=== PATIENT | male | born 1945 | race Caucasian/White ===

== ENCOUNTER 2017-10-13 13:39 | Inpatient (IN) ==
[~2017-10-13 13:39] MED LIST: Glycopyrrolate Inj 1 MG/5 ML Syringe IV.PUSH ONE; Lidocaine PF 1% Inj 5 ML Syringe INFILTRATN ONE; Neostigmine Inj 5 MG/5 ML Syringe IV.PUSH ONE
[2017-10-13] MEDS ORDERED: Chlorhexidine Gluconate 2% 1 Pack (2 Cloths) TOPICAL SCH (14:30)
[2017-10-13] MEDS ORDERED: Metoprolol Tartrate 25 MG Tablet PO SCH (14:30)
[2017-10-13] MEDS ORDERED: Sodium Chlor 0.9% Inj 500 ML IV.SIG SCH (15:00)
[2017-10-13] MEDS ORDERED: Ampicillin/Sulbactam Inj 3 GM in Sodium Chloride 0.9% Inj 100 ML IV.SIG ONE (17:00)
[2017-10-13] MEDS ORDERED: fentaNYL Citrate Inj 100 MCG/2 ML Ampul ONE (17:09)
--- NOTE | 2017-10-13 18:25 | FL ---
EXAM DATE: 10/13/2017 6:13 PM EDT AGE/SEX: 71 years / Male INDICATIONS: Pancreatic mass. CLINICAL DATA: This is the patient's initial encounter. Patient reports that signs and symptoms have been present for 1 day and indicates a pain score of Nonresponsive. MEDICAL/SURGICAL HISTORY: Carcinoma, pancreas. Tonsillectomy. COMPARISON: No prior exams available for comparison. FINDINGS: An ERCP was performed by the ordering physician. Solitary digital image obtained demonstrates a wire in the common bile duct. CONCLUSION: ERCP images. Electronically signed by: Glenn Baltazar MD 10/13/2017 6:24 PM EDT
[2017-10-13] MEDS: Dextrose 5%/NaCl 0.45% Inj 1,000 ML IV.SIG SCH (18:40)
--- NOTE | 2017-10-13 20:22 | CT ---
EXAM DATE: 10/13/2017 7:25 PM EDT AGE/SEX: 71 years / Male INDICATIONS: Post ERCP. CLINICAL DATA: This is the patient's initial encounter. Patient reports that signs and symptoms have been present for 1 day and indicates a pain score of 5/10. MEDICAL/SURGICAL HISTORY: Carcinoma, pancreas. Tonsillectomy. ORAL CONTRAST: No oral contrast ingested. RADIATION DOSE: 7.84 CTDI (mGy) COMPARISON: [place]LI, MR [place]CP W AND W/O CONTRAST, [place] [facility] [place]. . TECHNIQUE: Multiple contiguous axial images were obtained through the abdomen. Images were obtained using multiple row detector helical technique. No oral contrast ingested. Using automated exposure co ntrol and adjustment of the mA and/or kV according to patient size, radiation dose was kept as low as reasonably achievable to obtain optimal diagnostic quality images. DICOM format image data is avail able electronically for review and comparison. FINDINGS: Lower Lungs: The visualized lower lungs are clear. Liver: The liver has a homogeneous density without space-occupying lesion for noncontrast technique. There is no dilation of the biliary tree. Marked distention of the gallbladder without gallstones. Spleen: Homogeneous density without enlargement. Pancreas: Abnormal appearance to the head of the pancreas with enlargement and indistinctness correl ating to abnormality seen on prior MRCP. No calcifications and no collections of gas within the pancr eatic head mass. There is a small amount of gas in the distal common bile duct. Kidneys: Normal in size and shape. No evidence of mass or hydronephrosis. Several cysts, the largest medial in the left upper pole measuring 5.3 cm. Adrenal Glands: Unremarkable. Aorta/Retroperitoneum: The aorta is grossly unremarkable without aneurysmal dilation. No paraaortic or retrocrural adenopathy. Bowel/Mesentery: The bowel loops are grossly unremarkable. Abdominal Wall: There is a rounded low density lesion in the subcutaneous tissues of the anterolater al right upper quadrant measuring 5.0 cm, mean CT density of 11 Hounsfield units. Bony Structures: Unremarkable. CONCLUSION: 1. No evidence of free fluid or free intraperitoneal gas status post ERCP. 2. Pancreatic head abnormality/mass similar to prior MRCP. 3. Distended gallbladder without calcified stones. 4. Right upper quadrant subcutaneous low density smooth margin lesion. Electronically signed by: Glenn Baltazar MD 10/13/2017 8:21 PM EDT
[2017-10-14] MEDS: Dextrose 5%/NaCl 0.45% Inj 1,000 ML IV.SIG SCH ×5 (02:40→21:50)
[2017-10-14 07:41] LABS: Baso % (Auto) 0.3 % (0.0-2.0); Eos % (Auto) 0.2 % (0.0-4.0); Hematocrit 35.8 % (39.0-51.0); Hemoglobin 12.2 gm/dL (13.0-17.0); Lymph # (Auto) 0.8 th/mm3 (1.0-4.8); Lymph % (Auto) 10.7 % (9.0-44.0); Mean Corpuscular HGB Conc 34.2 % (32.0-36.0); Mean Corpuscular Hemoglobin 28.6 pg (27.0-34.0); Mean Corpuscular Volume 83.8 fL (80.0-100.0); Mean Platelet Volume 9.4 fL (7.0-11.0); Mono # (Auto) 0.5 th/mm3 (0.0-0.9); Mono % (Auto) 6.8 % (0.0-8.0); Neut # (Auto) 6.1 th/mm3 (1.8-7.7); Platelet Count 199 th/mm3 (150-450); Red Blood Count 4.27 mil/mm3 (4.50-5.90); White Blood Count 7.4 th/mm3 (4.0-11.0)
[2017-10-14 07:49] LABS: INR 1.1 Ratio; Prothrombin Time 11.1 sec (9.8-11.6)
[2017-10-14 08:02] LABS: Alanine Aminotransferase 298 U/L (12-78); Albumin 2.9 g/dL (3.4-5.0); Anion Gap 9 meq/L (5-15); Aspartate Aminotransferase 120 U/L (15-37); Blood Urea Nitrogen 12 mg/dL (7-18); Calcium 8.8 mg/dL (8.5-10.1); Carbon Dioxide 26.7 meq/L (21.0-32.0); Chloride 103 meq/L (98-107); Glomerular Filtration Rate 76 mL/min (>89); Glucose,Random 135 mg/dL (74-106); Potassium 3.4 meq/L (3.5-5.1); Sodium 139 meq/L (136-145)
[2017-10-14 08:05] LABS: Alkaline Phosphatase 264 U/L (45-117); Total Protein 5.9 g/dL (6.4-8.2)
--- NOTE | 2017-10-14 14:26 | ECG ---
Date Performed: 10/13/2017 Time Performed: 14:34:39 PTAGE: 71 years EKG: SINUS BRADYCARDIA BORDERLINE ECG NO PREVIOUS TRACING DOCTOR: Chase Durán Interpretating Date/Time 10/14/2017 14:26:32
--- NOTE | 2017-10-14 16:55 | P.HP ---
<Chuck Lua - Last Filed: 10/22/17 08:38> History of Present Illness Primary Care Physician: Robert Chung MD Chief Complaint: obstructive jaundice History of Present Illness: This is 71 year old male who was [place] by Dr. Capone [place] [facility] [place] due to obstructive Jaundice. Ct on 10/13/17 showed pancreatic head abnormality/mass similar to prior MrCP. Distended gallbladder without calcified stones, RUQ subcutaneous low density smooth margin lesion. Bili 14.6, AST 120, PCB647, ALP 264, WBC wnl. Pt with complaints of itching and jaundice for sometimes. Denies alcohol intake. Denies nausea, vomiting, melena or hematochezia. Endorses abd pain, and dark urine. This was incidental findings during imaging for prostate. Inpatient Certification: I certify that the inpatient services were ordered in accordance with Medicare regulations governing the order. This includes certification that hospital inpatient services are reasonable and necessary and in the case of services not specified as inpatient-only under 42 CFR 419.22(n), that they are appropriately provided as inpatient services in accordance to with the 2-midnight benchmark under 43 CFR 412.3(e) Estimated Total Length of Stay (Days): 3 Plans for Post Hospital Care: Home (home) Review of Systems All other systems reviewed negative except as stated in HPI PMFSH - History History Provided By: Patient - Medical History Medical History: Medical History (Last Updated 10/14/17 @ 16:49 by KIEL Tariq) Brain tumor History of broken collarbone Skin cancer - Surgical History Surgical History: Surgical History (Last Reviewed 10/15/17 @ 12:59 by Alejo Diaz MD) History of tonsillectomy - Tobacco History Second Hand Smoke Exposure: No Smoking Status: Former smoker - Alcohol History How Often Do You Have a Drink Containing Alcohol: Never - Substance Use History Substance History: No History of Abuse - Travel History Recent Travel in the [place] Within the Last 8 Weeks: No Medications and Allergies Allergies Allergy/AdvReac Type Severity Reaction Status Date / Time No Known Allergies Allergy Unverified 10/13/17 14:43 Active Medications: Active Medications Chlorhexidine Gluconate (Chlorhexidine 2% Cloth) 3 pack TOPICAL OPERATOR AUTOMATED PROCESS CAM Stop: 10/16/17 14:30 Cholestyramine Resin (Questran 4 Gm Pkt) 4 gm PO Q6H [facility] Last Admin: 10/14/17 14:16 Dose: Not Given Hydroxyzine HCl (Atarax) 25 mg PO QID PRN PRN Reason: ITCHING Last Admin: 10/14/17 10:00 Dose: 25 mg Sodium Chloride (Ns Inj) 500 mls @ 30 mls/hr IV.SIG .Q10H [facility] Stop: 10/16/17 14:30 Lactated Ringer's (Lr 1000 Ml Inj) 1,000 mls @ 30 mls/hr IV.SIG .Q24H [facility] Stop: 10/16/17 14:30 Last Infusion: 10/14/17 00:00 Dose: Infused Dextrose/Sodium Chloride (D5w/1/2 Ns Inj) 1,000 mls @ 150 mls/hr IV.SIG .Q6H40M [facility] Last Admin: 10/14/17 10:01 Dose: 150 mls/hr Metoprolol Tartrate (Lopressor) 25 mg PO OPERATOR AUTOMATED PROCESS [facility] Stop: 10/16/17 14:30 Miscellaneous Information ([facility] [place] 1 each OTHER UNSCH PRN PRN Reason: SEE LABEL COMMENTS Stop: 10/14/17 18:03 Povidone Iodine (Betadine 5% Antisepsis Kit) 1 applicatio EACH NARE OPERATOR AUTOMATED PROCESS [facility] Stop: 10/16/17 14:30 Exam Vital signs: Vital Signs 10/13/17 18:00 10/13/17 18:15 10/13/17 18:30 Temperature 97.7 F Pulse Rate 68 56 L 54 L Respiratory Rate 14 14 14 Blood Pressure 158/78 H 144/77 H 148/76 H Pulse Oximetry 100 99 96 10/13/17 20:00 10/14/17 00:00 10/14/17 02:02 Temperature 98.1 F 98.1 F Pulse Rate 55 L 55 L 45 L Respiratory Rate 18 18 16 Blood Pressure 168/76 H 95/50 L 136/67 Pulse Oximetry 96 93 L 10/14/17 04:00 10/14/17 08:00 10/14/17 12:00 Temperature 97.8 F 97.8 F 97.6 F Pulse Rate 54 L 43 L 42 L Respiratory Rate 18 14 12 Blood Pressure 111/65 125/60 133/67 Pulse Oximetry 95 99 98 Intake & Output 10/13/17 10/14/17 10/14/17 18:59 06:59 18:59 Intake Total 800 / 800 2300 / 2300 1000 / 1000 Output Total 275 / 275 600 / 600 Balance 525 / 525 2300 / 2300 400 / 400 Weight 72.6 kg 72.5 kg Intake: IV 800 / 800 2300 / 2300 1000 / 1000 D5W/1/2 NS Inj 1,000 ML @ 150 2000 / 2000 1000 / 1000 mls/hr IV.SIG .Q6H40M [facility] Rx#: [id number] LR 1000 mL Inj 1,000 ML @ 30 800 / 800 200 / 200 mls/hr IV.SIG .Q24H [facility] Rx#: [id number] Output: Urine 275 / 275 600 / 600 Other: # Voids 1 Weight On Admission 72.6 kg - Constitutional no acute distress - Routine HEENT Exam Head: Present: normocephalic, atraumatic Eye: Present: conjunctival icterus - Routine Neck Exam Present: supple - Routine Respiratory Exam Present: CTA bilaterally - Routine Cardiovascular Exam Present: RRR - Routine Abdominal Exam Present: soft, normoactive bowel sounds, tenderness - Routine Extremities Exam Absent: edema - Routine Skin Exam Present: intact, jaundice - Routine Neurological Exam Present: alert, oriented X3 Results - Labs CBC & Chem 7: 10/17/17 06:38 10/18/17 07:17 Labs: Laboratory Results - last 24 hr 10/14/17 10/14/17 10/14/17 07:14 07:14 07:14 WBC 7.4 RBC 4.27 L Hgb 12.2 L Hct 35.8 L MCV 83.8 MCH 28.6 MCHC 34.2 RDW 16.0 Plt Count 199 MPV 9.4 Neut % (Auto) 82.0 H Lymph % (Auto) 10.7 Hettinger % (Auto) 6.8 Eos % (Auto) 0.2 Baso % (Auto) 0.3 Neut # (Auto) 6.1 Lymph # (Auto) 0.8 L Hettinger # (Auto) 0.5 Eos # (Auto) 0.0 Baso # (Auto) 0.0 WBC Differential . Differential Comment Auto diff final PT 11.1 INR 1.1 Sodium 139 Potassium 3.4 L Chloride 103 Carbon Dioxide 26.7 Anion Gap 9 BUN 12 Creatinine 0.98 Estimated GFR 76 L Random Glucose 135 H Calcium 8.8 Total Bilirubin 14.6 H AST 120 H ALT 298 H Alkaline Phosphatase 264 H Total Protein 5.9 L Albumin 2.9 L - Imaging Impressions Abdomen CT 10/13/17 00:00 CONCLUSION: 1. No evidence of free fluid or free intraperitoneal gas status post ERCP. 2. Pancreatic head abnormality/mass similar to prior MRCP. 3. Distended gallbladder without calcified stones. 4. Right upper quadrant subcutaneous low density smooth margin lesion. GI Procedure 10/13/17 00:00 CONCLUSION: ERCP images. Caprini VTE Risk Assessment Caprini Risk Assessment Model: Point Value = 1 Point Value = 2 Point Value = 3 Point Value = 5 Age 41-60 Minor surgery BMI > 25 kg/m2 Swollen legs Varicose veins or History of unexplained or recurrent spontaneous Oral contraceptives or hormone replacement Sepsis (< 1 month) Serious lung disease, including pneumonia (< 1 month) Abnormal pulmonary function Acute myocardial infarction Congestive heart failure (< 1 month) History of inflammatory bowel disease Medical patient at bed rest Age 61-74 Arthroscopic surgery Major open surgery (> 45 min) Laparoscopic surgery (> 45 min) Malignancy Confined to bed (> 72 hours) Immobilizing plaster cast Central venous access Age >= 75 History of VTE Family history of VTE Factor V Leiden Prothrombin [id number] Lupus anticoagulant Anticardiolipin antibodies Elevated serum homocysteine Heparin-induced thrombocytopenia Other congenital or acquired thrombophilia Stroke (< 1 month) Elective arthroplasty Hip, pelvis, or leg fracture Acute spinal cord injury (< 1 month) Prophylaxis Regimen: Total Risk Factor Score Risk Level Prophylaxis Regimen 0-1 Low Early ambulation 2 Moderate Order ONE of the following: *Sequential Compression Device (SCD) *Heparin 5000 units SQ BID 3-4 Higher Order ONE of the following medications: *Heparin 5000 units SQ TID *Enoxaparin/Lovenox 40 mg SQ daily (WT < 150 kg, CrCl > 30 mL/min) *Enoxaparin/Lovenox 30 mg SQ daily (WT < 150 kg, CrCl > 10-29 mL/min) *Enoxaparin/Lovenox 30 mg SQ BID (WT < 150 kg, CrCl > 30 mL/min) AND/OR *Sequential Compression Device (SCD) 5 or more Highest Order ONE of the following medications: *Heparin 5000 units SQ TID (Preferred with Epidurals) *Enoxaparin/Lovenox 40 mg SQ daily (WT < 150 kg, CrCl > 30 mL/min) *Enoxaparin/Lovenox 30 mg SQ daily (WT < 150 kg, CrCl > 10-29 mL/min) *Enoxaparin/Lovenox 30 mg SQ BID (WT < 150 kg, CrCl > 30 mL/min) AND *Sequential Compression Device (SCD) Assessment and Plan - Plan - Pancreatic mass/obstructive jaundice- S/P incomplete ERCP on 10/13/17, IR consulted for PTC This is 71 year old male who was [place] by Dr. Capone [place] [facility] [place] due to obstructive Jaundice. Ct on 10/13/17 showed pancreatic head abnormality/mass similar to prior MrCP. Distended gallbladder without calcified stones, RUQ subcutaneous low density smooth margin lesion. Bili 14.6, AST 120, UPB290, ALP 264, WBC wnl. Pt with complaints of itching and jaundice for sometimes. Denies alcohol intake. Denies nausea, vomiting, melena or hematochezia. Endorses abd pain, and dark urine. This was incidental findings during imaging for prostate. Plan: - Clears - IR for PTC - CA 19-9, CEA, AFP - Consider EUS as an OP - Monitor labs - Atarax - Cholestyramine - Supportive care - Pt seen and examined by DR. Wadsworth and myself and this note is written on his behalf. <Baljeet Wadsworth E - Last Filed: 10/25/17 12:12> History of Present Illness Service: GI service Primary Care Physician: Robert Chung MD - Diagnosis (1) Obstructive jaundice (2) Pancreatic mass Inpatient Certification: I certify that the inpatient services were ordered in accordance with Medicare regulations governing the order. This includes certification that hospital inpatient services are reasonable and necessary and in the case of services not specified as inpatient-only under 42 CFR 419.22(n), that they are appropriately provided as inpatient services in accordance to with the 2-midnight benchmark under 43 CFR 412.3(e) Estimated Total Length of Stay (Days): 3 Plans for Post Hospital Care: Home [facility] - Medical History Medical History: Medical History (Last Updated 10/14/17 @ 16:49 by KIEL Tariq) Brain tumor History of broken collarbone Skin cancer - Surgical History Surgical History: Surgical History (Last Reviewed 10/15/17 @ 12:59 by Alejo Diaz MD) History of tonsillectomy Medications and Allergies Active Medications: Active Medications Chlorhexidine Gluconate (Chlorhexidine 2% Cloth) 3 pack TOPICAL OPERATOR AUTOMATED PROCESS [facility] Stop: 10/16/17 14:30 Cholestyramine Resin (Questran 4 Gm Pkt) 4 gm PO Q6H [facility] Last Admin: 10/14/17 14:16 Dose: Not Given Hydroxyzine HCl (Atarax) 25 mg PO QID PRN PRN Reason: ITCHING Last Admin: 10/14/17 10:00 Dose: 25 mg Sodium Chloride (Ns Inj) 500 mls @ 30 mls/hr IV.SIG .Q10H [facility] Stop: 10/16/17 14:30 Lactated Ringer's (Lr 1000 Ml Inj) 1,000 mls @ 30 mls/hr IV.SIG .Q24H [facility] Stop: 10/16/17 14:30 Last Admin: 10/14/17 16:48 Dose: Not Given Dextrose/Sodium Chloride (D5w/1/2 Ns Inj) 1,000 mls @ 150 mls/hr IV.SIG .Q6H40M [facility] Last Admin: 10/14/17 17:58 Dose: 150 mls/hr Lorazepam (Ativan Inj) 2 mg IV.PUSH ONCE ONE Stop: 10/14/17 20:01 Metoprolol Tartrate (Lopressor) 25 mg PO OPERATOR AUTOMATED PROCESS [facility] Stop: 10/16/17 14:30 Povidone Iodine (Betadine 5% Antisepsis Kit) 1 applicatio EACH NARE OPERATOR AUTOMATED PROCESS [facility] Stop: 10/16/17 14:30 Exam Vital signs: Vital Signs 10/13/17 20:00 10/14/17 00:00 10/14/17 02:02 Temperature 98.1 F 98.1 F Pulse Rate 55 L 55 L 45 L Respiratory Rate 18 18 16 Blood Pressure 168/76 H 95/50 L 136/67 Pulse Oximetry 96 93 L 10/14/17 04:00 10/14/17 08:00 10/14/17 12:00 Temperature 97.8 F 97.8 F 97.6 F Pulse Rate 54 L 43 L 42 L Respiratory Rate 18 14 12 Blood Pressure 111/65 125/60 133/67 Pulse Oximetry 95 99 98 10/14/17 16:00 Temperature 97.5 F L Pulse Rate 44 L Respiratory Rate 12 Blood Pressure 158/68 H Pulse Oximetry 98 Intake & Output 10/14/17 10/14/17 10/15/17 06:59 18:59 06:59 Intake Total 2300 / 2300 2000 / 2000 Output Total 900 / 900 Balance 2300 / 2300 1100 / 1100 Weight 72.5 kg Intake: IV 2300 / 2300 2000 / 2000 D5W/1/2 NS Inj 1,000 ML @ 150 2000 / 2000 2000 / 2000 mls/hr IV.SIG .Q6H40M [facility] Rx#: [id number] LR 1000 mL Inj 1,000 ML @ 30 200 / 200 mls/hr IV.SIG .Q24H [facility] Rx#: [id number] Output: Urine 900 / 900 Other: # Voids 2 # Bowel Movements 1 Results - Labs CBC & Chem 7: 10/17/17 06:38 10/18/17 07:17 Labs: Laboratory Results - last 24 hr 10/14/17 10/14/17 10/14/17 07:14 07:14 07:14 WBC 7.4 RBC 4.27 L Hgb 12.2 L Hct 35.8 L MCV 83.8 MCH 28.6 MCHC 34.2 RDW 16.0 Plt Count 199 MPV 9.4 Neut % (Auto) 82.0 H Lymph % (Auto) 10.7 Hettinger % (Auto) 6.8 Eos % (Auto) 0.2 Baso % (Auto) 0.3 Neut # (Auto) 6.1 Lymph # (Auto) 0.8 L Hettinger # (Auto) 0.5 Eos # (Auto) 0.0 Baso # (Auto) 0.0 WBC Differential . Differential Comment Auto diff final PT 11.1 INR 1.1 Sodium 139 Potassium 3.4 L Chloride 103 Carbon Dioxide 26.7 Anion Gap 9 BUN 12 Creatinine 0.98 Estimated GFR 76 L Random Glucose 135 H Calcium 8.8 Total Bilirubin 14.6 H AST 120 H ALT 298 H Alkaline Phosphatase 264 H Total Protein 5.9 L Albumin 2.9 L - Imaging Impressions Abdomen CT 10/13/17 00:00 CONCLUSION: 1. No evidence of free fluid or free intraperitoneal gas status post ERCP. 2. Pancreatic head abnormality/mass similar to prior MRCP. 3. Distended gallbladder without calcified stones. 4. Right upper quadrant subcutaneous low density smooth margin lesion. Caprini VTE Risk Assessment Caprini VTE Risk Assessment: No/Low Risk (score <= 1) Caprini Risk Assessment Model: Point Value = 1 Point Value = 2 Point Value = 3 Point Value = 5 Age 41-60 Minor surgery BMI > 25 kg/m2 Swollen legs Varicose veins or History of unexplained or recurrent spontaneous Oral contraceptives or hormone replacement Sepsis (< 1 month) Serious lung disease, including pneumonia (< 1 month) Abnormal pulmonary function Acute myocardial infarction Congestive heart failure (< 1 month) History of inflammatory bowel disease Medical patient at bed rest Age 61-74 Arthroscopic surgery Major open surgery (> 45 min) Laparoscopic surgery (> 45 min) Malignancy Confined to bed (> 72 hours) Immobilizing plaster cast Central venous access Age >= 75 History of VTE Family history of VTE Factor V Leiden Prothrombin [id number] Lupus anticoagulant Anticardiolipin antibodies Elevated serum homocysteine Heparin-induced thrombocytopenia Other congenital or acquired thrombophilia Stroke (< 1 month) Elective arthroplasty Hip, pelvis, or leg fracture Acute spinal cord injury (< 1 month) Prophylaxis Regimen: Total Risk Factor Score Risk Level Prophylaxis Regimen 0-1 Low Early ambulation 2 Moderate Order ONE of the following: *Sequential Compression Device (SCD) *Heparin 5000 units SQ BID 3-4 Higher Order ONE of the following medications: *Heparin 5000 units SQ TID *Enoxaparin/Lovenox 40 mg SQ daily (WT < 150 kg, CrCl > 30 mL/min) *Enoxaparin/Lovenox 30 mg SQ daily (WT < 150 kg, CrCl > 10-29 mL/min) *Enoxaparin/Lovenox 30 mg SQ BID (WT < 150 kg, CrCl > 30 mL/min) AND/OR *Sequential Compression Device (SCD) 5 or more Highest Order ONE of the following medications: *Heparin 5000 units SQ TID (Preferred with Epidurals) *Enoxaparin/Lovenox 40 mg SQ daily (WT < 150 kg, CrCl > 30 mL/min) *Enoxaparin/Lovenox 30 mg SQ daily (WT < 150 kg, CrCl > 10-29 mL/min) *Enoxaparin/Lovenox 30 mg SQ BID (WT < 150 kg, CrCl > 30 mL/min) AND *Sequential Compression Device (SCD) Assessment and Plan - Assessment (1) Obstructive jaundice Code(s): K83.8 - Other specified diseases of biliary tract Status: Acute Plan: PTHD (2) Pancreatic mass Code(s): K86.9 - Disease of pancreas, unspecified Status: Acute Plan: Tumor markers were ordered consideration for endoscopic ultrasound - Plan Patient seen and examined Agree with above Continue with current supportive care Monitor labs Discussed Condition With: Patient and family members in the room - Attending Attestation The exam, history, and the medical decision-making described in the above note were completed with the assistance of the mid-level provider. I reviewed and agree with the findings presented. I attest that I had a [id number] encounter with the patient on the same day, and personally performed and documented my assessment and findings in the medical record.
[2017-10-15] MEDS: Dextrose 5%/NaCl 0.45% Inj 1,000 ML IV.SIG SCH ×4 (07:07→20:06)
[2017-10-15 09:37] LABS: Baso # (Auto) 0.1 th/mm3 (0.0-0.2); Baso % (Auto) 0.8 % (0.0-2.0); Eos # (Auto) 0.4 th/mm3 (0.0-0.4); Eos % (Auto) 5.6 % (0.0-4.0); Hematocrit 37.6 % (39.0-51.0); Hemoglobin 12.8 gm/dL (13.0-17.0); Lymph # (Auto) 0.9 th/mm3 (1.0-4.8); Lymph % (Auto) 13.5 % (9.0-44.0); Mean Corpuscular Volume 85.3 fL (80.0-100.0); Mean Platelet Volume 9.8 fL (7.0-11.0); Mono # (Auto) 0.5 th/mm3 (0.0-0.9); Neut % (Auto) 72.1 % (16.0-70.0); Platelet Count 210 th/mm3 (150-450); White Blood Count 6.9 th/mm3 (4.0-11.0)
[2017-10-15 09:59] LABS: Anion Gap 7 meq/L (5-15); Aspartate Aminotransferase 117 U/L (15-37); Blood Urea Nitrogen 12 mg/dL (7-18); Calcium 8.7 mg/dL (8.5-10.1); Carbon Dioxide 27.8 meq/L (21.0-32.0); Chloride 106 meq/L (98-107); Glomerular Filtration Rate 74 mL/min (>89); Glucose,Random 104 mg/dL (74-106); Lipase 573 U/L (73-393); Potassium 3.6 meq/L (3.5-5.1); Sodium 141 meq/L (136-145)
[2017-10-15 10:01] LABS: Alanine Aminotransferase 282 U/L (12-78)
[2017-10-15 10:05] LABS: Alkaline Phosphatase 256 U/L (45-117); Alpha Fetoprotein Tumor Marker 1.4 ng/mL (0.5-8.0); Carcinoembryonic Antigen 1.7 ng/mL (0.2-5.0); Total Protein 6.1 g/dL (6.4-8.2)
[2017-10-15] MEDS ORDERED: Propofol Inj 500 MG/50 ML Vial ONE (10:15)
[2017-10-15] MEDS ORDERED: Ketamine Inj 500 MG/10 ML Vial ONE (10:15)
[2017-10-15] MEDS ORDERED: fentaNYL Citrate Inj 100 MCG/2 ML Ampul ONE (11:11)
--- NOTE | 2017-10-15 11:39 | P.RAD ---
Post Procedure Progress Note - Pre Procedure Diagnosis (1) Obstructive jaundice (2) Pancreatic mass - Post Procedure Diagnosis (1) Obstructive jaundice (2) Pancreatic mass - Procedure Information Procedure Date: 10/15/17 Supervising Radiologist: Evans Jara MD Estimated blood loss (mL): 2 Anesthesia: MAC - Plan of Activity Patient to Unit: PACU Patient Condition: Good See PACS Report for procedural detail/treatment. Drainage Procedure Fluoroscopy right Biliary Drainage Placement Turkish Tube Size: 8 Drainage: Tilden drainage Fluid Description: Bilious (dark) Findings: Biliary obstruction at level of pancreatic head. I/E drain placed. Leave to gravity drainage for next 48 hours then tube can be capped.
[2017-10-15] MEDS: *morphine SULFATE 4 MG/ML PERIprocedure ONLY ONE ×2 (11:59→13:54)
--- NOTE | 2017-10-15 12:55 | IR ---
EXAM DATE: 10/15/2017 11:54 AM EDT AGE/SEX: 71 years / Male INDICATIONS: Patient had failed ERCP done 10-13-17. Patient has biliary obstruction and requires a b iliary drain placed. CLINICAL DATA: This is the patient's initial encounter. Patient reports that signs and symptoms have been present for 3 days and indicates a pain score of 0/10. MEDICAL/SURGICAL HISTORY: . Brain tumor, skin cancer. Tonsillectomy. COMPARISON: No prior exams available for comparison. FLUORO TIME (min): 7.55 IMAGE SERIES: CONTRAST (cc): 20 Omnipaque (iohexol) 350 Intra-procedural antibiotics were given as prescribed above. Anesthesia and pain control was provided by the Anesthesia department. DEVICE(S): 8 [place] internal/external biliary drain Flexima . . PROCEDURE: 1. Ultrasound guided puncture of the biliary tree. 2. Percutaneous antegrade cholangiogram. 3. Biliary stent placement. 4. Conscious sedation with continuous EKG and oximetry monitoring. The risks, benefits and alternatives to the procedure were explained and verbal and written consent w as obtained. The site was prepped in sterile fashion. Full sterile technique was used, including ca p, mask, sterile gloves and gown and a large sterile sheet. Hand hygiene and 2% chlorhexidine and/or betadine/alcohol prep was utilized per protocol for cutaneous antisepsis. Sterile gel and sterile p robe cover were utilized for ultrasound guidance. The skin and subcutaneous tissues were infiltrated with local anesthetic solution. With ultrasound and fluoroscopic guidance the biliary tree was punctured with a 22 gauge Chiba needle and the biliary tree was opacified. A 22-gauge Chiba needle was used to gain access to the biliary t ree and a guidewire was passed into the duodenum. Serial dilatation was performed to accept the pres cribed catheter. Injection of positive contrast demonstrates appropriate position. Conscious sedation was performed with the prescribed dosages and duration as above in the presence of an independent trained radiology nurse to assist in the monitoring of the patient. EKG and oximetry remained stable throughout the procedure. The patient tolerated the procedure well and there were n o complications. The patient was sent to post anesthesia recovery in stable condition. CONCLUSION: 1. Uncomplicated biliary stent placement as above. High-grade obstruction in the expected location o f the pancreatic head. Electronically signed by: Evans Jara MD 10/15/2017 12:54 PM EDT
--- NOTE | 2017-10-15 13:01 | P.CON ---
History of Present Illness Service: Oncology Consult date: 10/14/17 Reason for Consult: Pancreatic Mass Primary Care Provider: Robert Chung MD Chief Complaint: obstructive jaundice, Itching History of Present Illness: This is a 71-year-old male who was admitted to the hospital for a planned ERCP due to obstructive jaundice. The patient had developed progressive yellowing of his skin and pruritus. He underwent MRCP in the outpatient setting. He was found to have a pancreatic mass. On this admission he has undergone CT of the abdomen. This has revealed a pancreatic head mass. There is an abnormal appearance to the head of the pancreas with enlargement correlating to the abnormality seen on prior MRCP. There is distended gallbladder without calcified stones. Patient underwent an unsuccessful attempt for ERCP and stent placement. IR has been consulted for a biliary drain and stent placement now. The patient states that overall he was in good health. He has been quite active. He developed pruritus and yellowing of his skin. He does not have any smoking history. He does not drink alcohol. No illicit drug use. The patient is retired. He is to work as a jeweler. His family history is significant for uterine cancer in her mother. He denies any headaches, no dysphagia, no shortness of breath, no chest pain, no abdominal pain, no diarrhea, no constipation, no lower extremity edema or pain. He has clinically no stools. He denies having any bright red blood per rectum or melena. Review of Systems All other systems reviewed negative except as stated in HPI PMFSH - History History Provided By: Patient - Medical History Medical History: Medical History (Last Reviewed 10/15/17 @ 12:59 by Alejo Diaz MD) Brain tumor History of broken collarbone Skin cancer - Surgical History Surgical History: Surgical History (Last Reviewed 10/15/17 @ 12:59 by Alejo Diaz MD) History of tonsillectomy - Tobacco History Second Hand Smoke Exposure: No Smoking Status: Former smoker - Alcohol History How Often Do You Have a Drink Containing Alcohol: Never - Substance Use History Substance History: No History of Abuse - Travel History Recent Travel in the [facility] Within the Last 8 Weeks: No Medications and Allergies Active Medications: Active Medications Chlorhexidine Gluconate (Chlorhexidine 2% Cloth) 3 pack [facility] Stop: 10/16/17 14:30 Cholestyramine Resin (Questran 4 Gm Pkt) 4 gm PO Q6H [facility] Last Admin: 10/15/17 06:52 Dose: Not Given Hydroxyzine HCl (Atarax) 25 mg PO QID PRN PRN Reason: ITCHING Last Admin: 10/14/17 21:48 Dose: 25 mg Sodium Chloride (Ns Inj) 500 mls @ 30 mls/hr IV.SIG .Q10H [facility] Stop: 10/16/17 14:30 Lactated Ringer's (Lr 1000 Ml Inj) 1,000 mls @ 30 mls/hr IV.SIG .Q24H [facility] Stop: 10/16/17 14:30 Last Admin: 10/14/17 16:48 Dose: Not Given Dextrose/Sodium Chloride (D5w/1/2 Ns Inj) 1,000 mls @ 150 mls/hr IV.SIG .Q6H40M [facility] Last Admin: 10/15/17 07:07 Dose: Not Given Metoprolol Tartrate (Lopressor) 25 mg PO [facility] Stop: 10/16/17 14:30 Miscellaneous Information ([facility] Nursing Information) 1 each OTHER UNSCH PRN PRN Reason: SEE LABEL COMMENTS Stop: 10/16/17 11:02 Povidone Iodine (Betadine 5% Antisepsis Kit) 1 applicatio EACH NARE [facility] Stop: 10/16/17 14:30 Allergies Allergy/AdvReac Type Severity Reaction Status Date / Time No Known Allergies Allergy Unverified 10/13/17 14:43 Home Medications Medication Instructions Recorded Confirmed Type hydroxyzine HCl 25 mg PO QID PRN 10/13/17 10/13/17 History Physical Exam Vital signs: Vital Signs 10/14/17 16:00 10/14/17 20:00 10/15/17 00:00 Temperature 97.5 F L 97.8 F 97.5 F L Pulse Rate 44 L 46 L 45 L Respiratory Rate 12 16 16 Blood Pressure 158/68 H 167/76 H 131/63 Pulse Oximetry 98 98 98 10/15/17 04:00 10/15/17 08:00 Temperature 98 F 98 F Pulse Rate 65 44 L Respiratory Rate 18 17 Blood Pressure 158/74 H 125/65 Pulse Oximetry 98 99 Intake & Output 10/14/17 10/15/17 10/15/17 18:59 06:59 18:59 Intake Total 1999 Output Total 900 / 900 1400 / 1400 Balance 1100 / 1100 600 / 600 Weight 75.3 kg Intake: IV 1999 D5W/1/2 NS Inj 1,000 ML @ 150 1999 mls/hr IV.SIG .Q6H40M [facility] Rx#: [id number] Output: Urine 900 / 900 1400 / 1400 Other: # Voids 2 Date of Last Bowel Movement 10/15/17 # Bowel Movements 1 - Constitutional no acute distress - Routine HEENT Exam Head: Present: normocephalic, atraumatic Eye: Present: conjunctival icterus - Routine Respiratory Exam Present: CTA bilaterally - Routine Cardiovascular Exam Present: RRR, S1, S2 - Routine Abdominal Exam Present: soft, normoactive bowel sounds - Routine Extremities Exam Present: full ROM, pulses intact, normal capillary refill - Routine Skin Exam Present: intact, dry, warm - Routine Neurological Exam Present: alert, oriented X3, CN II-XII intact - Routine Psychiatric Exam Present: normal affect, normal thought process Assessment and Plan - Assessment (1) Obstructive jaundice Code(s): K83.8 - Other specified diseases of biliary tract Status: Acute (2) Pancreatic mass Code(s): K86.9 - Disease of pancreas, unspecified Status: Acute - Plan This is a 71-year-old male who developed jaundice and pruritus and was found to have a pancreatic head mass via MRCP. He was scheduled to undergo ERCP: 1 pancreatic head mass with biliary obstruction this is quite concerning for underlying malignancy such as pancreatic adenocarcinoma. The patient has biliary obstruction with jaundice and pruritus. IR has been consulted to place a biliary drain and a stent. This patient will require an endoscopic ultrasound with another biopsy attempt. I explained to the patient that we need to obtain a biopsy to make a diagnosis. A CT scan with pancreatic protocol would also be helpful. I agree with checking tumor markers including CA 199. Also check CEA levels. Check LDH. I explained to the patient that if this is pancreatic adenocarcinoma, we will need to determine its resectability. If the malignancy is found to be resectable then he will need a Whipple procedure. However I did explain to him that in many cases pancreatic adenocarcinoma is locally advanced and unresectable upfront. In this situation neoadjuvant chemotherapy is recommended. I did emphasize that we do not have a diagnosis yet and that we need to obtain a biopsy before making any recommendations. #2 obstructive jaundice--plan for IR to place a biliary drain and a stent Thank you for allowing me to participate in the care of this patient on continue to follow this patient along.
[2017-10-15] MEDS: Levofloxacin 500 mg Premix Inj 500 MG/100 ML PIGGYBACK IV.SIG ONE ×2 (13:54→19:58)
--- NOTE | 2017-10-15 14:27 | P.PNGI ---
Subjective Interval history: Pt just returned from IR for internal/external biliary drain. Pt complaining of some pain around biliary drain site. Currently with 200 mL of dark bile colored fluid in drain. Denies nausea and vomiting. Complaining of pruritus, discussed with RN, pt is due for Atarax. <Stephania Hood - Last Filed: 10/15/17 14:52> Physical Exam Vital signs: Vital Signs 10/14/17 16:00 10/14/17 20:00 10/15/17 00:00 Temperature 97.5 F L 97.8 F 97.5 F L Pulse Rate 44 L 46 L 45 L Respiratory Rate 12 16 16 Blood Pressure 158/68 H 167/76 H 131/63 Pulse Oximetry 98 98 98 10/15/17 04:00 10/15/17 08:00 10/15/17 11:02 Temperature 98 F 98 F 98.4 F Pulse Rate 65 44 L 66 Respiratory Rate 18 17 18 Blood Pressure 158/74 H 125/65 147/85 H Pulse Oximetry 98 99 100 10/15/17 11:15 10/15/17 11:30 10/15/17 11:45 Temperature Pulse Rate 61 56 L 52 L Respiratory Rate 18 18 18 Blood Pressure 148/80 H 145/69 H 133/67 Pulse Oximetry 98 96 97 10/15/17 12:20 10/15/17 12:42 Temperature 98.4 F 97.8 F Pulse Rate 50 L 49 L Respiratory Rate 18 16 Blood Pressure 140/64 143/65 H Pulse Oximetry 97 97 Intake & Output 10/14/17 10/15/17 10/15/17 18:59 06:59 18:59 Intake Total 1999 Output Total 900 / 900 1400 / 1400 Balance 1100 / 1100 600 / 600 Weight 75.3 kg Intake: IV 1999 D5W/1/2 NS Inj 1,000 ML @ 150 1999 mls/hr IV.SIG .Q6H40M [facility] Rx#: [id number] Output: Urine 900 / 900 1400 / 1400 Other: # Voids 2 Date of Last Bowel Movement 10/15/17 # Bowel Movements 1 - Constitutional no acute distress - Routine HEENT Exam Head: Present: normocephalic, atraumatic Eye: Present: conjunctival icterus - Routine Respiratory Exam Absent: accessory muscle use - Routine Abdominal Exam Present: soft, normoactive bowel sounds, tenderness (tenderness around biliary drain site ) Comments: External biliary drain with 200 mL of dark bile colored drainage - Routine Skin Exam Present: jaundice - Routine Neurological Exam Present: alert, oriented X3 <Stephania Hood - Last Filed: 10/15/17 14:52> Vital signs: Vital Signs 10/14/17 16:00 10/14/17 20:00 10/15/17 00:00 Temperature 97.5 F L 97.8 F 97.5 F L Pulse Rate 44 L 46 L 45 L Respiratory Rate 12 16 16 Blood Pressure 158/68 H 167/76 H 131/63 Pulse Oximetry 98 98 98 10/15/17 04:00 10/15/17 08:00 10/15/17 11:02 Temperature 98 F 98 F 98.4 F Pulse Rate 65 44 L 66 Respiratory Rate 18 17 18 Blood Pressure 158/74 H 125/65 147/85 H Pulse Oximetry 98 99 100 10/15/17 11:15 10/15/17 11:30 10/15/17 11:45 Temperature Pulse Rate 61 56 L 52 L Respiratory Rate 18 18 18 Blood Pressure 148/80 H 145/69 H 133/67 Pulse Oximetry 98 96 97 10/15/17 12:20 10/15/17 12:42 Temperature 98.4 F 97.8 F Pulse Rate 50 L 49 L Respiratory Rate 18 16 Blood Pressure 140/64 143/65 H Pulse Oximetry 97 97 Intake & Output 10/14/17 10/15/17 10/15/17 18:59 06:59 18:59 Intake Total 1999 Output Total 900 / 900 1400 / 1400 Balance 1100 / 1100 600 / 600 Weight 75.3 kg Intake: IV 1999 D5W/1/2 NS Inj 1,000 ML @ 150 1999 mls/hr IV.SIG .Q6H40M [facility] Rx#: [id number] Output: Urine 900 / 900 1400 / 1400 Other: # Voids 2 Date of Last Bowel Movement 10/15/17 # Bowel Movements 1 <Baljeet Wadsworth - Last Filed: 10/15/17 15:50> Results - Labs CBC & Chem 7: 10/15/17 07:55 10/15/17 07:55 Laboratory Results - last 24 hr 10/15/17 10/15/17 10/15/17 07:55 07:55 07:55 WBC 6.9 RBC 4.40 L Hgb 12.8 L Hct 37.6 L MCV 85.3 MCH 29.0 MCHC 34.0 RDW 17.0 Plt Count 210 MPV 9.8 Neut % (Auto) 72.1 H Lymph % (Auto) 13.5 [place] % (Auto) 8.0 Eos % (Auto) 5.6 H Baso % (Auto) 0.8 Neut # (Auto) 5.0 Lymph # (Auto) 0.9 L [place] # (Auto) 0.5 Eos # (Auto) 0.4 Baso # (Auto) 0.1 WBC Differential . Differential Comment Auto diff final Sodium 141 Potassium 3.6 Chloride 106 Carbon Dioxide 27.8 Anion Gap 7 BUN 12 Creatinine 1.00 Estimated GFR 74 L Random Glucose 104 Calcium 8.7 Total Bilirubin 14.3 H AST 117 H ALT 282 H Alkaline Phosphatase 256 H Total Protein 6.1 L Albumin 3.0 L Lipase 573 H Tumor Marker AFP 1.4 Carcinoembryonic Ag 1.7 CA 19-9 Antigen 233.3 H - Imaging Impressions Biliary Stent Insertion 10/15/17 00:00 CONCLUSION: 1. Uncomplicated biliary stent placement as above. High-grade obstruction in the expected location of the pancreatic head. <Stephania Hood - Last Filed: 10/15/17 14:52> - Labs CBC & Chem 7: 10/15/17 07:55 10/15/17 07:55 Laboratory Results - last 24 hr 10/15/17 10/15/17 10/15/17 07:55 07:55 07:55 WBC 6.9 RBC 4.40 L Hgb 12.8 L Hct 37.6 L MCV 85.3 MCH 29.0 MCHC 34.0 RDW 17.0 Plt Count 210 MPV 9.8 Neut % (Auto) 72.1 H Lymph % (Auto) 13.5 [place] % (Auto) 8.0 Eos % (Auto) 5.6 H Baso % (Auto) 0.8 Neut # (Auto) 5.0 Lymph # (Auto) 0.9 L [place] # (Auto) 0.5 Eos # (Auto) 0.4 Baso # (Auto) 0.1 WBC Differential . Differential Comment Auto diff final Sodium 141 Potassium 3.6 Chloride 106 Carbon Dioxide 27.8 Anion Gap 7 BUN 12 Creatinine 1.00 Estimated GFR 74 L Random Glucose 104 Calcium 8.7 Total Bilirubin 14.3 H AST 117 H ALT 282 H Alkaline Phosphatase 256 H Total Protein 6.1 L Albumin 3.0 L Lipase 573 H Tumor Marker AFP 1.4 Carcinoembryonic Ag 1.7 CA 19-9 Antigen 233.3 H - Imaging Impressions Biliary Stent Insertion 10/15/17 00:00 CONCLUSION: 1. Uncomplicated biliary stent placement as above. High-grade obstruction in the expected location of the pancreatic head. <Baljeet Wadsworth - Last Filed: 10/15/17 15:50> Assessment and Plan (1) Obstructive jaundice Status: Acute Code(s): K83.8 - Other specified diseases of biliary tract (2) Pancreatic mass Status: Acute Code(s): K86.9 - Disease of pancreas, unspecified - Plan Assessment: - Pancreatic mass- Pt went to [place] for urology follow up regarding his prostate , imaging with incidental findings of pancreatic mass, underwent MRCP and was scheduled for outpatient ERCP, unsuccessful placement of stent via ERCP and pt admitted for IR consult. IR placed internal/external biliary stent placed today with drain, currently with 200 mL of dark bile colored drainage. CA 19-9 233.3 (10/15) AST-117 ALT-282 Alk phos-256 T bili-14.3 Lipase-573 Pt seen by oncology, Dr. Omalley, if resectable planning for whipple, if not resectable than neoadjuvant chemotherapy - History of brain tumors, being managed by [facility] in [place] Pts daughter Mima can be reached during the day at work [phone] or [employer] [phone] Plan: Monitor output from biliary drain Monitor LFTs OK to advance diet Atarax for pruritus Appreciate oncology recommendations Further recommendations to follow Pt has been seen and examined by myself and Dr. Wadsworth and this note is written on his behalf <Stephania Hood - Last Filed: 10/15/17 14:52> (1) Obstructive jaundice Status: Acute Code(s): K83.8 - Other specified diseases of biliary tract (2) Pancreatic mass Status: Acute Code(s): K86.9 - Disease of pancreas, unspecified - Attending Attestation Patient seen and examined Agree with above Continue with current supportive care Monitor labs We will proceed with endoscopic ultrasound with FNA tomorrow <Baljeet Wadsworth - Last Filed: 10/15/17 15:50>
[2017-10-16] MEDS: Dextrose 5%/NaCl 0.45% Inj 1,000 ML IV.SIG SCH ×2 (03:42→10:49)
--- NOTE | 2017-10-16 10:36 | P.PNONC ---
Subjective Interval history: Afebrile Asking questions about procedure today Denies abdominal pain Reports itching is overall improved Wants Atarax available more than once per day Objective Vital Signs/Intake & Output: Vital Signs 10/15/17 11:02 10/15/17 11:15 10/15/17 11:30 Temperature 98.4 F Pulse Rate 66 61 56 L Respiratory Rate 18 18 18 Blood Pressure 147/85 H 148/80 H 145/69 H Pulse Oximetry 100 98 96 10/15/17 11:45 10/15/17 12:20 10/15/17 12:42 Temperature 98.4 F 97.8 F Pulse Rate 52 L 50 L 49 L Respiratory Rate 18 18 16 Blood Pressure 133/67 140/64 143/65 H Pulse Oximetry 97 97 97 10/15/17 20:00 10/15/17 23:30 10/16/17 00:30 Temperature 97.7 F 97.9 F 97.9 F Pulse Rate 56 L 51 L 49 L Respiratory Rate 18 18 18 Blood Pressure 153/71 H 129/61 127/58 L Pulse Oximetry 99 97 95 10/16/17 01:30 10/16/17 02:30 10/16/17 04:00 Temperature 97.9 F 97.8 F 98.3 F Pulse Rate 48 L 50 L 49 L Respiratory Rate 18 18 18 Blood Pressure 122/62 116/64 112/56 L Pulse Oximetry 97 95 97 10/16/17 06:34 10/16/17 09:15 10/16/17 10:20 Temperature 98.5 F 98 F Pulse Rate 51 L 50 L 54 L Respiratory Rate 18 16 Blood Pressure 132/68 155/75 H Pulse Oximetry 97 95 Intake & Output 10/15/17 10/16/17 10/16/17 18:59 06:59 18:59 Intake Total 600 / 600 1600 / 1600 Output Total 425 / 425 1175 / 1175 325 / 325 Balance 175 / 175 425 / 425 -325 / -325 Weight 168 lb 6.931 oz Intake: IV 1000 / 1000 D5W/1/2 NS Inj 1,000 ML @ 150 1000 / 1000 mls/hr IV.SIG .Q6H40M [facility] Rx#: [id number] Oral 600 / 600 600 / 600 Output: Urine 200 / 200 500 / 500 200 / 200 Wound Drainage 225 / 225 675 / 675 125 / 125 # 1 Right Lateral Abdomen 225 / 225 675 / 675 125 / 125 Other: # Voids 1 Date of Last Bowel Movement 10/15/17 10/15/17 # Bowel Movements 0 0 Result Diagrams: 10/15/17 07:55 10/15/17 07:55 Imaging Studies: Impressions Biliary Stent Insertion 10/15/17 00:00 CONCLUSION: 1. Uncomplicated biliary stent placement as above. High-grade obstruction in the expected location of the pancreatic head. Medications: Active Medications Generic Name Dose Route Start Last Admin Trade Name Freq PRN Reason Stop Dose Admin Cholestyramine Resin 4 gm 10/14/17 13:00 10/15/17 20:43 Questran 4 Gm Pkt PO 4 gm Q6H [facility] Administration Hydroxyzine HCl 25 mg 10/13/17 19:52 10/15/17 14:19 Atarax PO 25 mg QID PRN Administration ITCHING Lactated Ringer's 1,000 mls @ 30 mls/hr 10/13/17 14:30 10/15/17 15:04 Lr 1000 Ml Inj IV.SIG 10/16/17 14:30 Not Given .Q24H [facility] Dextrose/Sodium Chloride 1,000 mls @ 150 mls/hr 10/13/17 19:00 10/16/17 03:42 D5w/1/2 Ns Inj IV.SIG 150 mls/hr .Q6H40M [facility] Administration Objective Remarks: GENERAL: Older male resting in bed in no obvious distress SKIN: Warm and dry. HEAD: Normocephalic. EYES: Mildly icteric. No injection or drainage. NECK: Supple, trachea midline. No JVD or lymphadenopathy. CARDIOVASCULAR: Regular rate and rhythm without murmurs. RESPIRATORY: Clear anteriorly. Breathing unlabored at rest. GASTROINTESTINAL: Abdomen soft, non-tender. Drain to right abdomen with dark contents noted in bag. EXTREMITIES: No cyanosis, or edema. MUSCULOSKELETAL: Adequate muscle tone. NEUROLOGICAL: No obvious focal deficit. Awake, alert, and oriented x3. Assessment/Plan (1) Obstructive jaundice Code(s): K83.8 - Other specified diseases of biliary tract Status: Acute (2) Pancreatic mass Code(s): K86.9 - Disease of pancreas, unspecified Status: Acute - Plan 71-year-old male with incidental finding of pancreatic head mass. He was admitted for ERCP with stent placement. 1. Patient to have endoscopic ultrasound with biopsy today. Discussed with patient that biopsy results take several days to result. We reviewed that his CA 199 level is elevated at 233 which points to the likelihood of pancreatic cancer but it is not diagnostic. 2. Further recommendations once biopsy results are back. - Attending Statement he exam, history, and the medical decision-making described in the above note were completed with the assistance of the mid-level provider. I reviewed and agree with the findings presented. I attest that I had a [id number] encounter with the patient on the same day, and personally performed and documented my assessment and findings in the medical record.
[2017-10-16] MEDS ORDERED: Glycopyrrolate Inj 1 MG/5 ML Syringe IV.PUSH ONE (12:00)
[2017-10-16] MEDS ORDERED: Lidocaine PF 1% Inj 5 ML Syringe INFILTRATN ONE (12:00)
[2017-10-16] MEDS ORDERED: Propofol Inj 500 MG/50 ML Vial ONE (17:14)
--- NOTE | 2017-10-16 17:39 | P.PCN ---
Date of procedure: 10/16/17 Pre-op diagnosis: Pancreatic head mass Post-op diagnosis: same Procedure: PROCEDURE PERFORMED EGD with biopsy followed by endoscopic ultrasound with FNA INDICATION FOR PROCEDURE Pancreatic head mass PROCEDURE: The procedure, risks and benefits were discussed with Patient/POA and informed consent was obtained. Anesthesia sedated Patient with Diprivan. Patient was placed in the left lateral decubitus position. EGD: The Pentax videoscope was introduced through the oropharynx and advanced to the second portion of the duodenum under direct visualization. Retroflexion was performed in the stomach. FINDINGS: The esophagus there were patches of white in the distal esophagus of unclear significance possible leukoplakia this was biopsied Stomach there was a small hiatal hernia gastric mucosa was otherwise unremarkable The duodenum and the duodenal sweep was an area of congestion edema erythema friability ulceration possibly representing the malignancy that has invaded through the duodenum this was biopsied the rest of the duodenum was unremarkable EUS: The Pentax videoscope was introduced through the oropharynx and advanced to the second portion of the duodenum . FINDINGS: Pancreatic body and tail were unremarkable as far as the parenchyma but the pancreatic duct was dilated There was a ill-defined hypoechoic mass in the pancreatic head which appears to be invading the portal vein this was biopsied good samples were obtained Regional lymph nodes were noted in addition to celiac lymph nodes the largest measuring about 1.5 cm x 0.5 cm the others much smaller hypoechoic and round suggesting malignancy and metastases ESTIMATED BLOOD LOSS: Minimal SPECIMENS REMOVED: Pancreatic head mass biopsies and duodenal biopsies and esophageal biopsies COMPLICATIONS: None IMPRESSION: Abnormal mucosa distal esophagus of unclear significance Hiatal hernia Duodenal irregularity with ulceration Pancreatic head mass Lymphadenopathy PLAN: Await biopsies Advance diet as tolerated All is stable tomorrow patient may be discharged from a GI standpoint follow-up as an outpatient Anesthesia: MAC Surgeon: Baljeet Wadsworth Condition: stable Disposition: floor
[2017-10-17] MEDS: Dextrose 5%/NaCl 0.45% Inj 1,000 ML IV.SIG SCH ×4 (00:12→12:55)
[2017-10-17 07:58] LABS: Mean Corpuscular HGB Conc 34.4 % (32.0-36.0); Mean Corpuscular Hemoglobin 28.7 pg (27.0-34.0); Mean Corpuscular Volume 83.4 fL (80.0-100.0); Mean Platelet Volume 9.8 fL (7.0-11.0); Platelet Count 210 th/mm3 (150-450); White Blood Count 8.5 th/mm3 (4.0-11.0)
[2017-10-17 08:20] LABS: Albumin 2.8 g/dL (3.4-5.0); Anion Gap 10 meq/L (5-15); Aspartate Aminotransferase 66 U/L (15-37); Blood Urea Nitrogen 8 mg/dL (7-18); Calcium 8.7 mg/dL (8.5-10.1); Carbon Dioxide 26.4 meq/L (21.0-32.0); Chloride 105 meq/L (98-107); Glomerular Filtration Rate 89 mL/min (>89); Glucose,Random 111 mg/dL (74-106); Sodium 141 meq/L (136-145)
[2017-10-17 08:21] LABS: Alanine Aminotransferase 197 U/L (12-78)
[2017-10-17 08:26] LABS: Alkaline Phosphatase 228 U/L (45-117); Total Protein 5.9 g/dL (6.4-8.2)
--- NOTE | 2017-10-17 12:11 | P.PNGI ---
Subjective Interval history: Patient was seen and examined, doing well postprocedure, less abdominal discomfort, can be discharged home and follow-up with Dr. Wadsworth in the office in 1 week <Jesi Rodriguez - Last Filed: 10/17/17 14:50> Interval history: Pt resting in bed. Denies nausea, vomiting. Some pain around biliary drain site , drain with dark bile colored fluid. Pt states itching well controlled with Atarax. <Stephania Hood - Last Filed: 10/17/17 16:22> Physical Exam Vital signs: Vital Signs 10/16/17 15:06 10/16/17 16:02 10/16/17 17:55 Temperature 98 F 98 F Pulse Rate 50 L 50 L 49 L Respiratory Rate 16 16 20 Blood Pressure 155/73 H 163/72 H 158/89 H Pulse Oximetry 95 95 10/16/17 18:15 10/16/17 18:30 10/16/17 18:36 Temperature 98 F Pulse Rate 48 L 48 L 49 L Respiratory Rate 20 20 Blood Pressure 166/74 H 151/79 H Pulse Oximetry 10/16/17 20:00 10/16/17 20:40 10/17/17 00:40 Temperature 100 F H Pulse Rate 52 L 56 L 51 L Respiratory Rate 18 Blood Pressure 165/79 H Pulse Oximetry 98 10/17/17 00:45 10/17/17 03:45 10/17/17 03:53 Temperature 99 F 98.6 F Pulse Rate 50 L 60 47 L Respiratory Rate 17 18 Blood Pressure 140/67 130/69 Pulse Oximetry 99 98 10/17/17 08:00 10/17/17 11:43 10/17/17 12:00 Temperature 98.8 F 98.2 F Pulse Rate 54 L 55 L 52 L Respiratory Rate 20 19 Blood Pressure 133/63 153/71 H Pulse Oximetry 97 98 10/17/17 13:06 Temperature Pulse Rate 49 L Respiratory Rate Blood Pressure Pulse Oximetry Intake & Output 10/16/17 10/17/17 10/17/17 18:59 06:59 18:59 Intake Total 2700 / 2700 1500 / 1500 360 / 360 Output Total 725 / 725 725 / 725 305 / 305 Balance 1974 / 1974 775 / 775 55 / 55 Weight 76.4 kg Intake: IV 1999 1000 / 1000 D5W/1/2 NS Inj 1,000 ML @ 150 1999 1000 / 1000 mls/hr IV.SIG .Q6H40M [facility] Rx#: [id number] Oral 500 / 500 360 / 360 Anesthesia Amount 700 / 700 Output: Urine 300 / 300 725 / 725 Estimated Blood Loss 0 / 0 Wound Drainage 425 / 425 305 / 305 # 1 Right Lateral Abdomen 425 / 425 305 / 305 Other: # Voids 1 8 1 # Bowel Movements 0 <Jesi Rodriguez - Last Filed: 10/17/17 14:50> Vital signs: Vital Signs 10/16/17 14:28 10/16/17 15:06 10/16/17 16:02 Temperature 98 F Pulse Rate 53 L 50 L 50 L Respiratory Rate 16 16 Blood Pressure 155/73 H 163/72 H Pulse Oximetry 95 95 10/16/17 17:55 10/16/17 18:15 10/16/17 18:30 Temperature 98 F 98 F Pulse Rate 49 L 48 L 48 L Respiratory Rate 20 20 20 Blood Pressure 158/89 H 166/74 H 151/79 H Pulse Oximetry 10/16/17 18:36 10/16/17 20:00 10/16/17 20:40 Temperature 100 F H Pulse Rate 49 L 52 L 56 L Respiratory Rate 18 Blood Pressure 165/79 H Pulse Oximetry 98 10/17/17 00:40 10/17/17 00:45 10/17/17 03:45 Temperature 99 F 98.6 F Pulse Rate 51 L 50 L 60 Respiratory Rate 17 18 Blood Pressure 140/67 130/69 Pulse Oximetry 99 98 10/17/17 03:53 10/17/17 08:00 10/17/17 11:43 Temperature 98.8 F Pulse Rate 47 L 54 L 55 L Respiratory Rate 20 Blood Pressure 133/63 Pulse Oximetry 97 10/17/17 12:00 Temperature 98.2 F Pulse Rate 52 L Respiratory Rate 19 Blood Pressure 153/71 H Pulse Oximetry 98 Intake & Output 10/16/17 10/17/17 10/17/17 18:59 06:59 18:59 Intake Total 2700 / 2700 500 / 500 360 / 360 Output Total 725 / 725 725 / 725 305 / 305 Balance 1974 / 1974 -225 / -225 55 / 55 Weight 76.4 kg Intake: IV 1999 D5W/1/2 NS Inj 1,000 ML @ 150 1999 / 1999 mls/hr IV.SIG .Q6H40M [facility] Rx#: [id number] Oral 500 / 500 360 / 360 Anesthesia Amount 700 / 700 Output: Urine 300 / 300 725 / 725 Estimated Blood Loss 0 / 0 Wound Drainage 425 / 425 305 / 305 # 1 Right Lateral Abdomen 425 / 425 305 / 305 Other: # Voids 1 8 1 # Bowel Movements 0 - Constitutional no acute distress - Routine HEENT Exam Head: Present: normocephalic, atraumatic - Routine Respiratory Exam Absent: accessory muscle use - Routine Abdominal Exam Present: soft, normoactive bowel sounds. Absent: tenderness - Routine Skin Exam Present: dry, warm, jaundice - Routine Neurological Exam Present: alert, oriented X3 <Stephania Hood - Last Filed: 10/17/17 16:22> Results - Labs CBC & Chem 7: 10/17/17 06:38 10/17/17 06:38 Laboratory Results - last 24 hr 10/17/17 10/17/17 06:38 06:38 WBC 8.5 RBC 4.20 L Hgb 12.0 L Hct 35.0 L MCV 83.4 MCH 28.7 MCHC 34.4 RDW 17.0 Plt Count 210 MPV 9.8 Sodium 141 Potassium 3.0 L Chloride 105 Carbon Dioxide 26.4 Anion Gap 10 BUN 8 Creatinine 0.85 Estimated GFR 89 Random Glucose 111 H Calcium 8.7 Total Bilirubin 9.6 H AST 66 H ALT 197 H Alkaline Phosphatase 228 H Total Protein 5.9 L Albumin 2.8 L <Jesi Rodriguez - Last Filed: 10/17/17 14:50> - Labs CBC & Chem 7: 10/17/17 06:38 10/17/17 06:38 Laboratory Results - last 24 hr 10/17/17 10/17/17 06:38 06:38 WBC 8.5 RBC 4.20 L Hgb 12.0 L Hct 35.0 L MCV 83.4 MCH 28.7 MCHC 34.4 RDW 17.0 Plt Count 210 MPV 9.8 Sodium 141 Potassium 3.0 L Chloride 105 Carbon Dioxide 26.4 Anion Gap 10 BUN 8 Creatinine 0.85 Estimated GFR 89 Random Glucose 111 H Calcium 8.7 Total Bilirubin 9.6 H AST 66 H ALT 197 H Alkaline Phosphatase 228 H Total Protein 5.9 L Albumin 2.8 L <RaphaelrubénStephania - Last Filed: 10/17/17 16:22> Assessment and Plan (1) Obstructive jaundice Status: Acute Code(s): K83.8 - Other specified diseases of biliary tract (2) Pancreatic mass Status: Acute Code(s): K86.9 - Disease of pancreas, unspecified <Jesi Rodriguez - Last Filed: 10/17/17 14:50> (1) Obstructive jaundice Status: Acute Code(s): K83.8 - Other specified diseases of biliary tract (2) Pancreatic mass Status: Acute Code(s): K86.9 - Disease of pancreas, unspecified - Plan Assessment: - Pancreatic mass- Pt went to [place] for urology follow up regarding his prostate , imaging with incidental findings of pancreatic mass, underwent MRCP and was scheduled for outpatient ERCP, unsuccessful placement of stent via ERCP and pt admitted for IR consult. IR placed internal/external biliary stent placed today with drain, currently with 200 mL of dark bile colored drainage. CA 19-9 233.3 (10/15) AST-117 ALT-282 Alk phos-256 T bili-14.3 Lipase-573 Pt seen by oncology, Dr. Omalley, if resectable planning for whipple, if not resectable than neoadjuvant chemotherapy - History of brain tumors, [facility] [place] Pts daughter Mima can be reached during the day at work [phone] or cell [phone] (10/17) Pt denies nausea and vomiting. Some mild pain around biliary drain site. S/P EUS with FNA yesterday --> Abnormal mucosa distal esophagus of unclear significance, hiatal hernia, duodenal irregularity with ulceration, pancreatic head mass, lymphadenopathy. Addendum: Pt initially set for discharge today, however per RN pts blood pressure has been going up, pt not on hypertensive medication at home. Consult placed for medical management. Also nurse states pt now having drainage around biliary drain site that is saturating his gown and the dressing. Consult placed to IR to evaluate. Our service will sign off, pt cleared for DC from a GI standpoint and will need to follow up with Dr. Wadsworth in the office. Plan: EUS biopsy pending Monitor output from biliary drain Monitor LFTs Atarax for pruritus Oncology following OK to DC from a GI standpoint with GI follow up in the office Pt has been seen and examined by myself and Dr. Rodriguez and this note is written on his behalf <Stephania Hood - Last Filed: 10/17/17 16:22>
--- NOTE | 2017-10-17 16:11 | P.DS ---
Date of admission: 10/13/17 19:42 Primary care physician: Robert Chung MD Brief History from admission: This is 71 year old male who was instructed by Dr. Capone to come to [facility] yesterday for ERCP due to obstructive Jaundice. Ct on 10/13/17 showed pancreatic head abnormality/mass similar to prior MrCP. Distended gallbladder without calcified stones, RUQ subcutaneous low density smooth margin lesion. Bili 14.6, AST 120, PDX943, ALP 264, WBC wnl. Pt with complaints of itching and jaundice for sometimes. Denies alcohol intake. Denies nausea, vomiting, melena or hematochezia. Endorses abd pain, and dark urine. This was incidental findings during imaging for prostate. DS: Diagnosis - Discharge Diagnosis (1) Obstructive jaundice Status: Acute (2) Pancreatic mass Status: Acute DS: Medications - Discharge Medications Prescriptions: hydroxyzine HCl 25 mg PO QID PRN #14 tab PRN Reason: Itching DS: Summary - Time Spent with Patient Total time spent providing and/or coordinating discharge services: - Quality: VTE Deep Vein Thrombosis/Pulmonary Embolism Present on Admission: No Exam Vital signs: Vital Signs 10/16/17 17:55 10/16/17 18:15 10/16/17 18:30 Temperature 98 F 98 F Pulse Rate 49 L 48 L 48 L Respiratory Rate 20 20 20 Blood Pressure 158/89 H 166/74 H 151/79 H Pulse Oximetry 10/16/17 18:36 10/16/17 20:00 10/16/17 20:40 Temperature 100 F H Pulse Rate 49 L 52 L 56 L Respiratory Rate 18 Blood Pressure 165/79 H Pulse Oximetry 98 10/17/17 00:40 10/17/17 00:45 10/17/17 03:45 Temperature 99 F 98.6 F Pulse Rate 51 L 50 L 60 Respiratory Rate 17 18 Blood Pressure 140/67 130/69 Pulse Oximetry 99 98 10/17/17 03:53 10/17/17 08:00 10/17/17 11:43 Temperature 98.8 F Pulse Rate 47 L 54 L 55 L Respiratory Rate 20 Blood Pressure 133/63 Pulse Oximetry 97 10/17/17 12:00 10/17/17 13:06 Temperature 98.2 F Pulse Rate 52 L 49 L Respiratory Rate 19 Blood Pressure 153/71 H Pulse Oximetry 98 Intake & Output 10/16/17 10/17/17 10/17/17 18:59 06:59 18:59 Intake Total 2700 / 2700 1500 / 1500 360 / 360 Output Total 725 / 725 725 / 725 305 / 305 Balance 1974 775 / 775 55 / 55 Weight 76.4 kg Intake: IV 1999 / 1999 1000 / 1000 D5W/1/2 NS Inj 1,000 ML @ 150 1999 / 1999 1000 / 1000 mls/hr IV.SIG .Q6H40M [facility] Rx#: [id number] Oral 500 / 500 360 / 360 Anesthesia Amount 700 / 700 Output: Urine 300 / 300 725 / 725 Estimated Blood Loss 0 / 0 Wound Drainage 425 / 425 305 / 305 # 1 Right Lateral Abdomen 425 / 425 305 / 305 Other: # Voids 1 8 1 # Bowel Movements 0 Results Labs on day of discharge: Labs from last 24 hours 10/17/17 10/17/17 06:38 06:38 WBC 8.5 RBC 4.20 L Hgb 12.0 L Hct 35.0 L MCV 83.4 MCH 28.7 MCHC 34.4 RDW 17.0 Plt Count 210 MPV 9.8 Sodium 141 Potassium 3.0 L Chloride 105 Carbon Dioxide 26.4 Anion Gap 10 BUN 8 Creatinine 0.85 Estimated GFR 89 Random Glucose 111 H Calcium 8.7 Total Bilirubin 9.6 H AST 66 H ALT 197 H Alkaline Phosphatase 228 H Total Protein 5.9 L Albumin 2.8 L - Impressions ITS Impressions Abdomen CT 10/13/17 00:00 CONCLUSION: 1. No evidence of free fluid or free intraperitoneal gas status post ERCP. 2. Pancreatic head abnormality/mass similar to prior MRCP. 3. Distended gallbladder without calcified stones. 4. Right upper quadrant subcutaneous low density smooth margin lesion. GI Procedure 10/13/17 00:00 CONCLUSION: ERCP images. Biliary Stent Insertion 10/15/17 00:00 CONCLUSION: 1. Uncomplicated biliary stent placement as above. High-grade obstruction in the expected location of the pancreatic head. Discharge Plan - Discharge Disposition Patient Disposition: Discharge Home - Discharge Condition Condition: Good - Discharge Order Discharge Orders: Discharge Order (Routine); Ordered 10/17/17 Ordered By: Stephania Hood - Physicians Team Primary Care Provider: Robert Chung Attending Provider: Livan Lynn V Other Providers: Alejo Diaz MD - Rxs /Orders / Referrals /Forms Prescriptions: New hydroxyzine HCl 25 mg Tablet 25 mg PO QID PRN (Reason: Itching) Qty: 14 RF: 0 Continue hydroxyzine HCl 25 mg Tablet 25 mg PO QID PRN (Reason: Itching) Qty: 14 Referrals: Robert Chung MD [Primary Care Provider] - See Instructions - Discharge Instructions Additional Instructions: Pt to follow up with oncology in 1 week and follow up with GI in 1 week
[2017-10-17] MEDS ORDERED: Naproxen 500 MG Tablet PO ONE (17:03)
[2017-10-17] MEDS ORDERED: LORazepam 0.5 MG Tablet PO PRN (17:07)
--- NOTE | 2017-10-17 17:13 | P.PNIM ---
Subjective Interval history: pt c/o drainage around his biliary drain contipation. Physical Exam Vital signs: Vital Signs 10/16/17 17:55 10/16/17 18:15 10/16/17 18:30 Temperature 98 F 98 F Pulse Rate 49 L 48 L 48 L Respiratory Rate 20 20 20 Blood Pressure 158/89 H 166/74 H 151/79 H Pulse Oximetry 10/16/17 18:36 10/16/17 20:00 10/16/17 20:40 Temperature 100 F H Pulse Rate 49 L 52 L 56 L Respiratory Rate 18 Blood Pressure 165/79 H Pulse Oximetry 98 10/17/17 00:40 10/17/17 00:45 10/17/17 03:45 Temperature 99 F 98.6 F Pulse Rate 51 L 50 L 60 Respiratory Rate 17 18 Blood Pressure 140/67 130/69 Pulse Oximetry 99 98 10/17/17 03:53 10/17/17 08:00 10/17/17 11:43 Temperature 98.8 F Pulse Rate 47 L 54 L 55 L Respiratory Rate 20 Blood Pressure 133/63 Pulse Oximetry 97 10/17/17 12:00 10/17/17 13:06 10/17/17 16:00 Temperature 98.2 F 98.3 F Pulse Rate 52 L 49 L 52 L Respiratory Rate 19 19 Blood Pressure 153/71 H 174/79 H Pulse Oximetry 98 98 10/17/17 16:09 Temperature Pulse Rate 53 L Respiratory Rate Blood Pressure Pulse Oximetry Intake & Output 10/16/17 10/17/17 10/17/17 18:59 06:59 18:59 Intake Total 2700 / 2700 1500 / 1500 360 / 360 Output Total 725 / 725 725 / 725 305 / 305 Balance 1974 / 1974 775 / 775 55 / 55 Weight 76.4 kg Intake: IV 1999 1000 / 1000 D5W/1/2 NS Inj 1,000 ML @ 150 1999 / 1999 1000 / 1000 mls/hr IV.SIG .Q6H40M [facility] Rx#: [id number] Oral 500 / 500 360 / 360 Anesthesia Amount 700 / 700 Output: Urine 300 / 300 725 / 725 Estimated Blood Loss 0 / 0 Wound Drainage 425 / 425 305 / 305 # 1 Right Lateral Abdomen 425 / 425 305 / 305 Other: # Voids 1 8 1 # Bowel Movements 0 biliary drain noted. heart reg lung cta abd /snt ext no edema Results - Labs CBC & Chem 7: 10/17/17 06:38 10/18/17 07:17 Laboratory Results - last 24 hr 10/17/17 10/17/17 06:38 06:38 WBC 8.5 RBC 4.20 L Hgb 12.0 L Hct 35.0 L MCV 83.4 MCH 28.7 MCHC 34.4 RDW 17.0 Plt Count 210 MPV 9.8 Sodium 141 Potassium 3.0 L Chloride 105 Carbon Dioxide 26.4 Anion Gap 10 BUN 8 Creatinine 0.85 Estimated GFR 89 Random Glucose 111 H Calcium 8.7 Total Bilirubin 9.6 H AST 66 H ALT 197 H Alkaline Phosphatase 228 H Total Protein 5.9 L Albumin 2.8 L Assessment and Plan - Assessment (1) Pancreatic mass Code(s): K86.9 - Disease of pancreas, unspecified Status: Acute Plan: - Pancreatic mass - Pt went to [place] for urology follow up regarding his prostate, imaging with incidental findings of pancreatic mass, underwent MRCP and was scheduled for outpatient ERCP, unsuccessful placement of stent via ERCP and pt admitted for IR consult. IR placed internal/external biliary stent placed today with drain, currently with 200 mL of dark bile colored drainage. CA 19-9 233.3 (10/15) AST-117 ALT-282 Alk phos-256 T bili-14.3 Lipase-573 Pt seen by oncology, Dr. Omalley, if resectable planning for whipple, if not resectable than neoadjuvant chemotherapy (10/17) S/P EUS with FNA yesterday --> Abnormal mucosa distal esophagus of unclear significance, hiatal hernia, duodenal irregularity with ulceration, pancreatic head mass, lymphadenopathy. Pt was admitted under the GI svc. they were about to dc the pt home but asked us to take over care as his bp was elevated and he had peristent drainage around his int/ext biliary drain. IR consulted to reeval I/E biliary drain. anxiolytic ordered as bp driven by anxiety laxatives. dc tomorrow. f/u path with GI and oncology outpt.
[2017-10-17] MEDS: Naproxen 500 MG Tablet PO PRN ×2 (19:14→20:50)
[2017-10-17] MEDS: Senna/Docusate Sodium 8.6/50 MG Tablet PO SCH (21:01)
[2017-10-18 08:34] LABS: Albumin 2.7 g/dL (3.4-5.0); Anion Gap 9 meq/L (5-15); Aspartate Aminotransferase 66 U/L (15-37); Blood Urea Nitrogen 10 mg/dL (7-18); Calcium 8.8 mg/dL (8.5-10.1); Chloride 105 meq/L (98-107); Glomerular Filtration Rate Greater Than 89 mL/min (>89); Glucose,Random 89 mg/dL (74-106); Magnesium 1.9 mg/dL (1.5-2.5); Potassium 3.1 meq/L (3.5-5.1); Sodium 140 meq/L (136-145)
[2017-10-18 08:36] LABS: Alanine Aminotransferase 160 U/L (12-78)
[2017-10-18 08:37] LABS: Alkaline Phosphatase 193 U/L (45-117); Total Protein 5.5 g/dL (6.4-8.2)
[2017-10-18] MEDS: Senna/Docusate Sodium 8.6/50 MG Tablet PO SCH (09:35)
--- NOTE | 2017-10-18 10:40 | P.DCO ---
- Physical Therapy Order: Evaluate and treat - Home Health Nursing Order: Medical education, Nursing assessment with vital signs Instructions: Pt has biliary drain in place which needs to be monitored and pt to be educated on continued care of the insertion site and drainage. Please draw CBC and CMP on Monday10/23/[address] Rodriguez - Certification I have seen patient Jose Guadalupe Cruz on 10/18/17. My clinical findings support the need for the requested home health care services because: Deconditioned with increased weakness I certify that my clinical findings support that this patient is homebound because: Post-op weakness
[2017-10-18] MEDS ORDERED: fentaNYL Citrate Inj 250 MCG/5 ML Ampul ONE (12:03)
[2017-10-18] MEDS ORDERED: fentaNYL Citrate Inj 100 MCG/2 ML Ampul ONE (13:35)
[2017-10-18 15:13] VITALS: TEMP 97.6
[2017-10-18 15:30] VITALS: O2SAT 99
[2017-10-18 15:33] VITALS: BP 118/65; PULSE 99; RESP 16
--- NOTE | 2017-10-18 16:09 | IR ---
EXAM DATE: 10/18/2017 2:04 PM EDT AGE/SEX: 71 years / Male INDICATIONS: Pancreatic cancer with distal common bile duct obstruction. Internalize biliary stent wi th metallic stent placement. CLINICAL DATA: This is the patient's sequela encounter. Patient reports that signs and symptoms have been present for 3 days and indicates a pain score of 0/10. MEDICAL/SURGICAL HISTORY: . Skin Cancer Brain Tumor Tonsillectomy. COMPARISON: [facility] [place] [place], GI LAB ERCP, 10/13/2017. . FLUORO TIME (min): 8.2 IMAGE SERIES: 1 SEDATION TIME (min): 40 CONTRAST (cc): 15cc Omnipaque (iohexol) 350 MEDICATION(S): 5mg midazolam (Versed) IV 250mcg fentanyl (Sublimaze) IV DEVICE(S): 10x80 [employer] GPS . . PROCEDURE: 1. Tube cholangiography. 2. Fluoroscopic guided biliary stent placement. 3. Continuous pulse oximetry, hemodynamic and EKG monitoring.. 4. Intravenous Conscious sedation The risks, benefits and alternatives to the procedure were explained and verbal and written consent w as obtained. The site was prepped in sterile fashion. Full sterile technique was used, including ca p, mask, sterile gloves and gown and a large sterile sheet. Hand hygiene and 2% chlorhexidine and/or betadine/alcohol prep was utilized per protocol for cutaneous antisepsis. Under direct fluoroscopic guidance an angled Glidewire was manipulated through the existing internal/ external biliary drainage catheter and into the duodenum. The tube was removed intact. A 7 Stateless vas cular sheath was then introduced and taken into the duodenum. Tube cholangiography was performed pull ing back through the region of a distal CBD obstruction. A 10 mm x 8 cm Protege stent was then deploy ed across the distal obstruction. Digital imaging was accomplished to document good positioning of th e stent and patency into the small bowel. The sheath was removed. The right upper quadrant was dresse d with gauze bandages. The patient tolerated the procedure well. Conscious sedation was performed with the prescribed dosages and duration as above in the presence of an independent trained radiology nurse to assist in the monitoring of the patient. EKG and oximetry remained stable throughout the procedure. The patient tolerated the procedure well and there were n o complications. The patient was sent to post anesthesia recovery in stable condition. Uncomplicated biliary stent placement as above. Electronically signed by: Boaz Manjarrez MD 10/18/2017 4:08 PM EDT
--- NOTE | 2017-10-18 16:53 | P.DS ---
Date of admission: 10/13/17 19:42 Primary care physician: Robert Chung MD Anticipated date of discharge: 10/18/17 Brief History from admission: - Pancreatic mass - Pt went to [place] for urology follow up regarding his prostate, imaging with incidental findings of pancreatic mass, underwent MRCP and was scheduled for outpatient ERCP, unsuccessful placement of stent via ERCP and pt admitted for IR consult. DS: Medications - Discharge Medications Prescriptions: hydroxyzine HCl 25 mg PO QID PRN #14 tab PRN Reason: Itching hydroxyzine HCl 25 mg PO QID PRN #14 tab PRN Reason: Itching lorazepam [Ativan] 0.5 mg PO TID PRN #9 tab PRN Reason: Anxiety DS: Summary Hospital Course: Assessment and Plan - Assessment (1) Pancreatic mass Code(s): K86.9 - Disease of pancreas, unspecified Status: Acute Plan: - Pancreatic mass - Pt went to [place] for urology follow up regarding his prostate, imaging with incidental findings of pancreatic mass, underwent MRCP and was scheduled for outpatient ERCP, unsuccessful placement of stent via ERCP and pt admitted for IR consult. IR placed internal/external biliary stent placed today with drain, currently with 200 mL of dark bile colored drainage. CA 19-9 233.3 (10/15) AST-117 ALT-282 Alk phos-256 T bili-14.3 Lipase-573 Pt seen by oncology, Dr. Omalley, if resectable planning for whipple, if not resectable than neoadjuvant chemotherapy (10/17) S/P EUS with FNA yesterday --> Abnormal mucosa distal esophagus of unclear significance, hiatal hernia, duodenal irregularity with ulceration, pancreatic head mass, lymphadenopathy. Pt was admitted under the GI svc. they were about to dc the pt home but asked us to take over care as his bp was elevated and he had peristent drainage around his int/ext biliary drain. IR consulted to reeval I/E biliary drain. Drain removed and internal metal stent placed due to suspicion of pancreas ca. anxiolytic ordered as bp driven by anxiety. will give script on dc laxatives. dc today with GI and Onc f/u for pending pathology and treatment plan. - Time Spent with Patient Total time spent providing and/or coordinating discharge services: - Quality: VTE Deep Vein Thrombosis/Pulmonary Embolism Present on Admission: No Exam Vital signs: Vital Signs 10/17/17 20:00 07/24/18 20:15 10/18/17 00:00 Temperature 98 F Pulse Rate 51 L 66 47 L Respiratory Rate 17 Blood Pressure 145/85 H Pulse Oximetry 96 10/18/17 00:45 10/18/17 05:45 10/18/17 08:00 Temperature 97.9 F 98.6 F 97.3 F L Pulse Rate 69 70 51 L Respiratory Rate 18 19 19 Blood Pressure 130/80 129/89 147/80 H Pulse Oximetry 97 96 98 10/18/17 12:00 10/18/17 13:55 10/18/17 14:10 Temperature 97.9 F 97.6 F Pulse Rate 60 49 L 48 L Respiratory Rate 20 16 18 Blood Pressure 135/79 110/65 115/65 Pulse Oximetry 97 97 97 10/18/17 14:40 10/18/17 15:10 Temperature Pulse Rate 46 L 99 H Respiratory Rate 18 16 Blood Pressure 113/62 118/65 Pulse Oximetry 99 99 Intake & Output 10/17/17 10/18/17 10/18/17 18:59 06:59 18:59 Intake Total 1240 / 1240 1100 / 1100 Output Total 305 / 305 225 / 225 300 / 300 Balance 935 / 935 875 / 875 -300 / -300 Weight 76.5 kg Intake: Oral 1240 / 1240 1100 / 1100 Output: Wound Drainage 305 / 305 225 / 225 300 / 300 # 1 Right Lateral Abdomen 305 / 305 225 / 225 300 / 300 Other: # Voids 9 8 Date of Last Bowel Movement 10/13/17 # Bowel Movements 0 0 heart reg lung cta abd biliary drain ext no edema Results Procedures completed during hospitalization: see above Labs on day of discharge: Labs from last 24 hours 10/18/17 07:17 Sodium 140 Potassium 3.1 L Chloride 105 Carbon Dioxide 26.0 Anion Gap 9 BUN 10 Creatinine 0.77 Estimated GFR Greater than 89 Random Glucose 89 Calcium 8.8 Magnesium 1.9 Total Bilirubin 9.0 H AST 66 H ALT 160 H Alkaline Phosphatase 193 H Total Protein 5.5 L Albumin 2.7 L - Impressions ITS Impressions Abdomen CT 10/13/17 00:00 CONCLUSION: 1. No evidence of free fluid or free intraperitoneal gas status post ERCP. 2. Pancreatic head abnormality/mass similar to prior MRCP. 3. Distended gallbladder without calcified stones. 4. Right upper quadrant subcutaneous low density smooth margin lesion. GI Procedure 10/13/17 00:00 CONCLUSION: ERCP images. Biliary Stent Insertion 10/18/17 00:00 CONCLUSION: Discharge Plan - Discharge Disposition Patient Disposition: /Home Health Service - Discharge Condition Condition: Good - Discharge Order Discharge Orders: Discharge Order (Routine); Ordered 10/18/17 Ordered By: Mima Lowe - Discharge Details Anticipated Discharge Date: 10/18/17 Discharge Comment: Pt needs to schedule followup appts with Dr. Alejo Diaz in 1 week, Dr. Francisco Rodriguez ([facility]) in 1 week to review over pathology results. - Physicians Team Primary Care Provider: Robert Chung Attending Provider: Livan Lynn V Other Providers: Alejo Diaz MD ; Chase Nieto MD ; [facility] - Rxs /Orders / Referrals /Forms Prescriptions: New hydroxyzine HCl 25 mg Tablet 25 mg PO QID PRN (Reason: Itching) Qty: 14 RF: 0 lorazepam [Ativan] 0.5 mg Tablet 0.5 mg PO TID PRN (Reason: Anxiety) Qty: 9 RF: 0 Continue hydroxyzine HCl 25 mg Tablet 25 mg PO QID PRN (Reason: Itching) Qty: 14 Referrals: Jesi Rodriguez MD [Physician] - See Instructions (Followup with Dr. Rodriguez in 1 week, call for an appt) Alejo Diaz MD [Physician] - See Instructions (Followup with Dr. Diaz in 1 week , call for an appt) Robert Chung MD [Primary Care Provider] - See Instructions (Followup with Dr. Chung in 1-2 weeks, call for an appt) - Discharge Instructions Patient Printed Instructions: Lorazepam (By mouth), Hydroxyzine (By mouth), ERCP (Endoscopic Retrograde Cholangiopancreatography) (DC), Percutaneous Transhepatic Biliary Drainage (DC) Additional Instructions: Pt to follow up with oncology in 1 week and follow up with GI in 1 week
== END 2017-10-18 18:07 | disposition home health service (06) ==
LOC: HEND 13:39 → N05 19:36
PROVIDERS: ADMIT Internal Medicine Gastroenterology; ATTEND Internal Medicine Gastroenterology

== ENCOUNTER 2017-11-09 16:08 | Inpatient (IN) ==
[2017-11-09] MEDS ORDERED: Famotidine PF Inj 20 MG/2 ML Vial IV.PUSH ONE (16:49)
[2017-11-09] MEDS ORDERED: Sod Chloride 0.9% Inj 1,000 ML IV.SIG ONE (16:49)
--- NOTE | 2017-11-09 17:19 | ED ---
HPI General Chief Complaint: Abdominal Pain Stated Complaint: Vomiting Time Seen by Provider: 11/09/17 16:35 Source: patient Mode of arrival: ambulatory Limitations: no limitations History of Present Illness HPI narrative: 71-year-old male with PMH recently diagnosed locally advanced pancreatic adenocarcinoma presents to the ED for evaluation of "weeks" history of dysphagia, abdominal bloating, nonbloody, nonbilious "projectile" vomiting, early satiety, belching. He endorses multiple episodes of "watery yellow" diarrhea daily. He states that he ate honey slaw a few days ago and saw it in his emesis today. He endorses weight loss of ~15 lbs in the last few weeks. He denies any abdominal pain. He denies fever, chills, dysuria. He states that he had outpatient imaging of the abdomen that showed "slow bowels" and was prescribed multiple medications to treat his condition. He endorses compliance with the medications without improvement of symptoms. He is followed by Dr. Diaz. He saw Dr. Diaz today and was sent to the ED for further evaluation. Related Data Home Medications Medication Instructions Recorded Confirmed tamsulosin [Flomax] 0.4 mg PO DAILY 10/30/17 11/09/17 metoclopramide HCl [Reglan] 5 mg PO TID 11/09/17 11/09/17 Previous Rx's Medication Instructions Recorded lorazepam [Ativan] 0.5 mg PO TID PRN #9 tab 10/18/17 Allergies Allergy/AdvReac Type Severity Reaction Status Date / Time No Known Allergies Allergy Verified 11/09/17 16:28 Review of Systems ROS: all other systems reviewed are negative [facility] Social History Social History Substance History: No History of Abuse Second Hand Smoke Exposure: No Smoking Status: Never smoker How Often Do You Have a Drink Containing Alcohol: Never Recent Travel in [facility] within the Last 8 Weeks: No Recent Out of Country Travel within the Last 8 Weeks: No Immunization History Tetanus Immunization: >5 Years Hx Influenza Vaccine This Season: No Exam Narrative Exam Narrative: GENERAL: Well-developed, pale, chronically ill-appearing, slightly jaundiced white male in no acute distress. SKIN: Focused skin assessment warm/dry. HEAD: Atraumatic. Normocephalic. EYES: Pupils equal and round. No scleral icterus. No injection or drainage. ENT: No nasal bleeding or discharge. Mucous membranes pink and moist. NECK: Trachea midline. No JVD. CARDIOVASCULAR: Regular rate and rhythm. No murmur appreciated. RESPIRATORY: No accessory muscle use. Clear to auscultation. Breath sounds equal bilaterally. GASTROINTESTINAL: Abdomen soft, nondistended, diffusely tender to palpation. No fluid wave. Hypoactive bowel sounds. MUSCULOSKELETAL: No obvious deformities. No clubbing. No cyanosis. No edema. NEUROLOGICAL: Awake and alert. No obvious cranial nerve deficits. Motor grossly within normal limits. Normal speech. PSYCHIATRIC: Appropriate mood and affect; insight and judgment normal. Course Initial Documented Vital Signs Temperature 98.4 F 11/09/17 16:16 Pulse Rate 79 11/09/17 16:16 Respiratory Rate 24 11/09/17 16:16 Blood Pressure 124/70 11/09/17 16:16 Pulse Oximetry 98 11/09/17 16:16 Last Documented Vital Signs Temperature 98.2 F 11/10/17 08:51 Pulse Rate 65 11/10/17 08:51 Respiratory Rate 20 11/10/17 08:51 Blood Pressure 140/74 11/10/17 08:51 Pulse Oximetry 98 11/10/17 08:51 Medical Decision Making SACHIN Attestation SACHIN supervised visit: Yes Attestation: I, Dr. Florian, have reviewed the advance practice practitioner's documentation and am in agreement, met with the patient face to face, made the diagnosis, and the medical decision making was done by me. *My assessment and Findings: Patient is a 71-year-old male with recent diagnosis of pancreatic cancer presents with abdominal pain. Workup reveals gastric outlet obstruction from the mass. An NG tube was placed to help relieve the obstruction after which the patient felt better. The SACHIN spoke with the patient's oncologist and the hospitalist for further recommendations and admission. MDM Narrative Medical decision making narrative: 71-year-old male with PMH recently diagnosed locally advanced pancreatic adenocarcinoma presents to the ED for evaluation of "weeks" history of dysphagia, abdominal bloating, nonbloody, nonbilious "projectile" vomiting, early satiety, belching. He endorses multiple episodes of "watery yellow" diarrhea daily. He endorses weight loss of ~15 lbs in the last few weeks. He denies any abdominal pain. Patient is followed by Dr. Wang. Was reviewed. On physical exam this is a thin, ill-appearing white male in no acute distress. Abdomen is distended and diffusely tender. No fluid wave noted. Upper GI series reveals gastric obstruction with severely distended stomach. NG tube was inserted and 2 L was evacuated. Patient reported improvement of his symptoms. I spoke with Dr. Diaz who is in agreement with admission. He plans palliative care only. I spoke with Dr. Ann who agrees to accept the patient to the medicine service under Dr. Baum. Please see oncology and medicine notes for disposition. Medical Screen Exam Complete: Yes Emergency Medical Condition: Yes Differential Diagnosis Differential Diagnosis: dysphagia versus pancreatic mass versus obstruction versus ileus versus other Lab Data Result diagrams: 11/10/17 06:03 11/10/17 06:03 Lab Results 11/09/17 11/09/17 11/09/17 Range/Units 17:00 17:00 18:00 WBC 12.8 H (4.0-11.0) th/mm3 RBC 4.68 (4.50-5.90) mil/mm3 Hgb 13.3 (13.0-17.0) gm/dL Hct 38.7 L (39.0-51.0) % MCV 82.7 (80.0-100.0) fL MCH 28.3 (27.0-34.0) pg MCHC 34.2 (32.0-36.0) % RDW 16.4 (11.6-17.2) % Plt Count 282 (150-450) th/mm3 MPV 8.8 (7.0-11.0) fL Neut % (Auto) 86.7 H (16.0-70.0) % Lymph % (Auto) 5.6 L (9.0-44.0) % Harmon % (Auto) 7.2 (0.0-8.0) % Eos % (Auto) 0.3 (0.0-4.0) % Baso % (Auto) 0.2 (0.0-2.0) % Neut # (Auto) 11.1 H (1.8-7.7) th/mm3 Lymph # (Auto) 0.7 L (1.0-4.8) th/mm3 Harmon # (Auto) 0.9 (0.0-0.9) th/mm3 Eos # (Auto) 0.0 (0.0-0.4) th/mm3 Baso # (Auto) 0.0 (0.0-0.2) th/mm3 WBC Differential . Differential Comment Auto diff final Sodium 138 (136-145) meq/L Potassium 3.4 L (3.5-5.1) meq/L Chloride 97 L (98-107) meq/L Carbon Dioxide 31.9 (21.0-32.0) meq/L Anion Gap 9 (5-15) meq/L BUN 22 H (7-18) mg/dL Creatinine 1.11 (0.60-1.30) mg/dL Estimated GFR 66 L (>89) mL/min Random Glucose 103 (74-106) mg/dL Calcium 9.3 (8.5-10.1) mg/dL Total Bilirubin 2.7 H (0.2-1.0) mg/dL AST 31 (15-37) U/L ALT 48 (12-78) U/L Alkaline Phosphatase 95 (45-117) U/L Total Protein 7.6 (6.4-8.2) g/dL Albumin 3.6 (3.4-5.0) g/dL Lipase 799 H (73-393) U/L Urine Color Viktoria (Yellw/Straw) Urine Clarity Turbid H (Clear) Urine pH 6.0 (5.0-8.5) Ur Specific [place] 1.019 (1.002-1.035) Urine Protein 30 H (Neg-Trace) mg/dL Urine Glucose (UA) Negative (Negative) mg/dL Urine Ketones 20 (Negative) mg/dL Urine Occult Blood Small H (Negative) Urine Nitrate Negative (Negative) Urine Bilirubin Negative (Negative) Urine Urobilinogen Less than 2 (Less than 2) mg/dL Ur Leukocyte Esterase Negative (Negative) Urine RBC 15 H (0-3) /hpf Amorphous Sediment Moderate H (None) /hpf Urine Bacteria Occasional H (None) /hpf Urine Mucus Many H (Occasional) /lpf Micro UA Comment Culture not ind Urine Culture Comments Culture not ind 11/10/17 11/10/17 Range/Units 06:03 06:03 WBC 8.8 (4.0-11.0) th/mm3 RBC 4.17 L (4.50-5.90) mil/mm3 Hgb 11.9 L (13.0-17.0) gm/dL Hct 34.5 L (39.0-51.0) % MCV 82.6 (80.0-100.0) fL MCH 28.6 (27.0-34.0) pg MCHC 34.6 (32.0-36.0) % RDW 16.1 (11.6-17.2) % Plt Count 193 D (150-450) th/mm3 MPV 9.2 (7.0-11.0) fL Neut % (Auto) 78.2 H (16.0-70.0) % Lymph % (Auto) 8.3 L (9.0-44.0) % Harmon % (Auto) 10.3 H (0.0-8.0) % Eos % (Auto) 3.0 (0.0-4.0) % Baso % (Auto) 0.2 (0.0-2.0) % Neut # (Auto) 6.9 (1.8-7.7) th/mm3 Lymph # (Auto) 0.7 L (1.0-4.8) th/mm3 Harmon # (Auto) 0.9 (0.0-0.9) th/mm3 Eos # (Auto) 0.3 (0.0-0.4) th/mm3 Baso # (Auto) 0.0 (0.0-0.2) th/mm3 WBC Differential . Differential Comment Auto diff final Sodium 139 (136-145) meq/L Potassium 3.4 L (3.5-5.1) meq/L Chloride 102 (98-107) meq/L Carbon Dioxide 29.1 (21.0-32.0) meq/L Anion Gap 8 (5-15) meq/L BUN 21 H (7-18) mg/dL Creatinine 0.84 (0.60-1.30) mg/dL Estimated GFR Greater than 89 (>89) mL/min Random Glucose 89 (74-106) mg/dL Calcium 8.5 D (8.5-10.1) mg/dL Total Bilirubin (0.2-1.0) mg/dL AST (15-37) U/L ALT (12-78) U/L Alkaline Phosphatase (45-117) U/L Total Protein (6.4-8.2) g/dL Albumin (3.4-5.0) g/dL Lipase (73-393) U/L Urine Color (Yellw/Straw) Urine Clarity (Clear) Urine pH (5.0-8.5) Ur Specific [place] (1.002-1.035) Urine Protein (Neg-Trace) mg/dL Urine Glucose (UA) (Negative) mg/dL Urine Ketones (Negative) mg/dL Urine Occult Blood (Negative) Urine Nitrate (Negative) Urine Bilirubin (Negative) Urine Urobilinogen (Less than 2) mg/dL Ur Leukocyte Esterase (Negative) Urine RBC (0-3) /hpf Amorphous Sediment (None) /hpf Urine Bacteria (None) /hpf Urine Mucus (Occasional) /lpf Micro UA Comment Urine Culture Comments Discharge Plan Discharge Disposition Patient Disposition: 30 Still Patient Discharge Details Diagnosis: Pancreatic mass, Gastric outlet obstruction Physicians Team ED Provider: Palmira Florian ED Midlevel Provider: Rosie Zepeda Primary Care Provider: Primary Care Valencia Camara Attending Provider: Fabian Baum Other Providers: Alejo Diaz Status ED Status: Left Department Discharge Information Discharge Date/Time: 11/09/17 20:18
[2017-11-09 17:56] LABS: Baso % (Auto) 0.2 % (0.0-2.0); Eos % (Auto) 0.3 % (0.0-4.0); Hematocrit 38.7 % (39.0-51.0); Hemoglobin 13.3 gm/dL (13.0-17.0); Lymph # (Auto) 0.7 th/mm3 (1.0-4.8); Lymph % (Auto) 5.6 % (9.0-44.0); Mean Corpuscular HGB Conc 34.2 % (32.0-36.0); Mean Corpuscular Hemoglobin 28.3 pg (27.0-34.0); Mean Corpuscular Volume 82.7 fL (80.0-100.0); Mean Platelet Volume 8.8 fL (7.0-11.0); Mono # (Auto) 0.9 th/mm3 (0.0-0.9); Mono % (Auto) 7.2 % (0.0-8.0); Neut # (Auto) 11.1 th/mm3 (1.8-7.7); Neut % (Auto) 86.7 % (16.0-70.0); Platelet Count 282 th/mm3 (150-450); Red Blood Count 4.68 mil/mm3 (4.50-5.90); Red Cell Distribution Width 16.4 % (11.6-17.2); White Blood Count 12.8 th/mm3 (4.0-11.0)
--- NOTE | 2017-11-09 18:04 | FL ---
EXAM DATE: 11/09/2017 5:47 PM EDT AGE/SEX: 71 years / Male INDICATIONS: Reflux, abdominal pain and distention. CLINICAL DATA: This is the patient's initial encounter. Patient reports that signs and symptoms have been present for 1 week and indicates a pain score of 8/10. MEDICAL/SURGICAL HISTORY: Carcinoma, pancreas. Carcinoma, liver. None. COMPARISON: [facility], PET/CT TUMOR, 11/07/2017. [facility], CT ABDOMEN W/O CONTRAST, 10/13/2017. . FLUORO TIME: 2.1 minutes. IMAGE COUNT: 8 FINDINGS: Limited single contrast upper GI examination was performed. Thin liquid barium was administered in an upright LPO position. No esophageal abnormality is identified. The stomach is severely distended and filled with fluid. The contrast which ends in the stomach and descends into the inferior aspect of t he stomach which is in the pelvis. Spiral the patient in a right lateral decubitus position which all ow the contrast to extend into the antral region but no emptying into the duodenum occurred. Since no additional useful imaging was felt to be able to be obtained, the procedure was ended. CONCLUSION; 1. No esophagitis abnormality is identified. During my examination the patient reports that he has n o difficulty swallowing or dysphagia. 2. Very distended stomach filled with fluid and food material. Correlating the imaging findings of t his examination with the prior studies suggests that there is some degree of gastric outlet obstructi on related to duodenal compression from the pancreatic abnormality. This is resulting in severely dis tended stomach and is almost certainly resulting in the patient's reported symptoms of satiety, anore mario alberto, abdominal distention, reflux, and vomiting. Electronically signed by: Boaz Arias MD 11/09/2017 6:03 PM EDT
[2017-11-09 18:22] LABS: Alanine Aminotransferase 48 U/L (12-78); Albumin 3.6 g/dL (3.4-5.0); Anion Gap 9 meq/L (5-15); Aspartate Aminotransferase 31 U/L (15-37); Blood Urea Nitrogen 22 mg/dL (7-18); Calcium 9.3 mg/dL (8.5-10.1); Carbon Dioxide 31.9 meq/L (21.0-32.0); Chloride 97 meq/L (98-107); Glomerular Filtration Rate 66 mL/min (>89); Glucose,Random 103 mg/dL (74-106); Lipase 799 U/L (73-393); Potassium 3.4 meq/L (3.5-5.1); Sodium 138 meq/L (136-145)
[2017-11-09 18:24] LABS: Alkaline Phosphatase 95 U/L (45-117); Total Protein 7.6 g/dL (6.4-8.2)
[2017-11-09 18:47] LABS: Amorphous Sediment,Urine Moderate /hpf; Bacteria,Urine Occasional /hpf; Bilirubin,Urine Negative (Negative); Clarity,Urine Turbid (Clear); Color,Urine Amber (Yellw/Straw); Glucose,Urine (UA) Negative (Negative); Leukocyte Esterase,Urine Negative (Negative); Mucus,Urine Many /lpf (Occasional); Nitrite,Urine Negative (Negative); Specific Gravity,Urine 1.019 (1.002-1.035)
[2017-11-09] MEDS ORDERED: Bisacodyl 10 MG Supp RECTAL PRN (22:05)
--- NOTE | 2017-11-09 22:17 | P.HP ---
History of Present Illness Service: [facility] hospitalist Primary Care Physician: No Primary Care Physician Chief Complaint: sent by oncology nausea and vomit History of Present Illness: 71-year-old male with PMH recently diagnosed locally advanced pancreatic adenocarcinoma presents to the ED for evaluation of "weeks" history of dysphagia , abdominal bloating, nonbloody, nonbilious "projectile" vomiting, early satiety , belching. He endorses multiple episodes of "watery yellow" diarrhea daily. He endorses weight loss of ~15 lbs in the last few weeks. He denies any abdominal pain. Patient is followed by Dr. Wang. On physical exam this is a thin, ill-appearing white male in no acute distress. Abdomen is distended and diffusely tender. No fluid wave noted. Upper GI series reveals gastric obstruction with severely distended stomach. NG tube was inserted and 2 L was evacuated. Patient reported improvement of his symptoms. ER spoke with Dr. Diaz who is in agreement with admission. He plans palliative care only. He had an unsuccessful attempt at the [facility] interventional radiology was consulted for biliary drain and stent placement. Biopsies showed moderately to poorly differentiated adenocarcinoma with a pancreatic primary. Of note patient did have a recent biopsy of the prostate done at the [facility] which did not reveal any adenocarcinoma. As per oncology will be admitted now we will keep n.p.o. IV fluid Zofran and Reglan for nausea. Further plan as per oncology. - Diagnosis (1) Gastric outlet obstruction (2) Pancreatic mass (3) Obstructive jaundice Review of Systems Constitutional: Reports fatigue, Reports weakness, Reports weight loss Gastrointestinal: Reports abdominal pain, Reports nausea, Reports vomiting PMFSH - History History Provided By: Patient - Medical History Medical History: Medical History (Last Reviewed 11/09/17 @ 22:14 by Behzad Oconnell MD) Brain tumor History of biliary stent insertion History of broken collarbone Pancreas cancer Skin cancer - Surgical History Surgical History: Surgical History (Last Reviewed 11/09/17 @ 22:14 by Behzad Oconnell MD) History of tonsillectomy - Tobacco History Second Hand Smoke Exposure: No Smoking Status: Never smoker - Alcohol History How Often Do You Have a Drink Containing Alcohol: Never - Substance Use History Substance History: No History of Abuse - Travel History Recent Travel in the [place] Within the Last 8 Weeks: No Recent Travel Out of the Country Within the Last 8 Weeks: No - Immunization History Tetanus Immunization: >5 Years Hx Influenza Vaccine This Season: No Medications and Allergies Active Medications: Active Medications Sodium Chloride (Ns Flush) 2 ml IV.FLUSH PRN PRN PRN Reason: FLUSH AFTER USING IV ACCESS Last Admin: 11/09/17 17:02 Dose: 2 ml Allergies Allergy/AdvReac Type Severity Reaction Status Date / Time No Known Allergies Allergy Verified 11/09/17 16:28 Home Medications Medication Instructions Recorded Confirmed Type tamsulosin [Flomax] 0.4 mg PO DAILY 10/30/17 11/09/17 History metoclopramide HCl [Reglan] 5 mg PO TID 11/09/17 11/09/17 History Exam Vital signs: Vital Signs 11/09/17 16:16 11/09/17 16:20 11/09/17 16:50 Temperature 98.4 F 98.1 F Pulse Rate 79 77 68 Respiratory Rate 24 16 Blood Pressure 124/70 152/79 H Pulse Oximetry 98 100 98 11/09/17 17:59 11/09/17 18:35 11/09/17 19:16 Temperature 98.0 F 98.8 F Pulse Rate 68 69 72 Respiratory Rate 16 18 18 Blood Pressure 152/79 H 158/80 H 154/81 H Pulse Oximetry 99 99 97 Intake & Output 11/09/17 11/09/17 11/10/17 06:59 18:59 06:59 Intake Total 1000 / 1000 Output Total 700 / 700 1200 / 1200 Balance 300 / 300 -1200 / -1200 Weight 67.585 kg Intake: IV 1000 / 1000 NS Inj 1,000 ML @ Wide Open IV. 1000 / 1000 SIG BOLUS ONE Rx#:[id number] Output: Gastric Drainage 700 / 700 1200 / 1200 Left Nare Nasogastric Tube 700 / 700 1200 / 1200 Narrative: GENERAL: SKIN: Warm and dry. HEAD: Atraumatic. Normocephalic. EYES: Pupils equal and round. No scleral icterus. No injection or drainage. ENT: No nasal bleeding or discharge. Mucous membranes pink and moist. NECK: Trachea midline. No JVD. CARDIOVASCULAR: Regular rate and rhythm. RESPIRATORY: No accessory muscle use. Clear to auscultation. Breath sounds equal bilaterally. GASTROINTESTINAL: Abdomen -tender to palpation no rebound, mild distended. Hepatic and splenic margins not palpable. MUSCULOSKELETAL: Extremities without clubbing, cyanosis, or edema. No obvious deformities. NEUROLOGICAL: Awake and alert. No obvious cranial nerve deficits. Motor grossly within normal limits. Five out of 5 muscle strength in the arms and legs. Normal speech. PSYCHIATRIC: Appropriate mood and affect; insight and judgment normal. Results - Labs CBC & Chem 7: 11/09/17 17:00 11/09/17 17:00 Labs: Laboratory Results - last 24 hr 11/09/17 11/09/17 11/09/17 17:00 17:00 18:00 WBC 12.8 H RBC 4.68 Hgb 13.3 Hct 38.7 L MCV 82.7 MCH 28.3 MCHC 34.2 RDW 16.4 Plt Count 282 MPV 8.8 Neut % (Auto) 86.7 H Lymph % (Auto) 5.6 L Frio % (Auto) 7.2 Eos % (Auto) 0.3 Baso % (Auto) 0.2 Neut # (Auto) 11.1 H Lymph # (Auto) 0.7 L Frio # (Auto) 0.9 Eos # (Auto) 0.0 Baso # (Auto) 0.0 WBC Differential . Differential Comment Auto diff final Sodium 138 Potassium 3.4 L Chloride 97 L Carbon Dioxide 31.9 Anion Gap 9 BUN 22 H Creatinine 1.11 Estimated GFR 66 L Random Glucose 103 Calcium 9.3 Total Bilirubin 2.7 H AST 31 ALT 48 Alkaline Phosphatase 95 Total Protein 7.6 Albumin 3.6 Lipase 799 H Urine Color Viktoria Urine Clarity Turbid H Urine pH 6.0 Ur Specific [place] 1.019 Urine Protein 30 H Urine Glucose (UA) Negative Urine Ketones 20 Urine Occult Blood Small H Urine Nitrate Negative Urine Bilirubin Negative Urine Urobilinogen Less than 2 Ur Leukocyte Esterase Negative Urine RBC 15 H Amorphous Sediment Moderate H Urine Bacteria Occasional H Urine Mucus Many H Micro UA Comment Culture not ind Urine Culture Comments Culture not ind Caprini VTE Risk Assessment Caprini VTE Risk Assessment: No/Low Risk (score <= 1) Caprini Risk Assessment Model: Point Value = 1 Point Value = 2 Point Value = 3 Point Value = 5 Age 41-60 Minor surgery BMI > 25 kg/m2 Swollen legs Varicose veins or History of unexplained or recurrent spontaneous Oral contraceptives or hormone replacement Sepsis (< 1 month) Serious lung disease, including pneumonia (< 1 month) Abnormal pulmonary function Acute myocardial infarction Congestive heart failure (< 1 month) History of inflammatory bowel disease Medical patient at bed rest Age 61-74 Arthroscopic surgery Major open surgery (> 45 min) Laparoscopic surgery (> 45 min) Malignancy Confined to bed (> 72 hours) Immobilizing plaster cast Central venous access Age >= 75 History of VTE Family history of VTE Factor V Leiden Prothrombin [id number] Lupus anticoagulant Anticardiolipin antibodies Elevated serum homocysteine Heparin-induced thrombocytopenia Other congenital or acquired thrombophilia Stroke (< 1 month) Elective arthroplasty Hip, pelvis, or leg fracture Acute spinal cord injury (< 1 month) Prophylaxis Regimen: Total Risk Factor Score Risk Level Prophylaxis Regimen 0-1 Low Early ambulation 2 Moderate Order ONE of the following: *Sequential Compression Device (SCD) *Heparin 5000 units SQ BID 3-4 Higher Order ONE of the following medications: *Heparin 5000 units SQ TID *Enoxaparin/Lovenox 40 mg SQ daily (WT < 150 kg, CrCl > 30 mL/min) *Enoxaparin/Lovenox 30 mg SQ daily (WT < 150 kg, CrCl > 10-29 mL/min) *Enoxaparin/Lovenox 30 mg SQ BID (WT < 150 kg, CrCl > 30 mL/min) AND/OR *Sequential Compression Device (SCD) 5 or more Highest Order ONE of the following medications: *Heparin 5000 units SQ TID (Preferred with Epidurals) *Enoxaparin/Lovenox 40 mg SQ daily (WT < 150 kg, CrCl > 30 mL/min) *Enoxaparin/Lovenox 30 mg SQ daily (WT < 150 kg, CrCl > 10-29 mL/min) *Enoxaparin/Lovenox 30 mg SQ BID (WT < 150 kg, CrCl > 30 mL/min) AND *Sequential Compression Device (SCD) Assessment and Plan - Assessment (1) Gastric outlet obstruction Code(s): K31.1 - Adult hypertrophic pyloric stenosis Status: Acute Plan: Gastric outlet obstruction secondary to his pancreatic cancer will await oncology evaluation there is duration of palliative care for now we will keep the patient n.p.o. IV fluids (2) Pancreatic mass Code(s): K86.9 - Disease of pancreas, unspecified Status: Acute Plan: Pancreatic mass consistent with cancer plan as per oncology (3) Obstructive jaundice Code(s): K83.8 - Other specified diseases of biliary tract Status: Acute Plan: Obstructive jaundice due to pancreatic cancer further plan as per oncology - Plan as above Code Status: full Discussed Condition With: patient
--- NOTE | 2017-11-09 22:37 | P.PNADD ---
Addendum to Inpatient Note Reason for Addendum: Additional Documentation (Patient stated he had psoitive PET scan with possible met to liver,NG tube did give patient some relief of nausea)
[2017-11-10] MEDS: Potassium Chloride Inj 10 MEQ in Sodium Chloride 0.45 % Inj 1,000 ML IV.CONT SCH ×2 (00:11→17:04)
[2017-11-10 06:45] LABS: Baso % (Auto) 0.2 % (0.0-2.0); Eos # (Auto) 0.3 th/mm3 (0.0-0.4); Hematocrit 34.5 % (39.0-51.0); Hemoglobin 11.9 gm/dL (13.0-17.0); Lymph # (Auto) 0.7 th/mm3 (1.0-4.8); Lymph % (Auto) 8.3 % (9.0-44.0); Mean Corpuscular HGB Conc 34.6 % (32.0-36.0); Mean Corpuscular Hemoglobin 28.6 pg (27.0-34.0); Mean Corpuscular Volume 82.6 fL (80.0-100.0); Mean Platelet Volume 9.2 fL (7.0-11.0); Mono # (Auto) 0.9 th/mm3 (0.0-0.9); Mono % (Auto) 10.3 % (0.0-8.0); Neut # (Auto) 6.9 th/mm3 (1.8-7.7); Neut % (Auto) 78.2 % (16.0-70.0); Platelet Count 193 th/mm3 (150-450); Red Blood Count 4.17 mil/mm3 (4.50-5.90); Red Cell Distribution Width 16.1 % (11.6-17.2); White Blood Count 8.8 th/mm3 (4.0-11.0)
[2017-11-10 07:25] LABS: Anion Gap 8 meq/L (5-15); Blood Urea Nitrogen 21 mg/dL (7-18); Calcium 8.5 mg/dL (8.5-10.1); Carbon Dioxide 29.1 meq/L (21.0-32.0); Chloride 102 meq/L (98-107); Glomerular Filtration Rate Greater Than 89 mL/min (>89); Glucose,Random 89 mg/dL (74-106); Potassium 3.4 meq/L (3.5-5.1); Sodium 139 meq/L (136-145)
[2017-11-10] MEDS: Senna/Docusate Sodium 8.6/50 MG Tablet PO SCH ×2 (11:35→23:22)
--- NOTE | 2017-11-10 12:46 | P.PNIM ---
Subjective Interval history: Pt is a pleasant 71 y/o M with pancreatic ca, stage 4. Pt has metastasis to the liver. Case was d/w pt's Oncologist, Dr. Omalley. Pt's performance status has been in decline. Pt hopes that NGT can be removed as soon as possible. Physical Exam Vital signs: 11/10/17 11:52 Temperature 98.2 F Pulse Rate 70 Respiratory Rate 20 Blood Pressure 140/62 Pulse Oximetry 96 Narrative: GENERAL: This is a well-nourished, well-developed patient, in no apparent distress. NGT in nares CARDIOVASCULAR: Regular rate and rhythm without murmurs, gallops, or rubs. RESPIRATORY: Clear to auscultation. Breath sounds equal bilaterally. No wheezes , rales, or rhonchi. GASTROINTESTINAL: Abdomen soft, non-tender, nondistended. Normal active bowel sounds MUSCULOSKELETAL: Extremities without clubbing, cyanosis, or edema. NEURO: Alert & Oriented x4 to person, place, time, situation. Moves all ext x4 Results - Labs CBC & Chem 7: 11/10/17 06:03 11/11/17 07:50 Assessment and Plan - Assessment (1) Pancreatic cancer metastasized to liver Code(s): C25.9 - Malignant neoplasm of pancreas, unspecified; C78.7 - Secondary malignant neoplasm of liver and intrahepatic bile duct Status: Acute Plan: - Pt diagnosed with Pancreatic Cancer September 2017 - Pt follows with Oncology, Dr. Alejo Omalley. - Case d/w Dr. Omalley (11/10). - Pt's performance status has been declining. - Per Dr. Omalley, pt is NOT a candidate for further palliative chemotherapy at this time. - Recent PET scan showed metastasis to the liver. - Pt now with Gastric Outlet Obstruction. pt admitted with c/o n/v - Will request IR consult for placement of G/J tube to assist with n/v & give nutrition/hydration - Request Palliative Consult - Case Mgmt Referral for SNF - I did d/w Mr. Cruz his poor prognosis - I discussed Code Status as well. Pt wishes to remain full code at this time. - SCDs for DVT prophylaxis - supportive care. (2) Gastric outlet obstruction Code(s): K31.1 - Adult hypertrophic pyloric stenosis Status: Acute Plan: - see above
--- NOTE | 2017-11-10 14:28 | P.CONPAL ---
Consult Service: Palliative Care Requesting Physician: Fabian Baum Reason for Consult: a. To assist with evaluation and management of symptoms including: Nausea, pain , anxiety b. To assist medical decision maker(s) with: better understanding of current medical conditions; weighing benefits/burdens of medical treatment options; making medical treatment decisions. Primary Care Provider: No Primary Care Physician History of Present Illness History of Present Illness: This is a 71 yo male with pancreatic cancer who presented to the ER yesterday for evaluation of abd bloating, vomiting, early satiety, belching, diarrhea. Onset 1 week ago. He lost 15 lbs in the last months. On presentation labs notable for WBC mildly elevated 12.8, elevated bilirubin 2.7, elevated lipase 799, CA 19-9 elevated 170.7. UGI series showed distended stomach filled with fluid and material, a degree of gastric outlet obstruction r/t duodenal compression from pancreatic abnormality. Prior to 1 month ago pt was feeling fine and then 1 month ago he became jaundiced. Pt was admitted for planned ERCP 10/13 for obstructive jaundice and finding was ampulla distorted by tumor invasion, failed sphincterotomy. Multiple imaging modalities showed pancreatic mass. Pt then had biliary drain and stent placed by IR. 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 Pt has been seeing Dr Diaz. The mass is not resectable and pt had a recent PET scan showing possible metastasis to liver. Had port placed 05/03. per oncology pt is too weak for palliative chemotherapy. His bilirubin has trended down since the biliary drain and stent was placed. ON my evaluation pt is just back from GJ tube placement. He says he is "out of it." He is complaining of pain around the tube site that is a 4 out of 10. Abd tender diffusely on exam. He says prior to 1 month ago he was just fine and then he woke up one day and was very itchy and noticed he looked jaundiced. "I kept having procedures and thinking that would fix it." Most of hx obtained from family at bedside as patient was absent and upon return is due to sedation, not alert enough to provide much history or have abstract discussions. He does deny nausea. Function/Cognitive Trajectory: Prior to 1 month ago pt was completely independent, living alone, and living and active and healthy lifestyle. He swam, walked, ran. In the last month he has lost 15 lbs and had multiple hospitalizations and procedures and has declined. Review of Systems unobtainable due to mental condition (recovering from proc sedation; ltd ROS obtained from pt, chart review) Constitutional: Reports lack of energy, Reports weight loss Eyes: Denies blind spots Ears, Nose, Mouth, and Throat: Denies abnormal hearing Cardiovascular: Denies chest pain Respiratory: Denies excessive phlegm production Gastrointestinal: Reports belching, Reports bloating, Reports change in bowel habits, Reports loose stools, Reports nausea, Reports vomiting, Denies difficulty swallowing Musculoskeletal: Reports muscle weakness Skin/Breast: Reports yellowing of the skin Neurologic: Reports unsteadiness Psychiatric: Reports anxiety Hematologic/Lymphatic: Denies easy bleeding PMFSH - History History Provided By: Patient - Medical History Medical History: Medical History (Last Updated 11/11/17 @ 18:48 by Rossy Ingram RN) Port-A-Cath in place Brain tumor History of biliary stent insertion History of broken collarbone Pancreas cancer Skin cancer - Surgical History Surgical History: Surgical History (Last Reviewed 11/11/17 @ 18:20 by Rossy Ingram RN) History of tonsillectomy - Tobacco History Second Hand Smoke Exposure: No Smoking Status: Never smoker - Alcohol History How Often Do You Have a Drink Containing Alcohol: Never - Substance Use History Substance History: No History of Abuse - Travel History Recent Travel in the [facility] Within the Last 8 Weeks: No Recent Travel Out of the Country Within the Last 8 Weeks: No - Immunization History Tetanus Immunization: >5 Years Hx Influenza Vaccine This Season: No Medications and Allergies Active Medications: Active Medications Al Hydroxide/Mg Hydroxide (Milk Of Magnesia Liq) 30 ml PO Q12H PRN PRN Reason: Mild Constipation Bisacodyl (Dulcolax Supp) 10 mg RECTAL DAILY PRN PRN Reason: SEVERE CONSITIPATION Potassium Chloride 10 meq/ (Sodium Chloride) 1,005 mls @ 84 mls/hr IV.CONT .[id number] [facility] Last Infusion: 11/10/17 12:54 Dose: Infused Lactulose (Lactulose Liq) 30 ml PO DAILY PRN PRN Reason: SEVERE CONSITIPATION Lorazepam (Ativan Inj) 0.5 mg IV.PUSH Q8H PRN PRN Reason: ABDOMINAL PAIN Last Admin: 11/10/17 00:12 Dose: 0.5 mg Metoclopramide HCl (Reglan Inj) 5 mg IV.PUSH Q8HR PRN; Protocol PRN Reason: ABDOMINAL PAIN Ondansetron HCl (Zofran Inj) 4 mg IV.PUSH Q6H PRN PRN Reason: NAUSEA OR VOMITING Senna/Docusate Sodium (Rebecca-Colace) 1 tab PO BID CAM Last Admin: 11/10/17 11:35 Dose: Not Given Sennosides (Senokot) 17.2 mg PO Q12H PRN PRN Reason: Moderate Constipation Sodium Chloride (Ns Flush) 2 ml IV.FLUSH PRN PRN PRN Reason: FLUSH AFTER USING IV ACCESS Last Admin: 11/09/17 17:02 Dose: 2 ml Tamsulosin HCl (Flomax) 0.4 mg PO [facility] Allergies Allergy/AdvReac Type Severity Reaction Status Date / Time No Known Allergies Allergy Verified 11/09/17 16:28 Home Medications Medication Instructions Recorded Confirmed Type tamsulosin [Flomax] 0.4 mg PO DAILY 10/30/17 11/09/17 History alprazolam [Xanax] 5 mcg/kg PO TID 11/11/17 History Advance Directives Living Will: Yes (10/14/17 standard verbiate) Healthcare Surrogate: Yes (10/14/17) Health Care Surrogate Name and Number: Oscar Cruz or Mima Cruz Physical Exam Vital Signs: Vital Signs - 24 hr 11/09/17 16:16 11/09/17 16:20 11/09/17 16:50 Temperature 98.4 F 98.1 F Pulse Rate 79 77 68 Respiratory Rate 24 16 Blood Pressure 124/70 152/79 H Pulse Oximetry 98 100 98 11/09/17 17:59 11/09/17 18:35 11/09/17 19:16 Temperature 98.0 F 98.8 F Pulse Rate 68 69 72 Respiratory Rate 18 18 Blood Pressure 152/79 H 158/80 H 154/81 H Pulse Oximetry 99 99 97 11/09/17 23:38 11/10/17 03:51 11/10/17 08:51 Temperature 99.2 F 99.1 F 98.2 F Pulse Rate 66 66 65 Respiratory Rate 18 18 20 Blood Pressure 151/78 H 140/73 140/74 Pulse Oximetry 98 97 98 08/17/18 11:52 Temperature 98.2 F Pulse Rate 70 Respiratory Rate 20 Blood Pressure 140/62 Pulse Oximetry 96 I&O: Intake & Output 11/08/17 11/09/17 11/10/17 11/11/17 06:59 06:59 06:59 06:59 Intake Total 1000 / 1000 1005 / 1005 Output Total 3400 / 3400 Balance -2400 / -2400 1005 / 1005 Weight 67.585 kg Physical Exam: CONSTITUTIONAL/GENERAL: frail appearing male TUBES/LINES/DRAINS: GJ tube NGT SKIN: No jaundice, rashes, or lesions. No wounds seen anteriorly. Skin temperature appropriate. Not diaphoretic. HEAD: Atraumatic. Normocephalic. EYES: Pupils constricted. Extraocular motions intact. mild icterus ENT: Hearing grossly normal. Nose without bleeding or purulent drainage. NECK: Trachea midline. Supple, nontender. CARDIOVASCULAR: RRR without murmurs, gallops, or rubs. No JVD. Peripheral pulses symmetric. RESPIRATORY/CHEST: Symmetric, unlabored respirations. Clear to auscultation. Breath sounds equal bilaterally. No wheezes, rales, or rhonchi. GASTROINTESTINAL: Abdomen soft, diffusely tender, nondistended. No hepato- splenomegaly, or palpable masses. Bowel sounds present. GENITOURINARY: Without palpable bladder distension. Singer catheter in place. MUSCULOSKELETAL: Extremities without clubbing, cyanosis, or edema. No joint tenderness or effusion noted. No calf tenderness. No mottling or clubbing. NEUROLOGICAL:lethargic but oriented, answers appropriately. PSYCHIATRIC: No obvious anxiety/depression. no apparent hallucinations or other psychotic thought process. Diagnostic Tests Laboratory: Laboratory Results - last 72 hr 11/09/17 11/09/17 11/09/17 17:00 17:00 18:00 WBC 12.8 H RBC 4.68 Hgb 13.3 Hct 38.7 L MCV 82.7 MCH 28.3 MCHC 34.2 RDW 16.4 Plt Count 282 MPV 8.8 Neut % (Auto) 86.7 H Lymph % (Auto) 5.6 L Andrew % (Auto) 7.2 Eos % (Auto) 0.3 Baso % (Auto) 0.2 Neut # (Auto) 11.1 H Lymph # (Auto) 0.7 L Andrew # (Auto) 0.9 Eos # (Auto) 0.0 Baso # (Auto) 0.0 WBC Differential . Differential Comment Auto diff final Sodium 138 Potassium 3.4 L Chloride 97 L Carbon Dioxide 31.9 Anion Gap 9 BUN 22 H Creatinine 1.11 Estimated GFR 66 L Random Glucose 103 Calcium 9.3 Total Bilirubin 2.7 H AST 31 ALT 48 Alkaline Phosphatase 95 Total Protein 7.6 Albumin 3.6 Lipase 799 H Urine Color [place] Urine Clarity Turbid H Urine pH 6.0 Ur Specific [place] 1.019 Urine Protein 30 H Urine Glucose (UA) Negative Urine Ketones 20 Urine Occult Blood Small H Urine Nitrate Negative Urine Bilirubin Negative Urine Urobilinogen Less than 2 Ur Leukocyte Esterase Negative Urine RBC 15 H Amorphous Sediment Moderate H Urine Bacteria Occasional H Urine Mucus Many H Micro UA Comment Culture not ind Urine Culture Comments Culture not ind 11/10/17 11/10/17 06:03 06:03 WBC 8.8 RBC 4.17 L Hgb 11.9 L Hct 34.5 L MCV 82.6 MCH 28.6 MCHC 34.6 RDW 16.1 Plt Count 193 D MPV 9.2 Neut % (Auto) 78.2 H Lymph % (Auto) 8.3 L [place] % (Auto) 10.3 H Eos % (Auto) 3.0 Baso % (Auto) 0.2 Neut # (Auto) 6.9 Lymph # (Auto) 0.7 L Andrew # (Auto) 0.9 Eos # (Auto) 0.3 Baso # (Auto) 0.0 WBC Differential . Differential Comment Auto diff final Sodium 139 Potassium 3.4 L Chloride 102 Carbon Dioxide 29.1 Anion Gap 8 BUN 21 H Creatinine 0.84 Estimated GFR Greater than 89 Random Glucose 89 Calcium 8.5 D Total Bilirubin AST ALT Alkaline Phosphatase Total Protein Albumin Lipase Urine Color Urine Clarity Urine pH Ur Specific [place] Urine Protein Urine Glucose (UA) Urine Ketones Urine Occult Blood Urine Nitrate Urine Bilirubin Urine Urobilinogen Ur Leukocyte Esterase Urine RBC Amorphous Sediment Urine Bacteria Urine Mucus Micro UA Comment Urine Culture Comments Result Diagrams: 11/10/17 06:03 11/11/17 07:50 Imaging: ITS Impressions Gastrostomy Tube Placement 11/10/17 00:00 CONCLUSION: 1. Uncomplicated gastrojejunostomy tube placement as above. Abdomen/Pelvis CT 11/11/17 00:00 CONCLUSION: 1. 3 to 4 cm pancreatic head mass again identified. Biliary stent is in place in the common duct. Diffuse prominence of the intrahepatic and extrahepatic biliary ducts. Extensive pneumobilia noted. 2. Small amount of free fluid in the abdomen and pelvis. 3. Mild splenomegaly. 4. Enlarged prostate. 5. Gastrojejunostomy tube in place. Abdomen X-Ray 11/12/17 07:00 CONCLUSION: There are no findings to indicate bowel obstruction. No acute abnormality is identified. Procedures: 11/10 GJ tube placement Patient/Family Conference Present at Family Conference: Pt's brother/ HCS, family friend. Pt was out for GJ tube placement and upon return s was too lethargic to participate in deep discussion Family Conference Location: Bedside Issues Discussed: * Palliative care role, purpose, approach * Additional medical, psychosocial, and spiritual history * Patients general health, functional status, and cognitive changes in the months leading up to the current hospitalization * family understanding of the current medical problems * family understanding of prognosis * Patients goals of care as best understood from advance directives, conversations - "he will want to fight" * Current medical treatment options and benefits/burdens of those options * Likely scenarios comparing ongoing aggressive care with a transition to comfort measures only and hospice * Questions answered to the best of my ability * Palliative care contact information provided Per family pt is just beginning to realize the extent of his pancreatic cancer and is just beginnig to process. Pts daughter and HCS volunteers for hospice care [facility] they are open to discussions on hospice. THey seem to have good insight. Pt too lethargic to participate today. Meeting scheduled Monday 11/13. Assessment and Plan Pertinent Non-Medical Issues: Psychosocial: Pt originally from [place] but has been in [place] most of his life. He is , with 2 daughters who live locally. 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 Spiritual: Legal: pt currently capacitated to make medical decisions. Should he become incapacitated he has designated his daughter Mima and his brother Oscar to make medical decisions on his behalf. Family working together. Ethical issues impacting care: none Important Contacts: Oscar Anthony [phone] Mima Anthony [phone], work [phone] Prognosis: 71 yo male with recently diagnosed locally advanced pancreatic carcinoma who presented 11/09 with vomiting, early satiety, bloating. UGI series showed distended stomach, gastric outlet obstruction 2/2 pancreatic abnormality. Per oncology this mass is not resectable and there is possible liver met now. Pt too weak for chemotherapy. If he were to have nutrition via GJ and get stronger , he could possibly have chemo but this would only be palliative. His prognosis is poor, this is almost certainly terminal. Code Status: Full Code Plan: - LEGAL DECISON MAKER - pt currently capacitated to make medical decisions. Should he become incapacitated he has designated his daughter Mima and his brother Oscar to make medical decisions on his behalf. Family working together. - CODE STATUS- full code - GOALS - Pending. Per family pt is just beginning to realize the extent of his pancreatic cancer and is just beginnig to process. Pts daughter and HCS volunteers for [facility] and [place] they are open to discussions on hospice. THey seem to have good insight. Pt too lethargic to participate today as he just had procedure. Meeting scheduled Monday 11/13. - SYMPTOMS - * anxiety - multifactorial. + insomnia. Has 0.5 mg IV lorazepam q8h PRN abd pain. Last had midnight. * nausea - 2/2 GOO which is r/t pancreatic abnormality. presented with numerous GI sx including vomiting, early satiety. had relief after NGT. now with GJ tube, g tube to s uction. denies nausea on my eval. now on reglan, zofran * pain - risk for pain 2/2 recent GJ placement, pancreatic malignancy, poss mets. c/o pain at GJ site 07/04, grimacing on exam, abd diffusely tender on exam. has dilaudid 0.5mg IV 14h PRN. - D/W oncology, d/w RN. - family meeting to include Daughter/alt HCS Mima, planned for Monday 11/13 1300 - Palliative care will continue to follow during hospital course as condition evolves, to assist patient/decision-maker with understanding of medical conditions, weighing benefits/burdens of treatment options, for clarification of goals of treatment. Additionally will assist with any symptoms of palliative concern Appreciation Thank you for the opportunity to participate in the care of Jose Guadalupe Mejia Anthony. Attestation Attestation: To help prompt me to consider important information that might be impacting today's encounter and assessment, information from prior notes written by myself or my colleagues may have been "brought forward" into today's note. My signature on this note, however, is an attestation that I personally performed the exam, history, and/or decision-making noted today, and, unless otherwise indicated, the interactions with patient, family, and staff as well as the review of records all occurred today. I also attest that the listed assessment and stated plan reflect my best clinical judgment today based on the combination of historical information, prior notes, and today's exam/ interactions. When time spent is documented, it refers only to time spent today by the signer, or if indicated, combined time spent today by collaborating physician/nurse practitioner.
[2017-11-10] MEDS ORDERED: fentaNYL Citrate Inj 250 MCG/5 ML Ampul ONE (14:30)
[2017-11-10] MEDS ORDERED: ceFAZolin 2 GM Premix Inj 2 GM/50 ML PIGGYBACK IV.SIG ONE (14:34)
[2017-11-10] MEDS ORDERED: Iohexol 350 MG/ML 50 ML Vial (for Rad Diag) G-TUBE ONE (15:36)
--- NOTE | 2017-11-10 16:18 | IR ---
EXAM DATE: 11/10/2017 3:53 PM EDT AGE/SEX: 71 years / Male INDICATIONS: Patient with history of Pancreatic cancer in need of Transgastric tube placement for nu trition. and potentially gastric decompression. CLINICAL DATA: This is the patient's initial encounter. Patient reports that signs and symptoms have been present for 3 days and indicates a pain score of 0/10. MEDICAL/SURGICAL HISTORY: Carcinoma, pancreas. Broken collarbone, Skin cancer, Brain tumor. To nsillectomy. Biliary stent placement. COMPARISON: No prior exams available for comparison. FLUORO TIME (min): 8.2 IMAGE SERIES: 1 SEDATION TIME (min): 45 CONTRAST (cc): 35 Omnipaque (iohexol) 350 MEDICATION(S): 3.5 mg midazolam (Versed) IV 175 mcg fentanyl (Sublimaze) IV Prophylactic antibiotics were administered with appropriate pre-procedure timing. DEVICE(S): 22 [place] Transgastric tube . . PROCEDURE: 1. Fluoroscopically guided gastrojejunostomy tube placement. 2. Conscious sedation with continuous EKG and oximetry monitoring. The risks, benefits and alternatives to the procedure were explained and verbal and written consent w as obtained. The site was prepped in sterile fashion. Full sterile technique was used, including ca p, mask, sterile gloves and gown and a large sterile sheet. Hand hygiene and 2% chlorhexidine and/or betadine/alcohol prep was utilized per protocol for cutaneous antisepsis. The skin and subcutaneous tissues were infiltrated with local anesthetic solution. 1 mg of Glucagon was administered. The stomach was insufflated with room air using. Three percutaneo us fasteners were placed to secure the anterior gastric wall. A small incision was made between the fasteners. The stomach was accessed with an 18 gauge needle. A n 0.035 wire was advanced into the small bowel. The tract was dilated. The gastrojejunostomy tube w as introduced through a peel-away sheath. The position was confirmed with an injection of contrast in both the gastric and jejunal lumens. Conscious sedation was performed with the prescribed dosages and duration as above in the presence of an independent trained radiology nurse to assist in the monitoring of the patient. EKG and oximetry remained stable throughout the procedure. The patient tolerated the procedure well and there were n o complications. The patient was sent to post anesthesia recovery in stable condition. CONCLUSION: 1. Uncomplicated gastrojejunostomy tube placement as above. Electronically signed by: Fausto Li MD 11/10/2017 4:16 PM EDT
[2017-11-10] MEDS: HYDROmorphone PF Inj 2 MG/ML Vial IV.PUSH PRN ×2 (16:49→20:35)
--- NOTE | 2017-11-10 23:06 | P.PN ---
Subjective Interval history: I have not been able to see Mr. Cruz today. I made 2 attempts but he was getting a gastric tube placement and was not back in his room. I did have a long discussion with the family regarding his prognosis. He has a diagnosis of pancreatic adenocarcinoma. He recently underwent a PET scan. He was found to have a liver lesion. He presented to the oncology clinic yesterday. He was in a wheelchair. He was quite cachectic and he has lost 10 pounds over 1 week. His abdomen was distended and quite painful. He has not been eating much. Initially, the pancreatic cancer was thought to be locally advanced and plans were to treat him with neoadjuvant chemotherapy. His case was discussed with surgical oncology at the [facility]. He has deteriorated rapidly. I discussed with the family that we need to address his acute ongoing issues including GI obstruction, cachexia, severe physical deconditioning and malnutrition. I did explain to them that that it may not be possible to reverse his current condition. They are quite understanding of this situation. We discussed the role of palliative care. The patient's daughter told me that her father lives alone and has no help at home. She would like to speak with case management regarding placement to a hospice care facility. We will provide supportive care over the weekend. Will address nutrition and pain control over the weekend. According to the family, he has been feeling better after NG tube decompression. The patient will be seen by the oncology team the weekend. A CT scan of the abdomen has been ordered to assess the source of obstruction. We will also ask GI to see this patient for possible upper EGD. Physical Exam Vital signs: Vital Signs 11/09/17 23:38 11/10/17 03:51 11/10/17 08:51 Temperature 99.2 F 99.1 F 98.2 F Pulse Rate 66 66 65 Respiratory Rate 18 18 20 Blood Pressure 151/78 H 140/73 140/74 Pulse Oximetry 98 97 98 11/10/17 11:52 11/10/17 19:06 11/10/17 19:33 Temperature 98.2 F 99.3 F Pulse Rate 70 62 74 Respiratory Rate 20 20 18 Blood Pressure 140/62 164/74 H 162/79 H Pulse Oximetry 96 96 99 Intake & Output 11/10/17 11/10/17 11/11/17 06:59 18:59 06:59 Intake Total 1055 / 1055 Output Total 2700 / 2700 Balance -2700 / -2700 1055 / 1055 Intake: IV 1055 / 1055 KCl Inj 10 MEQ In 1/2 Normal 1005 / 1005 Saline Inj 1,000 ML @ 84 mls/hr IV.CONT .[id number] COUNTS INCLUDE 234 BEDS AT THE [facility] Rx#: [id number] Ancef 2 GM Premix Inj 2 gm In 50 / 50 50 ml @ 0 mls/hr IV.SIG .STK- MED ONE Rx#:[id number] Output: Urine 250 / 250 Gastric Drainage 2450 / 2450 Left Nare Nasogastric Tube 2450 / 2450 Other: Date of Last Bowel Movement 11/09/17 11/09/17 Results - Labs CBC & Chem 7: 11/10/17 06:03 11/10/17 06:03 Laboratory Results - last 24 hr 11/10/17 11/10/17 06:03 06:03 WBC 8.8 RBC 4.17 L Hgb 11.9 L Hct 34.5 L MCV 82.6 MCH 28.6 MCHC 34.6 RDW 16.1 Plt Count 193 D MPV 9.2 Neut % (Auto) 78.2 H Lymph % (Auto) 8.3 L [place] % (Auto) 10.3 H Eos % (Auto) 3.0 Baso % (Auto) 0.2 Neut # (Auto) 6.9 Lymph # (Auto) 0.7 L [place] # (Auto) 0.9 Eos # (Auto) 0.3 Baso # (Auto) 0.0 WBC Differential . Differential Comment Auto diff final Sodium 139 Potassium 3.4 L Chloride 102 Carbon Dioxide 29.1 Anion Gap 8 BUN 21 H Creatinine 0.84 Estimated GFR Greater than 89 Random Glucose 89 Calcium 8.5 D - Imaging Impressions Gastrostomy Tube Placement 11/10/17 00:00 CONCLUSION: 1. Uncomplicated gastrojejunostomy tube placement as above. Assessment and Plan - Assessment (1) Gastric outlet obstruction Code(s): K31.1 - Adult hypertrophic pyloric stenosis Status: Acute (2) Pancreatic cancer metastasized to liver Code(s): C25.9 - Malignant neoplasm of pancreas, unspecified; C78.7 - Secondary malignant neoplasm of liver and intrahepatic bile duct Status: Acute (3) Obstructive jaundice Code(s): K83.8 - Other specified diseases of biliary tract Status: Acute
[2017-11-11] MEDS: HYDROmorphone PF Inj 2 MG/ML Vial IV.PUSH PRN ×6 (00:48→21:48)
[2017-11-11] MEDS: Potassium Chloride Inj 10 MEQ in Sodium Chloride 0.45 % Inj 1,000 ML IV.CONT SCH (04:55)
--- NOTE | 2017-11-11 08:45 | CT ---
EXAM DATE: 11/11/2017 8:31 AM EDT AGE/SEX: 71 years / Male INDICATIONS: Diffuse abdomen pain for three days. CLINICAL DATA: This is the patient's initial encounter. Patient reports that signs and symptoms have been present for 3 days and indicates a pain score of 6/10. MEDICAL/SURGICAL HISTORY: Carcinoma, pancreas. Carcinoma, skin cancer. brain tumor Tonsillect angela. biliary stent placement. ORAL CONTRAST: No oral contrast ingested. RADIATION DOSE: 6.57 CTDI (mGy) COMPARISON: [facility] [place]/O [place], 10/13/2017. . TECHNIQUE: Multiple contiguous axial images were obtained through the abdomen and pelvis following b olus infusion of 96 ml Omnipaque 350 (iohexol) nonionic water-soluble contrast as a single exam dos e. No oral contrast ingested. Using automated exposure control and adjustment of the mA and/or kV ac cording to patient size, radiation dose was kept as low as reasonably achievable to obtain optimal di agnostic quality images. DICOM format image data is available electronically for review and comparis on. FINDINGS: Lower Lungs: The visualized lower lungs are clear. Liver: Stent is identified within the common duct extending from the duodenum to the pratibha hepatis re gion. Extensive pneumobilia noted. There is diffuse prominence of the intrahepatic and extrahepatic b iliary ducts. The mid common duct measures 1.9 cm in diameter. No focal mass identified in the liver. Spleen: Mildly enlarged measuring 13.4 cm in craniocaudal dimension. No focal mass. Pancreas: Ill-defined pancreatic head mass is again identified. Margins are indistinct. Measures portillo roximately 3 to 4 cm in greatest dimension. Superior mesenteric artery is widely patent. Portal vein and splenic vein widely patent. Superior mesenteric vein is grossly patent. Kidneys: Several scattered renal cysts bilaterally. No evidence of hydronephrosis. Adrenal Glands: Unremarkable. Aorta: Within normal limits in diameter. Bowel/Mesentery: Gastrojejunostomy tube is in place. Nasogastric tube is in place. No evidence of nata wel dilatation. No free air. Trace free fluid in the abdomen and pelvis. Appendix is not identified. Abdominal Wall: Intact. Retroperitoneum: No evidence of adenopathy in the retrocrural, para-aortic, or deep pelvic regions. Bladder: Contours are smooth. Reproductive Organs: Prostate is enlarged measuring 5.8 cm in transverse dimension. Inguinal: The inguinal region is unremarkable without evidence of adenopathy. Bony Structures: Unremarkable. CONCLUSION: 1. 3 to 4 cm pancreatic head mass again identified. Biliary stent is in place in the common duct. Di ffuse prominence of the intrahepatic and extrahepatic biliary ducts. Extensive pneumobilia noted. 2. Small amount of free fluid in the abdomen and pelvis. 3. Mild splenomegaly. 4. Enlarged prostate. 5. Gastrojejunostomy tube in place. Electronically signed by: Yazan Pinto MD 11/11/2017 8:44 AM EDT
[2017-11-11 08:51] LABS: Anion Gap 10 meq/L (5-15); Blood Urea Nitrogen 17 mg/dL (7-18); Calcium 8.2 mg/dL (8.5-10.1); Carbon Dioxide 25.5 meq/L (21.0-32.0); Chloride 101 meq/L (98-107); Glomerular Filtration Rate Greater Than 89 mL/min (>89); Glucose,Random 84 mg/dL (74-106); Potassium 3.4 meq/L (3.5-5.1); Sodium 136 meq/L (136-145)
[2017-11-11] MEDS: Senna/Docusate Sodium 8.6/50 MG Tablet PO SCH ×2 (09:19→21:50)
[2017-11-11] MEDS ORDERED: Potassium Chlor 20 mEq Premix 20 MEQ/100 ML PIGGYBACK IV.SIG ONE (10:41)
--- NOTE | 2017-11-11 11:04 | P.CONGI ---
History of Present Illness Consult date: 11/11/17 Consult reason: Nausea and vomiting, gastric outlet obstruction Chief complaint: Gastric outlet obstruction, pancreatic History of Present Illness: This is a 71-year-old slim male who entered the hospital on 11/09/2017. Patient notes onset of symptoms approximately 2 weeks ago which included abdominal bloating/belching some nausea, projectile vomiting, and watery yellow diarrhea. Patient notes weight loss of approximately 15 pounds and is currently resting in the bed with NG tube connected to low intermittent suction. Patient notes diagnosis of advanced pancreatic adenocarcinoma approximately 1 month ago and denies any chemotherapy or radiation. Patient has family member in the room to assist with this history and supportive care. Gastroenterology was consulted to assist with patient's symptom management as well as possible EGD. Currently patient denies any constipation and no obvious hematemesis or rectal bleeding. Aggregating factors to his symptoms appear to be his pancreatic cancer in which Dr. Diaz has been assisting patient with. Alleviating factors are some pain management meds IV fluids and anti-medics. Currently patient is n.p.o.. And also notes that he had GJ tube placed yesterday 11/10/2017. Labs show current hemoglobin 11.9 on 11/10/2017. Review of Systems All other systems reviewed negative except as stated in HPI PMFSH - History History Provided By: Patient - Medical History Medical History: Medical History (Last Reviewed 11/11/17 @ 06:50 by Chaz Mccartney) Brain tumor History of biliary stent insertion History of broken collarbone Pancreas cancer Skin cancer - Surgical History Surgical History: Surgical History (Last Reviewed 11/11/17 @ 06:50 by Chaz Mccartney) History of tonsillectomy - Tobacco History Second Hand Smoke Exposure: No Smoking Status: Never smoker - Alcohol History How Often Do You Have a Drink Containing Alcohol: Never - Substance Use History Substance History: No History of Abuse - Travel History Recent Travel in the [place] Within the Last 8 Weeks: No Recent Travel Out of the Country Within the Last 8 Weeks: No - Immunization History Tetanus Immunization: >5 Years Hx Influenza Vaccine This Season: No Medications and Allergies Active Medications: Active Medications Al Hydroxide/Mg Hydroxide (Milk Of Magnesia Liq) 30 ml PO Q12H PRN PRN Reason: Mild Constipation Bisacodyl (Dulcolax Supp) 10 mg RECTAL DAILY PRN PRN Reason: SEVERE CONSITIPATION Hydromorphone HCl (Dilaudid Pf Inj) 0.5 mg IV.PUSH Q4H PRN PRN Reason: PAIN SCALE 1 TO 10 Last Admin: 11/11/17 09:16 Dose: 0.5 mg Potassium Chloride (Kcl 20 Meq Premix Inj) 20 meq in 100 mls @ 50 mls/hr IV.SIG ONCE ONE Stop: 11/11/17 12:40 Potassium Chloride/Sodium Chloride (Potassium Chlor 20 Meq/Nacl 0.45% Inj) 1, 000 mls @ 84 mls/hr IV.CONT .[id number] [facility] Lactulose (Lactulose Liq) 30 ml PO DAILY PRN PRN Reason: SEVERE CONSITIPATION Lorazepam (Ativan Inj) 0.5 mg IV.PUSH Q8H PRN PRN Reason: ABDOMINAL PAIN Last Admin: 11/10/17 00:12 Dose: 0.5 mg Metoclopramide HCl (Reglan Inj) 5 mg IV.PUSH Q8HR PRN; Protocol PRN Reason: ABDOMINAL PAIN Ondansetron HCl (Zofran Inj) 4 mg IV.PUSH Q6H PRN PRN Reason: NAUSEA OR VOMITING Senna/Docusate Sodium (Rebecca-Colace) 1 tab PO BID [facility] Last Admin: 11/11/17 09:19 Dose: Not Given Sennosides (Senokot) 17.2 mg PO Q12H PRN PRN Reason: Moderate Constipation Sodium Chloride (Ns Flush) 2 ml IV.FLUSH PRN PRN PRN Reason: FLUSH AFTER USING IV ACCESS Last Admin: 11/09/17 17:02 Dose: 2 ml Tamsulosin HCl (Flomax) 0.4 mg PO [facility] Last Admin: 11/10/17 23:22 Dose: Not Given Allergies Allergy/AdvReac Type Severity Reaction Status Date / Time No Known Allergies Allergy Verified 11/09/17 16:28 Home Medications Medication Instructions Recorded Confirmed Type tamsulosin [Flomax] 0.4 mg PO DAILY 10/30/17 11/09/17 History metoclopramide HCl [Reglan] 5 mg PO TID 11/09/17 11/09/17 History Exam Vital signs: Vital Signs 11/10/17 11:52 11/10/17 19:06 11/10/17 19:33 Temperature 98.2 F 99.3 F Pulse Rate 70 62 74 Respiratory Rate 20 20 18 Blood Pressure 140/62 164/74 H 162/79 H Pulse Oximetry 96 96 99 11/10/17 20:00 11/10/17 21:05 11/10/17 23:22 Temperature 99.6 F Pulse Rate 71 Respiratory Rate 16 15 18 Blood Pressure 148/80 H Pulse Oximetry 76 L 11/11/17 03:46 11/11/17 08:35 Temperature 98.8 F 98.2 F Pulse Rate 67 70 Respiratory Rate 16 20 Blood Pressure 142/74 H 154/85 H Pulse Oximetry 98 98 Intake & Output 11/10/17 11/11/17 11/11/17 18:59 06:59 18:59 Intake Total 1055 / 1055 1005 / 1005 Balance 1055 / 1055 1005 / 1005 Intake: IV 1055 / 1055 1005 / 1005 KCl Inj 10 MEQ In 1/2 Normal 1005 / 1005 1005 / 1005 Saline Inj 1,000 ML @ 84 mls/hr IV.CONT .[id number] [facility] Rx#: [id number] Ancef 2 GM Premix Inj 2 gm In 50 / 50 50 ml @ 0 mls/hr IV.SIG .[facility]- [facility] Rx#:[id number] Other: Date of Last Bowel Movement 11/09/17 11/09/17 - Constitutional moderate distress, thin - Routine HEENT Exam Head: Present: normocephalic ENT: Present: mucous membranes dry (NG tube) - Routine Neck Exam Present: supple - Routine Respiratory Exam Present: accessory muscle use - Routine Cardiovascular Exam Present: S1, S2 - Routine Abdominal Exam Present: soft (taut, flat, mild soreness at GJ tube site otherwise unremarkable) - Routine Neurological Exam Present: alert (Awake answering simple questions) Results - Labs CBC & Chem 7: 11/10/17 06:03 11/11/17 07:50 Labs: Laboratory Results - last 24 hr 11/11/17 07:50 Sodium 136 Potassium 3.4 L Chloride 101 Carbon Dioxide 25.5 Anion Gap 10 BUN 17 Creatinine 0.66 Estimated GFR Greater than 89 Random Glucose 84 Calcium 8.2 L - Imaging Impressions Gastrostomy Tube Placement 11/10/17 00:00 CONCLUSION: 1. Uncomplicated gastrojejunostomy tube placement as above. Abdomen/Pelvis CT 11/11/17 00:00 CONCLUSION: 1. 3 to 4 cm pancreatic head mass again identified. Biliary stent is in place in the common duct. Diffuse prominence of the intrahepatic and extrahepatic biliary ducts. Extensive pneumobilia noted. 2. Small amount of free fluid in the abdomen and pelvis. 3. Mild splenomegaly. 4. Enlarged prostate. 5. Gastrojejunostomy tube in place. Assessment and Plan (1) Obstructive jaundice Status: Acute Code(s): K83.8 - Other specified diseases of biliary tract (2) Pancreatic mass Status: Acute Code(s): K86.9 - Disease of pancreas, unspecified (3) Gastric outlet obstruction Status: Acute Code(s): K31.1 - Adult hypertrophic pyloric stenosis (4) Pancreatic cancer metastasized to liver Status: Acute Code(s): C25.9 - Malignant neoplasm of pancreas, unspecified; C78.7 - Secondary malignant neoplasm of liver and intrahepatic bile duct - Plan Pancreatic advanced stage adenocarcinoma, proximately one month. No chemotherapy or radiation Nausea vomiting, bloating/belching uncontrolled for the past 2 weeks. Currently being maintained with NG tube to low intermittent suction and also received GJ tube on 11/10/2017. No hematemesis Watery yellow diarrhea off and on for the past 2 weeks and weight loss of approximately 15 pounds. Patient has no obvious rectal bleeding. CT scan performed on the a.m. of 11/11/2017 shows 3-4 cm pancreatic head mass identified biliary stent is in place in the common bile duct. Diffuse prominence of intrahepatic and extrahepatic biliary ducts. Extensive bili are noted small amount of free fluid in the abdomen and pelvis. Mild splenomegaly and enlarged prostate. GJ tube in place. Labs show current hemoglobin 11.9. Plan Consent for EGD today, scheduled Monitor labs Pain management per attending Further recommendations to follow after EGD Supportive care Patient was seen per myself and Dr. Lynn, note was written on his behalf
[2017-11-11] MEDS ORDERED: Succinylcholine Inj 100 MG/5 ML Syringe IV.PUSH ONE (12:00)
[2017-11-11] MEDS ORDERED: Lidocaine PF 1% Inj 5 ML Syringe INFILTRATN ONE (12:00)
--- NOTE | 2017-11-11 13:07 | GIPROC ---
[facility] [address] [facility]. 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 TOPICAL ANESTHETIC: none CONSENT: The patient understands the risks and benefits of the procedure and understands that these risks include, but are not limited to: sedation, allergic reaction, infection, perforation and/or bleeding. Alternative means of evaluation and treatment include, among others: physical exam, x-rays, and/or surgical intervention. The patient elects to proceed with this endoscopic procedure. medical equipment was checked for proper function. Hand hygiene and appropriate measures for infection prevention was taken. After the risks, benefits and alternatives of the procedure were thoroughly explained, Informed consent was verified, confirmed and timeout was successfully executed by the treatment team. The patient was anesthetized with topical anesthesia and the [employer] [id number] endoscope was introduced through the mouth and advanced to the second portion of the duodenum. Retroflexed views revealed Moderately large thick liqid residue The gastroscope was then slowly withdrawn and removed. ESOPHAGUS: There was LA Class A esophagitis noted. STOMACH: The mucosa of the stomach appeared normal. DUODENUM: The duodenal mucosa appeared normal in the duodenal bulb. Pancreatic cancer with tumor infiltrating into D2. ADVERSE EVENTS: There were no complications. IMPRESSIONS: 1. There was LA Class A esophagitis noted 2. The mucosa of the stomach appeared normal 3. Normal duodenal mucosa in the duodenal bulb 4. Pancreatic cancer with tumor infiltrating into D2 5. Retroflexed views revealed Moderately large thick liqid residue RECOMMENDATIONS: PO clear fluids only Gastrograffin tube check to check patency of J tube PATIENT CONDITION: stable DISPOSITION: Inpatient REPEAT EXAM: Return as needed for EGD Livan Lynn MD eSigned: Livan Lynn MD 11/11/2017 1:06 PM cc: PATIENT NAME: Jose Guadalupe Cruz MR#: [id number]
[2017-11-11] MEDS: KCL 20 mEq/NACL 0.45% Inj 1,000 ML IV.CONT SCH (14:15)
--- NOTE | 2017-11-11 19:25 | P.PNIM ---
Subjective Interval history: No new complaints. Pt reports that he is more comfortable with gastric decompression. Physical Exam Vital signs: 11/11/17 13:30 11/11/17 18:07 Temperature 98.3 F Pulse Rate 65 Respiratory Rate 16 16 Blood Pressure 154/80 H Pulse Oximetry 98 Narrative: GENERAL: This is a well-nourished, well-developed patient, in no apparent distress. NGT in nares CARDIOVASCULAR: Regular rate and rhythm without murmurs, gallops, or rubs. RESPIRATORY: Clear to auscultation. Breath sounds equal bilaterally. No wheezes , rales, or rhonchi. GASTROINTESTINAL: Abdomen soft, non-tender, nondistended. Normal active bowel sounds MUSCULOSKELETAL: Extremities without clubbing, cyanosis, or edema. NEURO: Alert & Oriented x4 to person, place, time, situation. Moves all ext x4 Results - Labs CBC & Chem 7: 11/10/17 06:03 11/11/17 07:50 - Imaging ImpressionsGastrostomy Tube Placement 11/10/17 00:00 CONCLUSION: 1. Uncomplicated gastrojejunostomy tube placement as above. Abdomen/Pelvis CT 11/11/17 00:00 CONCLUSION: 1. 3 to 4 cm pancreatic head mass again identified. Biliary stent is in place in the common duct. Diffuse prominence of the intrahepatic and extrahepatic biliary ducts. Extensive pneumobilia noted. 2. Small amount of free fluid in the abdomen and pelvis. 3. Mild splenomegaly. 4. Enlarged prostate. 5. Gastrojejunostomy tube in place. Abdomen X-Ray 11/12/17 07:00 CONCLUSION: There are no findings to indicate bowel obstruction. No acute abnormality is identified. Assessment and Plan - Assessment (1) Pancreatic cancer metastasized to liver Code(s): C25.9 - Malignant neoplasm of pancreas, unspecified; C78.7 - Secondary malignant neoplasm of liver and intrahepatic bile duct Status: Acute Plan: - comgmt with Oncology, GI, Palliative Medicine - Pt diagnosed with Pancreatic Cancer September 2017 - Pt follows with Oncology, Dr. Alejo Omalley. - Case d/w Dr. Omalley (11/10). - Pt's performance status has been declining. - Per Dr. Omalley, pt is NOT a candidate for further palliative chemotherapy at this time. - Recent PET scan showed metastasis to the liver. - Upon admission I discussed poor prognosis with pt - Pt now with Gastric Outlet Obstruction. pt admitted with c/o n/v - G/J tube placed by IR (11/10/17) - dilaudid prn - Pt underwent EGD (11/11/17) with Dr. Lynn -LA class A esophagitis -Pancreatic cancer with tumor infiltrating into D2 -Retroflexed views revealed moderately large thick liquid residue - Case d/w Dr. Lynn (11/11/17) - Pt will undergo Gastrograffin tube check (11/12/17) to check patency of J tube - Anticipate removal of NGT, suctioning by G-tube, and J tube feeds following study - Pt wishes to remain full code at this time - PT - anticipate transfer to SNF for continued physical therapy and rehabilitation following current hospital admission. - SCDs for DVT prophylaxis - supportive care. (2) Gastric outlet obstruction Code(s): K31.1 - Adult hypertrophic pyloric stenosis Status: Acute Plan: - see above
[2017-11-12] MEDS: HYDROmorphone PF Inj 2 MG/ML Vial IV.PUSH PRN ×6 (01:00→22:08)
[2017-11-12] MEDS: KCL 20 mEq/NACL 0.45% Inj 1,000 ML IV.CONT SCH ×2 (03:42→16:00)
--- NOTE | 2017-11-12 08:13 | XR ---
EXAM DATE: 11/12/2017 8:05 AM EDT AGE/SEX: 71 years / Male INDICATIONS: Obstruction. CLINICAL DATA: This is the patient's subsequent encounter. Patient reports that signs and symptoms h ave been present for 4 - 6 days and indicates a pain score of 2/10. MEDICAL/SURGICAL HISTORY: . Carcinoma, pancreas. Carcinoma, skin cancer. Brain tumor . Tonsil lectomy. Biliary stent placement. COMPARISON: [facility] – [place], CT ABDOMEN & PELVIS W CONTRAST, 11/11/2017. . FINDINGS: 2 supine frontal views of the abdomen demonstrate air within bowel in a nonobstructive pattern. Resi dual oral contrast material is present within the gastric fundus and in the right colon. GJ tube is p resent with distal tip overlying the left mid abdomen. Nasogastric tube is looped in the stomach with distal tip in the gastric fundus. There is a metallic common duct stent present in the right upper q uadrant. EKG lines overlie the patient. No organomegaly is present. Bones demonstrate no acute abnorm ality but there is mild lumbar scoliosis. CONCLUSION: There are no findings to indicate bowel obstruction. No acute abnormality is identified. Electronically signed by: Boaz Arias MD 11/12/2017 8:11 AM EDT
[2017-11-12] MEDS: Senna/Docusate Sodium 8.6/50 MG Tablet PO SCH ×2 (08:57→22:13)
--- NOTE | 2017-11-12 09:01 | P.PNIM ---
Subjective Interval history: No new complaints. Pt appears comfortable Physical Exam Vital signs: 11/12/17 00:00 11/12/17 03:44 11/12/17 08:00 Temperature 98.7 F 98.2 F 98.6 F Pulse Rate 73 71 71 Respiratory Rate 16 16 16 Blood Pressure 143/79 H 150/83 H 144/86 H Pulse Oximetry 96 97 97 Narrative: GENERAL: This is a well-nourished, well-developed patient, in no apparent distress. NGT in nares CARDIOVASCULAR: Regular rate and rhythm without murmurs, gallops, or rubs. RESPIRATORY: Clear to auscultation. Breath sounds equal bilaterally. No wheezes , rales, or rhonchi. GASTROINTESTINAL: Abdomen soft, non-tender, nondistended. Normal active bowel sounds MUSCULOSKELETAL: Extremities without clubbing, cyanosis, or edema. NEURO: Alert & Oriented x4 to person, place, time, situation. Moves all ext x4 Results - Labs CBC & Chem 7: 11/10/17 06:03 11/11/17 07:50 - Imaging Gastrostomy Tube Placement 11/10/17 00:00 CONCLUSION: 1. Uncomplicated gastrojejunostomy tube placement as above. Abdomen/Pelvis CT 11/11/17 00:00 CONCLUSION: 1. 3 to 4 cm pancreatic head mass again identified. Biliary stent is in place in the common duct. Diffuse prominence of the intrahepatic and extrahepatic biliary ducts. Extensive pneumobilia noted. 2. Small amount of free fluid in the abdomen and pelvis. 3. Mild splenomegaly. 4. Enlarged prostate. 5. Gastrojejunostomy tube in place. Abdomen X-Ray 11/12/17 07:00 CONCLUSION: There are no findings to indicate bowel obstruction. No acute abnormality is identified. Assessment and Plan - Assessment (1) Pancreatic cancer metastasized to liver Code(s): C25.9 - Malignant neoplasm of pancreas, unspecified; C78.7 - Secondary malignant neoplasm of liver and intrahepatic bile duct Status: Acute Plan: - comgmt with Oncology, GI, Palliative Medicine - Pt diagnosed with Pancreatic Cancer September 2017 - Pt follows with Oncology, Dr. Alejo Omalley. - Case d/w Dr. Omalley (11/10). - Pt's performance status has been declining. - Per Dr. Omalley, pt is NOT a candidate for further palliative chemotherapy at this time. - Recent PET scan showed metastasis to the liver. - Upon admission I discussed poor prognosis with pt - Pt now with Gastric Outlet Obstruction. pt admitted with c/o n/v - G/J tube placed by IR (11/10/17) - dilaudid prn - Pt underwent EGD (11/11/17) with Dr. Lynn -LA class A esophagitis -Pancreatic cancer with tumor infiltrating into D2 -Retroflexed views revealed moderately large thick liquid residue - Case d/w Dr. Lynn (11/11/17) - pt underwent Gastrograffin tube check (11/12/17) to check patency of J tube Gastrografin seen in colon - start J-tube feeding with goal rate of 55ml/hour & free water flush 100ml TID - start suction via G-tube - clamp NGT, plan to remove later today - Pt wishes to remain full code at this time - PT - anticipate transfer to SNF vs home with Hospice in 1-2 days - SCDs for DVT prophylaxis - supportive care. (2) Gastric outlet obstruction Code(s): K31.1 - Adult hypertrophic pyloric stenosis Status: Acute Plan: - see above
--- NOTE | 2017-11-12 11:58 | P.PNONC ---
Subjective Interval history: Patient resting comfortably in bed, family is at the bedside. He is status post EGD and J-tube placement yesterday. Patient states that he is eager to start eating or getting nutrition through his J-tube. Objective Vital Signs/Intake & Output: Vital Signs 11/11/17 13:00 11/11/17 13:15 11/11/17 13:30 Temperature 98.3 F 98.3 F Pulse Rate 66 64 65 Respiratory Rate 12 16 Blood Pressure 160/82 H 145/73 H 154/80 H Pulse Oximetry 100 97 98 11/11/17 18:07 11/11/17 18:35 11/11/17 20:00 Temperature 98.9 F 99.1 F Pulse Rate 76 76 Respiratory Rate 16 16 16 Blood Pressure 149/83 H 149/86 H Pulse Oximetry 94 L 96 11/12/17 00:00 11/12/17 03:44 11/12/17 08:00 Temperature 98.7 F 98.2 F 98.6 F Pulse Rate 73 71 71 Respiratory Rate 16 16 16 Blood Pressure 143/79 H 150/83 H 144/86 H Pulse Oximetry 96 97 97 Intake & Output 11/11/17 11/12/17 11/12/17 18:59 06:59 18:59 Intake Total 1000 / 1000 1000 / 1000 Output Total 375 / 375 1200 / 1200 Balance 625 / 625 -200 / -200 Intake: IV 600 / 600 1000 / 1000 Potassium Chlor 20 mEq/NACL 0. 1000 / 1000 45% Inj 1,000 ML @ 84 mls/hr IV .CONT .[id number] [facility] Rx#:[id number] KCl Inj 10 MEQ In 1/2 Normal 500 / 500 Saline Inj 1,000 ML @ 84 mls/hr IV.CONT .[id number] [facility] Rx#: [id number] KCl 20 mEq Premix Inj 20 meq In 100 / 100 100 ml @ 50 mls/hr IV.SIG ONCE ONE Rx#:[id number] Oral 0 / 0 Anesthesia Amount 400 / 400 Output: Urine 125 / 125 800 / 800 Gastric Drainage 250 / 250 400 / 400 Left Nare Nasogastric Tube 150 / 150 400 / 400 Left Upper Quadrant 100 / 100 0 / 0 Gastrojejunostomy Tube Other: Date of Last Bowel Movement 11/09/17 11/09/17 Result Diagrams: 11/10/17 06:03 11/11/17 07:50 Imaging Studies: Impressions Abdomen X-Ray 11/12/17 07:00 CONCLUSION: There are no findings to indicate bowel obstruction. No acute abnormality is identified. Medications: Active Medications Generic Name Dose Route Start Last Admin Trade Name Freq PRN Reason Stop Dose Admin Hydromorphone HCl 0.5 mg 11/10/17 17:00 11/12/17 10:11 Dilaudid Pf Inj IV.PUSH 0.5 mg Q4H PRN Administration PAIN SCALE 1 TO 10 Potassium Chloride/Sodium Chloride 1,000 mls @ 84 mls/hr 11/11/17 10:45 11/12 03:42 Potassium Chlor 20 Meq/Nacl 0.45% Inj IV.CONT 84 mls/hr .[id number] CAM Administration Lorazepam 0.5 mg 11/09/17 22:31 11/10/17 00:12 Ativan Inj IV.PUSH 0.5 mg Q8H PRN Administration ABDOMINAL PAIN Senna/Docusate Sodium 1 tab 11/10/17 09:00 11/12/17 08:57 Rebecca-Colace PO Not Given BID CAM Sodium Chloride 2 ml 11/09/17 16:49 11/09/17 17:02 Ns Flush IV.FLUSH 2 ml PRN PRN Administration FLUSH AFTER USING IV ACCESS Tamsulosin HCl 0.4 mg 11/10/17 21:00 11/11/17 21:50 Flomax PO Not Given HS CAM Objective Remarks: GENERAL: Ill-appearing middle-aged male patient, lying comfortably in bed, in no acute distress. SKIN: Warm and dry. HEAD: Normocephalic. NG tube to left nare hooked up to suction, green drainage noted. EYES: No scleral icterus. No injection or drainage. NECK: Supple, trachea midline. CARDIOVASCULAR: Regular rate and rhythm without murmurs. RESPIRATORY: Breath sounds clear, equal bilaterally. No accessory muscle use. GASTROINTESTINAL: Abdomen soft, non-tender, nondistended. J-tube to LUQ. EXTREMITIES: No cyanosis, or edema. MUSCULOSKELETAL: Decreased muscle tone. NEUROLOGICAL: No obvious focal deficit. Awake, alert, and oriented x3. PSYCHIATRIC: Appropriate mood and affect; insight and judgment normal. Assessment/Plan (1) Gastric outlet obstruction Code(s): K31.1 - Adult hypertrophic pyloric stenosis Status: Acute (2) Pancreatic cancer metastasized to liver Code(s): C25.9 - Malignant neoplasm of pancreas, unspecified; C78.7 - Secondary malignant neoplasm of liver and intrahepatic bile duct Status: Acute (3) Obstructive jaundice Code(s): K83.8 - Other specified diseases of biliary tract Status: Acute - Plan Mr. Cruz is a 71-year-old gentleman, diagnosed with pancreatic adenocarcinoma , under the care of Dr. Omalley. Prior to this admission patient was seen in the oncology clinic was noted to be wheelchair-bound, cachectic with a 10 pound weight loss over 1 week, abdominal distention and reports of not eating, he was referred to the hospital for his nutrition to be addressed. Plan: 1. Malnutrition with a 10 pound weight loss in 1 week. Patient status post J- tube placement for nutritional support. 2. EGD revealed pancreatic cancer with tumor infiltrating into D2. Patient still with NG tube in place, management per GI. 3. Family has an appointment with palliative care tomorrow. 4. Continue supportive care. - Attending Statement The exam, history, and the medical decision-making described in the above note were completed with the assistance of the mid-level provider. I reviewed and agree with the findings presented. I attest that I had a [id number] encounter with the patient on the same day, and personally performed and documented my assessment and findings in the medical record. 71 yoM with pancreatic cancer with gastric outlet obstruction, malnutrition. He follows in clinic with my colleague Dr. Diaz, He is not a candidate for further therapy. Palliative care meeting tomorrow. s/p placement of J tube. TF initiated.
--- NOTE | 2017-11-12 16:31 | P.DIET ---
Nutritional Evaluation Type of nutrition evaluation: initial Nutrition consult regarding: Tube Feeding (MDC for Tube Feeding) Subjective Subjective Comments: Pt confirms his ht is 70in. States his GJB=507#. At home he was not eating for weeks 2/2 bloating, vomiting, nausea, early satiety, and trouble keeping things down. He also had diarrhea for quite sometime but states this is now resolved. Has no complaints regarding TFs that have been initiated today. Denies N/V/D/C currently. He is asking for ice chips and popsicles. Objective - Diagnosis Gastric Outlet Obstruction, Pancreatic Adenocarcinoma - Objective % IBW: 90 (MAI=342#) Body Weight Used for Calculations: Actual (67.585kg) Energy Needs - Lower Range (kCal/kg): 30 Energy Needs - Upper Range (kCal/kg): 35 Lower Limit kCal/kg (kCals): 2,028 Upper Limit kCal/kg (kCals): 2,365 Lower Limit Protein Factor (Grams per Kg): 1.2 Upper Limit Protein Factor (Grams per Kg): 1.5 Lower Protein Needs (Protein): 81 Upper Protein Needs (Protein): 101 Fluid Factor (ml/kg): 30 Estimated Fluid Needs (ml): 2,028 Dietitian Reviewed in Medical Record: Curent medications, Intake & Output, Labs , Medical history, Tube feeding Diet Order: TF Only Objective Comments: 11/10 G/J tubes placed s/p biliary stent (-) BM Assessment Assessment: Pt admitted for gastric outlet obstruction and pancreatic adenocarcinoma. Pt is at 90% of his IBW. States he has not eaten PO for quite sometime as he had difficulty tolerating/keeping things down. He has pancreatic cancer w/ possible liver mets, has not initiated treatment yet. Current TF order is for Jevity 1.5 @ 55mls/hr. Currently at 15mls/hr and pt states he feels good. Seems to have many concerns about G/J tubes and new TF, I tried to answer all of his questions. He is at high nutritional risk 2/2 his medical diagnosis, wt loss, and poor PO intake prior to admission. He remains NPO w/ TFs only. To better meet pt's nutritional requirements, I recommend Vital 1.5 @ 60mls/hr via J tube. This would provide 2160kcals, 97g PRO, and 1100mls fluid. Dietitian following. Recommendations: 1. Recommend Vital 1.5 @ 60mls/hr via J tube. 2. Pt is requesting ice chips and popsicles, will defer this to Dietitian to Monitor: Lab values, Intake & Output, Tube feeding tolerance, Weight change, Medical course
[2017-11-13] MEDS: HYDROmorphone PF Inj 2 MG/ML Vial IV.PUSH PRN ×4 (01:58→22:21)
[2017-11-13] MEDS: KCL 20 mEq/NACL 0.45% Inj 1,000 ML IV.CONT SCH ×2 (04:33→17:45)
--- NOTE | 2017-11-13 08:30 | P.PNIM ---
Subjective Interval history: worried about pain control at home. ngt was clamped overnight. no vomiting. Physical Exam Vital signs: Vital Signs 11/12/17 12:00 11/12/17 16:00 11/12/17 20:00 Temperature 98.4 F 99.2 F 98.1 F Pulse Rate 75 71 77 Respiratory Rate 16 18 Blood Pressure 145/85 H 145/79 H 146/77 H Pulse Oximetry 98 98 96 11/13/17 00:00 11/13/17 04:00 11/13/17 06:13 Temperature 98.4 F 98.1 F Pulse Rate 77 72 Respiratory Rate 16 16 20 Blood Pressure 150/86 H 133/74 Pulse Oximetry 98 96 11/13/17 08:14 Temperature 98.8 F Pulse Rate 72 Respiratory Rate 18 Blood Pressure 135/76 Pulse Oximetry 96 Intake & Output 11/12/17 11/13/17 11/13/17 18:59 06:59 18:59 Intake Total 1000 / 1000 1335 / 1335 Output Total 1550 / 1550 200 / 200 Balance 1000 / 1000 -215 / -215 -200 / -200 Weight 64.5 kg Intake: IV 1000 / 1000 1000 / 1000 Potassium Chlor 20 mEq/NACL 0. 1000 / 1000 1000 / 1000 45% Inj 1,000 ML @ 84 mls/hr IV .CONT .[id number] [facility] Rx#:[id number] Oral 0 / 0 Tube Feeding 335 / 335 Output: Urine 1350 / 1350 200 / 200 Gastric Drainage 200 / 200 Left Upper Quadrant 200 / 200 Gastrojejunostomy Tube Other: Date of Last Bowel Movement 11/09/17 ngt heart reg lung cta abd s/nt ext no edema Results - Labs CBC & Chem 7: 11/10/17 06:03 11/11/17 07:50 Assessment and Plan - Assessment (1) Pancreatic cancer metastasized to liver Code(s): C25.9 - Malignant neoplasm of pancreas, unspecified; C78.7 - Secondary malignant neoplasm of liver and intrahepatic bile duct Status: Acute Plan: - comgmt with Oncology, GI, Palliative Medicine - Pt diagnosed with Pancreatic Cancer September 2017 - Pt follows with Oncology, Dr. Alejo Omalley. - Case d/w Dr. Omalley (11/10). - Pt's performance status has been declining. - Per Dr. Omalley, pt is NOT a candidate for further palliative chemotherapy at this time. - Recent PET scan showed metastasis to the liver. - Upon admission I discussed poor prognosis with pt - Pt now with Gastric Outlet Obstruction. pt admitted with c/o n/v - G/J tube placed by IR (11/10/17) - Pt underwent EGD (11/11/17) with Dr. Lynn -LA class A esophagitis -Pancreatic cancer with tumor infiltrating into D2 -Retroflexed views revealed moderately large thick liquid residue - Case d/w Dr. Lynn (11/11/17) - pt underwent Gastrograffin tube check (11/12/17) to check patency of J tube Gastrografin seen in colon - started J-tube feeding with goal rate of 55ml/hour & free water flush 100ml TID - started suction via G-tube long discussion with pt. worried about pain control at home start fentanyl patch and wean off dilaudid. tube feeding to goal. stop ivf remove ngt long discussion about hospice care with pt. He will meet with palliative care today. he is not interested in snf......decide on dispo later today after palliative meeting. (2) Gastric outlet obstruction Code(s): K31.1 - Adult hypertrophic pyloric stenosis Status: Acute Plan: - see above
[2017-11-13] MEDS: Senna/Docusate Sodium 8.6/50 MG Tablet PO SCH ×2 (10:43→22:20)
--- NOTE | 2017-11-13 11:35 | P.PNONC ---
Subjective Interval history: Afebrile Patient sitting up on side of bed complaining of pain RN at bedside who has IV Dilaudid He reports he has had cough with increased congestion Waiting to discuss with palliative care Objective Vital Signs/Intake & Output: Vital Signs 11/12/17 12:00 11/12/17 16:00 11/12/17 20:00 Temperature 98.4 F 99.2 F 98.1 F Pulse Rate 75 71 77 Respiratory Rate 16 18 Blood Pressure 145/85 H 145/79 H 146/77 H Pulse Oximetry 98 98 96 11/13/17 00:00 11/13/17 04:00 11/13/17 06:13 Temperature 98.4 F 98.1 F Pulse Rate 77 72 Respiratory Rate 16 16 20 Blood Pressure 150/86 H 133/74 Pulse Oximetry 98 96 11/13/17 08:14 Temperature 98.8 F Pulse Rate 72 Respiratory Rate 18 Blood Pressure 135/76 Pulse Oximetry 96 Intake & Output 11/12/17 11/13/17 11/13/17 18:59 06:59 18:59 Intake Total 1000 / 1000 1335 / 1335 Output Total 1550 / 1550 440 / 440 Balance 1000 / 1000 -215 / -215 -440 / -440 Weight 142 lb 3.17 oz Intake: IV 1000 / 1000 1000 / 1000 Potassium Chlor 20 mEq/NACL 0. 1000 / 1000 1000 / 1000 45% Inj 1,000 ML @ 84 mls/hr IV .CONT .[id number] [facility] Rx#:[id number] Oral 0 / 0 Tube Feeding 335 / 335 Output: Urine 1350 / 1350 440 / 440 Gastric Drainage 200 / 200 Left Upper Quadrant 200 / 200 Gastrojejunostomy Tube Other: Date of Last Bowel Movement 11/09/17 Result Diagrams: 11/10/17 06:03 11/11/17 07:50 Medications: Active Medications Generic Name Dose Route Start Last Admin Trade Name Freq PRN Reason Stop Dose Admin Fentanyl 1 patch 11/13/17 09:00 11/13/17 10:42 Duragesic 25 Mcg Patch.72hr T-DERMAL 1 patch Q3D CAM Administration Hydromorphone HCl 0.5 mg 11/10/17 17:00 11/13/17 10:38 Dilaudid Pf Inj IV.PUSH 0.5 mg Q4H PRN Administration PAIN SCALE 1 TO 10 Lorazepam 0.5 mg 11/09/17 22:31 11/10/17 00:12 Ativan Inj IV.PUSH 0.5 mg Q8H PRN Administration ABDOMINAL PAIN Senna/Docusate Sodium 1 tab 11/10/17 09:00 11/13/17 10:43 Rebecca-Colace PO Not Given BID CAM Sodium Chloride 2 ml 11/09/17 16:49 11/09/17 17:02 Ns Flush IV.FLUSH 2 ml PRN PRN Administration FLUSH AFTER USING IV ACCESS Tamsulosin HCl 0.4 mg 11/10/17 21:00 11/12/17 22:13 Flomax PO Not Given HS CAM Objective Remarks: GENERAL: Cachectic older male sitting up in bed in no obvious distress. SKIN: Warm and dry. HEAD: Normocephalic. EYES: No scleral icterus. No injection or drainage. NECK: Supple, trachea midline. No JVD or lymphadenopathy. CARDIOVASCULAR: Regular rate and rhythm without murmurs. RESPIRATORY: Scattered rhonchi. Breathing unlabored at rest. GASTROINTESTINAL: PEG tube to left side abdomen. Tube feeds infusing to J tube. Gastric contents to wall suction. EXTREMITIES: No cyanosis, or edema. MUSCULOSKELETAL: Generalized weakness NEUROLOGICAL: No obvious focal deficit. Awake, alert, and oriented x3. Assessment/Plan (1) Gastric outlet obstruction Code(s): K31.1 - Adult hypertrophic pyloric stenosis Status: Acute (2) Pancreatic cancer metastasized to liver Code(s): C25.9 - Malignant neoplasm of pancreas, unspecified; C78.7 - Secondary malignant neoplasm of liver and intrahepatic bile duct Status: Acute (3) Obstructive jaundice Code(s): K83.8 - Other specified diseases of biliary tract Status: Acute - Plan Mr. Cruz is a 71-year-old gentleman, diagnosed with pancreatic adenocarcinoma , under the care of Dr. Omalley. Prior to this admission patient was seen in the oncology clinic was noted to be wheelchair-bound, cachectic with a 10 pound weight loss over 1 week, abdominal distention and reports of not eating, he was referred to the hospital for his nutrition to be addressed. Plan: 1. Tube feeds continue. The patient is tolerating with no nausea. 2. NG tube removed this morning. 3. Family has an appointment with palliative care tomorrow. Currently the patient is too weak to undergo chemotherapy. If his wishes are to be aggressive we can reevaluate after he has improved nutrition but overall prognosis is quite poor. 4. Continue supportive care.
[2017-11-13] MEDS ORDERED: HYDROmorphone PF Inj 2 MG/ML Vial IV.PUSH PRN (12:15)
--- NOTE | 2017-11-13 15:06 | P.PNPAL ---
Reason for Visit Reason for visit: a. To assist with evaluation and management of symptoms including: Nausea, pain , anxiety b. To assist medical decision maker(s) with: better understanding of current medical conditions; weighing benefits/burdens of medical treatment options; making medical treatment decisions. Subjective Subjective/Interval History: Patient seen in room family at bedside. Dual visit with retrofit installer Jane. Patient says he feels his pain is controlled at the moment on 25mcg fentanyl patch and PRN dilaudid. Earlier his Dilaudid was 45 minutes late and I was "getting really uncomfortable." His abd is diffusely painful, worse in epigastrium. He denies nausea, is tolerating TF at goal rate. He does not appear anxious, has not used his PRN ativan since 11/10. Had EGD 11/11 showign pancreatic tumor infiltrating [duodenum], moderate large thick liquid residue. KUB 11/12 negative. Family/Friend Interactions: Family meeting with patient, his daughters Joy and Mima, his brother Oscar , his friend Fabian, and his friend Genoveva, and marketing recruiter Jane. -Palliative care role, purpose, approach -Patient/family understanding of the current medical problems -Patient/family understanding of prognosis - this is terminal -Patients goals of care as best understood values, discussion, "I wanna fight this" -Current medical treatment options and their benefits/burdens -Likely scenarios comparing ongoing aggressive care with transition to ``comfort -measures only and hospice -Legal decision makers/HCS reviewed - CODE STATUS, benefits/burdens/limitations of CPR, intubation, and mechanical ventilation - "I need time to think about this." -Questions answered to the best of my ability - Palliative care contact information provided Pt still processing but goals are aggressive as he wants to try rehab and get stronger to see if he can have palliative chemo. Family has good insight and is realistic and receptive to hospice but pt says he is not ready. Family is working together to support pt. Pt still considering his code status. Advance Directives Health Care Surrogate Name and Number: Oscar Cruz or Mima Cruz Objective Vital Signs: Vital Signs 11/12/17 16:00 11/12/17 20:00 11/13/17 00:00 Temperature 99.2 F 98.1 F 98.4 F Pulse Rate 71 77 77 Respiratory Rate 18 16 Blood Pressure 145/79 H 146/77 H 150/86 H Pulse Oximetry 98 96 98 11/13/17 04:00 11/13/17 06:13 11/13/17 08:14 Temperature 98.1 F 98.8 F Pulse Rate 72 72 Respiratory Rate 16 20 18 Blood Pressure 133/74 135/76 Pulse Oximetry 96 96 11/13/17 12:43 Temperature 98.4 F Pulse Rate 68 Respiratory Rate 18 Blood Pressure 127/76 Pulse Oximetry 96 Intake & Output 11/12/17 11/13/17 11/13/17 18:59 06:59 18:59 Intake Total 1000 / 1000 1335 / 1335 Output Total 1550 / 1550 440 / 440 Balance 1000 / 1000 -215 / -215 -440 / -440 Weight 64.5 kg Intake: IV 1000 / 1000 1000 / 1000 Potassium Chlor 20 mEq/NACL 0. 1000 / 1000 1000 / 1000 45% Inj 1,000 ML @ 84 mls/hr IV .CONT .[id number] [facility] Rx#:[id number] Oral 0 / 0 Tube Feeding 335 / 335 Output: Urine 1350 / 1350 440 / 440 Gastric Drainage 200 / 200 Left Upper Quadrant 200 / 200 Gastrojejunostomy Tube Other: Date of Last Bowel Movement 11/09/17 Physical Exam: CONSTITUTIONAL/GENERAL: frail appearing male TUBES/LINES/DRAINS: GJ tube SKIN: No jaundice, rashes, or lesions. No wounds seen anteriorly. Skin temperature appropriate. Not diaphoretic. HEAD: Atraumatic. Normocephalic. EYES: PERRL. Extraocular motions intact. mild icterus ENT: Hearing grossly normal. Nose without bleeding or purulent drainage. CARDIOVASCULAR: RRR without murmurs, gallops, or rubs. No JVD. Peripheral pulses symmetric. RESPIRATORY/CHEST: Symmetric, unlabored respirations. Clear to auscultation. Breath sounds equal bilaterally. No wheezes, rales, or rhonchi. GASTROINTESTINAL: Abdomen soft, diffusely tender but more so in epigastrium, nondistended. No hepato-splenomegaly, or palpable masses. Bowel sounds present. GENITOURINARY: Without palpable bladder distension. Singer catheter in place. MUSCULOSKELETAL: Extremities without clubbing, cyanosis, or edema. No calf tenderness, + muscle wasting. No mottling or clubbing. NEUROLOGICAL: alert and oriented PSYCHIATRIC: judgement appropriate. did not appear anxious Diagnostic Tests Laboratory: Laboratory Results - last 72 hr 11/11/17 07:50 Sodium 136 Potassium 3.4 L Chloride 101 Carbon Dioxide 25.5 Anion Gap 10 BUN 17 Creatinine 0.66 Estimated GFR Greater than 89 Random Glucose 84 Calcium 8.2 L Result Diagrams: 11/14/17 07:18 11/14/17 07:18 Imaging: ITS Impressions Gastrostomy Tube Placement 11/10/17 00:00 CONCLUSION: 1. Uncomplicated gastrojejunostomy tube placement as above. Abdomen/Pelvis CT 11/11/17 00:00 CONCLUSION: 1. 3 to 4 cm pancreatic head mass again identified. Biliary stent is in place in the common duct. Diffuse prominence of the intrahepatic and extrahepatic biliary ducts. Extensive pneumobilia noted. 2. Small amount of free fluid in the abdomen and pelvis. 3. Mild splenomegaly. 4. Enlarged prostate. 5. Gastrojejunostomy tube in place. Abdomen X-Ray 11/12/17 07:00 CONCLUSION: There are no findings to indicate bowel obstruction. No acute abnormality is identified. Procedures: 11/10 GJ tube placement 11/11 EGD Assessment and Plan - Disease Oriented Problem List (1) Gastric outlet obstruction (2) Pancreatic cancer metastasized to liver (3) Pancreatic mass (4) Obstructive jaundice - Symptom Scale (1) Pain 0-10 Scale: Unable to quantify (2) Anxiety 0-10 Scale: Unable to quantify (3) Nausea 0-10 Scale: Unable to quantify Pertinent Non-Medical Issues: Psychosocial: Pt originally from [place] but has been in [place] most of his life. He is , with 2 daughters who live locally. 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 Spiritual: Legal: pt currently capacitated to make medical decisions. Should he become incapacitated he has designated his daughter Mima and his brother Oscar to make medical decisions on his behalf. Family working together. Ethical issues impacting care: none Important Contacts: Oscar Anthony [phone] Mima Anthony [phone], work [phone] Prognosis: 71 yo male with recently diagnosed locally advanced pancreatic carcinoma who presented 11/09 with vomiting, early satiety, bloating. UGI series showed distended stomach, gastric outlet obstruction 2/2 pancreatic abnormality. Per oncology this mass is not resectable and there is possible liver met now. Pt too weak for chemotherapy. If he were to have nutrition via GJ and get stronger , he could possibly have chemo but this would only be palliative. His prognosis is poor, this is almost certainly terminal. Code Status: Full Code Plan: - LEGAL DECISON MAKER - pt currently capacitated to make medical decisions. Should he become incapacitated he has designated his daughter Mima and his brother Oscar to make medical decisions on his behalf. Family working together. - CODE STATUS- full code - GOALS - Pt still processing but goals are aggressive as he wants to try rehab and get stronger to see if he can have palliative chemo. Family has good insight and is realistic and receptive to hospice but pt says he is not ready. Family is working together to support pt. Pt still considering his code status. - SYMPTOMS - * anxiety - multifactorial. + insomnia. Has 0.5 mg IV lorazepam q8h PRN abd pain. last had 11/10 * nausea - 2/2 GOO which is r/t pancreatic abnormality. presented with numerous GI sx including vomiting, early satiety. GJ tube, tolerating J tube feeds at goal rate. denies nausea on my eval. now on reglan, zofran * pain - risk for pain 2/2 recent GJ placement, pancreatic malignancy, poss mets. denies pain on my eval but if his pain med is late he c/o diffuse abd pain; on exam his abd tender diffusely but most tender in epigastrium. has dilaudid 0.5mg IV q4h prn, is using it around the clock and cites discomfort if it is delayed. Also on 25mcg fentanyl patch. Consider increasing fentanyl patch dosage prior to d/c - D/W oncology MANAGER SPEECH, d/w with attending at length - pt wants rehab, not ready for hospice - Palliative care will continue to follow during hospital course as condition evolves, to assist patient/decision-maker with understanding of medical conditions, weighing benefits/burdens of treatment options, for clarification of goals of treatment. Additionally will assist with any symptoms of palliative concern Attestation Attestation: To help prompt me to consider important information that might be impacting today's encounter and assessment, information from prior notes written by myself or my colleagues may have been "brought forward" into today's note. My signature on this note, however, is an attestation that I personally performed the exam, history, and/or decision-making noted today, and, unless otherwise indicated, the interactions with patient, family, and staff as well as the review of records all occurred today. I also attest that the listed assessment and stated plan reflect my best clinical judgment today based on the combination of historical information, prior notes, and today's exam/ interactions. When time spent is documented, it refers only to time spent today by the signer, or if indicated, combined time spent today by collaborating physician/nurse practitioner.
--- NOTE | 2017-11-13 15:39 | P.PNGI ---
Subjective Interval history: Sitting at the edge of the bed eating lunch feeling better but still weak Physical Exam Vital signs: Vital Signs 11/12/17 16:00 11/12/17 20:00 11/13/17 00:00 Temperature 99.2 F 98.1 F 98.4 F Pulse Rate 71 77 77 Respiratory Rate 18 16 Blood Pressure 145/79 H 146/77 H 150/86 H Pulse Oximetry 98 96 98 11/13/17 04:00 11/13/17 06:13 11/13/17 08:14 Temperature 98.1 F 98.8 F Pulse Rate 72 72 Respiratory Rate 16 20 18 Blood Pressure 133/74 135/76 Pulse Oximetry 96 96 11/13/17 12:43 Temperature 98.4 F Pulse Rate 68 Respiratory Rate 18 Blood Pressure 127/76 Pulse Oximetry 96 Intake & Output 11/12/17 11/13/17 11/13/17 18:59 06:59 18:59 Intake Total 1000 / 1000 1335 / 1335 240 / 240 Output Total 1550 / 1550 440 / 440 Balance 1000 / 1000 -215 / -215 -200 / -200 Weight 64.5 kg Intake: IV 1000 / 1000 1000 / 1000 Potassium Chlor 20 mEq/NACL 0. 1000 / 1000 1000 / 1000 45% Inj 1,000 ML @ 84 mls/hr IV .CONT .[id number] [facility] Rx#:[id number] Oral 0 / 0 240 / 240 Tube Feeding 335 / 335 Output: Urine 1350 / 1350 440 / 440 Gastric Drainage 200 / 200 Left Upper Quadrant 200 / 200 Gastrojejunostomy Tube Other: Date of Last Bowel Movement 11/09/17 - Constitutional no acute distress - Routine HEENT Exam Eye: Present: EOMI. Absent: conjunctival icterus - Routine Cardiovascular Exam Present: RRR - Routine Abdominal Exam Present: soft, normoactive bowel sounds - Routine Extremities Exam Absent: cyanosis, clubbing, edema Results - Labs CBC & Chem 7: 11/10/17 06:03 11/11/17 07:50 Assessment and Plan (1) Obstructive jaundice Status: Acute Code(s): K83.8 - Other specified diseases of biliary tract (2) Pancreatic mass Status: Acute Code(s): K86.9 - Disease of pancreas, unspecified (3) Gastric outlet obstruction Status: Acute Code(s): K31.1 - Adult hypertrophic pyloric stenosis (4) Pancreatic cancer metastasized to liver Status: Acute Code(s): C25.9 - Malignant neoplasm of pancreas, unspecified; C78.7 - Secondary malignant neoplasm of liver and intrahepatic bile duct - Plan Pancreatic advanced stage adenocarcinoma, proximately one month. No chemotherapy or radiation as of yet due to poor functional status Nausea vomiting, bloating/belching uncontrolled for the past 2 weeks but currently seems to be under better control and tolerating intake. Gastric tube port hooked to suction with minimal return and tolerating jejunal feeding through the jejunal port Watery yellow diarrhea off and on for the past 2 weeks and weight loss of approximately 15 pounds. Patient has no obvious rectal bleeding. CT scan performed on the a.m. of 11/11/2017 shows 3-4 cm pancreatic head mass identified biliary stent is in place in the common bile duct. Diffuse prominence of intrahepatic and extrahepatic biliary ducts. Extensive pneumobilia are noted small amount of free fluid in the abdomen and pelvis. Mild splenomegaly and enlarged prostate. GJ tube in place. Labs show current hemoglobin 11.9. Plan Will clamp NG tube suction for now and see how well the patient does clinically if he continues to have problems with nausea and vomiting we may want to contemplate duodenal stenting Monitor labs, no bilirubin today but if it appears that it is continuing to go up we may want to go in and clean out the pancreatic stent Pain management per attending Continue with current supportive care I had a discussion with both the patient and his daughter regarding above options
[2017-11-14] MEDS: HYDROmorphone PF Inj 2 MG/ML Vial IV.PUSH PRN ×4 (02:33→14:56)
[2017-11-14 08:03] LABS: Baso % (Auto) 0.5 % (0.0-2.0); Eos # (Auto) 0.4 th/mm3 (0.0-0.4); Eos % (Auto) 4.5 % (0.0-4.0); Hematocrit 36.2 % (39.0-51.0); Hemoglobin 12.1 gm/dL (13.0-17.0); Lymph % (Auto) 11.1 % (9.0-44.0); Mean Corpuscular HGB Conc 33.4 % (32.0-36.0); Mean Corpuscular Hemoglobin 27.9 pg (27.0-34.0); Mean Corpuscular Volume 83.5 fL (80.0-100.0); Mean Platelet Volume 7.9 fL (7.0-11.0); Mono % (Auto) 11.6 % (0.0-8.0); Neut # (Auto) 6.3 th/mm3 (1.8-7.7); Neut % (Auto) 72.3 % (16.0-70.0); Platelet Count 237 th/mm3 (150-450); Red Blood Count 4.34 mil/mm3 (4.50-5.90); Red Cell Distribution Width 15.7 % (11.6-17.2); White Blood Count 8.8 th/mm3 (4.0-11.0)
[2017-11-14 08:09] LABS: INR 1.3 Ratio
--- NOTE | 2017-11-14 08:19 | P.PNIM ---
Subjective Interval history: in chair comfortable. Physical Exam Vital signs: Vital Signs 11/13/17 12:43 11/13/17 17:38 11/13/17 20:00 Temperature 98.4 F 98 F 99.5 F Pulse Rate 68 70 73 Respiratory Rate 18 18 16 Blood Pressure 127/76 132/76 120/74 Pulse Oximetry 96 98 98 11/14/17 00:00 11/14/17 03:03 11/14/17 06:00 Temperature 99.3 F 98.7 F Pulse Rate 69 66 Respiratory Rate 16 16 16 Blood Pressure 112/68 122/74 Pulse Oximetry 97 97 11/14/17 06:59 Temperature Pulse Rate Respiratory Rate 16 Blood Pressure Pulse Oximetry Intake & Output 11/13/17 11/14/17 11/14/17 18:59 06:59 18:59 Intake Total 1040 / 1040 Output Total 1040 / 1040 350 / 350 Balance 0 / 0 -350 / -350 Weight 64.4 kg Intake: IV 800 / 800 Potassium Chlor 20 mEq/NACL 0. 800 / 800 45% Inj 1,000 ML @ 84 mls/hr IV .CONT .[id number] [facility] Rx#:[id number] Oral 240 / 240 Output: Urine 1040 / 1040 350 / 350 Other: Date of Last Bowel Movement 11/09/17 heart reg lung cta abd s/nt ext no edema Results - Labs CBC & Chem 7: 11/14/17 07:18 18 07:50 Laboratory Results - last 24 hr 11/14/17 11/14/17 07:18 07:18 WBC 8.8 RBC 4.34 L Hgb 12.1 L Hct 36.2 L MCV 83.5 MCH 27.9 MCHC 33.4 RDW 15.7 Plt Count 237 MPV 7.9 Neut % (Auto) 72.3 H Lymph % (Auto) 11.1 [place] % (Auto) 11.6 H Eos % (Auto) 4.5 H Baso % (Auto) 0.5 Neut # (Auto) 6.3 Lymph # (Auto) 1.0 [place] # (Auto) 1.0 H Eos # (Auto) 0.4 Baso # (Auto) 0.0 WBC Differential . Differential Comment Auto diff final PT 13.0 H INR 1.3 Assessment and Plan - Assessment (1) Pancreatic cancer metastasized to liver Code(s): C25.9 - Malignant neoplasm of pancreas, unspecified; C78.7 - Secondary malignant neoplasm of liver and intrahepatic bile duct Status: Acute Plan: - comgmt with Oncology, GI, Palliative Medicine - Pt diagnosed with Pancreatic Cancer September 2017 - Pt follows with Oncology, Dr. Alejo Omalley. - Case d/w Dr. Omalley (11/10). - Pt's performance status has been declining. - Per Dr. Omalley, pt is NOT a candidate for further palliative chemotherapy at this time. - Recent PET scan showed metastasis to the liver. - Upon admission I discussed poor prognosis with pt - Pt now with Gastric Outlet Obstruction. pt admitted with c/o n/v - G/J tube placed by IR (11/10/17) - Pt underwent EGD (11/11/17) with Dr. Lynn -LA class A esophagitis -Pancreatic cancer with tumor infiltrating into D2 -Retroflexed views revealed moderately large thick liquid residue - Case d/w Dr. Lynn (11/11/17) - pt underwent Gastrograffin tube check (11/12/17) to check patency of J tube Gastrografin seen in colon - started J-tube feeding with goal rate of 55ml/hour & free water flush 100ml TID - started suction via G-tube long discussion with pt. worried about pain control at home started fentanyl patch and wean off dilaudid. tube feeding to goal. stop ivf removed ngt. no vomiting long discussion about hospice care with pt. he wants to pursue PT at snf and reevaluate with oncology. dc today to snf with TF and pain control. f/u . labs pending. (2) Gastric outlet obstruction Code(s): K31.1 - Adult hypertrophic pyloric stenosis Status: Acute Plan: - see above
[2017-11-14 08:36] VITALS: RESP 18
[2017-11-14 08:36] LABS: Alanine Aminotransferase 38 U/L (12-78); Albumin 2.8 g/dL (3.4-5.0); Anion Gap 6 meq/L (5-15); Aspartate Aminotransferase 16 U/L (15-37); Blood Urea Nitrogen 12 mg/dL (7-18); Calcium 8.6 mg/dL (8.5-10.1); Carbon Dioxide 33.1 meq/L (21.0-32.0); Chloride 101 meq/L (98-107); Glomerular Filtration Rate Greater Than 89 mL/min (>89); Glucose,Random 94 mg/dL (74-106); Sodium 140 meq/L (136-145)
[2017-11-14 08:38] LABS: Alkaline Phosphatase 95 U/L (45-117); Total Protein 6.3 g/dL (6.4-8.2)
[2017-11-14] MEDS ORDERED: Potassium Chloride 25 MEQ Effervescent Tablet J-TUBE ONE (08:40)
[2017-11-14] MEDS: Senna/Docusate Sodium 8.6/50 MG Tablet PO SCH (10:55)
--- NOTE | 2017-11-14 11:13 | P.PNONC ---
Subjective Interval history: Patient lying in bed, RN at the bedside administering medication through J- tube. Reports he has been off suction since yesterday and has had no nausea, or residual tube feed. Patient reports feeling stronger able to ambulate to the chair without assistance and tolerating well. Tolerating tube feeds well. Reports pain is controlled. Awaiting SNF placement Objective Vital Signs/Intake & Output: Vital Signs 11/13/17 12:43 11/13/17 17:38 11/13/17 20:00 Temperature 98.4 F 98 F 99.5 F Pulse Rate 68 70 73 Respiratory Rate 18 18 16 Blood Pressure 127/76 132/76 120/74 Pulse Oximetry 96 98 98 11/14/17 00:00 11/14/17 03:03 11/14/17 06:00 Temperature 99.3 F 98.7 F Pulse Rate 69 66 Respiratory Rate 16 16 16 Blood Pressure 112/68 122/74 Pulse Oximetry 97 97 11/14/17 06:59 11/14/17 08:00 Temperature 98.8 F Pulse Rate 78 Respiratory Rate 16 18 Blood Pressure 99/62 L Pulse Oximetry 96 Intake & Output 11/13/17 11/14/17 11/14/17 18:59 06:59 18:59 Intake Total 1040 / 1040 Output Total 1040 / 1040 350 / 350 Balance 0 / 0 -350 / -350 Weight 64.4 kg Intake: IV 800 / 800 Potassium Chlor 20 mEq/NACL 0. 800 / 800 45% Inj 1,000 ML @ 84 mls/hr IV .CONT .[id number] [facility] Rx#:[id number] Oral 240 / 240 Output: Urine 1040 / 1040 350 / 350 Other: Date of Last Bowel Movement 11/09/17 Result Diagrams: 11/14/17 07:18 11/14/17 07:18 Laboratory Results: Laboratory Results - last 24 hr 11/14/17 11/14/17 11/14/17 07:18 07:18 07:18 WBC 8.8 RBC 4.34 L Hgb 12.1 L Hct 36.2 L MCV 83.5 MCH 27.9 MCHC 33.4 RDW 15.7 Plt Count 237 MPV 7.9 Neut % (Auto) 72.3 H Lymph % (Auto) 11.1 [place] % (Auto) 11.6 H Eos % (Auto) 4.5 H Baso % (Auto) 0.5 Neut # (Auto) 6.3 Lymph # (Auto) 1.0 [place] # (Auto) 1.0 H Eos # (Auto) 0.4 Baso # (Auto) 0.0 WBC Differential . Differential Comment Auto diff final PT 13.0 H INR 1.3 Sodium 140 Potassium 3.0 L Chloride 101 Carbon Dioxide 33.1 H Anion Gap 6 BUN 12 Creatinine 0.78 Estimated GFR Greater than 89 Random Glucose 94 Calcium 8.6 Total Bilirubin 1.4 H AST 16 ALT 38 Alkaline Phosphatase 95 Total Protein 6.3 L D Albumin 2.8 L Medications: Active Medications Generic Name Dose Route Start Last Admin Trade Name Freq PRN Reason Stop Dose Admin Fentanyl 1 patch 11/13/17 09:00 11/13/17 10:42 Duragesic 25 Mcg Patch.72hr T-DERMAL 1 patch Q3D CAM Administration Hydromorphone HCl 0.5 mg 11/10/17 17:00 11/14/17 10:54 Dilaudid Pf Inj IV.PUSH 0.5 mg Q4H PRN Administration PAIN SCALE 1 TO 10 Lorazepam 0.5 mg 11/09/17 22:31 11/10/17 00:12 Ativan Inj IV.PUSH 0.5 mg Q8H PRN Administration ABDOMINAL PAIN Senna/Docusate Sodium 1 tab 11/10/17 09:00 11/14/17 10:55 Rebecca-Colace PO Not Given BID CAM Sodium Chloride 2 ml 11/09/17 16:49 11/09/17 17:02 Ns Flush IV.FLUSH 2 ml PRN PRN Administration FLUSH AFTER USING IV ACCESS Tamsulosin HCl 0.4 mg 11/10/17 21:00 11/13/17 20:50 Flomax PO Not Given HS CAM Objective Remarks: GENERAL: Ill-appearing middle-aged male patient, lying comfortably in bed, in no acute distress. SKIN: Warm and dry. HEAD: Normocephalic. EYES: No scleral icterus. No injection or drainage. NECK: Supple, trachea midline. CARDIOVASCULAR: Regular rate and rhythm without murmurs. RESPIRATORY: Breath sounds clear, equal bilaterally. No accessory muscle use. GASTROINTESTINAL: Abdomen soft, non-tender, nondistended. J-tube to LUQ, drsg dry/intact. EXTREMITIES: No cyanosis, or edema. MUSCULOSKELETAL: Normal muscle tone, moves all extremities. NEUROLOGICAL: No obvious focal deficit. Awake, alert, and oriented x3. PSYCHIATRIC: Appropriate mood and affect; insight and judgment normal. Assessment/Plan (1) Gastric outlet obstruction Code(s): K31.1 - Adult hypertrophic pyloric stenosis Status: Acute (2) Pancreatic cancer metastasized to liver Code(s): C25.9 - Malignant neoplasm of pancreas, unspecified; C78.7 - Secondary malignant neoplasm of liver and intrahepatic bile duct Status: Acute (3) Obstructive jaundice Code(s): K83.8 - Other specified diseases of biliary tract Status: Acute - Plan Mr. Cruz is a 71-year-old gentleman, diagnosed with pancreatic adenocarcinoma , under the care of Dr. Omalley. Prior to this admission patient was seen in the oncology clinic was noted to be wheelchair-bound, cachectic with a 10 pound weight loss over 1 week, abdominal distention and reports of not eating, he was referred to the hospital for his nutrition to be addressed. Plan: 1. Continue tube feeds. Patient tolerating well. 2. Patient has met with palliative care, he has elected to go to a SNF nursing facility to regain strength, his goals remain aggressive. Currently to weak for chemotherapy, can be reevaluated once he has regained strength. Prognosis remains poor. 3. If discharged to a SNF facility today patient will need follow-up with Dr. Omalley in 1 week.
--- NOTE | 2017-11-14 11:52 | P.PNGI ---
Subjective Interval history: Patient is sitting up in the bed alert answering simple questions. Hoping to get a popsicle real soon Hemoglobin 12.1 <Maddi Parikh - Last Filed: 11/14/17 11:45> Physical Exam Vital signs: Vital Signs 11/13/17 12:43 11/13/17 17:38 11/13/17 20:00 Temperature 98.4 F 98 F 99.5 F Pulse Rate 68 70 73 Respiratory Rate 18 18 16 Blood Pressure 127/76 132/76 120/74 Pulse Oximetry 96 98 98 11/14/17 00:00 11/14/17 03:03 11/14/17 06:00 Temperature 99.3 F 98.7 F Pulse Rate 69 66 Respiratory Rate 16 16 16 Blood Pressure 112/68 122/74 Pulse Oximetry 97 97 11/14/17 06:59 11/14/17 08:00 Temperature 98.8 F Pulse Rate 78 Respiratory Rate 16 18 Blood Pressure 99/62 L Pulse Oximetry 96 Intake & Output 11/13/17 11/14/17 11/14/17 18:59 06:59 18:59 Intake Total 1040 / 1040 Output Total 1040 / 1040 350 / 350 Balance 0 / 0 -350 / -350 Weight 64.4 kg Intake: IV 800 / 800 Potassium Chlor 20 mEq/NACL 0. 800 / 800 45% Inj 1,000 ML @ 84 mls/hr IV .CONT .[id number] [facility] Rx#:[id number] Oral 240 / 240 Output: Urine 1040 / 1040 350 / 350 Other: Date of Last Bowel Movement 11/09/17 - Constitutional mild distress, thin - Routine HEENT Exam Head: Present: normocephalic ENT: Present: mucous membranes dry - Routine Neck Exam Present: supple - Routine Respiratory Exam Present: accessory muscle use (No respiratory distress respirations unlabored) - Routine Cardiovascular Exam Present: S1, S2 - Routine Abdominal Exam Present: soft (Bowel sounds soft patient is currently n.p.o., Jevity 1.5 at 55 cc an hour, GJ tube) - Routine Neurological Exam Present: alert (Answering simple questions) <Maddi Parikh - Last Filed: 11/14/17 11:45> Vital signs: Vital Signs 11/13/17 20:00 11/14/17 00:00 11/14/17 03:03 Temperature 99.5 F 99.3 F Pulse Rate 73 69 Respiratory Rate 16 16 16 Blood Pressure 120/74 112/68 Pulse Oximetry 98 97 11/14/17 06:00 11/14/17 06:59 11/14/17 08:00 Temperature 98.7 F 98.8 F Pulse Rate 66 78 Respiratory Rate 16 16 18 Blood Pressure 122/74 99/62 L Pulse Oximetry 97 96 11/14/17 12:00 Temperature 98.2 F Pulse Rate 73 Respiratory Rate 18 Blood Pressure 105/65 Pulse Oximetry 99 Intake & Output 11/13/17 11/14/17 11/14/17 18:59 06:59 18:59 Intake Total 1240 / 1240 Output Total 1040 / 1040 350 / 350 Balance 200 / 200 -350 / -350 Weight 64.4 kg Intake: IV 1000 / 1000 Potassium Chlor 20 mEq/NACL 0. 800 / 800 45% Inj 1,000 ML @ 84 mls/hr IV .CONT .[id number] [facility] Rx#:[id number] Oral 240 / 240 Output: Urine 1040 / 1040 350 / 350 Other: Date of Last Bowel Movement 11/09/17 <Baljeet Wadsworth E - Last Filed: 11/14/17 18:44> Results - Labs CBC & Chem 7: 11/14/17 07:18 11/14/17 07:18 Laboratory Results - last 24 hr 11/14/17 11/14/17 11/14/17 07:18 07:18 07:18 WBC 8.8 RBC 4.34 L Hgb 12.1 L Hct 36.2 L MCV 83.5 MCH 27.9 MCHC 33.4 RDW 15.7 Plt Count 237 MPV 7.9 Neut % (Auto) 72.3 H Lymph % (Auto) 11.1 [place] % (Auto) 11.6 H Eos % (Auto) 4.5 H Baso % (Auto) 0.5 Neut # (Auto) 6.3 Lymph # (Auto) 1.0 [place] # (Auto) 1.0 H Eos # (Auto) 0.4 Baso # (Auto) 0.0 WBC Differential . Differential Comment Auto diff final PT 13.0 H INR 1.3 Sodium 140 Potassium 3.0 L Chloride 101 Carbon Dioxide 33.1 H Anion Gap 6 BUN 12 Creatinine 0.78 Estimated GFR Greater than 89 Random Glucose 94 Calcium 8.6 Total Bilirubin 1.4 H AST 16 ALT 38 Alkaline Phosphatase 95 Total Protein 6.3 L D Albumin 2.8 L <Maddi Parikh - Last Filed: 11/14/17 11:45> - Labs CBC & Chem 7: 11/14/17 07:18 08 07:18 Laboratory Results - last 24 hr 11/14/17 11/14/17 11/14/17 07:18 07:18 07:18 WBC 8.8 RBC 4.34 L Hgb 12.1 L Hct 36.2 L MCV 83.5 MCH 27.9 MCHC 33.4 RDW 15.7 Plt Count 237 MPV 7.9 Neut % (Auto) 72.3 H Lymph % (Auto) 11.1 [place] % (Auto) 11.6 H Eos % (Auto) 4.5 H Baso % (Auto) 0.5 Neut # (Auto) 6.3 Lymph # (Auto) 1.0 [place] # (Auto) 1.0 H Eos # (Auto) 0.4 Baso # (Auto) 0.0 WBC Differential . Differential Comment Auto diff final PT 13.0 H INR 1.3 Sodium 140 Potassium 3.0 L Chloride 101 Carbon Dioxide 33.1 H Anion Gap 6 BUN 12 Creatinine 0.78 Estimated GFR Greater than 89 Random Glucose 94 Calcium 8.6 Total Bilirubin 1.4 H AST 16 ALT 38 Alkaline Phosphatase 95 Total Protein 6.3 L D Albumin 2.8 L <Baljeet Wadsworth - Last Filed: 11/14/17 18:44> Assessment and Plan (1) Obstructive jaundice Status: Acute Code(s): K83.8 - Other specified diseases of biliary tract (2) Pancreatic mass Status: Acute Code(s): K86.9 - Disease of pancreas, unspecified (3) Gastric outlet obstruction Status: Acute Code(s): K31.1 - Adult hypertrophic pyloric stenosis (4) Pancreatic cancer metastasized to liver Status: Acute Code(s): C25.9 - Malignant neoplasm of pancreas, unspecified; C78.7 - Secondary malignant neoplasm of liver and intrahepatic bile duct - Plan History Pancreatic advanced stage adenocarcinoma, proximately one month. No chemotherapy or radiation as of yet due to poor functional status Nausea vomiting, bloating/belching uncontrolled for the past 2 weeks but currently seems to be under better control and tolerating intake. Gastric tube port hooked to suction with minimal return and tolerating jejunal feeding through the jejunal port Watery yellow diarrhea off and on for the past 2 weeks and weight loss of approximately 15 pounds. Patient has no obvious rectal bleeding. CT scan performed on the a.m. of 11/11/2017 shows 3-4 cm pancreatic head mass identified biliary stent is in place in the common bile duct. Diffuse prominence of intrahepatic and extrahepatic biliary ducts. Extensive pneumobilia are noted small amount of free fluid in the abdomen and pelvis. Mild splenomegaly and enlarged prostate. GJ tube in place. Labs show current hemoglobin 11.9. 11/14/2017 patient sitting up in the bed feeling much better today.. NG tube clamped. Patient is really hoping that he will be able to return to at least eating popsicles and clear liquids soon. Patient requesting a trial run. Consider duodenal stenting. Current hemoglobin 9.1, bilirubin 1.4 today currently decreasing on 816 bilirubin was 2.7. Patient is now connected to feedings Jevity 1.5 and tolerating 55 cc an hour. Drainage bag has been removed from GJ tube. Plan Diet currently n.p.o. Monitor labs with special attention to bilirubin and LFTs Supportive care Pain management per attending Bowel regimen sofia Barron Further recommendations to follow Patient was seen per myself and Dr. Wadsworth, note was written on his behalf <Maddi Parikh - Last Filed: 11/14/17 11:45> (1) Obstructive jaundice Status: Acute Code(s): K83.8 - Other specified diseases of biliary tract (2) Pancreatic mass Status: Acute Code(s): K86.9 - Disease of pancreas, unspecified (3) Gastric outlet obstruction Status: Acute Code(s): K31.1 - Adult hypertrophic pyloric stenosis (4) Pancreatic cancer metastasized to liver Status: Acute Code(s): C25.9 - Malignant neoplasm of pancreas, unspecified; C78.7 - Secondary malignant neoplasm of liver and intrahepatic bile duct - Attending Attestation Patient seen and examined Agree with above Continue with current supportive care Monitor labs At this point patient appears to be tolerating oral intake and not requiring gastric tube drainage His bilirubin is on its way down I would recommend continuing with current supportive care Not much to add from a GI perspective at this point we will sign off <Baljeet Wadsworth E - Last Filed: 11/14/17 18:44>
[2017-11-14 13:08] VITALS: BP 105/65; PULSE 73; TEMP 98.2; O2SAT 99
--- NOTE | 2017-11-22 13:43 | P.DS ---
Date of admission: 11/09/17 22:05 Primary care physician: No Primary Care Physician Anticipated date of discharge: 11/20/17 Brief History from admission: 71-year-old male with PMH recently diagnosed locally advanced pancreatic adenocarcinoma presents to the ED for evaluation of "weeks" history of dysphagia , abdominal bloating, nonbloody, nonbilious "projectile" vomiting, early satiety , belching. He endorses multiple episodes of "watery yellow" diarrhea daily. He endorses weight loss of ~15 lbs in the last few weeks. He denies any abdominal pain. Patient is followed by Dr. Wang. On physical exam this is a thin, ill-appearing white male in no acute distress. Abdomen is distended and diffusely tender. No fluid wave noted. Upper GI series reveals gastric obstruction with severely distended stomach. NG tube was inserted and 2 L was evacuated. Patient reported improvement of his symptoms. ER spoke with Dr. Diaz who is in agreement with admission. He plans palliative care only. He had an unsuccessful attempt at the [facility] interventional radiology was consulted for biliary drain and stent placement. Biopsies showed moderately to poorly differentiated adenocarcinoma with a pancreatic primary. Of note patient did have a recent biopsy of the prostate done at the [facility] which did not reveal any adenocarcinoma. As per oncology will be admitted now we will keep n.p.o. IV fluid Zofran and Reglan for nausea. Further plan as per oncology. DS: Diagnosis - Discharge Diagnosis (1) Pancreatic cancer metastasized to liver Status: Acute (2) Gastric outlet obstruction Status: Acute DS: Medications - Discharge Medications Prescriptions: fentanyl [Duragesic] 1 patch TRANSDERMAL Q3D #2 ea DS: Summary Hospital Course: Assessment and Plan - Assessment (1) Pancreatic cancer metastasized to liver Code(s): C25.9 - Malignant neoplasm of pancreas, unspecified; C78.7 - Secondary malignant neoplasm of liver and intrahepatic bile duct Status: Acute Plan: - comgmt with Oncology, GI, Palliative Medicine - Pt diagnosed with Pancreatic Cancer September 2017 - Pt follows with Oncology, Dr. Alejo Omalley. - Case d/w Dr. Omalley (11/10). - Pt's performance status has been declining. - Per Dr. Omalley, pt is NOT a candidate for further palliative chemotherapy at this time. - Recent PET scan showed metastasis to the liver. - Upon admission I discussed poor prognosis with pt - Pt now with Gastric Outlet Obstruction. pt admitted with c/o n/v - G/J tube placed by IR (11/10/17) - Pt underwent EGD (11/11/17) with Dr. Lynn -LA class A esophagitis -Pancreatic cancer with tumor infiltrating into D2 -Retroflexed views revealed moderately large thick liquid residue - Case d/w Dr. Lynn (11/11/17) - pt underwent Gastrograffin tube check (11/12/17) to check patency of J tube Gastrografin seen in colon - started J-tube feeding with goal rate of 55ml/hour & free water flush 100ml TID - started suction via G-tube long discussion with pt. worried about pain control at home started fentanyl patch and wean off dilaudid. tube feeding to goal. stop ivf removed ngt. no vomiting long discussion about hospice care with pt. he wants to pursue PT at snf and reevaluate with oncology. dc today to snf with TF and pain control. f/u . l (2) Gastric outlet obstruction Code(s): K31.1 - Adult hypertrophic pyloric stenosis Status: Acute Plan: - Time Spent with Patient Total time spent providing and/or coordinating discharge services: Greater than 30 minutes - Quality: VTE Deep Vein Thrombosis/Pulmonary Embolism Present on Admission: No Exam Vital signs: heart reg lung cta abd s/nt ext no edema Results Procedures completed during hospitalization: egd - Impressions ITS Impressions Gastrostomy Tube Placement 11/10/17 00:00 CONCLUSION: 1. Uncomplicated gastrojejunostomy tube placement as above. Abdomen/Pelvis CT 11/11/17 00:00 CONCLUSION: 1. 3 to 4 cm pancreatic head mass again identified. Biliary stent is in place in the common duct. Diffuse prominence of the intrahepatic and extrahepatic biliary ducts. Extensive pneumobilia noted. 2. Small amount of free fluid in the abdomen and pelvis. 3. Mild splenomegaly. 4. Enlarged prostate. 5. Gastrojejunostomy tube in place. Abdomen X-Ray 11/12/17 07:00 CONCLUSION: There are no findings to indicate bowel obstruction. No acute abnormality is identified. Discharge Plan - Discharge Disposition Patient Disposition: Discharge to SNF - Discharge Condition Condition: Stable - Discharge Order Discharge Orders: Discharge Order (Routine); Ordered 11/14/17 Ordered By: Chase Nieto - Discharge Details Anticipated Discharge Date: 11/14/17 Discharge Comment: dc to snf once arrangement made. - Physicians Team Primary Care Provider: Primary Care Valencia Camara Attending Provider: Fabian Baum Other Providers: Alejo Diaz MD ; Mustapha Reza MD ; [facility],Agency ; [facility],[place] ; Livan Lynn MD
== END 2017-11-14 17:45 ==
LOC: NEDA 16:08 → NEPE 16:08 → NEPGCP 20:16 → HCIN 11-11 18:01
PROVIDERS: ADMIT Hospitalist; ATTEND Hospitalist

== ENCOUNTER 2017-11-30 00:40 | Inpatient (IN) ==
[2017-11-30] MEDS ORDERED: Acetaminophen 325 MG Tablet PO ONE (00:57)
[2017-11-30] MEDS: Sod Chloride 0.9% Inj 1,000 ML IV.SIG SCH ×2 (01:11→02:18)
[2017-11-30 01:18] LABS: Baso % (Auto) 0.5 % (0.0-2.0); Hematocrit 30.3 % (39.0-51.0); Hemoglobin 10.3 gm/dL (13.0-17.0); Lymph # (Auto) 0.3 th/mm3 (1.0-4.8); Lymph % (Auto) 7.3 % (9.0-44.0); Mean Corpuscular HGB Conc 33.9 % (32.0-36.0); Mean Corpuscular Hemoglobin 27.2 pg (27.0-34.0); Mean Corpuscular Volume 80.3 fL (80.0-100.0); Mean Platelet Volume 8.5 fL (7.0-11.0); Mono # (Auto) 0.1 th/mm3 (0.0-0.9); Mono % (Auto) 1.5 % (0.0-8.0); Neut # (Auto) 3.3 th/mm3 (1.8-7.7); Neut % (Auto) 89.7 % (16.0-70.0); Platelet Count 172 th/mm3 (150-450); Red Blood Count 3.77 mil/mm3 (4.50-5.90); Red Cell Distribution Width 15.6 % (11.6-17.2); White Blood Count 3.7 th/mm3 (4.0-11.0)
[2017-11-30 01:22] LABS: Bilirubin,Urine Negative (Negative); Clarity,Urine Hazy (Clear); Color,Urine Amber (Yellw/Straw); Glucose,Urine (UA) Negative (Negative); Leukocyte Esterase,Urine Negative (Negative); Mucus,Urine Few /lpf (Occasional); Nitrite,Urine Negative (Negative); Specific Gravity,Urine 1.025 (1.002-1.035)
--- NOTE | 2017-11-30 01:23 | ED ---
HPI General Chief Complaint: Fever Stated Complaint: poss fever, chills Time Seen by Provider: 11/30/17 00:57 Source: patient and EMS Mode of arrival: EMS Limitations: no limitations History of Present Illness HPI Narrative: 71-year-old male patient with history of pancreatic cancer currently awaiting chemotherapy, presents to the ER today brought in by EMS because he was at a care home facility and started not feeling well, having chills, fevers of 103, and feeling weak. He denies any vomiting, diarrhea, abdominal pains, shortness of breath or chest pains. He admits he has been coughing but the coughing has been going on for some time. Related Data Home Medications Medication Instructions Recorded Confirmed tamsulosin [Flomax] 0.4 mg DAILY 10/30/17 11/30/17 amino acids-protein hydrolys 1 oz FEEDING TUBE BID 11/30/17 11/30/17 [Proteinex] hydromorphone [Dilaudid] 4 mg PO Q4H PRN 11/30/17 11/30/17 Previous Rx's Medication Instructions Recorded fentanyl [Duragesic] 1 patch TRANSDERMAL Q3D #2 ea 11/14/17 Allergies Allergy/AdvReac Type Severity Reaction Status Date / Time No Known Allergies Allergy Verified 11/09/17 16:28 Review of Systems ROS: all other systems reviewed are negative [facility] Medical History Medical History History of biliary stent insertion (Acute) History of broken collarbone (Acute) Metastatic cancer to liver (Acute) Pancreas cancer (Acute) Port-A-Cath in place (Acute) Skin cancer (Acute) Surgical History Surgical History History of tonsillectomy (Acute) Social History Social History Substance History: No History of Abuse Second Hand Smoke Exposure: No Smoking Status: Never smoker How Often Do You Have a Drink Containing Alcohol: Never Recent Travel in [place] within the Last 8 Weeks: No Recent Out of Country Travel within the Last 8 Weeks: No Immunization History Tetanus Immunization: <5 Years Hx Influenza Vaccine This Season: Yes Exam Narrative Exam Narrative: GENERAL: Well-developed elderly white male patient currently in moderate distress. Awake and oriented 3. SKIN: Focused skin assessment warm/dry. HEAD: Atraumatic. Normocephalic. EYES: Pupils equal and round. No scleral icterus. No injection or drainage. ENT: No nasal bleeding or discharge. Mucous membranes pink and moist. NECK: Trachea midline. No JVD. CARDIOVASCULAR: Regular rate and rhythm. No murmur appreciated. RESPIRATORY: No accessory muscle use. Clear to auscultation. Breath sounds equal bilaterally. GASTROINTESTINAL: Abdomen soft, non-tender, G-tube in place. Nondistended. Hepatic and splenic margins not palpable. MUSCULOSKELETAL: No obvious deformities. No clubbing. No cyanosis. No edema. NEUROLOGICAL: Awake and alert. No obvious cranial nerve deficits. Motor grossly within normal limits. Normal speech. PSYCHIATRIC: Appropriate mood and affect; insight and judgment normal. Course Initial Documented Vital Signs Temperature 103.2 F H 11/30/17 00:45 Pulse Rate 111 H 11/30/17 00:45 Respiratory Rate 25 H 11/30/17 00:45 Blood Pressure 114/60 11/30/17 00:45 Pulse Oximetry 95 11/30/17 00:45 Last Documented Vital Signs Temperature 103.2 F H 11/30/17 00:45 Pulse Rate 111 H 11/30/17 00:45 Respiratory Rate 25 H 11/30/17 00:45 Blood Pressure 114/60 11/30/17 00:45 Pulse Oximetry 95 11/30/17 00:45 Medical Decision Making MDM Narrative Medical decision making narrative: Chest x-ray did not show any signs of acute pulmonary processes. Lab work was fairly unremarkable. He is febrile in the ER with a temperature 103. He was given Tylenol in the ER and IV fluids was given. IV antibiotics were initiated after cultures are drawn. Considering his history, he is a high risk for infections, my plan would be to admit him for further evaluation and treatment. Case is discussed with Dr. Ramires for admission. Medical Screen Exam Complete: Yes Emergency Medical Condition: Yes Differential Diagnosis Differential Diagnosis: Sepsis versus pneumonia versus influenza versus dehydration versus electrolyte abnormalities Lab Data Lab results reviewed: Yes I reviewed the patient's lab results. Result diagrams: 11/30/17 01:01 11/30/17 01:01 Lab Results 11/30/17 11/30/17 11/30/17 Range/Units 01:01 01:01 01:01 WBC 3.7 L (4.0-11.0) th/mm3 RBC 3.77 L (4.50-5.90) mil/mm3 Hgb 10.3 L (13.0-17.0) gm/dL Hct 30.3 L (39.0-51.0) % MCV 80.3 (80.0-100.0) fL MCH 27.2 (27.0-34.0) pg MCHC 33.9 (32.0-36.0) % RDW 15.6 (11.6-17.2) % Plt Count 172 (150-450) th/mm3 MPV 8.5 (7.0-11.0) fL Neut % (Auto) 89.7 H (16.0-70.0) % Lymph % (Auto) 7.3 L (9.0-44.0) % [place] % (Auto) 1.5 (0.0-8.0) % Eos % (Auto) 1.0 (0.0-4.0) % Baso % (Auto) 0.5 (0.0-2.0) % Neut # (Auto) 3.3 (1.8-7.7) th/mm3 Lymph # (Auto) 0.3 L (1.0-4.8) th/mm3 [place] # (Auto) 0.1 (0.0-0.9) th/mm3 Eos # (Auto) 0.0 (0.0-0.4) th/mm3 Baso # (Auto) 0.0 (0.0-0.2) th/mm3 WBC Differential . Differential Comment Auto diff final Sodium 139 (136-145) meq/L Potassium 3.5 (3.5-5.1) meq/L Chloride 103 (98-107) meq/L Carbon Dioxide 25.3 (21.0-32.0) meq/L Anion Gap 11 (5-15) meq/L BUN 20 H (7-18) mg/dL Creatinine 0.80 (0.60-1.30) mg/dL Estimated GFR Greater than 89 (>89) mL/min Random Glucose 117 H (74-106) mg/dL Lactic Acid 2.9 H (0.4-2.0) mmol/L Calcium 8.4 L (8.5-10.1) mg/dL Total Bilirubin 1.2 H (0.2-1.0) mg/dL AST 20 (15-37) U/L ALT 45 (12-78) U/L Alkaline Phosphatase 112 (45-117) U/L Total Protein 6.4 (6.4-8.2) g/dL Albumin 2.6 L (3.4-5.0) g/dL Urine Color (Yellw/Straw) Urine Clarity (Clear) Urine pH (5.0-8.5) Ur Specific [place] (1.002-1.035) Urine Protein (Neg-Trace) mg/dL Urine Glucose (UA) (Negative) mg/dL Urine Ketones (Negative) mg/dL Urine Occult Blood (Negative) Urine Nitrate (Negative) Urine Bilirubin (Negative) Urine Urobilinogen (Less than 2) mg/dL Ur Leukocyte Esterase (Negative) Urine RBC (0-3) /hpf Urine WBC (0-5) /hpf Urine Mucus (Occasional) /lpf Micro UA Comment Ur Microscopic Review Urine Culture Comments 11/30/17 Range/Units 01:05 WBC (4.0-11.0) th/mm3 RBC (4.50-5.90) mil/mm3 Hgb (13.0-17.0) gm/dL Hct (39.0-51.0) % MCV (80.0-100.0) fL MCH (27.0-34.0) pg MCHC (32.0-36.0) % RDW (11.6-17.2) % Plt Count (150-450) th/mm3 MPV (7.0-11.0) fL Neut % (Auto) (16.0-70.0) % Lymph % (Auto) (9.0-44.0) % [place] % (Auto) (0.0-8.0) % Eos % (Auto) (0.0-4.0) % Baso % (Auto) (0.0-2.0) % Neut # (Auto) (1.8-7.7) th/mm3 Lymph # (Auto) (1.0-4.8) th/mm3 [place] # (Auto) (0.0-0.9) th/mm3 Eos # (Auto) (0.0-0.4) th/mm3 Baso # (Auto) (0.0-0.2) th/mm3 WBC Differential Differential Comment Sodium (136-145) meq/L Potassium (3.5-5.1) meq/L Chloride (98-107) meq/L Carbon Dioxide (21.0-32.0) meq/L Anion Gap (5-15) meq/L BUN (7-18) mg/dL Creatinine (0.60-1.30) mg/dL Estimated GFR (>89) mL/min Random Glucose (74-106) mg/dL Lactic Acid (0.4-2.0) mmol/L Calcium (8.5-10.1) mg/dL Total Bilirubin (0.2-1.0) mg/dL AST (15-37) U/L ALT (12-78) U/L Alkaline Phosphatase (45-117) U/L Total Protein (6.4-8.2) g/dL Albumin (3.4-5.0) g/dL Urine Color Viktoria (Yellw/Straw) Urine Clarity Hazy H (Clear) Urine pH 5.0 (5.0-8.5) Ur Specific [place] 1.025 (1.002-1.035) Urine Protein 100 H (Neg-Trace) mg/dL Urine Glucose (UA) Negative (Negative) mg/dL Urine Ketones Negative (Negative) mg/dL Urine Occult Blood Negative (Negative) Urine Nitrate Negative (Negative) Urine Bilirubin Negative (Negative) Urine Urobilinogen 2.0 H (Less than 2) mg/dL Ur Leukocyte Esterase Negative (Negative) Urine RBC 5 H (0-3) /hpf Urine WBC 4 (0-5) /hpf Urine Mucus Few H (Occasional) /lpf Micro UA Comment Culture not ind Ur Microscopic Review Not Reportable Urine Culture Comments Culture not ind Imaging Data Attestation: I personally reviewed and interpreted this imaging study as follows : Radiologist's impression: Chest X-Ray 11/30/17 00:57 CONCLUSION: No acute cardiopulmonary abnormality is identified. ECG Data Attestation: I personally reviewed and interpreted this ECG as follows: Interpretation: EKG shows a normal sinus rhythm at a rate of 90 bpm. No signs of acute ST elevations or depressions. Discharge Plan Discharge Disposition Patient Disposition: 30 Still Patient Discharge Condition Condition: Good Discharge Details Anticipated Discharge Date: 11/30/17 Diagnosis: Sepsis Physicians Team ED Provider: Martha Brown Rxs /Orders / Referrals /Forms Prescriptions: No Action tamsulosin [Flomax] 0.4 mg Capsule,Extended Release 24hr 0.4 mg DAILY RF: 0 fentanyl [Duragesic] 25 mcg/hr Patch 72 Hour 1 patch Transdermal Q3D Qty: 2 RF: 0 hydromorphone [Dilaudid] 2 mg Tablet 4 mg PO Q4H PRN (Reason: BREAKTHROUGH PAIN ) RF: 0 amino acids-protein hydrolys [Proteinex] 15-60 gram-kcal/30 mL Liquid 1 oz Feeding Tube BID RF: 0 Status ED Status: Ready for Discharge
[2017-11-30 01:35] LABS: Alanine Aminotransferase 45 U/L (12-78); Albumin 2.6 g/dL (3.4-5.0); Anion Gap 11 meq/L (5-15); Aspartate Aminotransferase 20 U/L (15-37); Blood Urea Nitrogen 20 mg/dL (7-18); Calcium 8.4 mg/dL (8.5-10.1); Carbon Dioxide 25.3 meq/L (21.0-32.0); Chloride 103 meq/L (98-107); Glomerular Filtration Rate Greater Than 89 mL/min (>89); Glucose,Random 117 mg/dL (74-106); Potassium 3.5 meq/L (3.5-5.1); Sodium 139 meq/L (136-145)
[2017-11-30 01:37] LABS: Alkaline Phosphatase 112 U/L (45-117); Total Protein 6.4 g/dL (6.4-8.2)
--- NOTE | 2017-11-30 01:45 | XR ---
EXAM DATE: 11/30/2017 1:35 AM EDT AGE/SEX: 71 years / Male INDICATIONS: Fever. CLINICAL DATA: This is the patient's initial encounter. Patient reports that signs and symptoms have been present for 1 day and indicates a pain score of 0/10. MEDICAL/SURGICAL HISTORY: Carcinoma, pancreas. Skin cancer, Brain tumor. Tonsillectomy. Bilia ry stent placement. COMPARISON: No prior exams available for comparison. FINDINGS: Portable AP view of the chest demonstrates a normal-sized cardiac silhouette. Right chest wall Infuse -a-Port is present. EKG lines overlie the patient. Lungs are mildly underinflated with mild subsegmen matthew atelectasis at the lung bases. No effusion, consolidation, or pneumothorax is identified. The bon es and soft tissues demonstrate no acute finding. CONCLUSION: No acute cardiopulmonary abnormality is identified. Electronically signed by: Boaz Arias MD 11/30/2017 1:44 AM EDT
[2017-11-30] MEDS: Sod Chloride 0.9% Inj 1,000 ML IV.CONT SCH ×2 (04:10→13:22)
--- NOTE | 2017-11-30 10:28 | P.HPIM ---
History of Present Illness Primary Care Physician: Robert Chung MD Chief Complaint: Fevers, chills History of Present Illness: Mr. Cruz is a pleasant 71 y/o male with pancreatic cancer who presented to the ER at [facility] on 11/30/17 with complaints of fevers and chills. He states that he has been at [facility] for rehab since his last discharge on 11/14/17. He had been doing fairly well and was walking around with some assisted devices and was tolerating TF well. Around 4-5 days ago he began having some low grade fevers which was being treated with Tylenol. He states that he has had a bit of a dry cough for some time and had a CXR and blood work done on 11/27/17, which he reports were negative. Then yesterday evening he started having shaking chills and his fever spiked to 103 degrees. This prompted his evaluation in the ED last night. His fever was noted to be 103 in the ED. He was given Cefepime 2grams IV in the ED after blood cultures were drawn. His CXR was negative. He tested negative for flu. Pt denies any sore throat, congestions , nausea/vomiting, diarrhea, abd pain, chest pain, SOB, dizziness or weakness. Pt reports that the last time his port was accessed was [address] Geller office. Past Medical/Surgical Hx: Pancreatic cancer, attempted ERCP 10/13 for obstructive jaundice and finding was ampulla distorted by tumor invasion, failed sphincterotomy. Multiple imaging modalities showed pancreatic mass. Pt then had biliary drain and stent placed by IR. Pt had EUS and FNA 10/16 and biopsy showed poorly differentiated adenocarcinoma c/w pancreatic primary. Pt is following with Dr Diaz. The mass is not resectable and pt had a recent PET scan showing possible metastasis to liver. Had port placed 05/03. Pt has been too weak for palliative chemotherapy. His bilirubin has trended down since the biliary drain and stent was placed. GJ tube placement by IR Skin Cancer removal Tonsillectomy Port placement Family Hx: Noncontributory Social Hx: Denies any alcohol, tobacco or illicit drug use - Diagnosis (1) Sepsis (2) Pancreatic cancer metastasized to liver (3) Pain (4) Anxiety Inpatient Certification: I certify that the inpatient services were ordered in accordance with Medicare regulations governing the order. This includes certification that hospital inpatient services are reasonable and necessary and in the case of services not specified as inpatient-only under 42 CFR 419.22(n), that they are appropriately provided as inpatient services in accordance to with the 2-midnight benchmark under 43 CFR 412.3(e) Estimated Total Length of Stay (Days): 3 Plans for Post Hospital Care: Not yet determined Review of Systems Constitutional: Reports chills, Reports fever(s), Denies night sweats Eyes: Denies change in vision, Denies double vision PMFSH - History History Provided By: Patient - Medical History Medical History: Medical History (Last Reviewed 11/30/17 @ 01:23 by Martha Brown MD) Metastatic cancer to liver History of biliary stent insertion History of broken collarbone Pancreas cancer Port-A-Cath in place Skin cancer - Surgical History Surgical History: Surgical History (Last Reviewed 11/30/17 @ 01:23 by Martha Brown MD) History of tonsillectomy - Tobacco History Second Hand Smoke Exposure: No Smoking Status: Never smoker - Alcohol History How Often Do You Have a Drink Containing Alcohol: Never - Substance Use History Substance History: No History of Abuse - Travel History Recent Travel in the [place] Within the Last 8 Weeks: No Recent Travel Out of the Country Within the Last 8 Weeks: No - Immunization History Tetanus Immunization: <5 Years Hx Influenza Vaccine This Season: Yes Medications and Allergies Active Medications: Active Medications Acetaminophen (Tylenol) 650 mg PO Q6H PRN PRN Reason: TEMPERATURE > 100.5 F Al Hydroxide/Mg Hydroxide (Milk Of Magnlatisha Liq) 30 ml PO Q12H PRN PRN Reason: Mild Constipation Sodium Chloride (Ns Inj) 1,000 mls @ 0 mls/hr IV.SIG .Q0M [facility] Last Infusion: 11/30/17 03:20 Dose: Infused Sodium Chloride (Ns Inj) 1,000 mls @ 100 mls/hr IV.CONT .Q10H [facility] Last Admin: 11/30/17 04:10 Dose: 100 mls/hr Ondansetron HCl (Zofran Inj) 4 mg IV.PUSH Q6H PRN PRN Reason: NAUSEA OR VOMITING Senna/Docusate Sodium (Rebecca-Colace) 1 tab PO BID [facility] Tamsulosin HCl (Flomax) 0.4 mg PO DAILY [facility] Allergies Allergy/AdvReac Type Severity Reaction Status Date / Time No Known Allergies Allergy Verified 11/09/17 16:28 Home Medications Medication Instructions Recorded Confirmed Type tamsulosin [Flomax] 0.4 mg DAILY 10/30/17 11/30/17 History amino acids-protein hydrolys 1 oz FEEDING TUBE BID 11/30/17 11/30/17 History [Proteinex] hydromorphone [Dilaudid] 4 mg PO Q4H PRN 11/30/17 11/30/17 History Exam Vital signs: Vital Signs 11/30/17 00:45 11/30/17 00:57 11/30/17 02:00 Temperature 103.2 F H Pulse Rate 111 H 84 Respiratory Rate 25 H 17 Blood Pressure 114/60 99/55 L Pulse Oximetry 95 96 96 11/30/17 04:15 Temperature 98.5 F Pulse Rate 89 Respiratory Rate 16 Blood Pressure 91/51 L Pulse Oximetry 96 Intake & Output 11/29/17 11/30/17 11/30/17 18:59 06:59 18:59 Intake Total 2099 Balance 2099 Weight 145 kg Intake: IV 2099 Maxipime Inj 2,000 MG In NS Inj 100 / 100 100 ML @ 200 mls/hr IV.SIG ONCE ONE Rx#:[id number] NS Inj 1,000 ML @ Wide Open IV. 1999 SIG .Q0M CAM Rx#:[id number] Narrative: GENERAL: NAD, AAOx3 SKIN: Warm and dry. HEENT: Atraumatic. Normocephalic. Pupils equal and round. No scleral icterus. No injection or drainage. No nasal bleeding or discharge. Mucous membranes pink and moist. NECK: Trachea midline. No JVD. CARDIO: Regular rate and rhythm. RESP: No accessory muscle use. Clear to auscultation. Breath sounds equal bilaterally. ABD: +BS, soft, non-tender, nondistended. Hepatic and splenic margins not palpable. EXT: Extremities without clubbing, cyanosis, or edema. No obvious deformities. NEURO: Awake and alert. No obvious cranial nerve deficits. Motor grossly within normal limits. Five out of 5 muscle strength in the arms and legs. Normal speech. PSYCHIATRIC: Appropriate mood and affect; insight and judgment normal. Results - Labs CBC & Chem 7: 11/30/17 01:11/30/17 01:01 Labs: Short CBC 11/30/17 Range/Units 01:01 WBC 3.7 L (4.0-11.0) th/mm3 Hgb 10.3 L (13.0-17.0) gm/dL Hct 30.3 L (39.0-51.0) % Plt Count 172 (150-450) th/mm3 BMP 11/30/17 01:01 Sodium 139 Potassium 3.5 Chloride 103 Carbon Dioxide 25.3 BUN 20 H Creatinine 0.80 Calcium 8.4 L Liver Function 11/30/17 Range/Units 01:01 Total Bilirubin 1.2 H (0.2-1.0) mg/dL AST 20 (15-37) U/L ALT 45 (12-78) U/L Alkaline Phosphatase 112 (45-117) U/L Albumin 2.6 L (3.4-5.0) g/dL Urine 11/30/17 Range/Units 01:05 Urine Color Viktoria (Yellw/Straw) Urine Clarity Hazy H (Clear) Urine pH 5.0 (5.0-8.5) Ur Specific [place] 1.025 (1.002-1.035) Urine Protein 100 H (Neg-Trace) mg/dL Urine Glucose (UA) Negative (Negative) mg/dL - Imaging Impressions Chest X-Ray 11/30/17 00:57 CONCLUSION: No acute cardiopulmonary abnormality is identified. Caprini VTE Risk Assessment Caprini VTE Risk Assessment: Moderate/High Risk (score >= 2) Caprini Risk Assessment Model: Point Value = 1 Point Value = 2 Point Value = 3 Point Value = 5 Age 41-60 Minor surgery BMI > 25 kg/m2 Swollen legs Varicose veins or History of unexplained or recurrent spontaneous Oral contraceptives or hormone replacement Sepsis (< 1 month) Serious lung disease, including pneumonia (< 1 month) Abnormal pulmonary function Acute myocardial infarction Congestive heart failure (< 1 month) History of inflammatory bowel disease Medical patient at bed rest Age 61-74 Arthroscopic surgery Major open surgery (> 45 min) Laparoscopic surgery (> 45 min) Malignancy Confined to bed (> 72 hours) Immobilizing plaster cast Central venous access Age >= 75 History of VTE Family history of VTE Factor V Leiden Prothrombin [id number] Lupus anticoagulant Anticardiolipin antibodies Elevated serum homocysteine Heparin-induced thrombocytopenia Other congenital or acquired thrombophilia Stroke (< 1 month) Elective arthroplasty Hip, pelvis, or leg fracture Acute spinal cord injury (< 1 month) Prophylaxis Regimen: Total Risk Factor Score Risk Level Prophylaxis Regimen 0-1 Low Early ambulation 2 Moderate Order ONE of the following: *Sequential Compression Device (SCD) *Heparin 5000 units SQ BID 3-4 Higher Order ONE of the following medications: *Heparin 5000 units SQ TID *Enoxaparin/Lovenox 40 mg SQ daily (WT < 150 kg, CrCl > 30 mL/min) *Enoxaparin/Lovenox 30 mg SQ daily (WT < 150 kg, CrCl > 10-29 mL/min) *Enoxaparin/Lovenox 30 mg SQ BID (WT < 150 kg, CrCl > 30 mL/min) AND/OR *Sequential Compression Device (SCD) 5 or more Highest Order ONE of the following medications: *Heparin 5000 units SQ TID (Preferred with Epidurals) *Enoxaparin/Lovenox 40 mg SQ daily (WT < 150 kg, CrCl > 30 mL/min) *Enoxaparin/Lovenox 30 mg SQ daily (WT < 150 kg, CrCl > 10-29 mL/min) *Enoxaparin/Lovenox 30 mg SQ BID (WT < 150 kg, CrCl > 30 mL/min) AND *Sequential Compression Device (SCD) Assessment and Plan - Assessment (1) Sepsis Code(s): A41.9 - Sepsis, unspecified organism Status: Acute Plan: Fevers/chills, possible sepsis ?biliary sepsis vs. port infection vs. other - Pt is a 71 y/o male with pancreatic cancer who presented to the ER at [facility] on with complaints of fevers and chills. Around 4-5 days ago he began having some low grade fevers which was being treated with Tylenol. He states that he has had a bit of a dry cough for some time and had a CXR and blood work done on 11/27/17, which he reports were negative. Then yesterday evening he started having shaking chills and his fever spiked to 103 degrees. This prompted his evaluation in the ED last night. - His fever was noted to be 103 in the ED. - He was given Cefepime 2grams IV in the ED after blood cultures were drawn. - His CXR was negative. He tested negative for flu. - Pt reports that the last time his port was accessed was [address] Geller office. - Obtain a blood culture from the port, but pt has already received one dose of Abx - Cont. Cefepime 2000mg Q12H after culture is drawn from the port - Add Vancomycin for broad coverage - Ofirmev PRN for pain as pts BP has been too low for Dilaudid - His Fentanyl 25mcg was placed on 11/29/17 and we will leave this in place for now - Zofran PRN - Consult Dr. Diaz - Supportive care (2) Pancreatic cancer metastasized to liver Code(s): C25.9 - Malignant neoplasm of pancreas, unspecified; C78.7 - Secondary malignant neoplasm of liver and intrahepatic bile duct Status: Acute (3) Pain Code(s): R52 - Pain, unspecified Status: Acute (4) Anxiety Code(s): F41.9 - Anxiety disorder, unspecified Status: Acute
[2017-11-30] MEDS: Senna/Docusate Sodium 8.6/50 MG Tablet PO SCH ×2 (10:41→20:38)
[2017-11-30] MEDS ORDERED: Vancomycin Inj 1,000 MG in Sodium Chlor 0.9% Inj 250 ML IV.SIG ONE (11:23)
[2017-11-30] MEDS ORDERED: Vancomycin Consult Pharmacy OTHER PRN (11:23)
[2017-11-30] MEDS ORDERED: Heparin Central Flush 100 UNIT/ML 5 ML Vial IV.FLUSH PRN ×2 (12:31)
[2017-11-30] MEDS: Vancomycin Inj 1,500 MG in Sodium Chlor 0.9% Inj 500 ML IV.SIG SCH ×2 (14:38→15:18)
--- NOTE | 2017-12-01 00:06 | ECG ---
Date Performed: 11/30/2017 Time Performed: 01:25:40 PTAGE: 71 years EKG: Sinus rhythm NORMAL ECG PREVIOUS TRACING : 10/13/2017 14.34 Compared to previous tracing, no longer bradycardic DOCTOR: Scott Subramanian Interpretating Date/Time 12/01/2017 00:05:10
[2017-12-01] MEDS: Sod Chloride 0.9% Inj 1,000 ML IV.CONT SCH ×3 (00:18→19:26)
[2017-12-01] MEDS: Vancomycin Inj 1,500 MG in Sodium Chlor 0.9% Inj 500 ML IV.SIG SCH ×2 (01:57→16:47)
[2017-12-01] MEDS: Acetaminophen 325 MG Tablet PO PRN (03:33)
[2017-12-01 06:50] LABS: Baso % (Auto) 0.2 % (0.0-2.0); Eos % (Auto) 0.4 % (0.0-4.0); Hematocrit 26.8 % (39.0-51.0); Hemoglobin 9.1 gm/dL (13.0-17.0); Lymph # (Auto) 0.1 th/mm3 (1.0-4.8); Lymph % (Auto) 2.2 % (9.0-44.0); Mean Corpuscular HGB Conc 33.8 % (32.0-36.0); Mean Corpuscular Hemoglobin 27.4 pg (27.0-34.0); Mean Corpuscular Volume 81.1 fL (80.0-100.0); Mean Platelet Volume 8.7 fL (7.0-11.0); Mono # (Auto) 0.1 th/mm3 (0.0-0.9); Mono % (Auto) 2.3 % (0.0-8.0); Neut % (Auto) 94.9 % (16.0-70.0); Platelet Count 149 th/mm3 (150-450); Red Cell Distribution Width 15.5 % (11.6-17.2); White Blood Count 4.2 th/mm3 (4.0-11.0)
[2017-12-01 07:19] LABS: Anion Gap 8 meq/L (5-15); Blood Urea Nitrogen 18 mg/dL (7-18); Calcium 7.9 mg/dL (8.5-10.1); Carbon Dioxide 24.6 meq/L (21.0-32.0); Chloride 108 meq/L (98-107); Glomerular Filtration Rate Greater Than 89 mL/min (>89); Glucose,Random 165 mg/dL (74-106); Potassium 3.5 meq/L (3.5-5.1); Sodium 141 meq/L (136-145)
[2017-12-01] MEDS: Senna/Docusate Sodium 8.6/50 MG Tablet PO SCH ×2 (08:29→20:42)
--- NOTE | 2017-12-01 09:39 | P.PNIM ---
Subjective Interval history: Pt had fevers and shaking chills again last night He denies any abdominal pain, nausea/vomiting He is tolerating TF Physical Exam Vital signs: Vital Signs 11/30/17 10:10 11/30/17 12:00 11/30/17 13:45 Temperature 97.7 F Pulse Rate 65 66 Respiratory Rate 22 16 14 Blood Pressure 89/53 L 98/54 L Pulse Oximetry 100 100 11/30/17 15:06 11/30/17 19:12 11/30/17 20:00 Temperature 97.7 F 99 F Pulse Rate 62 69 Respiratory Rate 14 12 16 Blood Pressure 92/55 L 98/56 L Pulse Oximetry 98 99 11/30/17 23:56 12/01/17 03:30 12/01/17 04:00 Temperature 100 F H 101.9 F H 99.1 F Pulse Rate 74 125 H Respiratory Rate 16 21 Blood Pressure 117/56 L 174/80 H Pulse Oximetry 100 96 12/01/17 08:00 Temperature 98.1 F Pulse Rate 78 Respiratory Rate 14 Blood Pressure 89/52 L Pulse Oximetry 97 Intake & Output 11/30/17 12/01/17 12/01/17 18:59 06:59 18:59 Intake Total 1715 / 1715 1845 / 1845 1000 / 1000 Output Total 480 / 480 Balance 1715 / 1715 1365 / 1365 1000 / 1000 Weight 71.7 kg Intake: IV 1715 / 1715 1815 / 1815 1000 / 1000 NS Inj 1,000 ML @ 100 mls/hr IV 1000 / 1000 1000 / 1000 1000 / 1000 .CONT .Q10H CAM Rx#:[id number] Ofirmev Inj 1,000 mg In 100 ml 100 / 100 200 / 200 @ 400 mls/hr IV.SIG Q6H PRN Rx# :[id number] Maxipime Inj 2,000 MG In NS Inj 100 / 100 100 / 100 100 ML @ 200 mls/hr IV.SIG Q12H CAM Rx#:[id number] Vancomycin Inj 1,500 MG In NS 515 / 515 515 / 515 Inj 500 ML @ 250 mls/hr IV.SIG Q12H CAM Rx#:[id number] Oral 30 / 30 0 / 0 Output: Urine 480 / 480 Other: Date of Last Bowel Movement 11/29/17 11/29/17 # Bowel Movements 1 Narrative: General: NAD, AAOx3 Chest: CTA Cardiac: Regular Abd: +BS, soft ND/NT, GJ tube in place without any noted erythema or drainage Ext: No edema Results - Labs CBC & Chem 7: 12/01/17 05:54 12/01/17 05:54 Laboratory Results - last 24 hr 12/01/17 12/01/17 12/01/17 05:54 05:54 08:28 WBC 4.2 RBC 3.30 L Hgb 9.1 L Hct 26.8 L MCV 81.1 MCH 27.4 MCHC 33.8 RDW 15.5 Plt Count 149 L MPV 8.7 Neut % (Auto) 94.9 H Lymph % (Auto) 2.2 L Robeson % (Auto) 2.3 Eos % (Auto) 0.4 Baso % (Auto) 0.2 Neut # (Auto) 4.0 Lymph # (Auto) 0.1 L Robeson # (Auto) 0.1 Eos # (Auto) 0.0 Baso # (Auto) 0.0 WBC Differential . Differential Comment Auto diff final Sodium 141 Potassium 3.5 Chloride 108 H Carbon Dioxide 24.6 Anion Gap 8 BUN 18 Creatinine 0.77 Estimated GFR Greater than 89 POC Glucose 159 H Random Glucose 165 H Calcium 7.9 L - Imaging Chest X-Ray 11/30/17 00:57 CONCLUSION: No acute cardiopulmonary abnormality is identified. Assessment and Plan - Assessment (1) Sepsis Code(s): A41.9 - Sepsis, unspecified organism Status: Acute Plan: Fevers/chills, possible sepsis ?biliary sepsis vs. port infection vs. other - Pt is a 71 y/o male with pancreatic cancer who presented to the ER at [facility] with complaints of fevers and chills. Around 4-5 days ago he began having some low grade fevers which was being treated with Tylenol. He states that he has had a bit of a dry cough for some time and had a CXR and blood work done on 11/27/17, which he reports were negative. Then yesterday evening he started having shaking chills and his fever spiked to 103 degrees. This prompted his evaluation in the ED last night. - His fever was noted to be 103 in the ED. - His CXR was negative. He tested negative for flu. - Pt reports that the last time his port was accessed was [address] Geller office. - Peripheral blood cultures and culture from the port are pending. - Cont. Cefepime 2000mg Q12H and Vancomycin for broad coverage - Ofirmev PRN for pain as pts BP has been too low for Dilaudid - His Fentanyl 25mcg was placed on 11/29/17 and we will leave this in place for now - If BP improves then can add back in Dilaudid PRN per pts request - Zofran PRN - Awaiting consult from Dr. Diaz - Supportive care The exam, history, and the medical decision-making described in the above note were completed with the assistance of the mid-level provider. I reviewed and agree with the findings presented. I attest that I had a [id number] encounter with the patient on the same day, and personally performed and documented my assessment and findings in the medical record pancreas ca. invading duodenum with GOO. Has GJ tube on continuous tf. has port and biliary stent. pt with fevers and hypotension. concern for sepsis. blood cx peripheral and port pending. on vanco and cefepime. IVF. Oncology to evaluate...pt/family eager to hear any treatment plan options. 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
--- NOTE | 2017-12-01 11:54 | P.DIET ---
Nutritional Evaluation Type of nutrition evaluation: initial Nutrition consult regarding: Tube Feeding Objective - Diagnosis Sepsis - Objective % IBW: 95 (MOV=010#) Body Weight Used for Calculations: Actual (71.7kg) Energy Needs - Lower Range (kCal/kg): 30 Energy Needs - Upper Range (kCal/kg): 35 Lower Limit kCal/kg (kCals): 2,151 Upper Limit kCal/kg (kCals): 2,510 Lower Limit Protein Factor (Grams per Kg): 1.2 Upper Limit Protein Factor (Grams per Kg): 1.5 Lower Protein Needs (Protein): 86 Upper Protein Needs (Protein): 108 Fluid Factor (ml/kg): 30 Estimated Fluid Needs (ml): 2,151 Dietitian Reviewed in Medical Record: Current diet, Curent medications, Intake & Output, Labs, Medical history, Tube feeding Diet Order: TF w/ Tray, Regular Objective Comments: Pancreatic CA w/ liver metastasis. Has not started chemo yet. Assessment Assessment: Pt admitted for sepsis. He is known to me from his previous admission. He remains on TFs via J tube and has been tolerating the Jevity 1.5 formula well. Since he is able to receive a tray now, I would recommend switching to nocturnal feedings so he is able to eat during the day. Recommend Jevity 1.5 @ 85mls/hr x 12hrs (7pm-7am) via J tube to provide ~70% of pt's nutritional requirements. This regimen will provide 1530kcals, 65g PRO, and 775mls fluid. I would recommend starting at 20mls/hr and increasing as tolerated to goal of 85mls. Will monitor continue to monitor TF tolerance and PO intake. Dietitian following. Recommendations: 1. Recommend nocturnal feedings via J tube so pt can eat during the day: Jevity 1.5 @ 85mls/hr x 12hrs (7pm-7am). 2. Continue Regular diet. Dietitian to Monitor: Lab values, Intake & Output, Diet tolerance, Tube feeding tolerance, Weight change, PO Intake, Medical course
--- NOTE | 2017-12-01 15:41 | P.PNONC ---
Subjective Interval history: T-max 101.9 F. Patient has remained hypotensive. Currently on Ofermiv for fever and pain control. Patient alert and oriented, lying comfortably in bed. He has family at the bedside. He has no complaints at this time. Patient reports he has been having fevers mainly in the night. He has been tolerating tube feeds. Objective Vital Signs/Intake & Output: Vital Signs 11/30/17 19:12 11/30/17 20:00 11/30/17 23:56 Temperature 99 F 100 F H Pulse Rate 69 74 Respiratory Rate 12 16 16 Blood Pressure 98/56 L 117/56 L Pulse Oximetry 99 100 12/01/17 03:30 12/01/17 04:00 12/01/17 08:00 Temperature 101.9 F H 99.1 F 98.1 F Pulse Rate 125 H 78 Respiratory Rate 21 14 Blood Pressure 174/80 H 89/52 L Pulse Oximetry 96 97 12/01/17 12:00 12/01/17 15:25 Temperature 97.8 F 97.9 F Pulse Rate 66 61 Respiratory Rate 18 18 Blood Pressure 85/51 L 84/54 L Pulse Oximetry 99 99 Intake & Output 11/30/17 12/01/17 12/01/17 18:59 06:59 18:59 Intake Total 1715 / 1715 1845 / 1845 1150 / 1150 Output Total 480 / 480 Balance 1715 / 1715 1365 / 1365 1150 / 1150 Weight 71.7 kg Intake: IV 1715 / 1715 1815 / 1815 1100 / 1100 NS Inj 1,000 ML @ 100 mls/hr IV 1000 / 1000 1000 / 1000 1000 / 1000 .CONT .Q10H CAM Rx#:[id number] Ofirmev Inj 1,000 mg In 100 ml 100 / 100 200 / 200 100 / 100 @ 400 mls/hr IV.SIG Q6H PRN Rx# :[id number] Maxipime Inj 2,000 MG In NS Inj 100 / 100 100 / 100 100 ML @ 200 mls/hr IV.SIG Q12H CAM Rx#:[id number] Vancomycin Inj 1,500 MG In NS 515 / 515 515 / 515 Inj 500 ML @ 250 mls/hr IV.SIG Q12H CAM Rx#:[id number] Oral 30 / 30 50 / 50 Output: Urine 480 / 480 Other: Date of Last Bowel Movement 11/29/17 11/29/17 # Bowel Movements 1 Result Diagrams: 12/01/17 05:54 12/01/17 05:54 Laboratory Results: Laboratory Results - last 24 hr 12/01/17 12/01/17 12/01/17 05:54 05:54 08:28 WBC 4.2 RBC 3.30 L Hgb 9.1 L Hct 26.8 L MCV 81.1 MCH 27.4 MCHC 33.8 RDW 15.5 Plt Count 149 L MPV 8.7 Neut % (Auto) 94.9 H Lymph % (Auto) 2.2 L Appling % (Auto) 2.3 Eos % (Auto) 0.4 Baso % (Auto) 0.2 Neut # (Auto) 4.0 Lymph # (Auto) 0.1 L Appling # (Auto) 0.1 Eos # (Auto) 0.0 Baso # (Auto) 0.0 WBC Differential . Differential Comment Auto diff final Sodium 141 Potassium 3.5 Chloride 108 H Carbon Dioxide 24.6 Anion Gap 8 BUN 18 Creatinine 0.77 Estimated GFR Greater than 89 POC Glucose 159 H Random Glucose 165 H Calcium 7.9 L Culture Results: Microbiology 11/30/17 12:21 Aerobic Blood Culture - Preliminary Blood - Other No growth in 1 day Anaerobic Blood Culture - Preliminary No growth in 1 day 11/30/17 01:01 Aerobic Blood Culture - Preliminary Blood - Peripheral No growth in 1 day Anaerobic Blood Culture - Preliminary No growth in 1 day 11/30/17 00:56 Aerobic Blood Culture - Preliminary Blood - Peripheral No growth in 1 day Anaerobic Blood Culture - Preliminary No growth in 1 day 11/30/17 01:06 Influenza Types A,B Antigen - Final Nasal Wash Negative for FLU A and B antigen Infection due to influenza A or B cannot be ruled out since the antigen present in the sample may be below the detection limit of the test. Medications: Active Medications Generic Name Dose Route Start Last Admin Trade Name Freq PRN Reason Stop Dose Admin Acetaminophen 650 mg 11/30/17 02:24 12/01/17 03:33 Tylenol PO 650 mg Q6H PRN Administration TEMPERATURE > 100.5 F Heparin Sodium (Porcine) 500 unit 11/30/17 12:31 11/30/17 13:24 Heparin Central Flush IV.FLUSH 500 unit PRN PRN Administration Flush infusaport Sodium Chloride 1,000 mls @ 0 mls/hr 11/30/17 01:00 11/30/17 03:20 Ns Inj IV.SIG Infused .Q0M CAM Infusion Wide Open Sodium Chloride 1,000 mls @ 100 mls/hr 11/30/17 02:24 12/01/17 08:29 Ns Inj IV.CONT 100 mls/hr .Q10H CAM Administration Cefepime HCl 2,000 mg/ Sodium 100 mls @ 200 mls/hr 11/30/17 13:00 12/01/17 02 :03 Chloride IV.SIG Infused Q12H CAM Infusion Acetaminophen 1,000 mg in 100 mls @ 400 mls/hr 11/30/17 11:30 12/01/17 12:38 Ofirmev Inj IV.SIG Infused Q6H PRN Infusion PAIN SCALE 1 TO 10 Vancomycin HCl 1,500 mg/ 515 mls @ 250 mls/hr 11/30/17 14:00 12/01/17 05:00 Sodium Chloride IV.SIG Infused Q12H CAM Infusion Senna/Docusate Sodium 1 tab 11/30/17 10:00 12/01/17 08:29 Rebecca-Colace PO 1 tab BID CAM Administration Objective Remarks: GENERAL: Ill-appearing middle-aged male patient, lying in bed, in no acute distress. SKIN: Warm and dry. HEAD: Normocephalic. EYES: No scleral icterus. No injection or drainage. NECK: Supple, trachea midline. CARDIOVASCULAR: Regular rate and rhythm without murmurs. RESPIRATORY: Breath sounds equal bilaterally. No accessory muscle use. GASTROINTESTINAL: Abdomen soft, non-tender, nondistended. JG tube to RUQ. Dressing dry/intact. EXTREMITIES: No cyanosis, or edema. MUSCULOSKELETAL: Decreased muscle tone. NEUROLOGICAL: No obvious focal deficit. Awake, alert, and oriented x3. PSYCHIATRIC: Appropriate mood and affect; insight and judgment normal. Assessment/Plan - Plan This is a 71-year-old gentleman, with a history of pancreatic cancer, who presented to the hospital with fevers. He was discharged approximately 2 weeks ago and went to [facility] where he states he was doing well with physical therapy until he started having fevers last Monday. Plan: 1. Febrile, T-max 101.9 F. Patient currently on IV acetaminophen for pain and fever. Blood cultures negative thus far. Chest x-ray negative. Urinalysis was negative. 2. Continue cefepime and vancomycin. 3. We will continue to monitor CBC and blood cultures. 4. We will transfer to oncology floor when a bed is available.
[2017-12-01] MEDS ORDERED: Ketorolac Inj 30 MG/ML (IVP) Vial IV.PUSH ONE (20:30)
--- NOTE | 2017-12-01 21:32 | P.CON ---
History of Present Illness Service: Oncology Consult date: 12/01/17 Requesting Physician: Chase Nieto Reason for Consult: Pancreatic cancer, sepsis Primary Care Provider: Robert Chung MD Chief Complaint: Fevers, chills History of Present Illness: This is a 71-year-old male who has a diagnosis of stage IV pancreatic cancer. He was initially thought to have locally advanced disease which did not appear to be resectable. He underwent staging and was found to have isolated liver metastases. He has not been able to begin any therapy because of declining performance status. He was also recently admitted with bowel obstruction and had an NGT placement with decompression. He has a PEG tube in place. He was recently at [facility]. He was getting physical therapy. Yesterday he developed high fevers and felt weak. In fact he was experiencing low-grade fevers for the past 4-5 days and was treated with Tylenol. Prior to arrival to the emergency room his fever spiked at 103. In the emergency room chest x-ray was obtained which did not show any pneumonia. A flu panel was negative. He does have a port in place blood cultures were drawn and they are pending. Patient was started on broad-spectrum antibiotics including cefepime and vancomycin. For pain control as needed morphine was started. He is also on fentanyl patch 25 mcg. Upon evaluation the patient appears quite weak cachectic and ill-appearing. He sitting by the side of the bed. PEG tube feed is being given. He has been sipping on water. He tried to drink small amounts of chicken soup. He denies any pain. Review of Systems All other systems reviewed negative except as stated in HPI PMFSH - History History Provided By: Patient - Medical History Medical History: Medical History (Last Reviewed 12/01/17 @ 21:36 by Alejo Diaz MD) Metastatic cancer to liver History of biliary stent insertion History of broken collarbone Pancreas cancer Port-A-Cath in place Skin cancer - Surgical History Surgical History: Surgical History (Last Reviewed 12/01/17 @ 21:36 by Alejo Diaz MD) History of tonsillectomy - Tobacco History Second Hand Smoke Exposure: No Smoking Status: Never smoker - Alcohol History How Often Do You Have a Drink Containing Alcohol: Never - Substance Use History Substance History: No History of Abuse - Travel History Recent Travel in the [facility] Within the Last 8 Weeks: No Recent Travel Out of the Country Within the Last 8 Weeks: No - Immunization History Tetanus Immunization: <5 Years Hx Influenza Vaccine This Season: Yes Medications and Allergies Active Medications: Active Medications Acetaminophen (Tylenol) 650 mg PO Q6H PRN PRN Reason: TEMPERATURE > 100.5 F Last Admin: 12/01/17 03:33 Dose: 650 mg Al Hydroxide/Mg Hydroxide (Milk Of Cosme Flores) 30 ml PO Q12H PRN PRN Reason: Mild Constipation Heparin Sodium (Porcine) (Heparin Central Flush) 250 unit IV.FLUSH PRN PRN PRN Reason: Flush Infusapot Heparin Sodium (Porcine) (Heparin Central Flush) 500 unit IV.FLUSH PRN PRN PRN Reason: Flush infusaport Last Admin: 11/30/17 13:24 Dose: 500 unit Sodium Chloride (Ns Inj) 1,000 mls @ 0 mls/hr IV.SIG .Q0M [facility] Last Infusion: 11/30/17 03:20 Dose: Infused Sodium Chloride (Ns Inj) 1,000 mls @ 100 mls/hr IV.CONT .Q10H [facility] Last Admin: 12/01/17 19:26 Dose: 100 mls/hr Cefepime HCl 2,000 mg/ Sodium (Chloride) 100 mls @ 200 mls/hr IV.SIG Q12H [facility] Last Infusion: 12/01/17 16:46 Dose: Infused Acetaminophen (Ofirmev Inj) 1,000 mg in 100 mls @ 400 mls/hr IV.SIG Q6H PRN PRN Reason: PAIN SCALE 1 TO 10 Last Infusion: 12/01/17 12:38 Dose: Infused Vancomycin HCl 1,500 mg/ (Sodium Chloride) 515 mls @ 250 mls/hr IV.SIG Q12H [facility] Last Admin: 12/01/17 16:47 Dose: 250 mls/hr Miscellaneous Information ([facility] Ordered Lab Info) 0 each OTHER ONCE ONE Stop: 12/02/17 01:46 Ondansetron HCl (Zofran Inj) 4 mg IV.PUSH Q6H PRN PRN Reason: NAUSEA OR VOMITING Pharmacy Profile Note (Vancomycin Consult Pharmacy) 1 each OTHER UNSCH PRN PRN Reason: Pharmacy to dose Senna/Docusate Sodium (Rebecca-Colace) 1 tab PO BID [facility] Last Admin: 12/01/17 20:42 Dose: Not Given Sodium Chloride (Ns Flush) 5 ml IV.FLUSH PRN PRN PRN Reason: Flush Infusaport Allergies Allergy/AdvReac Type Severity Reaction Status Date / Time No Known Allergies Allergy Verified 11/09/17 16:28 Home Medications Medication Instructions Recorded Confirmed Type tamsulosin [Flomax] 0.4 mg DAILY 10/30/17 11/30/17 History amino acids-protein hydrolys 1 oz FEEDING TUBE BID 11/30/17 11/30/17 History [Proteinex] hydromorphone [Dilaudid] 4 mg PO Q4H PRN 11/30/17 11/30/17 History Physical Exam Vital signs: Vital Signs 11/30/17 23:56 12/01/17 03:30 12/01/17 04:00 Temperature 100 F H 101.9 F H 99.1 F Pulse Rate 74 125 H Respiratory Rate 16 21 Blood Pressure 117/56 L 174/80 H Pulse Oximetry 100 96 12/01/17 08:00 12/01/17 12:00 12/01/17 15:25 Temperature 98.1 F 97.8 F 97.9 F Pulse Rate 78 66 61 Respiratory Rate 14 18 18 Blood Pressure 89/52 L 85/51 L 84/54 L Pulse Oximetry 97 99 99 12/01/17 19:50 Temperature 98.5 F Pulse Rate 63 Respiratory Rate 18 Blood Pressure 104/56 L Pulse Oximetry 98 Intake & Output 12/01/17 12/01/17 12/02/17 06:59 18:59 06:59 Intake Total 1845 / 1845 2500 / 2500 Output Total 480 / 480 Balance 1365 / 1365 2500 / 2500 Intake: IV 1815 / 1815 2200 / 2200 NS Inj 1,000 ML @ 100 mls/hr IV 1000 / 1000 2000 / 2000 .CONT .Q10H CAM Rx#:[id number] Ofirmev Inj 1,000 mg In 100 ml 200 / 200 100 / 100 @ 400 mls/hr IV.SIG Q6H PRN Rx# :[id number] Maxipime Inj 2,000 MG In NS Inj 100 / 100 100 / 100 100 ML @ 200 mls/hr IV.SIG Q12H CAM Rx#:[id number] Vancomycin Inj 1,500 MG In NS 515 / 515 Inj 500 ML @ 250 mls/hr IV.SIG Q12H CAM Rx#:[id number] Oral 30 / 30 50 / 50 Tube Feeding 250 / 250 Output: Urine 480 / 480 Other: Date of Last Bowel Movement 11/29/17 # Bowel Movements 1 - Constitutional no acute distress, chronically ill appearing - Routine HEENT Exam Head: Present: normocephalic Eye: Present: EOMI, PERRL - Routine Neck Exam Present: supple - Routine Respiratory Exam Present: CTA bilaterally - Routine Cardiovascular Exam Present: RRR, S1, S2 - Routine Abdominal Exam Present: soft Comments: bowel sounds decreased. mild tenderness right upper quad - Routine Skin Exam Present: intact - Routine Neurological Exam Present: alert, oriented X3, CN II-XII intact - Routine Psychiatric Exam Present: normal affect Assessment and Plan - Assessment (1) Obstructive jaundice Code(s): K83.8 - Other specified diseases of biliary tract Status: Acute (2) Pancreatic mass Code(s): K86.9 - Disease of pancreas, unspecified Status: Acute (3) Gastric outlet obstruction Code(s): K31.1 - Adult hypertrophic pyloric stenosis Status: Acute (4) Pancreatic cancer metastasized to liver Code(s): C25.9 - Malignant neoplasm of pancreas, unspecified; C78.7 - Secondary malignant neoplasm of liver and intrahepatic bile duct Status: Acute (5) Pain Code(s): R52 - Pain, unspecified Status: Acute (6) Anxiety Code(s): F41.9 - Anxiety disorder, unspecified Status: Acute (7) Nausea Code(s): R11.0 - Nausea Status: Acute (8) Sepsis Code(s): A41.9 - Sepsis, unspecified organism Status: Acute - Attending Attestation This is a 71-year-old male with stage IV pancreatic cancer. He has metastatic disease to the liver and also had infiltration of tumor into the duodenum. He developed bowel obstruction and has a PEG tube in place. He now presents with high fevers and lethargy #1 high fever/sepsis and chills: -I agree with current treatment plan. Source of infection could be from from the biliary tract/GI or from the port. Blood cultures are pending continue vancomycin and cefepime. Follow blood cultures. If the blood cultures remain negative for another 24 hours we can de-escalate antibiotics. I would recommend stopping vancomycin. However if he continues to spike fevers I would recommend obtaining another set of blood cultures. His UA was negative. #2 GI obstruction and nausea: -Continue supportive care. We can give him trial of small amounts of soft diet since he is asking that if he can be allowed to eat. I did explain to him that there is risk of obstruction. We can ask surgery if there is any option of palliative's intervention to relieve his bowel obstruction. However given his overall poor performance status, this is likely not a option. #3 continue pain control. #4 normocytic anemia with a hemoglobin of 9.1 and MCV of 81.1. Obtain anemia studies. I did explain to him that his overall poor prognosis. He is still hoping that he can become stronger and follow-up in the oncology clinic for possible treatment.
[2017-12-02] MEDS ORDERED: Pharmacy Ordered Lab Info OTHER ONE (01:45)
[2017-12-02] MEDS ORDERED: Morphine Inj 4 MG/ML Vial IV.PUSH SCH (02:00)
[2017-12-02] MEDS: Vancomycin Inj 1,500 MG in Sodium Chlor 0.9% Inj 500 ML IV.SIG SCH (02:24)
[2017-12-02 02:40] LABS: Alanine Aminotransferase 40 U/L (12-78); Albumin 1.8 g/dL (3.4-5.0); Alkaline Phosphatase 112 U/L (45-117); Anion Gap 9 meq/L (5-15); Aspartate Aminotransferase 35 U/L (15-37); Blood Urea Nitrogen 15 mg/dL (7-18); Calcium 7.4 mg/dL (8.5-10.1); Carbon Dioxide 25.4 meq/L (21.0-32.0); Chloride 112 meq/L (98-107); Glomerular Filtration Rate Greater Than 89 mL/min (>89); Glucose,Random 88 mg/dL (74-106); Potassium 3.4 meq/L (3.5-5.1); Sodium 146 meq/L (136-145); Total Protein 4.8 g/dL (6.4-8.2); Vancomycin,Trough 13.7 mcg/mL (5.0-10.0)
[2017-12-02] MEDS: Sod Chloride 0.9% Inj 1,000 ML IV.CONT SCH ×2 (04:15→18:52)
--- NOTE | 2017-12-02 09:44 | P.PNIM ---
Subjective Interval history: Pt slept well last night He has been afebrile since 12/01/17 during the night He tolerated some soft food at dinner last night Physical Exam Vital signs: Vital Signs 12/01/17 12:00 12/01/17 15:25 12/01/17 19:50 Temperature 97.8 F 97.9 F 98.5 F Pulse Rate 66 61 63 Respiratory Rate 18 18 18 Blood Pressure 85/51 L 84/54 L 104/56 L Pulse Oximetry 99 99 98 12/01/17 20:00 12/01/17 21:45 12/01/17 23:45 Temperature 97.6 F Pulse Rate 63 65 Respiratory Rate 16 18 Blood Pressure 104/60 Pulse Oximetry 97 12/01/17 23:55 12/02/17 01:48 12/02/17 02:25 Temperature 98.0 F Pulse Rate 61 69 Respiratory Rate 16 Blood Pressure 104/60 Pulse Oximetry 96 12/02/17 04:04 12/02/17 04:26 12/02/17 07:38 Temperature 97.4 F L 98.8 F Pulse Rate 64 64 70 Respiratory Rate 18 18 Blood Pressure 119/61 133/70 Pulse Oximetry 98 98 Intake & Output 12/01/17 12/02/17 12/02/17 18:59 06:59 18:59 Intake Total 2500 / 2500 2510 / 2510 Output Total 1100 / 1100 150 / 150 Balance 2500 / 2500 1410 / 1410 -150 / -150 Intake: IV 2200 / 2200 2130 / 2130 NS Inj 1,000 ML @ 100 mls/hr IV 1999 / 1999 1000 / 1000 .CONT .Q10H [facility] Rx#:[id number] Ofirmev Inj 1,000 mg In 100 ml 100 / 100 @ 400 mls/hr IV.SIG Q6H PRN Rx# :[id number] Maxipime Inj 2,000 MG In NS Inj 100 / 100 100 / 100 100 ML @ 200 mls/hr IV.SIG Q12H [facility] Rx#:[id number] Vancomycin Inj 1,500 MG In NS 1030 / 1030 Inj 500 ML @ 250 mls/hr IV.SIG Q12H [facility] Rx#:[id number] Oral 50 / 50 380 / 380 Tube Feeding 250 / 250 Output: Urine 1100 / 1100 150 / 150 Other: # Bowel Movements 1 Narrative: General: NAD, AAOx3 Chest: CTA Cardiac: Regular Abd: +BS, soft ND/NT, GJ tube in place without any noted erythema or drainage Ext: No edema Results - Labs CBC & Chem 7: 12/02/17 08:12 12/02/17 01:40 Laboratory Results - last 24 hr 12/01/17 12/02/17 17:53 01:40 Sodium 146 H Potassium 3.4 L Chloride 112 H Carbon Dioxide 25.4 Anion Gap 9 BUN 15 Creatinine 0.44 L Estimated GFR Greater than 89 POC Glucose 138 H Random Glucose 88 Calcium 7.4 L* Prot Corrected Calcium 8.7 Total Bilirubin 0.7 AST 35 ALT 40 Alkaline Phosphatase 112 Total Protein 4.8 L D Albumin 1.8 L Vancomycin Trough 13.7 H Microbiology 11/30/17 01:01 Blood - Peripheral Aerobic Blood Culture - Preliminary No growth in 1 day 11/30/17 01:01 Blood - Peripheral Anaerobic Blood Culture - Preliminary gram negative rods 11/30/17 00:56 Blood - Peripheral Aerobic Blood Culture - Preliminary No growth in 1 day 11/30/17 00:56 Blood - Peripheral Anaerobic Blood Culture - Preliminary gram negative rods 11/30/17 12:21 Blood - Other Aerobic Blood Culture - Preliminary No growth in 1 day 11/30/17 12:21 Blood - Other Anaerobic Blood Culture - Preliminary No growth in 1 day - Imaging Chest X-Ray 11/30/17 00:57 CONCLUSION: No acute cardiopulmonary abnormality is identified. Assessment and Plan - Assessment (1) Sepsis Code(s): A41.9 - Sepsis, unspecified organism Status: Acute Plan: Fevers/chills, possible sepsis ?biliary sepsis vs. port infection vs. other - Pt is a 71 y/o male with pancreatic cancer who presented to the ER at [facility] [place] with complaints of fevers and chills. Around 4-5 days ago he began having some low grade fevers which was being treated with Tylenol. He states that he has had a bit of a dry cough for some time and had a CXR and blood work done on 11/27/17, which he reports were negative. Then yesterday evening he started having shaking chills and his fever spiked to 103 degrees. This prompted his evaluation in the ED last night. - His fever was noted to be 103 in the ED. - His CXR was negative. He tested negative for flu. - Pt reports that the last time his port was accessed was [address] Geller office. - Peripheral blood cultures now with 2/4 cultures grown gram negative rods - Culture from the port with NGTD - Cont. Cefepime 2000mg Q12H - Vancomycin has been d/c's on 12/02/17 - Ofirmev PRN for pain as pts BP has been too low for Dilaudid - Change Fentanyl 25mcg patch today - If BP improves then can add back in Dilaudid PRN per pts request - Zofran PRN - Appreciate consult from Dr. Diaz, he discussed with the pt that his is a poor prognosis but pt wants to continue with aggressive measures and try to build up enough strength to attempt palliative chemo. - Supportive care The exam, history, and the medical decision-making described in the above note were completed with the assistance of the mid-level provider. I reviewed and agree with the findings presented. I attest that I had a [id number] encounter with the patient on the same day, and personally performed and documented my assessment and findings in the medical record. 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
[2017-12-02] MEDS: Senna/Docusate Sodium 8.6/50 MG Tablet PO SCH ×2 (10:09→20:47)
[2017-12-02 10:14] LABS: Baso % (Auto) 0.3 % (0.0-2.0); Eos # (Auto) 0.2 th/mm3 (0.0-0.4); Eos % (Auto) 1.9 % (0.0-4.0); Hematocrit 27.4 % (39.0-51.0); Hemoglobin 9.4 gm/dL (13.0-17.0); Lymph # (Auto) 0.9 th/mm3 (1.0-4.8); Mean Corpuscular HGB Conc 34.2 % (32.0-36.0); Mean Corpuscular Hemoglobin 27.4 pg (27.0-34.0); Mean Corpuscular Volume 80.2 fL (80.0-100.0); Mean Platelet Volume 9.2 fL (7.0-11.0); Mono % (Auto) 9.3 % (0.0-8.0); Neut # (Auto) 8.6 th/mm3 (1.8-7.7); Neut % (Auto) 80.5 % (16.0-70.0); Platelet Count 183 th/mm3 (150-450); Red Blood Count 3.42 mil/mm3 (4.50-5.90); White Blood Count 10.7 th/mm3 (4.0-11.0)
[2017-12-02] MEDS: Morphine Inj 4 MG/ML Vial IV.PUSH PRN (11:09)
--- NOTE | 2017-12-02 11:44 | P.PNONC ---
Subjective Interval history: Afebrile. Blood pressure has improved today. Patient reports getting a good night's rest last night after receiving a dose of morphine. Patient tolerated eggs for breakfast. Objective Vital Signs/Intake & Output: Vital Signs 12/01/17 12:00 12/01/17 15:25 12/01/17 19:50 Temperature 97.8 F 97.9 F 98.5 F Pulse Rate 66 61 63 Respiratory Rate 18 18 18 Blood Pressure 85/51 L 84/54 L 104/56 L Pulse Oximetry 99 99 98 12/01/17 20:00 12/01/17 21:45 12/01/17 23:45 Temperature 97.6 F Pulse Rate 63 65 Respiratory Rate 16 18 Blood Pressure 104/60 Pulse Oximetry 97 12/01/17 23:55 12/02/17 01:48 12/02/17 02:25 Temperature 98.0 F Pulse Rate 61 69 Respiratory Rate 16 Blood Pressure 104/60 Pulse Oximetry 96 12/02/17 04:04 12/02/17 04:26 12/02/17 07:38 Temperature 97.4 F L 98.8 F Pulse Rate 64 64 70 Respiratory Rate 18 18 Blood Pressure 119/61 133/70 Pulse Oximetry 98 98 Intake & Output 12/01/17 12/02/17 12/02/17 18:59 06:59 18:59 Intake Total 2500 / 2500 2510 / 2510 Output Total 1100 / 1100 150 / 150 Balance 2500 / 2500 1410 / 1410 -150 / -150 Intake: IV 2200 / 2200 2130 / 2130 NS Inj 1,000 ML @ 100 mls/hr IV 1999 / 1999 1000 / 1000 .CONT .Q10H [facility] Rx#:[id number] Ofirmev Inj 1,000 mg In 100 ml 100 / 100 @ 400 mls/hr IV.SIG Q6H PRN Rx# :[id number] Maxipime Inj 2,000 MG In NS Inj 100 / 100 100 / 100 100 ML @ 200 mls/hr IV.SIG Q12H [facility] Rx#:[id number] Vancomycin Inj 1,500 MG In NS 1030 / 1030 Inj 500 ML @ 250 mls/hr IV.SIG Q12H [facility] Rx#:[id number] Oral 50 / 50 380 / 380 Tube Feeding 250 / 250 Output: Urine 1100 / 1100 150 / 150 Other: # Bowel Movements 1 Result Diagrams: 12/03/17 07:51 12/03/17 07:51 Laboratory Results: Laboratory Results - last 24 hr 12/01/17 12/02/17 12/02/17 17:53 01:40 08:12 WBC 10.7 RBC 3.42 L Hgb 9.4 L Hct 27.4 L MCV 80.2 MCH 27.4 MCHC 34.2 RDW 16.0 Plt Count 183 MPV 9.2 Neut % (Auto) 80.5 H Lymph % (Auto) 8.0 L [place] % (Auto) 9.3 H Eos % (Auto) 1.9 Baso % (Auto) 0.3 Neut # (Auto) 8.6 H Lymph # (Auto) 0.9 L [place] # (Auto) 1.0 H Eos # (Auto) 0.2 Baso # (Auto) 0.0 WBC Differential . Differential Comment Auto diff final Sodium 146 H Potassium 3.4 L Chloride 112 H Carbon Dioxide 25.4 Anion Gap 9 BUN 15 Creatinine 0.44 L Estimated GFR Greater than 89 POC Glucose 138 H Random Glucose 88 Calcium 7.4 L* Prot Corrected Calcium 8.7 Total Bilirubin 0.7 AST 35 ALT 40 Alkaline Phosphatase 112 Total Protein 4.8 L D Albumin 1.8 L Vancomycin Trough 13.7 H Culture Results: Microbiology 11/30/17 12:21 Aerobic Blood Culture - Preliminary Blood - Other No growth in 2 days Anaerobic Blood Culture - Preliminary No growth in 2 days 11/30/17 01:01 Aerobic Blood Culture - Preliminary Blood - Peripheral No growth in 2 days Anaerobic Blood Culture - Preliminary gram negative rods 11/30/17 00:56 Aerobic Blood Culture - Preliminary Blood - Peripheral No growth in 1 day Anaerobic Blood Culture - Preliminary gram negative rods 11/30/17 01:06 Influenza Types A,B Antigen - Final Nasal Wash Negative for FLU A and B antigen Infection due to influenza A or B cannot be ruled out since the antigen present in the sample may be below the detection limit of the test. Medications: Active Medications Generic Name Dose Route Start Last Admin Trade Name Freq PRN Reason Stop Dose Admin Acetaminophen 650 mg 11/30/17 02:24 12/01/17 03:33 Tylenol PO 650 mg Q6H PRN Administration TEMPERATURE > 100.5 F Fentanyl 1 patch 12/02/17 10:00 12/02/17 10:09 Duragesic 25 Mcg Patch.72hr T-DERMAL 1 patch Q3D CAM Administration Heparin Sodium (Porcine) 500 unit 11/30/17 12:31 11/30/17 13:24 Heparin Central Flush IV.FLUSH 500 unit PRN PRN Administration Flush infusaport Sodium Chloride 1,000 mls @ 0 mls/hr 11/30/17 01:00 11/30/17 03:20 Ns Inj IV.SIG Infused .Q0M CAM Infusion Wide Open Sodium Chloride 1,000 mls @ 100 mls/hr 11/30/17 02:24 12/02/17 04:15 Ns Inj IV.CONT 100 mls/hr .Q10H CAM Administration Cefepime HCl 2,000 mg/ Sodium 100 mls @ 200 mls/hr 11/30/17 13:00 12/02/17 02 :21 Chloride IV.SIG Infused Q12H CAM Infusion Acetaminophen 1,000 mg in 100 mls @ 400 mls/hr 11/30/17 11:30 12/01/17 12:38 Ofirmev Inj IV.SIG Infused Q6H PRN Infusion PAIN SCALE 1 TO 10 Morphine Sulfate 2 mg 12/02/17 02:02 12/02/17 11:09 Morphine Inj IV.PUSH 2 mg Q4H PRN Administration PAIN IF BP IS STABLE Senna/Docusate Sodium 1 tab 11/30/17 10:00 12/02/17 10:09 Rebecca-Colace PO Not Given BID CAM Objective Remarks: GENERAL: Ill-appearing middle-aged male patient, lying in bed, in no acute distress. SKIN: Warm and dry. HEAD: Normocephalic. EYES: No scleral icterus. No injection or drainage. NECK: Supple, trachea midline. CARDIOVASCULAR: Regular rate and rhythm without murmurs. RESPIRATORY: Breath sounds equal bilaterally. No accessory muscle use. GASTROINTESTINAL: Abdomen soft, non-tender, nondistended. JG tube to RUQ. Dressing dry/intact. EXTREMITIES: No cyanosis, or edema. MUSCULOSKELETAL: Decreased muscle tone. NEUROLOGICAL: No obvious focal deficit. Awake, alert, and oriented x3. PSYCHIATRIC: Appropriate mood and affect; insight and judgment normal. Assessment/Plan - Plan This is a 71-year-old gentleman, with a history of pancreatic cancer, who presented to the hospital with fevers. He was discharged approximately 2 weeks ago and went to [facility] where he states he was doing well with physical therapy until he started having fevers last Monday. Plan: 1. Sepsis, currently afebrile. Blood pressure has improved. Blood cultures collected 11/30/2017 positive for gram-negative rods. Chest x-ray negative. Urinalysis was negative. 2. Continue cefepime and vancomycin. 3. We will continue to monitor CBC and blood cultures. 4. We will transfer to oncology floor when a bed is available. - Attending Statement The exam, history, and the medical decision-making described in the above note were completed with the assistance of the mid-level provider. I reviewed and agree with the findings presented. I attest that I had a [id number] encounter with the patient on the same day, and personally performed and documented my assessment and findings in the medical record. slept well, ate eggs BP better pain under controlled fentanyl patch and breathrough morphine afebrile supportive care blood cultures -- gram negative rods d/c Vanco continue Cefepime will wait for speciation and sensitivities supportive care
[2017-12-02 12:56] LABS: % Iron Saturation 9.1 % (20-50)
[2017-12-02] MEDS: Nystatin Liq 500,000 UNIT/5 ML UDC SWISH-SWAL SCH ×3 (13:45→20:47)
[2017-12-02] MEDS ORDERED: Vancomycin Inj 1,600 MG in Sodium Chlor 0.9% Inj 500 ML IV.SIG SCH (14:00)
[2017-12-02] MEDS: Acetaminophen-HYDROcodone 325/7.5 Liq 15 ML UDC G-TUBE PRN ×2 (15:00→20:46)
[2017-12-03] MEDS: Sod Chloride 0.9% Inj 1,000 ML IV.CONT SCH (00:47)
[2017-12-03 08:09] LABS: Baso % (Auto) 0.4 % (0.0-2.0); Eos # (Auto) 0.2 th/mm3 (0.0-0.4); Hematocrit 31.5 % (39.0-51.0); Hemoglobin 10.3 gm/dL (13.0-17.0); Lymph # (Auto) 1.1 th/mm3 (1.0-4.8); Lymph % (Auto) 9.1 % (9.0-44.0); Mean Corpuscular HGB Conc 32.6 % (32.0-36.0); Mean Corpuscular Hemoglobin 26.4 pg (27.0-34.0); Mean Platelet Volume 8.2 fL (7.0-11.0); Mono # (Auto) 1.1 th/mm3 (0.0-0.9); Mono % (Auto) 9.1 % (0.0-8.0); Neut # (Auto) 9.3 th/mm3 (1.8-7.7); Neut % (Auto) 79.4 % (16.0-70.0); Platelet Count 224 th/mm3 (150-450); Red Blood Count 3.89 mil/mm3 (4.50-5.90); Red Cell Distribution Width 16.2 % (11.6-17.2); White Blood Count 11.7 th/mm3 (4.0-11.0)
[2017-12-03 08:38] LABS: Anion Gap 9 meq/L (5-15); Blood Urea Nitrogen 7 mg/dL (7-18); Calcium 7.7 mg/dL (8.5-10.1); Carbon Dioxide 26.6 meq/L (21.0-32.0); Chloride 103 meq/L (98-107); Glomerular Filtration Rate Greater Than 89 mL/min (>89); Glucose,Random 133 mg/dL (74-106); Potassium 3.3 meq/L (3.5-5.1); Sodium 139 meq/L (136-145)
--- NOTE | 2017-12-03 08:54 | P.PNIM ---
Subjective Interval history: pt doing better. Physical Exam Vital signs: Vital Signs 12/02/17 12:05 12/02/17 12:58 12/02/17 15:24 Temperature 99.2 F 99.7 F H Pulse Rate 71 68 67 Respiratory Rate 18 16 Blood Pressure 127/67 125/73 Pulse Oximetry 97 97 12/02/17 20:13 12/02/17 20:44 12/02/17 21:16 Temperature 99.5 F Pulse Rate 67 67 Respiratory Rate 20 18 Blood Pressure 127/76 Pulse Oximetry 98 12/03/17 00:03 12/03/17 00:40 12/03/17 03:57 Temperature 97.8 F Pulse Rate 66 68 66 Respiratory Rate 20 Blood Pressure 131/69 Pulse Oximetry 97 12/03/17 05:24 12/03/17 08:00 Temperature 98.4 F 98.8 F Pulse Rate 78 72 Respiratory Rate 17 18 Blood Pressure 139/76 137/78 Pulse Oximetry 95 98 Intake & Output 12/02/17 12/03/17 12/03/17 18:59 06:59 18:59 Intake Total 1340 / 1340 2283 / 2283 Output Total 150 / 150 1325 / 1325 Balance 1190 / 1190 958 / 958 Weight 71.6 kg Intake: IV 1100 / 1100 1100 / 1100 NS Inj 1,000 ML @ 100 mls/hr IV 1000 / 1000 1000 / 1000 .CONT .Q10H [facility] Rx#:[id number] Maxipime Inj 2,000 MG In NS Inj 100 / 100 100 / 100 100 ML @ 200 mls/hr IV.SIG Q12H [facility] Rx#:[id number] Oral 240 / 240 240 / 240 Tube Feeding 518 / 518 Water Bolus Amount 425 / 425 Output: Urine 150 / 150 1325 / 1325 Other: Date of Last Bowel Movement 12/02/17 heart reg lung cta abd/gj tube ext no edema Results - Labs CBC & Chem 7: 12/03/17 07:51 12/03/17 07:51 Laboratory Results - last 24 hr 12/02/17 12/02/17 12/03/17 08:12 11:35 07:51 WBC 10.7 RBC 3.42 L Hgb 9.4 L Hct 27.4 L MCV 80.2 MCH 27.4 MCHC 34.2 RDW 16.0 Plt Count 183 MPV 9.2 Neut % (Auto) 80.5 H Lymph % (Auto) 8.0 L [place] % (Auto) 9.3 H Eos % (Auto) 1.9 Baso % (Auto) 0.3 Neut # (Auto) 8.6 H Lymph # (Auto) 0.9 L [place] # (Auto) 1.0 H Eos # (Auto) 0.2 Baso # (Auto) 0.0 WBC Differential . Differential Comment Auto diff final Sodium 139 Potassium 3.3 L Chloride 103 D Carbon Dioxide 26.6 Anion Gap 9 BUN 7 Creatinine 0.59 L Estimated GFR Greater than 89 Random Glucose 133 H Calcium 7.7 L Iron 14 L TIBC 154 L % Saturation 9.1 L Vitamin B12 900 12/03/17 07:51 WBC 11.7 H RBC 3.89 L Hgb 10.3 L Hct 31.5 L MCV 81.0 MCH 26.4 L MCHC 32.6 RDW 16.2 Plt Count 224 MPV 8.2 Neut % (Auto) 79.4 H Lymph % (Auto) 9.1 [place] % (Auto) 9.1 H Eos % (Auto) 2.0 Baso % (Auto) 0.4 Neut # (Auto) 9.3 H Lymph # (Auto) 1.1 [place] # (Auto) 1.1 H Eos # (Auto) 0.2 Baso # (Auto) 0.0 WBC Differential . Differential Comment Auto diff final Sodium Potassium Chloride Carbon Dioxide Anion Gap BUN Creatinine Estimated GFR Random Glucose Calcium Iron TIBC % Saturation Vitamin B12 Microbiology 11/30/17 12:21 Blood - Other Aerobic Blood Culture - Preliminary No growth in 2 days 11/30/17 12:21 Blood - Other Anaerobic Blood Culture - Preliminary No growth in 2 days 11/30/17 01:01 Blood - Peripheral Aerobic Blood Culture - Preliminary No growth in 2 days 11/30/17 01:01 Blood - Peripheral Anaerobic Blood Culture - Preliminary gram negative rods 11/30/17 00:56 Blood - Peripheral Aerobic Blood Culture - Preliminary No growth in 1 day 11/30/17 00:56 Blood - Peripheral Anaerobic Blood Culture - Preliminary gram negative rods Assessment and Plan - Assessment (1) Sepsis Code(s): A41.9 - Sepsis, unspecified organism Status: Acute Plan: Fevers/chills, possible sepsis ?biliary sepsis vs. port infection vs. other - Pt is a 71 y/o male with pancreatic cancer who presented to the ER at [facility] [place] on with complaints of fevers and chills. Around 4-5 days ago he began having some low grade fevers which was being treated with Tylenol. He states that he has had a bit of a dry cough for some time and had a CXR and blood work done on 11/27/17, which he reports were negative. Then yesterday evening he started having shaking chills and his fever spiked to 103 degrees. This prompted his evaluation in the ED last night. - His fever was noted to be 103 in the ED. - His CXR was negative. He tested negative for flu. - Pt reports that the last time his port was accessed was [address] Geller office. - Peripheral blood cultures now with 2/4 cultures grown gram negative rods - Culture from the port with NGTD - Cont. Cefepime 2000mg Q12H - Vancomycin has been d/c's on 12/02/17 - Ofirmev PRN for pain as pts BP has been too low for Dilaudid - Changed Fentanyl 25mcg patch -await speciation of blood cx's discuss biliary imaging with radiology as he has metal stent in bile duct. - Appreciate consult from Dr. Diaz, he discussed with the pt that his is a poor prognosis but pt wants to continue with aggressive measures and try to build up enough strength to attempt palliative chemo. . 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
[2017-12-03] MEDS: Acetaminophen-HYDROcodone 325/7.5 Liq 15 ML UDC G-TUBE PRN ×3 (09:29→21:09)
[2017-12-03] MEDS: Nystatin Liq 500,000 UNIT/5 ML UDC SWISH-SWAL SCH ×4 (09:29→21:08)
[2017-12-03] MEDS ORDERED: Potassium Chloride 25 MEQ Effervescent Tablet J-TUBE ONE (09:30)
--- NOTE | 2017-12-03 11:25 | P.PNONC ---
Subjective Interval history: Late entry, patient seen earlier this a.m. Afebrile, patient reports being able to tolerate oral nutrition yesterday. He is currently awaiting his breakfast tray. He is ambulating from the restroom. States he is feeling better today. Pain currently controlled. Objective Vital Signs/Intake & Output: Vital Signs 12/02/17 12:05 12/02/17 12:58 12/02/17 15:24 Temperature 99.2 F 99.7 F H Pulse Rate 71 68 67 Respiratory Rate 18 16 Blood Pressure 127/67 125/73 Pulse Oximetry 97 97 12/02/17 20:13 12/02/17 20:44 12/02/17 21:16 Temperature 99.5 F Pulse Rate 67 67 Respiratory Rate 20 18 Blood Pressure 127/76 Pulse Oximetry 98 12/03/17 00:03 12/03/17 00:40 12/03/17 03:57 Temperature 97.8 F Pulse Rate 66 68 66 Respiratory Rate 20 Blood Pressure 131/69 Pulse Oximetry 97 12/03/17 05:24 12/03/17 08:00 Temperature 98.4 F 98.8 F Pulse Rate 78 72 Respiratory Rate 17 18 Blood Pressure 139/76 137/78 Pulse Oximetry 95 98 Intake & Output 12/02/17 12/03/17 12/03/17 18:59 06:59 18:59 Intake Total 1340 / 1340 2283 / 2283 Output Total 150 / 150 1325 / 1325 Balance 1190 / 1190 958 / 958 Weight 71.6 kg Intake: IV 1100 / 1100 1100 / 1100 NS Inj 1,000 ML @ 100 mls/hr IV 1000 / 1000 1000 / 1000 .CONT .Q10H [facility] Rx#:[id number] Maxipime Inj 2,000 MG In NS Inj 100 / 100 100 / 100 100 ML @ 200 mls/hr IV.SIG Q12H [facility] Rx#:[id number] Oral 240 / 240 240 / 240 Tube Feeding 518 / 518 Water Bolus Amount 425 / 425 Output: Urine 150 / 150 1325 / 1325 Other: Date of Last Bowel Movement 12/02/17 Result Diagrams: 12/03/17 07:51 12/03/17 07:51 Laboratory Results: Laboratory Results - last 24 hr 12/02/17 12/03/17 12/03/17 11:35 07:51 07:51 WBC 11.7 H RBC 3.89 L Hgb 10.3 L Hct 31.5 L MCV 81.0 MCH 26.4 L MCHC 32.6 RDW 16.2 Plt Count 224 MPV 8.2 Neut % (Auto) 79.4 H Lymph % (Auto) 9.1 [place] % (Auto) 9.1 H Eos % (Auto) 2.0 Baso % (Auto) 0.4 Neut # (Auto) 9.3 H Lymph # (Auto) 1.1 [place] # (Auto) 1.1 H Eos # (Auto) 0.2 Baso # (Auto) 0.0 WBC Differential . Differential Comment Auto diff final Sodium 139 Potassium 3.3 L Chloride 103 D Carbon Dioxide 26.6 Anion Gap 9 BUN 7 Creatinine 0.59 L Estimated GFR Greater than 89 Random Glucose 133 H Calcium 7.7 L Iron 14 L TIBC 154 L % Saturation 9.1 L Vitamin B12 900 Culture Results: Microbiology 11/30/17 12:21 Aerobic Blood Culture - Preliminary Blood - Other No growth in 3 days Anaerobic Blood Culture - Preliminary No growth in 3 days 11/30/17 01:01 Aerobic Blood Culture - Preliminary Blood - Peripheral No growth in 3 days Anaerobic Blood Culture - Preliminary gram negative rods 11/30/17 00:56 Aerobic Blood Culture - Preliminary Blood - Peripheral No growth in 2 days Anaerobic Blood Culture - Preliminary gram negative rods Medications: Active Medications Generic Name Dose Route Start Last Admin Trade Name Freq PRN Reason Stop Dose Admin Acetaminophen 650 mg 11/30/17 02:24 12/01/17 03:33 Tylenol PO 650 mg Q6H PRN Administration TEMPERATURE > 100.5 F Hydrocodone Bitart/Acetaminophen 15 ml 12/02/17 13:50 12/03/17 09:29 Hycet 325/7.5 Mg Liq G-TUBE 15 ml Q4H PRN Administration brkthru pain > 6 if BP stable Fentanyl 1 patch 12/02/17 10:00 12/02/17 10:09 Duragesic 25 Mcg Patch.72hr T-DERMAL 1 patch Q3D [facility] Administration Heparin Sodium (Porcine) 500 unit 11/30/17 12:31 11/30/17 13:24 Heparin Central Flush IV.FLUSH 500 unit PRN PRN Administration Flush infusaport Cefepime HCl 2,000 mg/ Sodium 100 mls @ 200 mls/hr 11/30/17 13:00 12/03/17 01 :45 Chloride IV.SIG Infused Q12H [facility] Infusion Acetaminophen 1,000 mg in 100 mls @ 400 mls/hr 11/30/17 11:30 12/01/17 12:38 Ofirmev Inj IV.SIG Infused Q6H PRN Infusion PAIN SCALE 1 TO 10 Morphine Sulfate 2 mg 12/02/17 02:02 12/02/17 11:09 Morphine Inj IV.PUSH 2 mg Q4H PRN Administration PAIN IF BP IS STABLE Nystatin 5 ml 12/02/17 13:00 12/03/17 09:29 Mycostatin Liq SWISH-SWAL 5 ml QID CAM Administration Senna/Docusate Sodium 1 tab 11/30/17 10:00 12/02/17 20:47 Rebecca-Colace PO Not Given BID CAM Objective Remarks: GENERAL: Ill-appearing middle-aged male patient, ambulating in room. SKIN: Warm and dry. HEAD: Normocephalic. EYES: No scleral icterus. No injection or drainage. NECK: Supple, trachea midline. CARDIOVASCULAR: +S1/S2 without murmurs. RESPIRATORY: Posterior breath sounds clear, equal bilaterally. GASTROINTESTINAL: Abdomen soft, non-tender, nondistended. JG tube to RUQ. Dressing dry/intact. EXTREMITIES: No cyanosis, or edema. MUSCULOSKELETAL: Normal muscle tone. NEUROLOGICAL: No obvious focal deficit. Awake, alert, and oriented x3. PSYCHIATRIC: Appropriate mood and affect; insight and judgment normal. Assessment/Plan - Plan This is a 71-year-old gentleman, with a history of pancreatic cancer, who presented to the hospital with fevers. He was discharged approximately 2 weeks ago and went to [facility] where he states he was doing well with physical therapy until he started having fevers last Monday. Plan: 1. Sepsis, currently afebrile. Blood cultures collected 11/30/2017 positive for gram-negative rods, continues on cefepime. Chest x-ray negative. Urinalysis was negative. 2. Continue cefepime and vancomycin. 3. We will continue to monitor CBC and blood cultures for species and sensitivity. 4. Continue supportive care. - Attending Statement The exam, history, and the medical decision-making described in the above note were completed with the assistance of the mid-level provider. I reviewed and agree with the findings presented. I attest that I had a [id number] encounter with the patient on the same day, and personally performed and documented my assessment and findings in the medical record. afebrile, ambulating. gram negative rods, continue cefepime, speciation pending , fentanyl patch and morphine for breakthrough pain. having PO intake. supportive care. plan to d/c Monday or Monday to rehab.
[2017-12-03] MEDS: Senna/Docusate Sodium 8.6/50 MG Tablet PO SCH ×2 (12:17→21:10)
--- NOTE | 2017-12-03 16:25 | MR ---
EXAM DATE: 12/03/2017 4:11 PM EDT AGE/SEX: 71 years / Male INDICATIONS: Abdominal pain. CLINICAL DATA: This is the patient's initial encounter. Patient reports that signs and symptoms have been present for 3 days and indicates a pain score of 4/10. MEDICAL/SURGICAL HISTORY: Carcinoma, pancreas. Metastatic disease. Tonsillectomy. Biliary sten tGJ tube. COMPARISON: [facility], MR MRCP W AND W/O CONTRAST, 10/11/2017. [facility], CT ABDOMEN & PELVIS W CONTRAST, . . TECHNIQUE: Multiplanar, multisequence images of the abdomen were obtained without contrast including dedicated cholangiographic images. FINDINGS: G-tube is in place Liver: There is a new multiloculated cystic collection in the right lobe of the liver measuring 5.2 x 3.9 cm across. Its entirely new since September. Of uncertain etiology but does not have the appearance of metastatic disease. Gallbladder is relatively decompressed. There is some pleural the pericholecys tic space. Intrahepatic Bile Ducts: There is no intrahepatic biliary ductal dilatation, markedly improved from the previous study. Common Bile Duct: Biliary stent is in place. Gallbladder: The gallbladder is normal with no evidence for cholelithiasis, and gallbladder wall thi ckening. Pancreas: There is a known pancreatic malignancy defer to CT scan for for complete characterization. CONCLUSION: 1. The right lobe of liver there is a new multiloculated fluid collection I suspect related to recen t intervention. It measures 5.2 x 3.9 cm across. 2. Known pancreatic cancer with a biliary stent in good position. 3. Gallbladder is decompressed but there is some fluid surrounding the liver. Electronically signed by: Costa Farnsworth MD 12/03/2017 4:24 PM EDT
[2017-12-03] MEDS: Morphine Inj 4 MG/ML Vial IV.PUSH PRN (18:21)
[2017-12-04] MEDS ORDERED: Pharmacy Ordered Lab Info OTHER ONE (01:45)
[2017-12-04] MEDS: Acetaminophen-HYDROcodone 325/7.5 Liq 15 ML UDC G-TUBE PRN ×5 (04:03→21:38)
[2017-12-04 05:35] LABS: Anion Gap 8 meq/L (5-15); Blood Urea Nitrogen 6 mg/dL (7-18); Calcium 7.7 mg/dL (8.5-10.1); Carbon Dioxide 27.9 meq/L (21.0-32.0); Chloride 104 meq/L (98-107); Glomerular Filtration Rate Greater Than 89 mL/min (>89); Glucose,Random 144 mg/dL (74-106); Potassium 3.3 meq/L (3.5-5.1); Sodium 140 meq/L (136-145)
[2017-12-04] MEDS: Nystatin Liq 500,000 UNIT/5 ML UDC SWISH-SWAL SCH ×4 (08:02→20:16)
[2017-12-04] MEDS: Senna/Docusate Sodium 8.6/50 MG Tablet PO SCH ×2 (08:05→20:17)
[2017-12-04] MEDS: Morphine Inj 4 MG/ML Vial IV.PUSH PRN ×3 (09:35→20:04)
[2017-12-04] MEDS ORDERED: Potassium Chloride 10 MEQ ER Capsule PO ONE (14:52)
--- NOTE | 2017-12-04 15:17 | P.PNIM ---
Subjective Interval history: No new complaints. Physical Exam Vital signs: 12/04/17 12:00 Temperature 99.4 F Pulse Rate 93 H Respiratory Rate 20 Blood Pressure 120/65 Pulse Oximetry 99 Narrative: General: NAD, AAOx3 Chest: CTA Cardiac: Regular Abd: +BS, soft ND/NT, GJ tube in place without any noted erythema or drainage Ext: No edema Results - Labs CBC & Chem 7: 12/06/17 04:20 12/06/17 04:20 Microbiology 11/30/17 01:01 Blood - Peripheral Aerobic Blood Culture - Preliminary No growth in 4 days 11/30/17 01:01 Blood - Peripheral Anaerobic Blood Culture - Final Prevotella buccae 11/30/17 00:56 Blood - Peripheral Aerobic Blood Culture - Preliminary No growth in 3 days 11/30/17 00:56 Blood - Peripheral Anaerobic Blood Culture - Final Prevotella buccae 12/03/17 18:59 Blood - Peripheral Aerobic Blood Culture - Preliminary No growth in 1 day 12/03/17 18:59 Blood - Peripheral Anaerobic Blood Culture - Preliminary No growth in 1 day 12/03/17 18:53 Blood - Peripheral Aerobic Blood Culture - Preliminary No growth in 1 day 12/03/17 18:53 Blood - Peripheral Anaerobic Blood Culture - Preliminary No growth in 1 day 11/30/17 12:21 Blood - Other Aerobic Blood Culture - Preliminary No growth in 4 days 11/30/17 12:21 Blood - Other Anaerobic Blood Culture - Preliminary No growth in 4 days - Imaging Cholangiopancreatography MRI 12/03/17 00:00 CONCLUSION: 1. The right lobe of liver there is a new multiloculated fluid collection I suspect related to recent intervention. It measures 5.2 x 3.9 cm across. 2. Known pancreatic cancer with a biliary stent in good position. 3. Gallbladder is decompressed but there is some fluid surrounding the liver. Assessment and Plan - Assessment (1) Sepsis Code(s): A41.9 - Sepsis, unspecified organism Status: Acute Plan: Fevers/chills, possible sepsis ?biliary sepsis vs. port infection vs. other - Pt is a 71 y/o male with pancreatic cancer who presented to the ER at [facility] [place] with complaints of fevers and chills. Around 4-5 days ago he began having some low grade fevers which was being treated with Tylenol. He states that he has had a bit of a dry cough for some time and had a CXR and blood work done on 11/27/17, which he reports were negative. Then yesterday evening he started having shaking chills and his fever spiked to 103 degrees. This prompted his evaluation in the ED last night. - His fever was noted to be 103 in the ED. - CXR (11/30) --> NO acute findings. - Pt tested negative for flu. - Pt reports that the last time his port was accessed was [address] Geller office. - Blood Culture peripheral (11/30/17) --> prevotella Buccae - blood culture port (11/30/17) --> NGTD - Repeat Blood Cx (12/03/17) --> NGTD - Vancomycin (11/30 - 12/02) - Cefepime (11/30 - present) - Fentanyl 25mch patch - Pt had metal sent placed in bile duct during previous admission, 10/2017 - MRCP (12/03/17) 1. The right lobe of liver there is a new multiloculated fluid collection I suspect related to recent intervention. It measures 5.2 x 3.9 cm across. 2. Known pancreatic cancer with a biliary stent in good position. 3. Gallbladder is decompressed but there is some fluid surrounding the liver. - Case d/w Radiology (12/04). fluid collection NOT present on previous abdominal study - obtain CT guided drainage of fluid collection. Fluid for gram stain, culture - consult Infectious Disease - Consult Palliative Medicine for clarification of goals - Appreciate consult from Dr. Diaz, he discussed with the pt that his is a poor prognosis but pt wants to continue with aggressive measures and try to build up enough strength to attempt palliative chemo. . 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
[2017-12-04] MEDS ORDERED: Witch Hazel 50%/Glyderin 12.5% 40 Pad Jar RECTAL PRN (16:46)
--- NOTE | 2017-12-04 17:28 | P.PNONC ---
Subjective Interval history: Afebrile Pt reports he had some chills earlier today Not much appetite, has been relying on tube feeds Otherwise reports he feels relatively good today Objective Vital Signs/Intake & Output: Vital Signs 12/03/17 20:45 12/03/17 20:50 12/04/17 00:23 Temperature 98.7 F 98.1 F Pulse Rate 82 68 Respiratory Rate 16 16 16 Blood Pressure 146/76 H 125/67 Pulse Oximetry 99 97 12/04/17 04:00 12/04/17 08:00 12/04/17 12:00 Temperature 98.3 F 97.9 F 99.4 F Pulse Rate 73 76 93 H Respiratory Rate 18 20 20 Blood Pressure 142/82 H 156/88 H 120/65 Pulse Oximetry 98 100 99 12/04/17 15:51 Temperature 98.5 F Pulse Rate 108 H Respiratory Rate 20 Blood Pressure 150/82 H Pulse Oximetry 95 Intake & Output 12/03/17 12/04/17 12/04/17 18:59 06:59 18:59 Intake Total 1100 / 1100 2095 / 2095 1100 / 1100 Output Total 650 / 650 1520 / 1520 Balance 450 / 450 575 / 575 1100 / 1100 Weight 164 lb 0.383 oz Intake: IV 1100 / 1100 1110 / 1110 1100 / 1100 NS + KCl 20 mEq Inj 1,000 ML @ 1000 / 1000 1000 / 1000 70 mls/hr IV.CONT .[id number] [facility] Rx#:[id number] Maxipime Inj 2,000 MG In NS Inj 100 / 100 110 / 110 100 / 100 100 ML @ 200 mls/hr IV.SIG Q12H [facility] Rx#:[id number] Oral 120 / 120 Tube Feeding 665 / 665 Water Bolus Amount 200 / 200 Output: Urine 650 / 650 1520 / 1520 Other: Date of Last Bowel Movement 12/03/17 12/03/17 12/03/17 Result Diagrams: 12/03/17 07:51 12/04/17 05:00 Laboratory Results: Laboratory Results - last 24 hr 12/04/17 05:00 Sodium 140 Potassium 3.3 L Chloride 104 Carbon Dioxide 27.9 Anion Gap 8 BUN 6 L Creatinine 0.48 L Estimated GFR Greater than 89 Random Glucose 144 H Calcium 7.7 L Vancomycin Trough Cancelled Culture Results: Microbiology 11/30/17 01:01 Aerobic Blood Culture - Preliminary Blood - Peripheral No growth in 4 days Anaerobic Blood Culture - Final Krzysztof chasee 11/30/17 00:56 Aerobic Blood Culture - Preliminary Blood - Peripheral No growth in 3 days Anaerobic Blood Culture - Final Prevzhanella naldocae 12/03/17 18:59 Aerobic Blood Culture - Preliminary Blood - Peripheral No growth in 1 day Anaerobic Blood Culture - Preliminary No growth in 1 day 12/03/17 18:53 Aerobic Blood Culture - Preliminary Blood - Peripheral No growth in 1 day Anaerobic Blood Culture - Preliminary No growth in 1 day 11/30/17 12:21 Aerobic Blood Culture - Preliminary Blood - Other No growth in 4 days Anaerobic Blood Culture - Preliminary No growth in 4 days Medications: Active Medications Generic Name Dose Route Start Last Admin Trade Name Freq PRN Reason Stop Dose Admin Acetaminophen 650 mg 11/30/17 02:24 12/01/17 03:33 Tylenol PO 650 mg Q6H PRN Administration TEMPERATURE > 100.5 F Hydrocodone Bitart/Acetaminophen 15 ml 12/02/17 13:50 12/04/17 17:08 Hycet 325/7.5 Mg Liq G-TUBE 15 ml Q4H PRN Administration brkthru pain > 6 if BP stable Fentanyl 1 patch 12/02/17 10:00 12/02/17 10:09 Duragesic 25 Mcg Patch.72hr T-DERMAL 1 patch Q3D [facility] Administration Heparin Sodium (Porcine) 500 unit 11/30/17 12:31 11/30/17 13:24 Heparin Central Flush IV.FLUSH 500 unit PRN PRN Administration Flush infusaport Cefepime HCl 2,000 mg/ Sodium 100 mls @ 200 mls/hr 11/30/17 13:00 12/04/17 14 :02 Chloride IV.SIG Infused Q12H [facility] Infusion Acetaminophen 1,000 mg in 100 mls @ 400 mls/hr 11/30/17 11:30 12/01/17 12:38 Ofirmev Inj IV.SIG Infused Q6H PRN Infusion PAIN SCALE 1 TO 10 Potassium Chloride/Sodium Chloride 1,000 mls @ 70 mls/hr 12/03/17 09:00 12/04 15:47 Ns + Kcl 20 Meq Inj IV.CONT 70 mls/hr .[id number] [facility] Administration Morphine Sulfate 2 mg 12/02/17 02:02 12/04/17 13:08 Morphine Inj IV.PUSH 2 mg Q4H PRN Administration PAIN IF BP IS STABLE Nystatin 5 ml 12/02/17 13:00 12/04/17 17:06 Mycostatin Liq SWISH-SWAL 5 ml QID [facility] Administration Senna/Docusate Sodium 1 tab 11/30/17 10:00 12/04/17 08:05 Rebecca-Colace PO Not Given BID [facility] Objective Remarks: GENERAL: Ill-appearing middle-aged male patient sitting up in chair at bedside in no acute distress. SKIN: Warm and dry. HEAD: Normocephalic. EYES: No scleral icterus. No injection or drainage. NECK: Supple, trachea midline. CARDIOVASCULAR: +S1/S2 without murmurs. RESPIRATORY: Posterior breath sounds clear, equal bilaterally. GASTROINTESTINAL: Abdomen soft, non-tender, nondistended. PEG tube in place with TF infusing. Dressing dry/intact. EXTREMITIES: No cyanosis, or edema. MUSCULOSKELETAL: Normal muscle tone. NEUROLOGICAL: No obvious focal deficit. Awake, alert, and oriented x3. Assessment/Plan - Plan This is a 71-year-old gentleman, with a history of pancreatic cancer, who presented to the hospital with fevers. He was discharged approximately 2 weeks ago and went to [facility] where he states he was doing well with physical therapy until he started having fevers last Monday. Plan: 1. MRCP shows multi-loculated fluid collection; noted IR consulted for drainage with cultures. 2. Continue cefepime 3. Pt's care to be transitioned to Dr Hinson; he may be a candidate for palliative chemo if he continues to get stronger - Attending Statement The exam, history, and the medical decision-making described in the above note were completed with the assistance of the mid-level provider. I reviewed and agree with the findings presented. I attest that I had a [id number] encounter with the patient on the same day, and personally performed and documented my assessment and findings in the medical record. doing better. afebrile. speciation and sensitivities pending. Surgical evaluation for palliative surgery to relive obstruction (per patient's request) , supportive care. possible home tomorrow.
[2017-12-04 17:33] LABS: Activated Partial Thrombo Time 25.9 sec (24.3-30.1); INR 1.3 Ratio; Prothrombin Time 13.3 sec (9.8-11.6)
[2017-12-04] MEDS: Acetaminophen 325 MG Tablet PO PRN (20:20)
[2017-12-05] MEDS: Morphine Inj 4 MG/ML Vial IV.PUSH PRN ×3 (00:34→14:37)
[2017-12-05] MEDS: Acetaminophen-HYDROcodone 325/7.5 Liq 15 ML UDC G-TUBE PRN ×4 (01:37→21:46)
[2017-12-05 06:00] LABS: Baso % (Auto) 0.1 % (0.0-2.0); Hematocrit 24.9 % (39.0-51.0); Hemoglobin 8.4 gm/dL (13.0-17.0); Lymph # (Auto) 0.5 th/mm3 (1.0-4.8); Mean Corpuscular HGB Conc 33.8 % (32.0-36.0); Mean Corpuscular Hemoglobin 27.1 pg (27.0-34.0); Mean Corpuscular Volume 80.4 fL (80.0-100.0); Mean Platelet Volume 8.8 fL (7.0-11.0); Mono # (Auto) 1.2 th/mm3 (0.0-0.9); Mono % (Auto) 4.9 % (0.0-8.0); Neut # (Auto) 23.2 th/mm3 (1.8-7.7); Platelet Count 170 th/mm3 (150-450); Red Blood Count 3.09 mil/mm3 (4.50-5.90); Red Cell Distribution Width 15.8 % (11.6-17.2)
[2017-12-05 06:35] LABS: Albumin 1.9 g/dL (3.4-5.0); Anion Gap 9 meq/L (5-15); Aspartate Aminotransferase 43 U/L (15-37); Blood Urea Nitrogen 11 mg/dL (7-18); Calcium 7.9 mg/dL (8.5-10.1); Carbon Dioxide 25.7 meq/L (21.0-32.0); Chloride 105 meq/L (98-107); Glomerular Filtration Rate Greater Than 89 mL/min (>89); Glucose,Random 109 mg/dL (74-106); Potassium 4.1 meq/L (3.5-5.1); Sodium 140 meq/L (136-145)
[2017-12-05 06:36] LABS: Alanine Aminotransferase 63 U/L (12-78)
[2017-12-05 06:38] LABS: Alkaline Phosphatase 309 U/L (45-117); Total Protein 5.5 g/dL (6.4-8.2)
[2017-12-05] MEDS: Nystatin Liq 500,000 UNIT/5 ML UDC SWISH-SWAL SCH ×4 (08:45→21:47)
--- NOTE | 2017-12-05 09:21 | P.PNIM ---
Subjective Interval history: Pt feeling well this morning, sitting up in the chair No fevers or chills overnight Pt denies any increased abd pain this morning. He is planned for IR evaluation this morning for drainage of the intra- abdominal fluid collection Physical Exam Vital signs: Vital Signs 12/04/17 12:00 12/04/17 15:51 12/04/17 20:00 Temperature 99.4 F 98.5 F 102.1 F H Pulse Rate 93 H 108 H 88 Respiratory Rate 20 20 16 Blood Pressure 120/65 150/82 H 109/62 Pulse Oximetry 99 95 99 12/04/17 21:43 12/05/17 00:00 12/05/17 01:11 Temperature 100.8 F H 98.5 F Pulse Rate 88 Respiratory Rate 18 16 Blood Pressure 101/59 L Pulse Oximetry 96 12/05/17 01:40 12/05/17 03:32 12/05/17 06:13 Temperature 97.5 F L Pulse Rate 69 72 Respiratory Rate 16 Blood Pressure 97/59 L 91/53 L 97/60 L Pulse Oximetry 98 Intake & Output 12/04/17 12/05/17 12/05/17 18:59 06:59 18:59 Intake Total 1820 / 1820 2350 / 2350 Output Total 550 / 550 450 / 450 Balance 1270 / 1270 1900 / 1900 Weight 75.9 kg Intake: IV 1100 / 1100 1110 / 1110 NS + KCl 20 mEq Inj 1,000 ML @ 1000 / 1000 1000 / 1000 70 mls/hr IV.CONT .[id number] [facility] Rx#:[id number] Maxipime Inj 2,000 MG In NS Inj 100 / 100 110 / 110 100 ML @ 200 mls/hr IV.SIG Q12H [facility] Rx#:[id number] Oral 640 / 640 240 / 240 Tube Feeding 80 / 80 500 / 500 Water Bolus Amount 500 / 500 Output: Urine 550 / 550 450 / 450 Other: # Voids 1 Date of Last Bowel Movement 12/04/17 12/04/17 # Bowel Movements 1 Narrative: General: NAD, AAOx3 Chest: CTA Cardiac: Regular Abd: +BS, soft ND/NT, GJ tube in place without any noted erythema or drainage Ext: No edema Results - Labs CBC & Chem 7: 12/06/17 04:20 12/06/17 04:20 Laboratory Results - last 24 hr 12/04/17 12/05/17 12/05/17 16:15 03:45 03:45 WBC 25.0 H RBC 3.09 L Hgb 8.4 L Hct 24.9 L MCV 80.4 MCH 27.1 MCHC 33.8 RDW 15.8 Plt Count 170 MPV 8.8 Neut % (Auto) 93.0 H Lymph % (Auto) 2.0 L [place] % (Auto) 4.9 Eos % (Auto) 0.0 Baso % (Auto) 0.1 Neut # (Auto) 23.2 H Lymph # (Auto) 0.5 L [place] # (Auto) 1.2 H Eos # (Auto) 0.0 Baso # (Auto) 0.0 WBC Differential . Differential Comment Auto diff final PT 13.3 H INR 1.3 APTT 25.9 Sodium 140 Potassium 4.1 D Chloride 105 Carbon Dioxide 25.7 Anion Gap 9 BUN 11 Creatinine 0.79 Estimated GFR Greater than 89 Random Glucose 109 H Calcium 7.9 L Total Bilirubin 1.0 AST 43 H ALT 63 Alkaline Phosphatase 309 H Total Protein 5.5 L D Albumin 1.9 L Microbiology 11/30/17 00:56 Blood - Peripheral Aerobic Blood Culture - Preliminary No growth in 4 days 11/30/17 00:56 Blood - Peripheral Anaerobic Blood Culture - Final Prevotella buccae 11/30/17 01:01 Blood - Peripheral Aerobic Blood Culture - Preliminary No growth in 4 days 11/30/17 01:01 Blood - Peripheral Anaerobic Blood Culture - Final Prevotella buccae 12/03/17 18:59 Blood - Peripheral Aerobic Blood Culture - Preliminary No growth in 1 day 12/03/17 18:59 Blood - Peripheral Anaerobic Blood Culture - Preliminary No growth in 1 day 12/03/17 18:53 Blood - Peripheral Aerobic Blood Culture - Preliminary No growth in 1 day 12/03/17 18:53 Blood - Peripheral Anaerobic Blood Culture - Preliminary No growth in 1 day 11/30/17 12:21 Blood - Other Aerobic Blood Culture - Preliminary No growth in 4 days 11/30/17 12:21 Blood - Other Anaerobic Blood Culture - Preliminary No growth in 4 days - Imaging Chest X-Ray 11/30/17 00:57 CONCLUSION: No acute cardiopulmonary abnormality is identified. Cholangiopancreatography MRI 12/03/17 00:00 CONCLUSION: 1. The right lobe of liver there is a new multiloculated fluid collection I suspect related to recent intervention. It measures 5.2 x 3.9 cm across. 2. Known pancreatic cancer with a biliary stent in good position. 3. Gallbladder is decompressed but there is some fluid surrounding the liver. Assessment and Plan - Assessment (1) Sepsis Code(s): A41.9 - Sepsis, unspecified organism Status: Acute Plan: Fevers/chills, possible sepsis ?biliary sepsis vs. port infection vs. other - Pt is a 71 y/o male with pancreatic cancer who presented to the ER at [facility] [place] on with complaints of fevers and chills. Around 4-5 days ago he began having some low grade fevers which was being treated with Tylenol. He states that he has had a bit of a dry cough for some time and had a CXR and blood work done on 11/27/17, which he reports were negative. Then yesterday evening he started having shaking chills and his fever spiked to 103 degrees. This prompted his evaluation in the ED last night. - His fever was noted to be 103 in the ED. - CXR (11/30) --> NO acute findings. - Pt tested negative for flu. - Pt reports that the last time his port was accessed was [address] Geller office. - Blood Culture peripheral (11/30/17) --> Prevotella Buccae - Blood culture port (11/30/17) --> NGTD - Repeat Blood Cx (12/03/17) --> NGTD - Vancomycin (11/30 - 12/02) - Cefepime (11/30 - present) - Fentanyl 25mch patch - Pt had metal sent placed in bile duct during previous admission, 10/2017 - MRCP (12/03/17) 1. The right lobe of liver there is a new multiloculated fluid collection I suspect related to recent intervention. It measures 5.2 x 3.9 cm across. 2. Known pancreatic cancer with a biliary stent in good position. 3. Gallbladder is decompressed but there is some fluid surrounding the liver. - Case d/w Radiology (12/04). fluid collection NOT present on previous abdominal study - Pt will undergo CT guided drainage of fluid collection today and will send Fluid for gram stain, culture - Await consult from Infectious Disease - Consult Palliative Medicine for clarification of goals - Appreciate consult from Dr. Diaz, he discussed with the pt that his is a poor prognosis but pt wants to continue with aggressive measures and try to build up enough strength to attempt palliative chemo. . (2) Pancreatic cancer metastasized to liver Code(s): C25.9 - Malignant neoplasm of pancreas, unspecified; C78.7 - Secondary malignant neoplasm of liver and intrahepatic bile duct Status: Acute (3) Pain Code(s): R52 - Pain, unspecified Status: Acute (4) Anxiety Code(s): F41.9 - Anxiety disorder, unspecified Status: Acute - Attending Attestation Patient examined. Assessment and plan formulated with Mima Lowe PA-C. I agree with the above.
[2017-12-05] MEDS ORDERED: fentaNYL Citrate Inj 100 MCG/2 ML Ampul ONE (09:42)
--- NOTE | 2017-12-05 10:47 | P.RAD ---
Post CT Procedure Prog Note - Pre Procedure Diagnosis (1) Sepsis (2) Hepatic abscess - Post Procedure Diagnosis (1) Hepatic abscess - Procedure Information Procedure Date: 12/05/17 Supervising Radiologist: Glenn Harding Jr, MD Proceduralist/Assist: Bernadine Anesthesia: Conscious Sedation - Plan of Activity Patient to Unit: ROPU Patient condition: Good See PACS Report for procedural detail/treatment. Drainage Procedure CT right Abscess Drainage Placement Spanish Tube Size: 8 Drainage: Suction Fluid Description: Purulent Findings: Loculated right hepatic lobe abscess. Drain placed decompression entire abscess. Approx 40mL of purulent material obtained. Sutured in place.
--- NOTE | 2017-12-05 11:22 | CT ---
EXAM DATE: 12/05/2017 11:15 AM EDT AGE/SEX: 71 years / Male INDICATIONS: Liver abscess. CLINICAL DATA: This is the patient's initial encounter. Patient reports that signs and symptoms have been present for 1 day and indicates a pain score of 0/10. MEDICAL/SURGICAL HISTORY: Carcinoma, pancreas. None. COMPARISON: No prior exams available for comparison. BIOPSY SITE: liver MEDICATION(S): 3mg midazolam (Versed) IV 150mcg fentanyl (Sublimaze) IV DEVICE(S): 8 Fr Skater FLUID: Total volume of 40 mL of purulent fluid was removed. . . . PROCEDURE : CT guided drainage of the liver. Are reviewed the patient's prior MRCP 12/03/2017. The risks, benefits and alternatives to the procedure were explained and verbal and written consent was obtained. Using automated exposure control and adj ustment of the mA and/or kV according to patient size, radiation dose was kept as low as reasonably a chievable to obtain optimal diagnostic quality images. The site was prepped in sterile fashion. [facility] sterile technique was used, including cap, mask, sterile gloves and gown and a large sterile sheet . Hand hygiene and 2% chlorhexidine and/or betadine/alcohol prep was utilized per protocol for cutan eous antisepsis. The skin and subcutaneous tissues were infiltrated with local anesthetic solution. DICOM format image data is available electronically for review and comparison. CT images taken today in preparation for the abscess drainage catheter placement reveal a loculated collection within the right hepatic lobe measuring 5.6 x 4.0 cm. A small amount of air is located within one of the locules . Pneumobilia noted as well as a common bile duct stent. This was targeted during the drainage. Using CT guidance the prescribed site was localized. An 18-gauge [place] needle was passed into the m ore superficial locule. A [place] wire was coiled within the locule and utilized to break up the locula tions. Drainage was performed using the prescribed catheter. According suction device applied to the drainage catheter. The drainage catheter was sutured in place using 2-0 silk suture. Follow-up images show complete decompression of the fluid collection. The patient tolerated the procedure well and there were no complications. The patient tolerated the procedure well and there were no complications. The patient was sent to post anesthesia recovery in s table condition. CONCLUSION: 1. Uncomplicated CT guided drainage of an intrahepatic abscess. Electronically signed by: Glenn Harding MD 12/05/2017 11:21 AM EDT
[2017-12-05] MEDS: Senna/Docusate Sodium 8.6/50 MG Tablet PO SCH ×2 (13:17→22:25)
--- NOTE | 2017-12-05 16:17 | P.CONPAL ---
Consult Service: Palliative Care Requesting Physician: Fabian Baum Reason for Consult: a. To assist with evaluation and management of symptoms including: pain, debility b. To assist medical decision maker(s) with: better understanding of current medical conditions; weighing benefits/burdens of medical treatment options; making medical treatment decisions. 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 Fevers started 4-5 days prior to admission, subsequently he had chills. Temp was 103.2 in ER. CXR was negative, UA negative, peripheral blood cultures grew prevotella buccae, port culture no growth. MRCP 12/03 showed new fluid collection liver, known pancreatic cancer with biliary stent, some fluid surrounding liver. WBC has trended up and today is 25k. ID consult pending. He is on cefepime. Just had decompression liver abscess by IR and now has drain. He has been hypotensive. Oncology is following, he will need to get stronger and recover from sepsis in order to be candidate for chemotherapy. He was seen by our service on prior admission from 11/09 to 11/10 for dysphagia, gastric outlet obstruction 2/2 pancreatic tumorAt that time he was not candidate for palliative chemo per oncology 2/2 weakness. He did have informational consult with hospice but opted for aggressive treatment if possible. He had GJ tube placed with goal of becoming strong enough to tolerate chemo. He has been at [facility] for rehab since. On my eval pt is lying in bed covered with multiple blankets, having mild tremors. Family says this is an improvement, previously he was shaking more violently. Pt denies nausea. he c/o constant pain around his liver drain site and in his epigastrium, 11/03. He is tender to light palpation around drain site. He appears calm. Says he felt he was getting stronger at rehab. He is somewhat lethargic and dozes off intermittently during meeting. Function/Cognitive Trajectory: Prior to 2 month ago pt was completely independent, living alone, and living and active and healthy lifestyle. He swam, walked, ran. At rehab facility he was ambulating with an IV pole and tolerating tube feeds. No cognitive deficits . Review of Systems Constitutional: Reports weakness, Reports weight loss Eyes: Denies blind spots Ears, Nose, Mouth, and Throat: Denies abnormal hearing Cardiovascular: Denies chest pain Respiratory: Denies excessive phlegm production, Denies wheezing Gastrointestinal: Reports abdominal pain, Denies nausea, Denies vomiting Musculoskeletal: Reports decreased muscle mass, Denies joint swelling Skin/Breast: Denies itching, Denies yellowing of the skin Neurologic: Denies tingling/numbness/burning sensations Psychiatric: Denies depression Hematologic/Lymphatic: Denies easy bleeding PMFSH - History History Provided By: Patient - Medical History Medical History: Medical History (Last Reviewed 12/05/17 @ 07:49 by Rogerio Garcia, JACEK) Metastatic cancer to liver History of biliary stent insertion History of broken collarbone Pancreas cancer Port-A-Cath in place Skin cancer - Surgical History Surgical History: Surgical History (Last Reviewed 12/05/17 @ 07:49 by Rogerio Garcia PT) History of tonsillectomy - Family History Family History: Family History (Last Updated 12/05/17 @ 15:34 by KIEL Kirk) Mother Uterine cancer - Tobacco History Second Hand Smoke Exposure: No Smoking Status: Never smoker - Alcohol History How Often Do You Have a Drink Containing Alcohol: Never - Substance Use History Substance History: No History of Abuse - Travel History Recent Travel in the [place] Within the Last 8 Weeks: No Recent Travel Out of the Country Within the Last 8 Weeks: No - Immunization History Tetanus Immunization: <5 Years Hx Influenza Vaccine This Season: Yes Medications and Allergies Active Medications: Active Medications Acetaminophen (Tylenol) 650 mg PO Q6H PRN PRN Reason: TEMPERATURE > 100.5 F Last Admin: 12/04/17 20:20 Dose: 650 mg Hydrocodone Bitart/Acetaminophen (Hycet 325/7.5 Mg Liq) 15 ml G-TUBE Q4H PRN PRN Reason: brkthru pain > 6 if BP stable Last Admin: 12/05/17 13:36 Dose: 15 ml Al Hydroxide/Mg Hydroxide (Milk Of Magnesia Liq) 30 ml PO Q12H PRN PRN Reason: Mild Constipation Fentanyl (Duragesic 25 Mcg Patch.72hr) 1 patch T-DERMAL Q3D CAM Last Admin: 12/05/17 13:44 Dose: 1 patch Heparin Sodium (Porcine) (Heparin Central Flush) 250 unit IV.FLUSH PRN PRN PRN Reason: Flush Infusapot Heparin Sodium (Porcine) (Heparin Central Flush) 500 unit IV.FLUSH PRN PRN PRN Reason: Flush infusaport Last Admin: 11/30/17 13:24 Dose: 500 unit Hydrocortisone Acetate (Anusol-Hc) 1 applicatio RECTAL TID [facility] Last Admin: 12/05/17 13:35 Dose: 1 applicatio Cefepime HCl 2,000 mg/ Sodium (Chloride) 100 mls @ 200 mls/hr IV.SIG Q12H [facility] Last Infusion: 12/05/17 01:12 Dose: Infused Acetaminophen (Ofirmev Inj) 1,000 mg in 100 mls @ 400 mls/hr IV.SIG Q6H PRN PRN Reason: PAIN SCALE 1 TO 10 Last Infusion: 12/01/17 12:38 Dose: Infused Potassium Chloride/Sodium Chloride (Ns + Kcl 20 Meq Inj) 1,000 mls @ 70 mls/hr IV.CONT .[id number] [facility] Last Admin: 12/05/17 15:06 Dose: Not Given Morphine Sulfate (Morphine Inj) 2 mg IV.PUSH Q4H PRN PRN Reason: PAIN IF BP IS STABLE Last Admin: 12/05/17 14:37 Dose: 2 mg Nystatin (Mycostatin Liq) 5 ml SWISH-SWAL QID [facility] Last Admin: 12/05/17 13:35 Dose: 5 ml Ondansetron HCl (Zofran Inj) 4 mg IV.PUSH Q6H PRN PRN Reason: NAUSEA OR VOMITING Patch Removal (Remove Old Patch) 1 each T-DERMAL Q3D [facility] Last Admin: 12/05/17 13:44 Dose: 1 each Senna/Docusate Sodium (Rebecca-Colace) 1 tab PO BID [facility] Last Admin: 12/05/17 13:17 Dose: Not Given Sodium Chloride (Ns Flush) 5 ml IV.FLUSH PRN PRN PRN Reason: Flush Infusaport Witch Khadijah/Glycerin (Tucks Pads) 1 applicatio RECTAL PRN PRN PRN Reason: HEMORRHOIDS Allergies Allergy/AdvReac Type Severity Reaction Status Date / Time No Known Allergies Allergy Verified 11/09/17 16:28 Home Medications Medication Instructions Recorded Confirmed Type tamsulosin [Flomax] 0.4 mg DAILY 10/30/17 11/30/17 History amino acids-protein hydrolys 1 oz FEEDING TUBE BID 11/30/17 11/30/17 History [Proteinex] hydromorphone [Dilaudid] 4 mg PO Q4H PRN 11/30/17 11/30/17 History Advance Directives Living Will: Yes (10/14/17 standard verbiage) Healthcare Surrogate: Yes (Mima Mcnair) Physical Exam Vital Signs: Vital Signs - 24 hr 12/04/17 15:51 12/04/17 20:00 12/04/17 21:43 Temperature 98.5 F 102.1 F H 100.8 F H Pulse Rate 108 H 88 Respiratory Rate 20 16 Blood Pressure 150/82 H 109/62 Pulse Oximetry 95 99 12/05/17 00:00 12/05/17 01:11 12/05/17 01:40 Temperature 98.5 F Pulse Rate 88 Respiratory Rate 18 16 Blood Pressure 101/59 L 97/59 L Pulse Oximetry 96 12/05/17 03:32 12/05/17 06:13 12/05/17 10:55 Temperature 97.5 F L 97.5 F L Pulse Rate 69 72 82 Respiratory Rate 16 20 Blood Pressure 91/53 L 97/60 L 87/51 L Pulse Oximetry 98 12/05/17 11:10 12/05/17 11:25 Temperature Pulse Rate 84 80 Respiratory Rate 20 18 Blood Pressure 96/60 L 99/58 L Pulse Oximetry 98 94 L I&O: Intake & Output 12/03/17 12/04/17 12/05/17 12/06/17 06:59 06:59 06:59 06:59 Intake Total 3623 / 3623 3195 / 3195 4170 / 4170 1000 / 1000 Output Total 1475 / 1475 2170 / 2170 1000 / 1000 Balance 2148 / 2148 1025 / 1025 3170 / 3170 1000 / 1000 Weight 71.6 kg 74.4 kg 75.9 kg Physical Exam: CONSTITUTIONAL/GENERAL: frail appearing male, undernourished TUBES/LINES/DRAINS: GJ tube, hepatic drain SKIN: No jaundice, rashes, or lesions. No wounds seen anteriorly. Skin temperature appropriate. Not diaphoretic. HEAD: Atraumatic. Normocephalic. EYES: Extraocular motions intact. No scleral icterus. No injection or drainage. Fundi not examined. ENT: Hearing grossly normal. Nose without bleeding or purulent drainage. CARDIOVASCULAR: RRR without murmurs, gallops, or rubs. No JVD. Peripheral pulses symmetric. RESPIRATORY/CHEST: Symmetric, unlabored respirations. Clear to auscultation. Breath sounds equal bilaterally. GASTROINTESTINAL: Abdomen soft, RUQ mildly TTP, mildly distended. No hepato- splenomegaly, or palpable masses. No guarding. Bowel sounds present. MUSCULOSKELETAL: Extremities without clubbing, cyanosis. + trace BLE edema. No joint tenderness or effusion noted. No mottling or clubbing. NEUROLOGICAL: lethargic. Motor and sensory grossly within normal limits. Follows commands. Cognitively sharp. Moves all extremities. PSYCHIATRIC: No obvious anxiety/depression. no apparent hallucinations or other psychotic thought process. Diagnostic Tests Laboratory: Laboratory Results - last 72 hr 12/03/17 12/03/17 12/04/17 07:51 07:51 05:00 WBC 11.7 H RBC 3.89 L Hgb 10.3 L Hct 31.5 L MCV 81.0 MCH 26.4 L MCHC 32.6 RDW 16.2 Plt Count 224 MPV 8.2 Neut % (Auto) 79.4 H Lymph % (Auto) 9.1 [place] % (Auto) 9.1 H Eos % (Auto) 2.0 Baso % (Auto) 0.4 Neut # (Auto) 9.3 H Lymph # (Auto) 1.1 [place] # (Auto) 1.1 H Eos # (Auto) 0.2 Baso # (Auto) 0.0 WBC Differential . Differential Comment Auto diff final PT INR APTT Sodium 139 140 Potassium 3.3 L 3.3 L Chloride 103 D 104 Carbon Dioxide 26.6 27.9 Anion Gap 9 8 BUN 7 6 L Creatinine 0.59 L 0.48 L Estimated GFR Greater than 89 Greater than 89 Random Glucose 133 H 144 H Calcium 7.7 L 7.7 L Total Bilirubin AST ALT Alkaline Phosphatase Total Protein Albumin Vitamin B12 Vancomycin Trough Cancelled 12/04/17 12/05/17 12/05/17 16:15 03:45 03:45 WBC 25.0 H RBC 3.09 L Hgb 8.4 L Hct 24.9 L MCV 80.4 MCH 27.1 MCHC 33.8 RDW 15.8 Plt Count 170 MPV 8.8 Neut % (Auto) 93.0 H Lymph % (Auto) 2.0 L [place] % (Auto) 4.9 Eos % (Auto) 0.0 Baso % (Auto) 0.1 Neut # (Auto) 23.2 H Lymph # (Auto) 0.5 L [place] # (Auto) 1.2 H Eos # (Auto) 0.0 Baso # (Auto) 0.0 WBC Differential . Differential Comment Auto diff final PT 13.3 H INR 1.3 APTT 25.9 Sodium 140 Potassium 4.1 D Chloride 105 Carbon Dioxide 25.7 Anion Gap 9 BUN 11 Creatinine 0.79 Estimated GFR Greater than 89 Random Glucose 109 H Calcium 7.9 L Total Bilirubin 1.0 AST 43 H ALT 63 Alkaline Phosphatase 309 H Total Protein 5.5 L D Albumin 1.9 L Vitamin B12 Vancomycin Trough 12/05/17 03:45 WBC RBC Hgb Hct MCV MCH MCHC RDW Plt Count MPV Neut % (Auto) Lymph % (Auto) [place] % (Auto) Eos % (Auto) Baso % (Auto) Neut # (Auto) Lymph # (Auto) [place] # (Auto) Eos # (Auto) Baso # (Auto) WBC Differential Differential Comment PT INR APTT Sodium Potassium Chloride Carbon Dioxide Anion Gap BUN Creatinine Estimated GFR Random Glucose Calcium Total Bilirubin AST ALT Alkaline Phosphatase Total Protein Albumin Vitamin B12 859 Vancomycin Trough Result Diagrams: 12/05/17 03:45 12/05/17 03:45 Microbiology: Microbiology 12/03/17 18:59 Aerobic Blood Culture - Preliminary Blood - Peripheral No growth in 2 days Anaerobic Blood Culture - Preliminary No growth in 2 days 12/03/17 18:53 Aerobic Blood Culture - Preliminary Blood - Peripheral No growth in 2 days Anaerobic Blood Culture - Preliminary No growth in 2 days 11/30/17 12:21 Aerobic Blood Culture - Final Blood - Other No growth in 5 days Anaerobic Blood Culture - Final No growth in 5 days 11/30/17 01:01 Aerobic Blood Culture - Final Blood - Peripheral No growth in 5 days Anaerobic Blood Culture - Final Prevotella buccae 11/30/17 00:56 Aerobic Blood Culture - Preliminary Blood - Peripheral No growth in 4 days Anaerobic Blood Culture - Final Prevotella buccae Imaging: ITS Impressions Chest X-Ray 11/30/17 00:57 CONCLUSION: No acute cardiopulmonary abnormality is identified. Cholangiopancreatography MRI 12/03/17 00:00 CONCLUSION: 1. The right lobe of liver there is a new multiloculated fluid collection I suspect related to recent intervention. It measures 5.2 x 3.9 cm across. 2. Known pancreatic cancer with a biliary stent in good position. 3. Gallbladder is decompressed but there is some fluid surrounding the liver. Abscess Drainage CT 12/05/17 00:00 CONCLUSION: 1. Uncomplicated CT guided drainage of an intrahepatic abscess. Procedures: 12/05 drainage liver abscess, drain placement Patient/Family Conference Present at Family Conference: daughter/HCS Mima, family friend, pt Family Conference Location: Bedside Issues Discussed: * brief review Palliative care role * Additional medical history * Patients general health, functional status, and cognitive changes since last admission * Patient/family understanding of the current medical problems * Patient/family understanding of prognosis * Patients goals of care as best understood from advance directives and conversations and values * Current medical treatment options and benefits/burdens of those options * Likely scenarios comparing ongoing aggressive care with a transition to comfort measures only and hospice * Questions answered to the best of my ability * Palliative care contact information provided Goals pending further discussion with oncologist. Options include hospice vs modified Folfirinox if pt recovers from sepsis and get stronger. Prior goals have been aggressive, patient wants to continue trying to get stronger. Family is supportive however his daughter feels goals should be more comfort oriented. Assessment and Plan - Disease Oriented Problem List (1) Sepsis (2) Pancreatic cancer metastasized to liver (3) Gastric outlet obstruction (4) Hepatic abscess (5) Pancreatic mass - Symptom Scale (1) Debility 0-10 Scale: Unable to quantify (2) Pain 0-10 Scale: Unable to quantify Pertinent Non-Medical Issues: Psychosocial: Pt originally from [place] but has been in [place] most of his life. He is , with 2 daughters who live locally. 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 Spiritual: [employer] Legal: pt currently capacitated to make medical decisions. Should he become incapacitated he has designated his daughter Mima and his brother Oscar to make medical decisions on his behalf. Family working together. Ethical issues impacting care: none Important Contacts: Oscar Cruz [phone] Mima Machado [phone] - can leave message, work [phone] Prognosis: 71 yo male with recently diagnosed locally advanced pancreatic carcinoma, gastric outlet obstruction 2/2 mass s/p GJ placement, who presented 11/30 with fever, chills, shaking. He is being treated for sepsis from unclear source. He was found to have a liver abscess which is now s/p drainage and placement drain. If he recovers from sepsis and becomes stronger, he could be candidate for palliative Folfirinox. His prognosis is poor, this is almost certainly terminal. He is hospice appropriate should goals be in line with comfort. Code Status: Full Code Plan: - LEGAL DECISON MAKER -patient is currently capacitated to make decisions. should he become incapacitated he has designated his daughter Mima and his brother Oscar to make medical decisions on his behalf. Family working together. - CODE STATUS- full code - GOALS - Goals pending further discussion with oncologist. Options include hospice vs modified Folfirinox if pt recovers from sepsis and get stronger. Prior goals have been aggressive, patient wants to keep trying to get stronger. Family is supportive however his daughter feels goals should be more comfort oriented. - SYMPTOMS - * Pain - multifactorial, 2/2 mass, procedures. c/o epigastric pain and pain near liver drainage site, 11/03. asking for additional pain medication. He is using his Hydrocodone/apap 325/7.5 liquid, IV morphine 2mg q4h, 25mcg fentanyl patch. he is using the hycet q4h and frequently requesting his PRN morphine. recommend pain regimen 4mg PO dilaudid q4h and leave his PRN morphine for breakthrough pain; conversely could switch him to 50mcg fentanyl patch and leave PRN morphine for breakthrough pain. * Debility/weakness was ambulating with IV pole. no PT today as he was uncomfortable after procedure. has been hypotensive, ?sepsis ?source. ID consult pending. Tolerating TF, trying to eat PO, so far has had some soft foods. Denies nausea. if outlet obstruction worsens or he has n/v, could consider GI consult for duodenal stent. - d/w Dr Clements - Palliative care will continue to follow during hospital course as condition evolves, to assist patient/decision-maker with understanding of medical conditions, weighing benefits/burdens of treatment options, for clarification of goals of treatment. Additionally will assist with any symptoms of palliative concern Appreciation Thank you for the opportunity to participate in the care of Jose Guadalupe Cruz. Attestation Attestation: To help prompt me to consider important information that might be impacting today's encounter and assessment, information from prior notes written by myself or my colleagues may have been "brought forward" into today's note. My signature on this note, however, is an attestation that I personally performed the exam, history, and/or decision-making noted today, and, unless otherwise indicated, the interactions with patient, family, and staff as well as the review of records all occurred today. I also attest that the listed assessment and stated plan reflect my best clinical judgment today based on the combination of historical information, prior notes, and today's exam/ interactions. When time spent is documented, it refers only to time spent today by the signer, or if indicated, combined time spent today by collaborating physician/nurse practitioner.
--- NOTE | 2017-12-05 16:22 | P.PNONC ---
Subjective Interval history: Late entry: Patient seen earlier in the day. T-max 102.1F. Patient sitting up in chair status post loculated right hepatic lobe abscess drainage. Patient reports discomfort to the procedural area. Objective Vital Signs/Intake & Output: Vital Signs 12/04/17 20:00 12/04/17 21:43 12/05/17 00:00 Temperature 102.1 F H 100.8 F H 98.5 F Pulse Rate 88 88 Respiratory Rate 16 18 Blood Pressure 109/62 101/59 L Pulse Oximetry 99 96 12/05/17 01:11 12/05/17 01:40 12/05/17 03:32 Temperature 97.5 F L Pulse Rate 69 Respiratory Rate 16 16 Blood Pressure 97/59 L 91/53 L Pulse Oximetry 98 12/05/17 06:13 12/05/17 10:55 12/05/17 11:10 Temperature 97.5 F L Pulse Rate 72 82 84 Respiratory Rate 20 20 Blood Pressure 97/60 L 87/51 L 96/60 L Pulse Oximetry 98 12/05/17 11:25 Temperature Pulse Rate 80 Respiratory Rate 18 Blood Pressure 99/58 L Pulse Oximetry 94 L Intake & Output 12/04/17 12/05/17 12/05/17 18:59 06:59 18:59 Intake Total 1820 / 1820 2350 / 2350 1000 / 1000 Output Total 550 / 550 450 / 450 Balance 1270 / 1270 1900 / 1900 1000 / 1000 Weight 75.9 kg Intake: IV 1100 / 1100 1110 / 1110 1000 / 1000 NS + KCl 20 mEq Inj 1,000 ML @ 1000 / 1000 1000 / 1000 1000 / 1000 70 mls/hr IV.CONT .[id number] CAM Rx#:[id number] Maxipime Inj 2,000 MG In NS Inj 100 / 100 110 / 110 100 ML @ 200 mls/hr IV.SIG Q12H CAM Rx#:[id number] Oral 640 / 640 240 / 240 Tube Feeding 80 / 80 500 / 500 Water Bolus Amount 500 / 500 Output: Urine 550 / 550 450 / 450 Other: # Voids 1 Date of Last Bowel Movement 12/04/17 12/04/17 # Bowel Movements 1 Result Diagrams: 12/05/17 03:45 12/05/17 03:45 Laboratory Results: Laboratory Results - last 24 hr 12/04/17 12/05/17 12/05/17 16:15 03:45 03:45 WBC 25.0 H RBC 3.09 L Hgb 8.4 L Hct 24.9 L MCV 80.4 MCH 27.1 MCHC 33.8 RDW 15.8 Plt Count 170 MPV 8.8 Neut % (Auto) 93.0 H Lymph % (Auto) 2.0 L [place] % (Auto) 4.9 Eos % (Auto) 0.0 Baso % (Auto) 0.1 Neut # (Auto) 23.2 H Lymph # (Auto) 0.5 L [place] # (Auto) 1.2 H Eos # (Auto) 0.0 Baso # (Auto) 0.0 WBC Differential . Differential Comment Auto diff final PT 13.3 H INR 1.3 APTT 25.9 Sodium 140 Potassium 4.1 D Chloride 105 Carbon Dioxide 25.7 Anion Gap 9 BUN 11 Creatinine 0.79 Estimated GFR Greater than 89 Random Glucose 109 H Calcium 7.9 L Total Bilirubin 1.0 AST 43 H ALT 63 Alkaline Phosphatase 309 H Total Protein 5.5 L D Albumin 1.9 L Vitamin B12 12/05/17 03:45 WBC RBC Hgb Hct MCV MCH MCHC RDW Plt Count MPV Neut % (Auto) Lymph % (Auto) [place] % (Auto) Eos % (Auto) Baso % (Auto) Neut # (Auto) Lymph # (Auto) [place] # (Auto) Eos # (Auto) Baso # (Auto) WBC Differential Differential Comment PT INR APTT Sodium Potassium Chloride Carbon Dioxide Anion Gap BUN Creatinine Estimated GFR Random Glucose Calcium Total Bilirubin AST ALT Alkaline Phosphatase Total Protein Albumin Vitamin B12 859 Culture Results: Microbiology 12/03/17 18:59 Aerobic Blood Culture - Preliminary Blood - Peripheral No growth in 2 days Anaerobic Blood Culture - Preliminary No growth in 2 days 12/03/17 18:53 Aerobic Blood Culture - Preliminary Blood - Peripheral No growth in 2 days Anaerobic Blood Culture - Preliminary No growth in 2 days 11/30/17 12:21 Aerobic Blood Culture - Final Blood - Other No growth in 5 days Anaerobic Blood Culture - Final No growth in 5 days 11/30/17 01:01 Aerobic Blood Culture - Final Blood - Peripheral No growth in 5 days Anaerobic Blood Culture - Final Prevotella buccae 11/30/17 00:56 Aerobic Blood Culture - Preliminary Blood - Peripheral No growth in 4 days Anaerobic Blood Culture - Final Prevotella buccae Imaging Studies: Impressions Abscess Drainage CT 12/05/17 00:00 CONCLUSION: 1. Uncomplicated CT guided drainage of an intrahepatic abscess. Medications: Active Medications Generic Name Dose Route Start Last Admin Trade Name Freq PRN Reason Stop Dose Admin Acetaminophen 650 mg 11/30/17 02:24 12/04/17 20:20 Tylenol PO 650 mg Q6H PRN Administration TEMPERATURE > 100.5 F Hydrocodone Bitart/Acetaminophen 15 ml 12/02/17 13:50 12/05/17 13:36 Hycet 325/7.5 Mg Liq G-TUBE 15 ml Q4H PRN Administration brkthru pain > 6 if BP stable Fentanyl 1 patch 12/02/17 10:00 12/05/17 13:44 Duragesic 25 Mcg Patch.72hr T-DERMAL 1 patch Q3D CAM Administration Heparin Sodium (Porcine) 500 unit 11/30/17 12:31 11/30/17 13:24 Heparin Central Flush IV.FLUSH 500 unit PRN PRN Administration Flush infusaport Hydrocortisone Acetate 1 applicatio 12/04/17 18:00 12/05/17 13:35 Anusol-Hc RECTAL 1 applicatio TID CAM Administration Cefepime HCl 2,000 mg/ Sodium 100 mls @ 200 mls/hr 11/30/17 13:00 12/05/17 01 :12 Chloride IV.SIG Infused Q12H CAM Infusion Acetaminophen 1,000 mg in 100 mls @ 400 mls/hr 11/30/17 11:30 12/01/17 12:38 Ofirmev Inj IV.SIG Infused Q6H PRN Infusion PAIN SCALE 1 TO 10 Potassium Chloride/Sodium Chloride 1,000 mls @ 70 mls/hr 12/03/17 09:00 12/05 15:06 Ns + Kcl 20 Meq Inj IV.CONT Not Given .[id number] CAM Morphine Sulfate 2 mg 12/02/17 02:02 12/05/17 14:37 Morphine Inj IV.PUSH 2 mg Q4H PRN Administration PAIN IF BP IS STABLE Nystatin 5 ml 12/02/17 13:00 12/05/17 13:35 Mycostatin Liq SWISH-SWAL 5 ml QID CAM Administration Patch Removal 1 each 12/05/17 10:00 12/05/17 13:44 Remove Old Patch T-DERMAL 1 each Q3D CAM Administration Senna/Docusate Sodium 1 tab 11/30/17 10:00 12/05/17 13:17 Rebecca-Colace PO Not Given BID CAM Objective Remarks: GENERAL: Ill-appearing middle-aged male patient, sitting in chair, in no acute distress. SKIN: Warm and dry. HEAD: Normocephalic. EYES: No scleral icterus. No injection or drainage. NECK: Supple, trachea midline. CARDIOVASCULAR: +S1/S2 without murmurs. RESPIRATORY: Posterior breath sounds clear, equal bilaterally. GASTROINTESTINAL: Abdomen soft, non-tender, nondistended. JG drain dressing dry /intact. Right hepatic drain in place, no swelling, bleeding.Drsg dry intact. EXTREMITIES: No cyanosis, or edema. MUSCULOSKELETAL: Normal muscle tone. NEUROLOGICAL: No obvious focal deficit. Awake, alert, and oriented x3. PSYCHIATRIC: Appropriate mood and affect; insight and judgment normal. Assessment/Plan - Plan This is a 71-year-old gentleman, with a history of pancreatic cancer, who presented to the hospital with fevers. He was discharged approximately 2 weeks ago and went to [facility] where he states he was doing well with physical therapy until he started having fevers last Monday. Plan: 1. Patient status post loculated right hepatic lobe abscess drainage today. Drain remains in place. Cultures pending. 2. Blood cultures grew Prevotella buccae. Infectious disease is following, continues on cefepime. 3. Continue supportive care. - Attending Statement The exam, history, and the medical decision-making described in the above note were completed with the assistance of the mid-level provider. I reviewed and agree with the findings presented. I attest that I had a [id number] encounter with the patient on the same day, and personally performed and documented my assessment and findings in the medical record. pt is ready to go down for the procedure to drain heaptic abscess. pt was seen before by Dr Diaz. He is left the practice. Notes reviewed. Pt has stage IV pancreatic cancer. Will start palliative chemo once infection clears up. case d/w Dr Clements who knows pt brother, Dr Clements will see him tomorrow and will follow him outpt in [facility].
[2017-12-05] MEDS: Acetaminophen Inj 650 MG/65 ML VIAL IV.SIG SCH (17:09)
--- NOTE | 2017-12-05 18:57 | P.PNID ---
Infectious Disease Brief Note Patient out for procedure. Will attempt seeing patient in am. Darius Lawler: Will see pt in am appears stable. Recommend 2D ECHO, CRP.
[2017-12-06] MEDS: Acetaminophen Inj 650 MG/65 ML VIAL IV.SIG SCH ×3 (00:06→17:28)
[2017-12-06] MEDS: Acetaminophen-HYDROcodone 325/7.5 Liq 15 ML UDC G-TUBE PRN (04:34)
[2017-12-06 05:15] LABS: Baso % (Auto) 0.3 % (0.0-2.0); Eos # (Auto) 0.1 th/mm3 (0.0-0.4); Eos % (Auto) 0.9 % (0.0-4.0); Hematocrit 25.4 % (39.0-51.0); Hemoglobin 8.4 gm/dL (13.0-17.0); Lymph # (Auto) 0.9 th/mm3 (1.0-4.8); Lymph % (Auto) 5.7 % (9.0-44.0); Mean Corpuscular HGB Conc 33.1 % (32.0-36.0); Mean Corpuscular Hemoglobin 26.8 pg (27.0-34.0); Mean Platelet Volume 8.8 fL (7.0-11.0); Mono # (Auto) 0.8 th/mm3 (0.0-0.9); Mono % (Auto) 5.1 % (0.0-8.0); Neut # (Auto) 13.2 th/mm3 (1.8-7.7); Platelet Count 167 th/mm3 (150-450); Red Blood Count 3.14 mil/mm3 (4.50-5.90)
[2017-12-06 05:40] LABS: Anion Gap 8 meq/L (5-15); Blood Urea Nitrogen 14 mg/dL (7-18); Calcium 7.9 mg/dL (8.5-10.1); Carbon Dioxide 27.8 meq/L (21.0-32.0); Chloride 106 meq/L (98-107); Glomerular Filtration Rate Greater Than 89 mL/min (>89); Glucose,Random 140 mg/dL (74-106); Potassium 3.8 meq/L (3.5-5.1); Sodium 142 meq/L (136-145)
[2017-12-06] MEDS: Morphine Inj 4 MG/ML Vial IV.PUSH PRN ×4 (07:53→22:34)
[2017-12-06] MEDS: Nystatin Liq 500,000 UNIT/5 ML UDC SWISH-SWAL SCH ×4 (08:03→21:17)
[2017-12-06] MEDS: Senna/Docusate Sodium 8.6/50 MG Tablet PO SCH ×2 (08:04→21:18)
[2017-12-06] MEDS: Enoxaparin Inj 40 MG/0.4 ML Syringe SQ SCH (10:39)
--- NOTE | 2017-12-06 11:24 | P.PNIM ---
Subjective Interval history: Pt c/o continued abdominal pain not completely alleviated with current pain medication regimen. Physical Exam Vital signs: 12/06/17 04:08 12/06/17 08:06 Temperature 97 F L 97.4 F L Pulse Rate 78 75 Respiratory Rate 16 16 Blood Pressure 125/74 131/75 Pulse Oximetry 97 100 Narrative: General: NAD, AAOx3 Chest: CTA Cardiac: Regular Abd: +BS, soft ND/NT, GJ tube in place without any noted erythema or drainage hepatic drainage tube to bag with bilious output in collection bag. Ext: No edema Results - Labs CBC & Chem 7: 12/06/17 04:20 12/06/17 04:20 Microbiology 12/03/17 18:59 Blood - Peripheral Aerobic Blood Culture - Preliminary No growth in 3 days 12/03/17 18:59 Blood - Peripheral Anaerobic Blood Culture - Preliminary No growth in 3 days 12/03/17 18:53 Blood - Peripheral Aerobic Blood Culture - Preliminary No growth in 3 days 12/03/17 18:53 Blood - Peripheral Anaerobic Blood Culture - Preliminary No growth in 3 days 11/30/17 00:56 Blood - Peripheral Aerobic Blood Culture - Final No growth in 5 days 11/30/17 00:56 Blood - Peripheral Anaerobic Blood Culture - Final Prevotella buccae 12/05/17 10:35 Fluid - Other Gram Stain - Final 11/30/17 12:21 Blood - Other Aerobic Blood Culture - Final No growth in 5 days 11/30/17 12:21 Blood - Other Anaerobic Blood Culture - Final No growth in 5 days 11/30/17 01:01 Blood - Peripheral Aerobic Blood Culture - Final No growth in 5 days 11/30/17 01:01 Blood - Peripheral Anaerobic Blood Culture - Final Prevotella buccae Assessment and Plan - Assessment (1) Sepsis Code(s): A41.9 - Sepsis, unspecified organism Status: Acute Plan: Fevers/chills, possible sepsis ?biliary sepsis vs. port infection vs. other - Pt is a 71 y/o male with pancreatic cancer who presented to the ER at [facility] on with complaints of fevers and chills. Around 4-5 days ago he began having some low grade fevers which was being treated with Tylenol. He states that he has had a bit of a dry cough for some time and had a CXR and blood work done on 11/27/17, which he reports were negative. Then yesterday evening he started having shaking chills and his fever spiked to 103 degrees. This prompted his evaluation in the ED last night. - His fever was noted to be 103 in the ED. - CXR (11/30) --> NO acute findings. - Pt tested negative for flu. - comgmt with Infectious Disease, Interventional Radiology, Oncology, Palliative Medicine - Pt reports that the last time his port was accessed was [address] Geller office. - Blood Culture peripheral (11/30/17) --> Prevotella Buccae - Blood culture port (11/30/17) --> No growth - Repeat Blood Cx (12/03/17) --> No growth - fluid culture, hepatic fluid (12/05) --> gram negative rods, strep viridans - Vancomycin (11/30 - 12/02) - Cefepime (11/30 - present) - PO flagyl (12/06 - present) - Fentanyl increased to 50mcg (12/05) - Pt had metal sent placed in bile duct during previous admission, 10/2017 - MRCP (12/03/17) 1. The right lobe of liver there is a new multiloculated fluid collection I suspect related to recent intervention. It measures 5.2 x 3.9 cm across. 2. Known pancreatic cancer with a biliary stent in good position. 3. Gallbladder is decompressed but there is some fluid surrounding the liver. - Case d/w Radiology (12/04). fluid collection NOT present on previous abdominal study - Pt had CT guided drainage liver abscess (12/05) with placement of drainage cather - appreciate input from Infectious Disease. Case d/w Dr. Velazquez (12/06). - Appreciate input from Oncology. Case d/w Dr. Clements (12/06). Oncology will consider chemotherapy following treatment of abscess. - Case d/w IR, Dr. Brambila (12/06) - await Palliative consult. - DVT prophylaxis with lovenox - supportive care . 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
--- NOTE | 2017-12-06 12:48 | P.CONID ---
History of Present Illness Service: Infectious Disease Consult date: 12/06/17 Requesting Physician: Fabian Baum Reason for Consult: Evaluation and Mment of Bacteremia and liver abscess Primary Care Provider: Robert Chung MD Chief Complaint: Fevers, chills History of Present Illness: Mr. Cruz is a pleasant 71 y/o male with pancreatic cancer who presented to the ER at [facility] on 11/30/17 with complaints of fevers and chills. Patient had an ERCP 10/13/17 for obstructive jaundice and finding was ampulla distorted by tumor invasion and failed sphincterotomy. Multiple imaging modalities showed pancreatic mass. Pt then had biliary drain and stent placed by IR. Pt had EUS and FNA 10/16 and biopsy showed poorly differentiated adenocarcinoma c/w pancreatic primary. Pt is following with Dr Diaz. The mass is not resectable and pt had a recent PET scan showing possible metastasis to liver. He had port placed 05/03/17. Pt has been too weak for palliative chemotherapy. He states that he has been at [facility] for rehab since his last discharge on 11/14/17 and was making slow but steady progress. Approx 5 days prior to admission, he began noticing fevers and shaking chills. Reportedly a CXR done was negative and despite tylenol fevers persisted. When he spiked a temp of 103 F he was admitted through the ED. He was started on empiric antibiotics and sepsis workup initiated. He met criteria for severe sepsis in an Immune compromised patient. CXR was negative. He tested negative for flu. Pt denies any sore throat, congestions. He denies any nausea/vomiting, diarrhea, abd pain. He denies any chest pain, SOB, dizziness or weakness. Hospital course: patient had a positive blood culture: Prevotella buccae and ID consulted for Severe Sepsis, Bacteremia and Liver abscess. He had an IR guided drain placed in liver and cultures are positive for GNR and Strep viridans. At time of my visit he was sitting in a chair and denied any new complaints. He reaffirmed he wanted to be aggressive with care including treatment of sepsis followed by Chemotherapy. Past Medical/Surgical Hx: GJ tube placement by IR Skin Cancer removal Tonsillectomy Port placement Review of Systems All other systems reviewed negative except as stated in HPI PMFSH - History History Provided By: Patient - Medical History Medical History: Medical History (Last Reviewed 12/05/17 @ 07:49 by Rogeiro Garcia, PT) Metastatic cancer to liver History of biliary stent insertion History of broken collarbone Pancreas cancer Port-A-Cath in place Skin cancer - Surgical History Surgical History: Surgical History (Last Reviewed 12/05/17 @ 07:49 by Rogerio Garcia, PT) History of tonsillectomy - Family History Family History: Family History (Last Updated 12/05/17 @ 15:34 by KIEL Kirk) Mother Uterine cancer - Tobacco History Second Hand Smoke Exposure: No Smoking Status: Never smoker - Alcohol History How Often Do You Have a Drink Containing Alcohol: Never - Substance Use History Substance History: No History of Abuse - Travel History Recent Travel in the [place] Within the Last 8 Weeks: No Recent Travel Out of the Country Within the Last 8 Weeks: No - Immunization History Tetanus Immunization: <5 Years Hx Influenza Vaccine This Season: Yes Medications and Allergies Active Medications: Active Medications Acetaminophen (Tylenol) 650 mg PO Q6H PRN PRN Reason: TEMPERATURE > 100.5 F Last Admin: 12/04/17 20:20 Dose: 650 mg Al Hydroxide/Mg Hydroxide (Milk Of Cosme Flores) 30 ml PO Q12H PRN PRN Reason: Mild Constipation Enoxaparin Sodium (Lovenox Inj) 40 mg SQ Q24H [facility] Last Admin: 12/06/17 10:39 Dose: 40 mg Fentanyl (Duragesic 50 Mcg Patch.72hr) 1 patch T-DERMAL Q3D [facility] Last Admin: 12/05/17 17:09 Dose: 1 patch Heparin Sodium (Porcine) (Heparin Central Flush) 250 unit IV.FLUSH PRN PRN PRN Reason: Flush Infusapot Heparin Sodium (Porcine) (Heparin Central Flush) 500 unit IV.FLUSH PRN PRN PRN Reason: Flush infusaport Last Admin: 11/30/17 13:24 Dose: 500 unit Hydrocortisone Acetate (Anusol-Hc) 1 applicatio RECTAL TID [facility] Last Admin: 12/06/17 12:16 Dose: 1 applicatio Hydromorphone HCl (Dilaudid) 4 mg PO Q4H PRN PRN Reason: PAIN SCALE 1 TO 10 Last Admin: 12/06/17 12:48 Dose: 4 mg Cefepime HCl 2,000 mg/ Sodium (Chloride) 100 mls @ 200 mls/hr IV.SIG Q12H [facility] Last Admin: 12/06/17 12:13 Dose: 200 mls/hr Potassium Chloride/Sodium Chloride (Ns + Kcl 20 Meq Inj) 1,000 mls @ 70 mls/hr IV.CONT .[id number] [facility] Last Admin: 12/06/17 10:39 Dose: 70 mls/hr Acetaminophen (Ofirmev Inj) 650 mg in 65 mls @ 400 mls/hr IV.SIG Q8H [facility] Stop: 12/06/17 17:10 Last Infusion: 12/06/17 10:50 Dose: Infused Metronidazole (Flagyl) 500 mg PO Q8HR [facility] Morphine Sulfate (Morphine Inj) 2 mg IV.PUSH Q4H PRN PRN Reason: BREAKTHROUGH PAIN Last Admin: 12/06/17 07:53 Dose: 2 mg Nystatin (Mycostatin Liq) 5 ml SWISH-SWAL QID [facility] Last Admin: 12/06/17 12:13 Dose: 5 ml Ondansetron HCl (Zofran Inj) 4 mg IV.PUSH Q6H PRN PRN Reason: NAUSEA OR VOMITING Patch Removal (Remove Old Patch) 1 each T-DERMAL Q3D [facility] Last Admin: 12/05/17 13:44 Dose: 1 each Patch Removal (Remove Old Patch) 1 each T-DERMAL Q3D [facility] Senna/Docusate Sodium (Rebecca-Colace) 1 tab PO BID [facility] Last Admin: 12/06/17 08:04 Dose: Not Given Sodium Chloride (Ns Flush) 5 ml IV.FLUSH PRN PRN PRN Reason: Flush Infusaport Witch Khadijah/Glycerin (Tucks Pads) 1 applicatio RECTAL PRN PRN PRN Reason: HEMORRHOIDS Allergies Allergy/AdvReac Type Severity Reaction Status Date / Time No Known Allergies Allergy Verified 11/09/17 16:28 Home Medications Medication Instructions Recorded Confirmed Type tamsulosin [Flomax] 0.4 mg DAILY 10/30/17 11/30/17 History amino acids-protein hydrolys 1 oz FEEDING TUBE BID 11/30/17 11/30/17 History [Proteinex] hydromorphone [Dilaudid] 4 mg PO Q4H PRN 11/30/17 11/30/17 History Exam Vital signs: Vital Signs 12/05/17 19:25 12/05/17 21:37 12/05/17 23:50 Temperature 98.7 F 98.3 F Pulse Rate 77 79 Respiratory Rate 16 16 Blood Pressure 97/57 L 113/68 122/71 Pulse Oximetry 97 96 12/06/17 04:08 12/06/17 08:06 Temperature 97 F L 97.4 F L Pulse Rate 78 75 Respiratory Rate 16 16 Blood Pressure 125/74 131/75 Pulse Oximetry 97 100 Intake & Output 12/05/17 12/06/17 12/06/17 18:59 06:59 18:59 Intake Total 1210 / 1210 1505 / 1505 1465 / 1465 Output Total 1350 / 1350 170 / 170 Balance 1210 / 1210 155 / 155 1295 / 1295 Weight 77 kg Intake: IV 1210 / 1210 175 / 175 1065 / 1065 NS + KCl 20 mEq Inj 1,000 ML @ 1000 / 1000 1000 / 1000 70 mls/hr IV.CONT .[id number] CAM Rx#:[id number] Ofirmev Inj 650 mg In 65 ml @ 100 / 100 65 / 65 65 / 65 400 mls/hr IV.SIG Q8H CAM Rx#: [id number] Maxipime Inj 2,000 MG In NS Inj 110 / 110 110 / 110 100 ML @ 200 mls/hr IV.SIG Q12H CAM Rx#:[id number] Oral 710 / 710 Tube Feeding 500 / 500 300 / 300 Water Bolus Amount 120 / 120 100 / 100 Output: Urine 1300 / 1300 100 / 100 Wound Drainage 50 / 50 70 / 70 # 1 Right Upper Lateral Abdomen 50 / 50 70 / 70 Other: Date of Last Bowel Movement 12/04/17 Narrative: GENERAL: Well-nourished well-developed, not in acute distress SKIN: Cool and dry, no generalized rash HEAD: Atraumatic. Normocephalic. No temporal or scalp tenderness. EYES: Pupils equal round and reactive. Scleral icterus. No injection or drainage. No petechia ENT: Nothing abnormal detected NECK: Trachea midline. Supple, nontender, no meningeal signs. CARDIOVASCULAR: HS audible. Port site ok. RESPIRATORY: Clear to auscultation bilaterally. GASTROINTESTINAL: Abdomen soft nontender. Drain in place. PEG tube site ok. MUSCULOSKELETAL: Extremities without clubbing, cyanosis. NEUROLOGICAL: Alert oriented 3. Nonfocal. Psych cooperative IV line sites ok. Results - Labs CBC & Chem 7: 12/06/17 04:20 12/06/17 04:20 Labs: Laboratory Results - last 24 hr 12/06/17 12/06/17 04:20 04:20 WBC 15.0 H RBC 3.14 L Hgb 8.4 L Hct 25.4 L MCV 81.0 MCH 26.8 L MCHC 33.1 RDW 16.0 Plt Count 167 MPV 8.8 Neut % (Auto) 88.0 H Lymph % (Auto) 5.7 L [place] % (Auto) 5.1 Eos % (Auto) 0.9 Baso % (Auto) 0.3 Neut # (Auto) 13.2 H Lymph # (Auto) 0.9 L [place] # (Auto) 0.8 Eos # (Auto) 0.1 Baso # (Auto) 0.0 WBC Differential . Differential Comment Auto diff final Sodium 142 Potassium 3.8 Chloride 106 Carbon Dioxide 27.8 Anion Gap 8 BUN 14 Creatinine 0.55 L Estimated GFR Greater than 89 Random Glucose 140 H Calcium 7.9 L - Imaging Chest X-Ray 11/30/17 00:57 CONCLUSION: No acute cardiopulmonary abnormality is identified. Cholangiopancreatography MRI 12/03/17 00:00 CONCLUSION: 1. The right lobe of liver there is a new multiloculated fluid collection I suspect related to recent intervention. It measures 5.2 x 3.9 cm across. 2. Known pancreatic cancer with a biliary stent in good position. 3. Gallbladder is decompressed but there is some fluid surrounding the liver. Abscess Drainage CT 12/05/17 00:00 CONCLUSION: 1. Uncomplicated CT guided drainage of an intrahepatic abscess. Assessment and Plan - Plan Severe Sepsis present on admission (Fever, leucopenia, source: bacteremia and liver abscess, elevated lactic acid) Prevotella bacteremia: likely GI source (recent biliary stent placement and 2 procedures in GI lab and IR with one being failed attempt) GNR and Strep multiloculated liver abscess likely GI source as above. Pancreatic cancer late stage with stent in place ? biliary leak. Immunocompromised host Port in place PEG tube in place. Recs: Continue Cefepime IV Add Flagyl oral Check 2D ECHO Check CRP Reviewed images and dw Follow cultures Follow clinical course. Anticipate IV antibiotics likely 6 weeks. Will need follow up imaging dw patient in presence of : due to multiloculated nature of abscess, concern for biliary leak there is a chance this could be a recurrent and non resolving process. Clearance for chemotherapy will only be after the patient has completed antibiotics and there is resolution of abscess. Patient understands and would like to continue aggressive measures. Appreciate palliative care input. seth Pimentel over phone above plan.
[2017-12-06] MEDS: metroNIDAZOLE 500 MG Tablet PO SCH ×2 (14:37→21:17)
--- NOTE | 2017-12-06 14:43 | ECHRPT ---
Indication: Sepsis with Possible Endocarditis CONCLUSIONS No regional wall motion abnormalities are present. Normal left ventricular size. Wall thickness is measured at the upper limits of normal. The left ventricular systolic function is normal with an estimated ejection fraction in the range of 55-60%. Technically adequate study. No evidence for endocarditis. There is trace tricuspid valve regurgitation. Trace mitral valve regurgitation. BP: / HR: Rhythm: MEASUREMENTS (Male / Female) Normal Values Technical Quality:Fair 2D ECHO LV Diastolic Diameter PLAX 5.3 cm 4.2 - 5.9 / 3.9 - 5.3 cm LV Systolic Diameter PLAX 3.8 cm IVS Diastolic Thickness 1.0 cm 0.6 - 1.0 / 0.6 - 0.9 cm LVPW Diastolic Thickness 1.1 cm 0.6 - 1.0 / 0.6 - 0.9 cm LV Relative Wall Thickness 0.4 RV Internal Dim ED PLAX 3.3 cm LVOT Diameter 2.2 cm Aortic Root Diameter 3.5 cm LA Systolic Diameter LX 3.4 cm 3.0 - 4.0 / 2.7 - 3.8 cm M-MODE AV Cusp Separation MM 2.2 cm DOPPLER AV Peak Velocity 155.0 cm/s AV Peak Gradient 9.6 mmHg LVOT Peak Velocity 132.0 cm/s LVOT Peak Gradient 7.0 mmHg AV Area Cont Eq pk 3.2 cm Mitral E Point Velocity 121.0 cm/s Mitral A Point Velocity 85.7 cm/s Mitral E to A Ratio 1.4 LV E' Lateral Velocity 9.5 cm/s Mitral E to LV E' Lateral Ratio 12.8 LV E' Septal Velocity 9.0 cm/s Mitral E to LV E' Septal Ratio 13.5 TR Peak Velocity 277.0 cm/s TR Peak Gradient 30.7 mmHg Right Atrial Pressure 10.0 mmHg Pulmonary Artery Systolic Pressu 40.7 mmHg Right Ventricular Systolic Press 40.7 mmHg PV Peak Velocity 66.5 cm/s PV Peak Gradient 1.8 mmHg FINDINGS LEFT VENTRICLE No regional wall motion abnormalities are present. Normal left ventricular size. Wall thickness is measured at the upper limits of normal. The left ventricular systolic function is normal with an estimated ejection fraction in the range of 55-60%. RIGHT VENTRICLE Normal right ventricular size and systolic function. LEFT ATRIUM The left atrial size is normal. RIGHT ATRIUM The right atrial size is normal. ATRIAL SEPTUM Normal atrial septal thickness without atrial level shunting by limited color doppler interrogation. AORTA The aortic root and proximal ascending aorta are normal in size on limited imaging. MITRAL VALVE Trace mitral valve regurgitation. AORTIC VALVE Trileaflet aortic valve. TRICUSPID VALVE There is trace tricuspid valve regurgitation. The estimated pulmonary arterial pressure is 41 mmHg. PULMONARY VALVE Trivial pulmonary valve regurgitation. VESSELS Dilated inferior vena cava with poor inspiration collapse consistent with elevated right atrial pres sure. PERICARDIUM No pericardial effusion. Christiano Engle MD (Electronically Signed) Final Date:06 December 2017 14:42
--- NOTE | 2017-12-06 16:17 | P.PNPAL ---
Reason for Visit Reason for visit: a. To assist with evaluation and management of symptoms including: pain, debility b. To assist medical decision maker(s) with: better understanding of current medical conditions; weighing benefits/burdens of medical treatment options; making medical treatment decisions. Subjective Subjective/Interval History: Pt resting in bed. More alert today. No chills today, says he is feeling much better. Feels his pain is better controlled. Regimen changed to 50mcg fentanyl patch and has PRN dilaudid and morphine, appears he has been alternating bet the PO dilaudid and IV morphine. Says after he asks for his pain med his pain goes from 7/10 to 3/10. His pain is mostly in the area of his hepatic drain and is constant. Pt tolerating some soft foods but admits some early satiety today, which he attributes to his drain. Drain now with greenish bilious output. Had echo, EF 55-60% no evidence endocarditis. Was visited by ID and oncology this morning. Tentative plan for palliative chemo after sepsis resolved. Discussed with pt and friend Genoveva at bedside, answered all questions to the best of my ability. Family/Friend Interactions: as above Objective Vital Signs: Vital Signs 12/05/17 19:25 12/05/17 21:37 12/05/17 23:50 Temperature 98.7 F 98.3 F Pulse Rate 77 79 Respiratory Rate 16 16 Blood Pressure 97/57 L 113/68 122/71 Pulse Oximetry 97 96 12/06/17 04:08 12/06/17 08:06 12/06/17 12:54 Temperature 97 F L 97.4 F L 97.9 F Pulse Rate 78 75 71 Respiratory Rate 16 16 16 Blood Pressure 125/74 131/75 119/72 Pulse Oximetry 97 100 97 Intake & Output 12/05/17 12/06/17 12/06/17 18:59 06:59 18:59 Intake Total 1210 / 1210 1505 / 1505 1565 / 1565 Output Total 1350 / 1350 170 / 170 Balance 1210 / 1210 155 / 155 1395 / 1395 Weight 77 kg Intake: IV 1210 / 1210 175 / 175 1165 / 1165 NS + KCl 20 mEq Inj 1,000 ML @ 1000 / 1000 1000 / 1000 70 mls/hr IV.CONT .[id number] [facility] Rx#:[id number] Ofirmev Inj 650 mg In 65 ml @ 100 / 100 65 / 65 65 / 65 400 mls/hr IV.SIG Q8H [facility] Rx#: [id number] Maxipime Inj 2,000 MG In NS Inj 110 / 110 110 / 110 100 / 100 100 ML @ 200 mls/hr IV.SIG Q12H [facility] Rx#:[id number] Oral 710 / 710 Tube Feeding 500 / 500 300 / 300 Water Bolus Amount 120 / 120 100 / 100 Output: Urine 1300 / 1300 100 / 100 Wound Drainage 50 / 50 70 / 70 # 1 Right Upper Lateral Abdomen 50 / 50 70 / 70 Other: Date of Last Bowel Movement 12/04/17 Physical Exam: CONSTITUTIONAL/GENERAL: frail appearing male TUBES/LINES/DRAINS: GJ tube, hepatic drain with green bilious output SKIN: No jaundice, rashes, or lesions. No wounds seen anteriorly. Skin temperature appropriate. Not diaphoretic. HEAD: Atraumatic. Normocephalic. EYES: Extraocular motions intact. No scleral icterus. No injection or drainage. Fundi not examined. ENT: Hearing grossly normal. Nose without bleeding or purulent drainage. CARDIOVASCULAR: RRR without murmurs, gallops, or rubs. No JVD. Peripheral pulses symmetric. RESPIRATORY/CHEST: Symmetric, unlabored respirations. Clear to auscultation. Breath sounds equal bilaterally. GASTROINTESTINAL: Abdomen soft, RUQ mildly TTP in area of drain, mildly distended. No hepato-splenomegaly, or palpable masses. No guarding. Bowel sounds present. MUSCULOSKELETAL: Extremities without clubbing, cyanosis. +1 BLE edema, worse today. No joint tenderness or effusion noted. No mottling or clubbing. NEUROLOGICAL: more alert today. Motor and sensory grossly within normal limits. Follows commands. Cognitively sharp. Moves all extremities. PSYCHIATRIC: No obvious anxiety/depression. no apparent hallucinations or other psychotic thought process. Diagnostic Tests Laboratory: Laboratory Results - last 72 hr 12/04/17 12/04/17 12/05/17 05:00 16:15 03:45 WBC RBC Hgb Hct MCV MCH MCHC RDW Plt Count MPV Neut % (Auto) Lymph % (Auto) [place] % (Auto) Eos % (Auto) Baso % (Auto) Neut # (Auto) Lymph # (Auto) [place] # (Auto) Eos # (Auto) Baso # (Auto) WBC Differential Differential Comment PT 13.3 H INR 1.3 APTT 25.9 Sodium 140 140 Potassium 3.3 L 4.1 D Chloride 104 105 Carbon Dioxide 27.9 25.7 Anion Gap 8 9 BUN 6 L 11 Creatinine 0.48 L 0.79 Estimated GFR Greater than 89 Greater than 89 Random Glucose 144 H 109 H Calcium 7.7 L 7.9 L Total Bilirubin 1.0 AST 43 H ALT 63 Alkaline Phosphatase 309 H C-Reactive Protein Total Protein 5.5 L D Albumin 1.9 L Vitamin B12 Vancomycin Trough Cancelled 12/05/17 12/05/17 12/06/17 03:45 03:45 04:20 WBC 25.0 H 15.0 H RBC 3.09 L 3.14 L Hgb 8.4 L 8.4 L Hct 24.9 L 25.4 L MCV 80.4 81.0 MCH 27.1 26.8 L MCHC 33.8 33.1 RDW 15.8 16.0 Plt Count 170 167 MPV 8.8 8.8 Neut % (Auto) 93.0 H 88.0 H Lymph % (Auto) 2.0 L 5.7 L [place] % (Auto) 4.9 5.1 Eos % (Auto) 0.0 0.9 Baso % (Auto) 0.1 0.3 Neut # (Auto) 23.2 H 13.2 H Lymph # (Auto) 0.5 L 0.9 L [place] # (Auto) 1.2 H 0.8 Eos # (Auto) 0.0 0.1 Baso # (Auto) 0.0 0.0 WBC Differential . . Differential Comment Auto diff final Auto diff final PT INR APTT Sodium Potassium Chloride Carbon Dioxide Anion Gap BUN Creatinine Estimated GFR Random Glucose Calcium Total Bilirubin AST ALT Alkaline Phosphatase C-Reactive Protein Total Protein Albumin Vitamin B12 859 Vancomycin Trough 12/06/17 12/06/17 04:20 13:48 WBC RBC Hgb Hct MCV MCH MCHC RDW Plt Count MPV Neut % (Auto) Lymph % (Auto) [place] % (Auto) Eos % (Auto) Baso % (Auto) Neut # (Auto) Lymph # (Auto) [place] # (Auto) Eos # (Auto) Baso # (Auto) WBC Differential Differential Comment PT INR APTT Sodium 142 Potassium 3.8 Chloride 106 Carbon Dioxide 27.8 Anion Gap 8 BUN 14 Creatinine 0.55 L Estimated GFR Greater than 89 Random Glucose 140 H Calcium 7.9 L Total Bilirubin AST ALT Alkaline Phosphatase C-Reactive Protein 14.00 H Total Protein Albumin Vitamin B12 Vancomycin Trough Result Diagrams: 12/06/17 04:20 12/06/17 04:20 Microbiology: Microbiology 12/05/17 10:35 Gram Stain - Final Fluid - Other Body Fluid Culture - Preliminary gram negative rods Viridans streptococcus grp 12/03/17 18:59 Aerobic Blood Culture - Preliminary Blood - Peripheral No growth in 3 days Anaerobic Blood Culture - Preliminary No growth in 3 days 12/03/17 18:53 Aerobic Blood Culture - Preliminary Blood - Peripheral No growth in 3 days Anaerobic Blood Culture - Preliminary No growth in 3 days 11/30/17 00:56 Aerobic Blood Culture - Final Blood - Peripheral No growth in 5 days Anaerobic Blood Culture - Final Prevotella buccae 11/30/17 12:21 Aerobic Blood Culture - Final Blood - Other No growth in 5 days Anaerobic Blood Culture - Final No growth in 5 days 11/30/17 01:01 Aerobic Blood Culture - Final Blood - Peripheral No growth in 5 days Anaerobic Blood Culture - Final Prevotella buccae Imaging: ITS Impressions Chest X-Ray 11/30/17 00:57 CONCLUSION: No acute cardiopulmonary abnormality is identified. Cholangiopancreatography MRI 12/03/17 00:00 CONCLUSION: 1. The right lobe of liver there is a new multiloculated fluid collection I suspect related to recent intervention. It measures 5.2 x 3.9 cm across. 2. Known pancreatic cancer with a biliary stent in good position. 3. Gallbladder is decompressed but there is some fluid surrounding the liver. Abscess Drainage CT 12/05/17 00:00 CONCLUSION: 1. Uncomplicated CT guided drainage of an intrahepatic abscess. Procedures: 12/05 drainage liver abscess, drain placement Assessment and Plan - Disease Oriented Problem List (1) Sepsis (2) Pancreatic cancer metastasized to liver (3) Gastric outlet obstruction (4) Hepatic abscess (5) Pancreatic mass Pertinent Non-Medical Issues: Psychosocial: Pt originally from [place] but has been in [place] most of his life. He is , with 2 daughters who live locally. 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 Spiritual: Congregational Legal: pt currently capacitated to make medical decisions. Should he become incapacitated he has designated his daughter Mima and his brother Oscar to make medical decisions on his behalf. Family working together. Ethical issues impacting care: none Important Contacts: Oscar Cruz [phone] Mima Machado [phone] - can leave message, work [phone] Prognosis: 71 yo male with recently diagnosed locally advanced pancreatic carcinoma, gastric outlet obstruction 2/2 mass s/p GJ placement, who presented 11/30 with fever, chills, shaking. He is being treated for sepsis from unclear source. He was found to have a liver abscess which is now s/p drainage and placement drain. If he recovers from sepsis and becomes stronger, he could be candidate for palliative Folfirinox. His prognosis is poor, this is almost certainly terminal. He is hospice appropriate should goals be in line with comfort. Code Status: Full Code Plan: - LEGAL DECISON MAKER -patient is currently capacitated to make decisions. should he become incapacitated he has designated his daughter Mima and his brother Oscar to make medical decisions on his behalf. Family working together. - CODE STATUS- full code - GOALS - Goals fairly aggressive, plan for modified Folfirinox if pt recovers from sepsis and can get stronger. Prior goals have been aggressive, patient wants to keep trying to get stronger. Family is supportive however his daughter feels goals should be more comfort oriented. - SYMPTOMS - * Pain - multifactorial, 2/2 mass, procedures. Pain mainly around drain site, constant, improved today. 7/10 before pain meds and 3/10 after. Fentanyl patch was increased to 50mcg, additionally has 2mg IV morphine PRN q4h and 4mg PO dilaudid PRN q4h. Will re-eval use of meds monday and make further recs. * Debility/weakness was ambulating with IV pole. ?sepsis ?source. ID consult pending. Tolerating TF @ goal, tolerating some limited soft food intake like scrambled eggs. Denies nausea. ECHO showed 55-60% EF. if outlet obstruction worsens or he has n/v, could consider GI consult for duodenal stent. - Palliative care will continue to follow during hospital course as condition evolves, to assist patient/decision-maker with understanding of medical conditions, weighing benefits/burdens of treatment options, for clarification of goals of treatment. Additionally will assist with any symptoms of palliative concern Attestation Attestation: To help prompt me to consider important information that might be impacting today's encounter and assessment, information from prior notes written by myself or my colleagues may have been "brought forward" into today's note. My signature on this note, however, is an attestation that I personally performed the exam, history, and/or decision-making noted today, and, unless otherwise indicated, the interactions with patient, family, and staff as well as the review of records all occurred today. I also attest that the listed assessment and stated plan reflect my best clinical judgment today based on the combination of historical information, prior notes, and today's exam/ interactions. When time spent is documented, it refers only to time spent today by the signer, or if indicated, combined time spent today by collaborating physician/nurse practitioner.
--- NOTE | 2017-12-06 20:16 | P.PNONC ---
Subjective Interval history: patient ill and weak Objective Vital Signs/Intake & Output: Vital Signs 12/05/17 21:37 12/05/17 23:50 12/06/17 04:08 Temperature 98.3 F 97 F L Pulse Rate 79 78 Respiratory Rate 16 16 Blood Pressure 113/68 122/71 125/74 Pulse Oximetry 96 97 12/06/17 08:06 12/06/17 12:54 12/06/17 16:00 Temperature 97.4 F L 97.9 F 98.8 F Pulse Rate 75 71 72 Respiratory Rate 16 16 19 Blood Pressure 131/75 119/72 134/79 Pulse Oximetry 100 97 98 Intake & Output 12/06/17 12/06/17 12/07/17 06:59 18:59 06:59 Intake Total 1505 / 1505 1565 / 1565 30 / 30 Output Total 1350 / 1350 170 / 170 Balance 155 / 155 1395 / 1395 30 / 30 Weight 77 kg Intake: IV 175 / 175 1165 / 1165 30 / 30 NS + KCl 20 mEq Inj 1,000 ML @ 1000 / 1000 70 mls/hr IV.CONT .[id number] [facility] Rx#:[id number] Ofirmev Inj 650 mg In 65 ml @ 65 / 65 65 / 65 30 / 30 400 mls/hr IV.SIG Q8H [facility] Rx#: [id number] Maxipime Inj 2,000 MG In NS Inj 110 / 110 100 / 100 100 ML @ 200 mls/hr IV.SIG Q12H [facility] Rx#:[id number] Oral 710 / 710 Tube Feeding 500 / 500 300 / 300 Water Bolus Amount 120 / 120 100 / 100 Output: Urine 1300 / 1300 100 / 100 Wound Drainage 50 / 50 70 / 70 # 1 Right Upper Lateral Abdomen 50 / 50 70 / 70 Other: Date of Last Bowel Movement 12/04/17 Result Diagrams: 12/06/17 04:20 12/06/17 04:20 Laboratory Results: Laboratory Results - last 24 hr 12/02/17 12/06/17 12/06/17 11:35 04:20 04:20 WBC 15.0 H RBC 3.14 L Hgb 8.4 L Hct 25.4 L MCV 81.0 MCH 26.8 L MCHC 33.1 RDW 16.0 Plt Count 167 MPV 8.8 Neut % (Auto) 88.0 H Lymph % (Auto) 5.7 L [place] % (Auto) 5.1 Eos % (Auto) 0.9 Baso % (Auto) 0.3 Neut # (Auto) 13.2 H Lymph # (Auto) 0.9 L [place] # (Auto) 0.8 Eos # (Auto) 0.1 Baso # (Auto) 0.0 WBC Differential . Differential Comment Auto diff final Sodium 142 Potassium 3.8 Chloride 106 Carbon Dioxide 27.8 Anion Gap 8 BUN 14 Creatinine 0.55 L Estimated GFR Greater than 89 Random Glucose 140 H Calcium 7.9 L C-Reactive Protein RBC Folate 904 12/06/17 13:48 WBC RBC Hgb Hct MCV MCH MCHC RDW Plt Count MPV Neut % (Auto) Lymph % (Auto) [place] % (Auto) Eos % (Auto) Baso % (Auto) Neut # (Auto) Lymph # (Auto) [place] # (Auto) Eos # (Auto) Baso # (Auto) WBC Differential Differential Comment Sodium Potassium Chloride Carbon Dioxide Anion Gap BUN Creatinine Estimated GFR Random Glucose Calcium C-Reactive Protein 14.00 H RBC Folate Culture Results: Microbiology 12/05/17 10:35 Gram Stain - Final Fluid - Other Body Fluid Culture - Preliminary gram negative rods Viridans streptococcus grp 12/03/17 18:59 Aerobic Blood Culture - Preliminary Blood - Peripheral No growth in 3 days Anaerobic Blood Culture - Preliminary No growth in 3 days 12/03/17 18:53 Aerobic Blood Culture - Preliminary Blood - Peripheral No growth in 3 days Anaerobic Blood Culture - Preliminary No growth in 3 days 11/30/17 00:56 Aerobic Blood Culture - Final Blood - Peripheral No growth in 5 days Anaerobic Blood Culture - Final Prevotella buccae 11/30/17 12:21 Aerobic Blood Culture - Final Blood - Other No growth in 5 days Anaerobic Blood Culture - Final No growth in 5 days 11/30/17 01:01 Aerobic Blood Culture - Final Blood - Peripheral No growth in 5 days Anaerobic Blood Culture - Final Prevotella buccae Medications: Active Medications Generic Name Dose Route Start Last Admin Trade Name Freq PRN Reason Stop Dose Admin Acetaminophen 650 mg 11/30/17 02:24 12/04/17 20:20 Tylenol PO 650 mg Q6H PRN Administration TEMPERATURE > 100.5 F Enoxaparin Sodium 40 mg 12/06/17 10:00 12/06/17 10:39 Lovenox Inj SQ 40 mg Q24H CAM Administration Fentanyl 1 patch 12/05/17 17:00 12/05/17 17:09 Duragesic 50 Mcg Patch.72hr T-DERMAL 1 patch Q3D CAM Administration Heparin Sodium (Porcine) 500 unit 11/30/17 12:31 11/30/17 13:24 Heparin Central Flush IV.FLUSH 500 unit PRN PRN Administration Flush infusaport Hydrocortisone Acetate 1 applicatio 12/04/17 18:00 12/06/17 19:37 Anusol-Hc RECTAL Not Given TID CAM Hydromorphone HCl 4 mg 12/06/17 11:27 12/06/17 17:30 Dilaudid PO 4 mg Q4H PRN Administration PAIN SCALE 1 TO 10 Cefepime HCl 2,000 mg/ Sodium 100 mls @ 200 mls/hr 11/30/17 13:00 12/06/17 14 :38 Chloride IV.SIG Infused Q12H CAM Infusion Potassium Chloride/Sodium Chloride 1,000 mls @ 70 mls/hr 12/03/17 09:00 12/06 10:39 Ns + Kcl 20 Meq Inj IV.CONT 70 mls/hr .[id number] CAM Administration Metronidazole 500 mg 12/06/17 14:00 12/06/17 14:37 Flagyl PO 500 mg Q8HR CAM Administration Morphine Sulfate 2 mg 12/02/17 02:02 12/06/17 14:35 Morphine Inj IV.PUSH 2 mg Q4H PRN Administration BREAKTHROUGH PAIN Nystatin 5 ml 12/02/17 13:00 12/06/17 17:30 Mycostatin Liq SWISH-SWAL 5 ml QID CAM Administration Patch Removal 1 each 12/05/17 10:00 12/05/17 13:44 Remove Old Patch T-DERMAL 1 each Q3D CAM Administration Senna/Docusate Sodium 1 tab 11/30/17 10:00 12/06/17 08:04 Rebecca-Colace PO Not Given BID [facility] Objective Remarks: GENERAL: frail and thing SKIN: Warm and dry. HEAD: Normocephalic. EYES: No scleral icterus. No injection or drainage. NECK: Supple, trachea midline. No JVD or lymphadenopathy. LYMPHATIC: No adenopathy. CARDIOVASCULAR: Regular rate and rhythm without murmurs. RESPIRATORY: Breath sounds equal bilaterally. No accessory muscle use. GASTROINTESTINAL: Abdomen soft. has G/J tube and drain in liver. EXTREMITIES: No cyanosis, or edema. MUSCULOSKELETAL: muscle wasting. NEUROLOGICAL: No obvious focal deficit. Awake, alert, and oriented x3. PSYCHIATRIC: Appropriate mood and affect; insight and judgment normal. Assessment/Plan - Plan Spoke with patient at length and reviewed with him images of recent pet scan showing disease confined to pancreas and single lesion in the liver. I spoke with Dr. Velazquez (ID) and he will require at least a two week course of antibiotics to resolve infection. If at the end of the two weeks his performance status is better I will offer chemotherapy. It it is not, will suggest hospice. He is at risk of DVT and have started lovenex. Situation discussed with his brother by phone.
[2017-12-07] MEDS: metroNIDAZOLE 500 MG Tablet PO SCH ×3 (05:32→21:02)
[2017-12-07 06:01] LABS: Glomerular Filtration Rate Greater Than 89 mL/min (>89)
[2017-12-07] MEDS ORDERED: LORazepam 1 MG Tablet PO ONE (08:20)
--- NOTE | 2017-12-07 08:37 | P.PNIM ---
Subjective Interval history: in chair. complains of anxiety. poor sleep last night. Physical Exam Vital signs: Vital Signs 12/06/17 12:54 12/06/17 16:00 12/06/17 20:00 Temperature 97.9 F 98.8 F 98.5 F Pulse Rate 71 72 76 Respiratory Rate 16 19 16 Blood Pressure 119/72 134/79 138/81 Pulse Oximetry 97 98 97 12/07/17 00:00 12/07/17 04:00 Temperature 98.1 F 99.0 F Pulse Rate 80 84 Respiratory Rate 17 Blood Pressure 138/80 147/81 H Pulse Oximetry 96 95 Intake & Output 12/06/17 12/07/17 12/07/17 18:59 06:59 18:59 Intake Total 1565 / 1565 2210 / 2210 Output Total 170 / 170 1060 / 1060 Balance 1395 / 1395 1150 / 1150 Weight 79 kg Intake: IV 1165 / 1165 1130 / 1130 NS + KCl 20 mEq Inj 1,000 ML @ 1000 / 1000 1000 / 1000 70 mls/hr IV.CONT .[id number] CAM Rx#:[id number] Ofirmev Inj 650 mg In 65 ml @ 65 / 65 30 / 30 400 mls/hr IV.SIG Q8H CAM Rx#: [id number] Maxipime Inj 2,000 MG In NS Inj 100 / 100 100 / 100 100 ML @ 200 mls/hr IV.SIG Q12H CAM Rx#:[id number] Oral 480 / 480 Tube Feeding 300 / 300 500 / 500 Water Bolus Amount 100 / 100 100 / 100 Output: Urine 100 / 100 1050 / 1050 Wound Drainage 70 / 70 10 / 10 # 1 Right Upper Lateral Abdomen 70 / 70 10 / 10 Other: Date of Last Bowel Movement 12/05/17 # Bowel Movements 1 in chair oriented heart reg lung cta abd right abdomen drain. bs ext no edema Results - Labs CBC & Chem 7: 12/06/17 04:20 12/07/17 04:18 Laboratory Results - last 24 hr 12/02/17 12/06/17 12/07/17 11:35 13:48 04:18 Creatinine 0.49 L Estimated GFR Greater than 89 C-Reactive Protein 14.00 H RBC Folate 904 Microbiology 12/05/17 10:35 Fluid - Other Gram Stain - Final 12/05/17 10:35 Fluid - Other Body Fluid Culture - Preliminary gram negative rods Viridans streptococcus grp 12/03/17 18:59 Blood - Peripheral Aerobic Blood Culture - Preliminary No growth in 3 days 12/03/17 18:59 Blood - Peripheral Anaerobic Blood Culture - Preliminary No growth in 3 days 12/03/17 18:53 Blood - Peripheral Aerobic Blood Culture - Preliminary No growth in 3 days 12/03/17 18:53 Blood - Peripheral Anaerobic Blood Culture - Preliminary No growth in 3 days 11/30/17 00:56 Blood - Peripheral Aerobic Blood Culture - Final No growth in 5 days 11/30/17 00:56 Blood - Peripheral Anaerobic Blood Culture - Final Prevotella buccae Assessment and Plan - Assessment (1) Sepsis Code(s): A41.9 - Sepsis, unspecified organism Status: Acute Plan: Fevers/chills, sepsis biliary/liver abscess source. - Pt is a 71 y/o male with pancreatic cancer who [place] [facility] [place] complaints of fevers and chills. Around 4-5 days ago he began having some low grade fevers which was being treated with Tylenol. He states that he has had a bit of a dry cough for some time and had a CXR and blood work done on 11/27/17, which he reports were negative. Then yesterday evening he started having shaking chills and his fever spiked to 103 degrees. This prompted his evaluation in the ED last night. - His fever was noted to be 103 in the ED. - CXR (11/30) --> NO acute findings. - Pt tested negative for flu. - comgmt with Infectious Disease, Interventional Radiology, Oncology, Palliative Medicine - Pt reports that the last time his port was accessed was [address] Geller office. - Blood Culture peripheral (11/30/17) --> Prevotella Buccae - Blood culture port (11/30/17) --> No growth - Repeat Blood Cx (12/03/17) --> No growth - fluid culture, hepatic fluid (12/05) --> gram negative rods, strep viridans - Vancomycin (11/30 - 12/02) - Cefepime (11/30 - present) - PO flagyl (12/06 - present) - Fentanyl increased to 50mcg (12/05) - Pt had metal sent placed in bile duct during previous admission, 10/2017 - MRCP (12/03/17) 1. The right lobe of liver there is a new multiloculated fluid collection I suspect related to recent intervention. It measures 5.2 x 3.9 cm across. 2. Known pancreatic cancer with a biliary stent in good position. 3. Gallbladder is decompressed but there is some fluid surrounding the liver. - Case d/w Radiology (12/04). fluid collection NOT present on previous abdominal study - Pt had CT guided drainage liver abscess (12/05) with placement of drainage catheter - appreciate input from Infectious Disease. Case d/w Dr. Velazquez (12/06). - Appreciate input from Oncology. Case d/w Dr. Clements (12/06). Oncology will consider chemotherapy following treatment of abscess. - Case d/w IR, Dr. Brambila (12/06) - await Palliative consult. - DVT prophylaxis with lovenox - supportive care. add anxiolytic today. - stop ivf. cont tube feeding. nursing reports alot of reflux and g tube pressure. stop solid po intake and just liquids. ppi. . 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
[2017-12-07] MEDS: Nystatin Liq 500,000 UNIT/5 ML UDC SWISH-SWAL SCH ×4 (08:45→20:40)
[2017-12-07] MEDS: Enoxaparin Inj 40 MG/0.4 ML Syringe SQ SCH (09:45)
--- NOTE | 2017-12-07 10:18 | P.PNONC ---
Subjective Interval history: Afebrile. Patient sitting up in chair. He states he did not get any sleep last night, r/t anxiety. He states he also felt like he may have had too much pain medication, his plan is to have less as needed breakthrough pain medication today now that his patch is increased dose. Objective Vital Signs/Intake & Output: Vital Signs 12/06/17 12:54 12/06/17 16:00 12/06/17 20:00 Temperature 97.9 F 98.8 F 98.5 F Pulse Rate 71 72 76 Respiratory Rate 16 19 16 Blood Pressure 119/72 134/79 138/81 Pulse Oximetry 97 98 97 12/07/17 00:00 12/07/17 04:00 12/07/17 09:01 Temperature 98.1 F 99.0 F 98.6 F Pulse Rate 80 84 80 Respiratory Rate 17 20 Blood Pressure 138/80 147/81 H 137/81 Pulse Oximetry 96 95 93 L Intake & Output 12/06/17 12/07/17 12/07/17 18:59 06:59 18:59 Intake Total 1565 / 1565 2210 / 2210 Output Total 170 / 170 1060 / 1060 Balance 1395 / 1395 1150 / 1150 Weight 79 kg Intake: IV 1165 / 1165 1130 / 1130 NS + KCl 20 mEq Inj 1,000 ML @ 1000 / 1000 1000 / 1000 70 mls/hr IV.CONT .[id number] CAM Rx#:[id number] Ofirmev Inj 650 mg In 65 ml @ 65 / 65 30 / 30 400 mls/hr IV.SIG Q8H CAM Rx#: [id number] Maxipime Inj 2,000 MG In NS Inj 100 / 100 100 / 100 100 ML @ 200 mls/hr IV.SIG Q12H CAM Rx#:[id number] Oral 480 / 480 Tube Feeding 300 / 300 500 / 500 Water Bolus Amount 100 / 100 100 / 100 Output: Urine 100 / 100 1050 / 1050 Wound Drainage 70 / 70 10 / 10 # 1 Right Upper Lateral Abdomen 70 / 70 10 / 10 Other: Date of Last Bowel Movement 12/05/17 # Bowel Movements 1 Result Diagrams: 12/06/17 04:20 12/07/17 04:18 Laboratory Results: Laboratory Results - last 24 hr 12/02/17 12/06/17 12/07/17 11:35 13:48 04:18 Creatinine 0.49 L Estimated GFR Greater than 89 C-Reactive Protein 14.00 H RBC Folate 904 Culture Results: Microbiology 12/05/17 10:35 Gram Stain - Final Fluid - Other Body Fluid Culture - Preliminary gram negative rods Viridans streptococcus grp 12/03/17 18:59 Aerobic Blood Culture - Preliminary Blood - Peripheral No growth in 3 days Anaerobic Blood Culture - Preliminary No growth in 3 days 12/03/17 18:53 Aerobic Blood Culture - Preliminary Blood - Peripheral No growth in 3 days Anaerobic Blood Culture - Preliminary No growth in 3 days 11/30/17 00:56 Aerobic Blood Culture - Final Blood - Peripheral No growth in 5 days Anaerobic Blood Culture - Final Prevotella buccae 11/30/17 12:21 Aerobic Blood Culture - Final Blood - Other No growth in 5 days Anaerobic Blood Culture - Final No growth in 5 days 11/30/17 01:01 Aerobic Blood Culture - Final Blood - Peripheral No growth in 5 days Anaerobic Blood Culture - Final Prevotella buccae Medications: Active Medications Generic Name Dose Route Start Last Admin Trade Name Freq PRN Reason Stop Dose Admin Acetaminophen 650 mg 11/30/17 02:24 12/04/17 20:20 Tylenol PO 650 mg Q6H PRN Administration TEMPERATURE > 100.5 F Enoxaparin Sodium 40 mg 12/06/17 10:00 12/06/17 10:39 Lovenox Inj SQ 40 mg Q24H [facility] Administration Fentanyl 1 patch 12/05/17 17:00 12/05/17 17:09 Duragesic 50 Mcg Patch.72hr T-DERMAL 1 patch Q3D CAM Administration Heparin Sodium (Porcine) 500 unit 11/30/17 12:31 11/30/17 13:24 Heparin Central Flush IV.FLUSH 500 unit PRN PRN Administration Flush infusaport Hydrocortisone Acetate 1 applicatio 12/04/17 18:00 12/06/17 19:37 Anusol-Hc RECTAL Not Given TID CAM Hydromorphone HCl 4 mg 12/06/17 11:27 12/07/17 08:45 Dilaudid PO 4 mg Q4H PRN Administration PAIN SCALE 1 TO 10 Cefepime HCl 2,000 mg/ Sodium 100 mls @ 200 mls/hr 11/30/17 13:00 12/07/17 03 :22 Chloride IV.SIG Infused Q12H CAM Infusion Metronidazole 500 mg 12/06/17 14:00 12/07/17 05:32 Flagyl PO 500 mg Q8HR CAM Administration Morphine Sulfate 2 mg 12/02/17 02:02 12/06/17 22:34 Morphine Inj IV.PUSH 2 mg Q4H PRN Administration BREAKTHROUGH PAIN Nystatin 5 ml 12/02/17 13:00 12/07/17 08:45 Mycostatin Liq SWISH-SWAL 5 ml QID CAM Administration Patch Removal 1 each 12/05/17 10:00 12/05/17 13:44 Remove Old Patch T-DERMAL 1 each Q3D CAM Administration Senna/Docusate Sodium 1 tab 11/30/17 10:00 12/06/17 21:18 Rebecca-Colace PO Not Given BID CAM Objective Remarks: GENERAL: Ill-appearing middle-aged male patient, sitting in chair, in no acute distress. SKIN: Warm and dry. HEAD: Normocephalic. EYES: No scleral icterus. No injection or drainage. NECK: Supple, trachea midline. CARDIOVASCULAR: +S1/S2 without murmurs. RESPIRATORY: Posterior breath sounds clear, equal bilaterally. GASTROINTESTINAL: Abdomen soft, non-tender, nondistended. JG drain dressing with mild bile discharge. Right hepatic drain in place, no swelling, bleeding. Drsg dry/intact. EXTREMITIES: No cyanosis. BLE mild edema. MUSCULOSKELETAL: Normal muscle tone. NEUROLOGICAL: No obvious focal deficit. Awake, alert, and oriented x3. PSYCHIATRIC: Appropriate mood and affect; insight and judgment normal. Assessment/Plan - Plan This is a 71-year-old gentleman, with a history of pancreatic cancer, who presented to the hospital with fevers. He was discharged approximately 2 weeks ago and went to [facility] where he states he was doing well with physical therapy until he started having fevers last Monday. Plan: 1. Patient status post loculated right hepatic lobe abscess. Drain remains in place. Cultures growing viridans streptococcus. Per ID patient will need at least 2 weeks of antibiotics. 2. Blood cultures grew Prevotella buccae. Infectious disease is following, continues on cefepime. 3. Anxiety, patient with as needed Ativan ordered. Patient received a dose approximately 20 minutes ago. Will reevaluate for improvement in anxiety. He may benefit from a sleep aid, if he continues to have sleepless nights. 4. Continue supportive care.
--- NOTE | 2017-12-07 11:51 | P.PNID ---
Subjective Remarks: Mr. Cruz is a pleasant 71 y/o male with pancreatic cancer who [place] [facility] [place] with complaints of fevers and chills. Patient had an ERCP 10/13/17 for obstructive jaundice and finding was ampulla distorted by tumor invasion and failed sphincterotomy. Multiple imaging modalities showed pancreatic mass. Pt then had biliary drain and stent placed by IR. Pt had EUS and FNA 10/16 and biopsy showed poorly differentiated adenocarcinoma c/w pancreatic primary. Pt is following with Dr Diaz. The mass is not resectable and pt had a recent PET scan showing possible metastasis to liver. He had port placed 05/03/17. Pt has been too weak for palliative chemotherapy. He states that he has been at [facility] for rehab since his last discharge on 11/14/17 and was making slow but steady progress. Approx 5 days prior to admission, he began noticing fevers and shaking chills. Reportedly a CXR done was negative and despite tylenol fevers persisted. When he spiked a temp of 103 F he was admitted through the ED. He was started on empiric antibiotics and sepsis workup initiated. He met criteria for severe sepsis in an Immune compromised patient. CXR was negative. He tested negative for flu. Pt denies any sore throat, congestions. He denies any nausea/vomiting, diarrhea, abd pain. He denies any chest pain, SOB, dizziness or weakness. Hospital course: patient had a positive blood culture: Prevotella buccae and ID consulted for Severe Sepsis, Bacteremia and Liver abscess. He had an IR guided drain placed in liver and cultures are positive for GNR and Strep viridans. At time of my visit he was sitting in a chair and denied any new complaints. He reaffirmed he wanted to be aggressive with care including treatment of sepsis followed by Chemotherapy. Past Medical/Surgical Hx: GJ tube placement by IR Skin Cancer removal Tonsillectomy Port placement Overnight events reviewed No fevers No rash No diarrhea Antibiotics: Cefepime IV Flagyl oral. Lines: Port site ok Past Medical History: reviewed Allergies/Adverse Reactions: Allergies No Known Allergies Allergy (Verified 11/09/17 16:28) Objective Vital Signs 12/06/17 12:54 12/06/17 16:00 12/06/17 20:00 Temperature 97.9 F 98.8 F 98.5 F Pulse Rate 71 72 76 Respiratory Rate 16 19 16 Blood Pressure 119/72 134/79 138/81 Pulse Oximetry 97 98 97 12/07/17 00:00 12/07/17 04:00 12/07/17 09:01 Temperature 98.1 F 99.0 F 98.6 F Pulse Rate 80 84 80 Respiratory Rate 17 20 Blood Pressure 138/80 147/81 H 137/81 Pulse Oximetry 96 95 93 L Intake & Output 12/06/17 12/07/17 12/07/17 18:59 06:59 18:59 Intake Total 1565 / 1565 2210 / 2210 Output Total 170 / 170 1060 / 1060 Balance 1395 / 1395 1150 / 1150 Weight 79 kg Intake: IV 1165 / 1165 1130 / 1130 NS + KCl 20 mEq Inj 1,000 ML @ 1000 / 1000 1000 / 1000 70 mls/hr IV.CONT .[id number] CAM Rx#:[id number] Ofirmev Inj 650 mg In 65 ml @ 65 / 65 30 / 30 400 mls/hr IV.SIG Q8H CAM Rx#: [id number] Maxipime Inj 2,000 MG In NS Inj 100 / 100 100 / 100 100 ML @ 200 mls/hr IV.SIG Q12H CAM Rx#:[id number] Oral 480 / 480 Tube Feeding 300 / 300 500 / 500 Water Bolus Amount 100 / 100 100 / 100 Output: Urine 100 / 100 1050 / 1050 Wound Drainage 70 / 70 10 / 10 # 1 Right Upper Lateral Abdomen 70 / 70 10 / 10 Other: Date of Last Bowel Movement 12/05/17 12/07/17 # Bowel Movements 1 12/03/17 18:59 Blood - Peripheral Aerobic Blood Culture - Preliminary No growth in 4 days 12/03/17 18:59 Blood - Peripheral Anaerobic Blood Culture - Preliminary No growth in 4 days 12/03/17 18:53 Blood - Peripheral Aerobic Blood Culture - Preliminary No growth in 4 days 12/03/17 18:53 Blood - Peripheral Anaerobic Blood Culture - Preliminary No growth in 4 days 12/05/17 10:35 Fluid - Other Gram Stain - Final 12/05/17 10:35 Fluid - Other Body Fluid Culture - Final Klebsiella pneumoniae Hafnia alvei Viridans streptococcus grp 11/30/17 00:56 Blood - Peripheral Aerobic Blood Culture - Final No growth in 5 days 11/30/17 00:56 Blood - Peripheral Anaerobic Blood Culture - Final Prevotella buccae 11/30/17 12:21 Blood - Other Aerobic Blood Culture - Final No growth in 5 days 11/30/17 12:21 Blood - Other Anaerobic Blood Culture - Final No growth in 5 days 11/30/17 01:01 Blood - Peripheral Aerobic Blood Culture - Final No growth in 5 days 11/30/17 01:01 Blood - Peripheral Anaerobic Blood Culture - Final Prevotella naldocae Lab - Hematology Results 12/06/17 04:20 WBC 15.0 H RBC 3.14 L Hgb 8.4 L Hct 25.4 L MCV 81.0 MCH 26.8 L MCHC 33.1 RDW 16.0 Plt Count 167 MPV 8.8 Neut % (Auto) 88.0 H Lymph % (Auto) 5.7 L Alpine % (Auto) 5.1 Eos % (Auto) 0.9 Baso % (Auto) 0.3 Neut # (Auto) 13.2 H Lymph # (Auto) 0.9 L Alpine # (Auto) 0.8 Eos # (Auto) 0.1 Baso # (Auto) 0.0 WBC Differential . Differential Comment Auto diff final Lab - Chemistry Results 12/02/17 12/05/17 12/06/17 11:35 03:45 04:20 Sodium 142 Potassium 3.8 Chloride 106 Carbon Dioxide 27.8 Anion Gap 8 BUN 14 Creatinine 0.55 L Estimated GFR Greater than 89 Random Glucose 140 H Calcium 7.9 L C-Reactive Protein Vitamin B12 859 RBC Folate 904 12/06/17 12/07/17 13:48 04:18 Sodium Potassium Chloride Carbon Dioxide Anion Gap BUN Creatinine 0.49 L Estimated GFR Greater than 89 Random Glucose Calcium C-Reactive Protein 14.00 H Vitamin B12 RBC Folate Imaging: ITS Impressions Chest X-Ray 11/30/17 00:57 CONCLUSION: No acute cardiopulmonary abnormality is identified. Cholangiopancreatography MRI 12/03/17 00:00 CONCLUSION: 1. The right lobe of liver there is a new multiloculated fluid collection I suspect related to recent intervention. It measures 5.2 x 3.9 cm across. 2. Known pancreatic cancer with a biliary stent in good position. 3. Gallbladder is decompressed but there is some fluid surrounding the liver. Abscess Drainage CT 12/05/17 00:00 CONCLUSION: 1. Uncomplicated CT guided drainage of an intrahepatic abscess. Physical Exam: GENERAL: Well-nourished well-developed, not in acute distress SKIN: Cool and dry, no generalized rash HEAD: Atraumatic. Normocephalic. No temporal or scalp tenderness. EYES: Pupils equal round and reactive. Scleral icterus. No injection or drainage. No petechia ENT: Nothing abnormal detected NECK: Trachea midline. Supple, nontender, no meningeal signs. CARDIOVASCULAR: HS audible. Port site ok. RESPIRATORY: Clear to auscultation bilaterally. GASTROINTESTINAL: Abdomen soft nontender. Drain in place. PEG tube site ok. MUSCULOSKELETAL: Extremities without clubbing, cyanosis. NEUROLOGICAL: Alert oriented 3. Nonfocal. Psych cooperative IV line sites ok. Assessment and Plan - Plan Severe Sepsis present on admission (Fever, leucopenia, source: bacteremia and liver abscess, elevated lactic acid) Prevotella bacteremia: likely GI source (recent biliary stent placement and 2 procedures in GI lab and IR with one being failed attempt) GNR and Strep multiloculated liver abscess likely GI source as above. Pancreatic cancer late stage with stent in place ? biliary leak. Immunocompromised host Port in place PEG tube in place. Recs: Continue Cefepime IV Continue Flagyl oral 2D ECHO negative for vegetations. Follow cultures Follow clinical course. Anticipate IV antibiotics likely 6 weeks. Will need follow up imaging seth pt seth RN
[2017-12-07] MEDS: Senna/Docusate Sodium 8.6/50 MG Tablet PO SCH ×2 (12:41→20:40)
[2017-12-07] MEDS: LORazepam 1 MG Tablet PO PRN ×2 (14:12→22:01)
--- NOTE | 2017-12-07 15:22 | P.DIET ---
Nutritional Evaluation Type of nutrition evaluation: follow-up Nutrition consult regarding: Tube Feeding Objective - Diagnosis Sepsis - Objective % IBW: 105 (XVO=[id number]#) Body Weight Used for Calculations: Actual (71.7kg) Energy Needs - Lower Range (kCal/kg): 30 Energy Needs - Upper Range (kCal/kg): 35 Lower Limit kCal/kg (kCals): 2,151 Upper Limit kCal/kg (kCals): 2,510 Lower Limit Protein Factor (Grams per Kg): 1.2 Upper Limit Protein Factor (Grams per Kg): 1.5 Lower Protein Needs (Protein): 86 Upper Protein Needs (Protein): 108 Fluid Factor (ml/kg): 30 Estimated Fluid Needs (ml): 2,151 Dietitian Reviewed in Medical Record: Current diet, Curent medications, Intake & Output, Labs, Tube feeding Diet Order: TF w/ Tray, Soft Oral Diet Intake Amount: Poor <50% Objective Comments: Pancreatic CA w/ liver metastasis. Has not started chemo yet. Feeding - Current Tube Feeding Tube Feeding Product: Jevity 1.5 Tube Feeding Method: Pump Tube Feeding Rate: 55 Current kCals Provided by Tube Feedin,980 Current Protein Provided by Tube Feeding (gPRO): 84 Current Free H2O Provided (m/l): 1,003 Assessment Assessment: Pt downgraded to full liquid diet, but diet order still says Soft. If a full liquid diet is desired, please order a TF w/ tray diet order and select full liquids. Pt is not eating much. He remains on continuous TFs of Jevity 1.5 @ 55mls/hr. If continuous TFs are desired method of feeding, recommend increasing TF to a goal rate of 65mls/hr to provide 100% of his nutritional requirements. Current TF is NOT meeting pt's minimum nutritional requirements. A goal rate of 65mls/hr will provide 2340kcals, 100g PRO, and 1186mls fluid. Dietitian following. Recommendations: 1. Increase goal rate to 65mls/hr. 2. If a Full Liquid diet is desired, please order diet as a full liquid. He is getting a soft tray still. Dietitian to Monitor: Lab values, Intake & Output, Tube feeding tolerance, Weight change, Diet advancement, Medical course
--- NOTE | 2017-12-07 15:26 | P.RAD ---
Post Procedure Progress Note - Pre Procedure Diagnosis (1) Pancreatic cancer metastasized to liver - Post Procedure Diagnosis (1) Pancreatic cancer metastasized to liver - Procedure Information Procedure Date: 12/07/17 Supervising Radiologist: Glenn Harding Jr, MD Proceduralist/Assist: debra Anesthesia: Other - Plan of Activity Patient to Unit: Nursing Unit Patient Condition: Good Additional Comments: Assessment of hepatic abscess drain. Drainage is bilious. Injection shows erosion of abscess cavity into peripheral biliary radical. Switch drainage to gravity drainage to try and encourage closure of fistula to bile duct. Continue with decompression.
[2017-12-07] MEDS ORDERED: Iohexol 350 MG/ML 50 ML Vial (for Rad Diag) IV.SIG ONE (16:37)
--- NOTE | 2017-12-07 20:11 | P.PNONC ---
Subjective Interval history: Had a difficult evening last night and today. He felt nauseated. The G-tube was placed on suction while continuing the J-tube feeding at a reduced dose. He had a large amount of bilious material from the G-tube and now feels much better. Objective Vital Signs/Intake & Output: Vital Signs 12/07/17 00:00 12/07/17 04:00 12/07/17 09:01 Temperature 98.1 F 99.0 F 98.6 F Pulse Rate 80 84 80 Respiratory Rate 17 20 Blood Pressure 138/80 147/81 H 137/81 Pulse Oximetry 96 95 93 L 12/07/17 13:02 12/07/17 16:12 Temperature 98.6 F 98.0 F Pulse Rate 79 84 Respiratory Rate 16 20 Blood Pressure 131/76 131/76 Pulse Oximetry 98 98 Intake & Output 12/07/17 12/07/17 12/08/17 06:59 18:59 06:59 Intake Total 2210 / 2210 300 / 300 Output Total 1060 / 1060 500 / 500 Balance 1150 / 1150 300 / 300 -500 / -500 Weight 79 kg Intake: IV 1130 / 1130 300 / 300 NS + KCl 20 mEq Inj 1,000 ML @ 1000 / 1000 200 / 200 70 mls/hr IV.CONT .[id number] CAM Rx#:[id number] Ofirmev Inj 650 mg In 65 ml @ 30 / 30 400 mls/hr IV.SIG Q8H CAM Rx#: [id number] Maxipime Inj 2,000 MG In NS Inj 100 / 100 100 / 100 100 ML @ 200 mls/hr IV.SIG Q12H CAM Rx#:[id number] Oral 480 / 480 Tube Feeding 500 / 500 Water Bolus Amount 100 / 100 Output: Urine 1050 / 1050 500 / 500 Wound Drainage # 1 Right Upper Lateral Abdomen Other: Date of Last Bowel Movement 12/05/17 12/07/17 # Bowel Movements 1 Result Diagrams: 12/06/17 04:20 12/07/17 04:18 Laboratory Results: Laboratory Results - last 24 hr 12/05/17 12/07/17 12:47 04:18 Creatinine 0.49 L Estimated GFR Greater than 89 RBC Folate 827 Culture Results: Microbiology 12/03/17 18:59 Aerobic Blood Culture - Preliminary Blood - Peripheral No growth in 4 days Anaerobic Blood Culture - Preliminary No growth in 4 days 12/03/17 18:53 Aerobic Blood Culture - Preliminary Blood - Peripheral No growth in 4 days Anaerobic Blood Culture - Preliminary No growth in 4 days 12/05/17 10:35 Gram Stain - Final Fluid - Other Body Fluid Culture - Final Klebsiella pneumoniae Hafnia alvei Viridans streptococcus grp 11/30/17 00:56 Aerobic Blood Culture - Final Blood - Peripheral No growth in 5 days Anaerobic Blood Culture - Final Prevotella buccae 11/30/17 12:21 Aerobic Blood Culture - Final Blood - Other No growth in 5 days Anaerobic Blood Culture - Final No growth in 5 days 11/30/17 01:01 Aerobic Blood Culture - Final Blood - Peripheral No growth in 5 days Anaerobic Blood Culture - Final Prevotella buccae Medications: Active Medications Generic Name Dose Route Start Last Admin Trade Name Freq PRN Reason Stop Dose Admin Acetaminophen 650 mg 11/30/17 02:24 12/04/17 20:20 Tylenol PO 650 mg Q6H PRN Administration TEMPERATURE > 100.5 F Enoxaparin Sodium 40 mg 12/06/17 10:00 12/07/17 09:45 Lovenox Inj SQ 40 mg Q24H CAM Administration Fentanyl 1 patch 12/05/17 17:00 12/05/17 17:09 Duragesic 50 Mcg Patch.72hr T-DERMAL 1 patch Q3D CAM Administration Heparin Sodium (Porcine) 500 unit 11/30/17 12:31 11/30/17 13:24 Heparin Central Flush IV.FLUSH 500 unit PRN PRN Administration Flush infusaport Hydrocortisone Acetate 1 applicatio 12/04/17 18:00 12/07/17 19:44 Anusol-Hc RECTAL Not Given TID CAM Hydromorphone HCl 4 mg 12/06/17 11:27 12/07/17 13:33 Dilaudid PO 4 mg Q4H PRN Administration PAIN SCALE 1 TO 10 Cefepime HCl 2,000 mg/ Sodium 100 mls @ 200 mls/hr 11/30/17 13:00 12/07/17 15 :53 Chloride IV.SIG Infused Q12H CAM Infusion Lansoprazole 30 mg 12/07/17 09:00 12/07/17 09:45 Prevacid Solutab G-TUBE 30 mg DAILY CAM Administration Lorazepam 1 mg 12/07/17 08:19 12/07/17 14:12 Ativan PO 1 mg Q8H PRN Administration ANXIETY Metronidazole 500 mg 12/06/17 14:00 12/07/17 13:33 Flagyl PO 500 mg Q8HR CAM Administration Morphine Sulfate 2 mg 12/02/17 02:02 12/06/17 22:34 Morphine Inj IV.PUSH 2 mg Q4H PRN Administration BREAKTHROUGH PAIN Nystatin 5 ml 12/02/17 13:00 12/07/17 19:44 Mycostatin Liq SWISH-SWAL Not Given QID CAM Ondansetron HCl 4 mg 11/30/17 08:28 12/07/17 17:36 Zofran Inj IV.PUSH 4 mg Q6H PRN Administration NAUSEA OR VOMITING Patch Removal 1 each 12/05/17 10:00 12/05/17 13:44 Remove Old Patch T-DERMAL 1 each Q3D CAM Administration Senna/Docusate Sodium 1 tab 11/30/17 10:00 12/07/17 12:41 Rebecca-Colace PO Not Given BID CAM Sodium Chloride 5 ml 11/30/17 12:31 12/07/17 17:36 Ns Flush IV.FLUSH 5 ml PRN PRN Administration Flush Infusaport Objective Remarks: GENERAL: Frail SKIN: Warm and dry. HEAD: Normocephalic. EYES: No scleral icterus. No injection or drainage. NECK: Supple, trachea midline. No JVD or lymphadenopathy. LYMPHATIC: No adenopathy. CARDIOVASCULAR: Regular rate and rhythm without murmurs. RESPIRATORY: Breath sounds equal bilaterally. No accessory muscle use. GASTROINTESTINAL: Has a J-tube/ G-tube with the G-tube draining a large volume of bilious material EXTREMITIES: No cyanosis, or edema. MUSCULOSKELETAL: Adequate muscle tone. NEUROLOGICAL: No obvious focal deficit. Awake, alert, and oriented x3. PSYCHIATRIC: Has periods of anxiety and would like something to help. Assessment/Plan - Plan T 1: Unfortunately he now requires gastric drainage. Hopefully this will be temporary. 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 Infectious disease indicates that he he may now require 6 weeks of antibiotics. As time passes it appears less likely that he will reach the point where he can undergo chemotherapy for his pancreatic cancer. I spoke to him at length about cardiopulmonary resuscitation. I have asked him to speak to his brother about this topic. I feel he would best be served by not undergoing cardiopulmonary resuscitation and that the decision for no CPR is ultimately in his best interest. He will explore this with his brother and make a decision in the next several days.
[2017-12-08] MEDS: LORazepam 1 MG Tablet PO PRN ×2 (05:59→20:43)
[2017-12-08] MEDS: metroNIDAZOLE 500 MG Tablet PO SCH ×3 (05:59→21:00)
[2017-12-08] MEDS: Enoxaparin Inj 40 MG/0.4 ML Syringe SQ SCH (10:18)
[2017-12-08] MEDS: Senna/Docusate Sodium 8.6/50 MG Tablet PO SCH ×2 (10:19→20:39)
[2017-12-08] MEDS: Nystatin Liq 500,000 UNIT/5 ML UDC SWISH-SWAL SCH ×4 (10:19→20:44)
--- NOTE | 2017-12-08 12:29 | IR ---
EXAM DATE: 12/08/2017 8:22 AM EDT AGE/SEX: 71 years / Male INDICATIONS: Patient with history of pancreatic cancer and a abscess drain catheter. Tube is leaking . CLINICAL DATA: This is the patient's subsequent encounter. Patient reports that signs and symptoms h ave been present for 2 days and indicates a pain score of 0/10. MEDICAL/SURGICAL HISTORY: Carcinoma, pancreas. Sepsis. Tonsillectomy. GJ tube, Abscess drain t ube,ERCP,skin cancer removal COMPARISON: No prior exams available for comparison. FLUORO TIME (min): 0.7 IMAGE SERIES: 4 ACCESS SITE: CONTRAST (cc): 10 cc Omnipaque (iohexol) 350 DEVICE(S): . . PROCEDURE : 1. Cholangiogram through an existing tube The risks, benefits and alternatives to the procedure were explained and verbal and written consent w as obtained. The site was prepped in sterile fashion. Full sterile technique was used, including ca p, mask, sterile gloves and gown and a large sterile sheet. Hand hygiene and 2% chlorhexidine and/or betadine/alcohol prep was utilized per protocol for cutaneous antisepsis. Fluoroscopic evaluation of the right upper quadrant shows a coped style drainage tube involving the liver consistent with the k nown hepatic abscess drain. Injection of contrast was performed under fluoroscopic control. As suspec verito the abscess cavity has eroded into a peripheral biliary radicle. This biliary radicle opacifies w ith contrast on the injection. The tube is patent. The abscess cavity is quite small currently. The d rainage tube will be placed to gravity drainage as opposed to accordion suction device to try and aid in closure of the fistula to the bile duct. The tube will need to remain in place for now. CONCLUSION: 1. The hepatic abscess cavity has eroded into a peripheral biliary duct. Drainage will be to gravity bag as opposed to an accordion suction device. Electronically signed by: Glenn Harding MD 12/08/2017 12:28 PM EDT
[2017-12-08] MEDS: Morphine Inj 4 MG/ML Vial IV.PUSH PRN ×2 (12:57→17:02)
--- NOTE | 2017-12-08 13:00 | P.PNPAL ---
Reason for Visit Reason for visit: a. To assist with evaluation and management of symptoms including: pain, debility, anxiety, nausea b. To assist medical decision maker(s) with: better understanding of current medical conditions; weighing benefits/burdens of medical treatment options; making medical treatment decisions. Subjective Subjective/Interval History: Pt resting in bed. His brother Oscar is at bedside. He had some nausea yesterday and that was relieved after G tube put to suction. He denies nausea at this time. He is tolerating TF @ 55 ml/hr. He is having pain near his hepatic drain site and in the epigastrium. He rates it 6/10 and it is constant. He appears comfortable and he is minimally tender to light palpation. He is using his PRN 4mg dilaudid. Has not had the IV morphine in the last 24h. Per ID he will now need 6 weeks abx. Had drain assessment by IR 12/07 and was found to have erosion from his abscess cavity into the peripheral biliary [duct], drain is now to gravity to encourage closure of the fistula. He tells me he had difficulty sleeping night of 12/06, felt maybe he had too much pain medication as he woke up in the night and felt "groggy" and disoriented. Then he experienced anxiety. he has since been started on 1mg ativan PRN and feels this was helpful. Provided medical update to pt and Oscar. Readdressed code status including benefits and burdens of CPR. He does not want to change code status at this time. "It's next on my agenda to discuss." I did explain to him that prolonged course of antibiotics puts him further from getting chemo. "I can handle that. " Individually discussed with both [facility] Oscar & Mima and they both feel pt is declining and their goals are comfort oriented, however at this time pt continues to express aggressive goals. Addressed the aforementioned on the phone with Mima on the phone as she was at work. Objective Vital Signs: Vital Signs 12/07/17 13:02 12/07/17 16:12 12/07/17 20:26 Temperature 98.6 F 98.0 F 99.3 F Pulse Rate 79 84 74 Respiratory Rate 16 20 17 Blood Pressure 131/76 131/76 135/78 Pulse Oximetry 98 98 98 12/08/17 00:20 12/08/17 04:00 12/08/17 05:23 Temperature 98.5 F 98.3 F Pulse Rate 75 75 Respiratory Rate 18 18 17 Blood Pressure 140/80 130/68 Pulse Oximetry 95 97 12/08/17 08:00 Temperature 98.7 F Pulse Rate 78 Respiratory Rate 16 Blood Pressure 142/81 H Pulse Oximetry 98 Intake & Output 12/07/17 12/08/17 12/08/17 18:59 06:59 18:59 Intake Total 300 / 300 760 / 760 Output Total 1900 / 1900 Balance 300 / 300 -1140 / -1140 Weight 77.6 kg Intake: IV 300 / 300 100 / 100 NS + KCl 20 mEq Inj 1,000 ML @ 200 / 200 70 mls/hr IV.CONT .[id number] CAM Rx#:[id number] Maxipime Inj 2,000 MG In NS Inj 100 / 100 100 / 100 100 ML @ 200 mls/hr IV.SIG Q12H CAM Rx#:[id number] Tube Feeding 460 / 460 Water Bolus Amount 200 / 200 Output: Urine 1100 / 1100 Gastric Drainage 750 / 750 Pre-Hospital Left Upper 750 / 750 Quadrant Gastrostomy Tube (PEG) Wound Drainage 50 / 50 # 1 Right Upper Lateral Abdomen 50 / 50 Other: Date of Last Bowel Movement 12/07/17 12/08/17 12/08/17 # Incontinent Bowel Movements 1 Physical Exam: CONSTITUTIONAL/GENERAL: frail appearing male TUBES/LINES/DRAINS: GJ tube, hepatic drain SKIN: No jaundice, rashes, or lesions. No wounds seen anteriorly. Skin temperature appropriate. Not diaphoretic. HEAD: Atraumatic. Normocephalic. EYES: Extraocular motions intact. No scleral icterus. No injection or drainage. Fundi not examined. ENT: Hearing grossly normal. Nose without bleeding or purulent drainage. CARDIOVASCULAR: RRR without murmurs, gallops, or rubs. No JVD. Peripheral pulses symmetric. RESPIRATORY/CHEST: Symmetric, unlabored respirations. Clear to auscultation. Breath sounds equal bilaterally. GASTROINTESTINAL: Abdomen soft, RUQ mildly TTP in area of drain & epigastrium, abd mildly distended. No hepato-splenomegaly, or palpable masses. No guarding. Bowel sounds present. MUSCULOSKELETAL: Extremities without clubbing, cyanosis. +1 BLE edema. No joint tenderness or effusion noted. No mottling or clubbing. NEUROLOGICAL: more alert today. Motor and sensory grossly within normal limits. Follows commands. Cognitively sharp. Moves all extremities. PSYCHIATRIC: No obvious anxiety/depression. no apparent hallucinations or other psychotic thought process. Diagnostic Tests Laboratory: Laboratory Results - last 72 hr 12/02/17 12/05/17 12/06/17 11:35 12:47 04:20 WBC 15.0 H RBC 3.14 L Hgb 8.4 L Hct 25.4 L MCV 81.0 MCH 26.8 L MCHC 33.1 RDW 16.0 Plt Count 167 MPV 8.8 Neut % (Auto) 88.0 H Lymph % (Auto) 5.7 L Garfield % (Auto) 5.1 Eos % (Auto) 0.9 Baso % (Auto) 0.3 Neut # (Auto) 13.2 H Lymph # (Auto) 0.9 L Garfield # (Auto) 0.8 Eos # (Auto) 0.1 Baso # (Auto) 0.0 WBC Differential . Differential Comment Auto diff final Sodium Potassium Chloride Carbon Dioxide Anion Gap BUN Creatinine Estimated GFR Random Glucose Calcium C-Reactive Protein RBC Folate 904 [id number] 12/06/17 12/06/17 12/07/17 04:20 13:48 04:18 WBC RBC Hgb Hct MCV MCH MCHC RDW Plt Count MPV Neut % (Auto) Lymph % (Auto) Garfield % (Auto) Eos % (Auto) Baso % (Auto) Neut # (Auto) Lymph # (Auto) Garfield # (Auto) Eos # (Auto) Baso # (Auto) WBC Differential Differential Comment Sodium 142 Potassium 3.8 Chloride 106 Carbon Dioxide 27.8 Anion Gap 8 BUN 14 Creatinine 0.55 L 0.49 L Estimated GFR Greater than 89 Greater than 89 Random Glucose 140 H Calcium 7.9 L C-Reactive Protein 14.00 H RBC Folate Result Diagrams: 12/06/17 04:20 12/07/17 04:18 Microbiology: Microbiology 12/03/17 18:59 Aerobic Blood Culture - Final Blood - Peripheral No growth in 5 days Anaerobic Blood Culture - Final No growth in 5 days 12/03/17 18:53 Aerobic Blood Culture - Final Blood - Peripheral No growth in 5 days Anaerobic Blood Culture - Final No growth in 5 days 12/05/17 10:35 Gram Stain - Final Fluid - Other Body Fluid Culture - Final Klebsiella pneumoniae Hafnia alvei Viridans streptococcus grp 11/30/17 00:56 Aerobic Blood Culture - Final Blood - Peripheral No growth in 5 days Anaerobic Blood Culture - Final Prevotella buccae 11/30/17 12:21 Aerobic Blood Culture - Final Blood - Other No growth in 5 days Anaerobic Blood Culture - Final No growth in 5 days 11/30/17 01:01 Aerobic Blood Culture - Final Blood - Peripheral No growth in 5 days Anaerobic Blood Culture - Final Prevotella buccae Imaging: ITS Impressions Chest X-Ray 11/30/17 00:57 CONCLUSION: No acute cardiopulmonary abnormality is identified. Cholangiopancreatography MRI 12/03/17 00:00 CONCLUSION: 1. The right lobe of liver there is a new multiloculated fluid collection I suspect related to recent intervention. It measures 5.2 x 3.9 cm across. 2. Known pancreatic cancer with a biliary stent in good position. 3. Gallbladder is decompressed but there is some fluid surrounding the liver. Abscess Drainage CT 12/05/17 00:00 CONCLUSION: 1. Uncomplicated CT guided drainage of an intrahepatic abscess. Catheter Patency X-Ray 12/07/17 00:00 CONCLUSION: 1. The hepatic abscess cavity has eroded into a peripheral biliary duct. Drainage will be to gravity bag as opposed to an accordion suction device. 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 He is , with 2 daughters who live locally. 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 Spiritual: [place] Legal: pt currently capacitated to make medical decisions. Should he become incapacitated he has designated his daughter Mima and his brother Oscar to make medical decisions on his behalf. Family working together. Ethical issues impacting care: none Important Contacts: Oscar Anthony [phone] Mima Floresusharosio [phone] - can leave message, work [phone] Prognosis: 71 yo male with recently diagnosed locally advanced pancreatic carcinoma, gastric outlet obstruction 22 mass s/p GJ placement, who presented 11/30 with fever, chills, shaking. He is being treated for sepsis from unclear source. He was found to have a liver abscess which is now s/p drainage and placement drain. If he recovers from sepsis and becomes stronger, he could be candidate for palliative Folfirinox. His prognosis is poor, this is almost certainly terminal. He is hospice appropriate should goals be in line with comfort. Code Status: Full Code Plan: - LEGAL DECISON MAKER -patient is currently capacitated to make decisions. should he become incapacitated he has designated his daughter Mima and his brother Oscar to make medical decisions on his behalf. Family working together. - CODE STATUS- full code - GOALS - Readdressed code status including benefits and burdens of CPR. He does not want to change code status at this time. "It's next on my agenda to discuss." I did explain to him that prolonged course of antibiotics puts him further from getting chemo. "I can handle that." Individually discussed with both [facility] Oscar & Mima and they both feel pt is declining and their goals are comfort oriented, however at this time pt continues to express aggressive goals. - SYMPTOMS - * Pain - multifactorial, 2/2 mass, procedures. Rates pain in epigastrium and drain site 09/03 today; appears comfortable in no distress, mild TTP. s/p drain reassessment by IR and has bile duct fistula to abscess now. Has fentanyl patch 50mcg, additionally has 2mg IV morphine PRN q4h and 4mg PO dilaudid PRN q4h. Pt using his PRN PO 4mg dilaudid q 6-8 hours. Has not used is IV morphine in at least 24h, consider d/c this. Continue patch, seems to be working well for him. * Debility/weakness was ambulating with IV pole. ?sepsis ?source. ID consult pending. Tolerating TF @ goal, tolerating some limited soft food intake like scrambled eggs. Denies nausea. ECHO showed 55-60% EF. PT following, reviewed notes. Pt seems able to participate when pain is controlled. no further recs. * nausea - multifactorial - 2/2 opiates, GOO. was tolerating soft foods like eggs and yogurt but yesterday had nausea. G tube now to drainage and pt denies nausea on my eval. If nausea continues or worsens, consider GI consult for eval for duodenal stent. - Palliative care will continue to follow during hospital course as condition evolves, to assist patient/decision-maker with understanding of medical conditions, weighing benefits/burdens of treatment options, for clarification of goals of treatment. Additionally will assist with any symptoms of palliative concern Attestation Attestation: To help prompt me to consider important information that might be impacting today's encounter and assessment, information from prior notes written by myself or my colleagues may have been "brought forward" into today's note. My signature on this note, however, is an attestation that I personally performed the exam, history, and/or decision-making noted today, and, unless otherwise indicated, the interactions with patient, family, and staff as well as the review of records all occurred today. I also attest that the listed assessment and stated plan reflect my best clinical judgment today based on the combination of historical information, prior notes, and today's exam/ interactions. When time spent is documented, it refers only to time spent today by the signer, or if indicated, combined time spent today by collaborating physician/nurse practitioner.
--- NOTE | 2017-12-08 13:04 | P.PNIM ---
Subjective Interval history: G-tube suction on hold d/t oral pills. g-tube suction will be resumed. bilious drainage in canister. Pt's brother present during interview and examination. Pt nodding off to sleep at points during our conversation. Pt comfortable at this time and with NO new complaints. Physical Exam Vital signs: 12/08/17 08:00 Temperature 98.7 F Pulse Rate 78 Respiratory Rate 16 Blood Pressure 142/81 H Pulse Oximetry 98 Narrative: General: NAD, AAOx3 Chest: CTA Cardiac: Regular Abd: +BS, soft ND/NT, GJ tube in place with g-tube to suction and copious green fluid in canister hepatic drainage tube to bag with bilious output in collection bag. Ext: No edema Results - Labs CBC & Chem 7: 12/06/17 04:20 12/07/17 04:18 Laboratory Results - last 24 hr 12/05/17 12:47 RBC Folate 827 Microbiology 12/03/17 18:59 Blood - Peripheral Aerobic Blood Culture - Final No growth in 5 days 12/03/17 18:59 Blood - Peripheral Anaerobic Blood Culture - Final No growth in 5 days 12/03/17 18:53 Blood - Peripheral Aerobic Blood Culture - Final No growth in 5 days 12/03/17 18:53 Blood - Peripheral Anaerobic Blood Culture - Final No growth in 5 days 12/05/17 10:35 Fluid - Other Gram Stain - Final 12/05/17 10:35 Fluid - Other Body Fluid Culture - Final Klebsiella pneumoniae Hafnia alvei Viridans streptococcus grp - Imaging Chest X-Ray 11/30/17 00:57 CONCLUSION: No acute cardiopulmonary abnormality is identified. Cholangiopancreatography MRI 12/03/17 00:00 CONCLUSION: 1. The right lobe of liver there is a new multiloculated fluid collection I suspect related to recent intervention. It measures 5.2 x 3.9 cm across. 2. Known pancreatic cancer with a biliary stent in good position. 3. Gallbladder is decompressed but there is some fluid surrounding the liver. Abscess Drainage CT 12/05/17 00:00 CONCLUSION: 1. Uncomplicated CT guided drainage of an intrahepatic abscess. Catheter Patency X-Ray 12/07/17 00:00 CONCLUSION: 1. The hepatic abscess cavity has eroded into a peripheral biliary duct. Drainage will be to gravity bag as opposed to an accordion suction device. Assessment and Plan - Assessment (1) Sepsis Code(s): A41.9 - Sepsis, unspecified organism Status: Acute Plan: Fevers/chills, sepsis biliary/liver abscess source. - Pt is a 71 y/o male with pancreatic cancer who [place] [facility] [place] complaints of fevers and chills. Around 4-5 days ago he began having some low grade fevers which was being treated with Tylenol. He states that he has had a bit of a dry cough for some time and had a CXR and blood work done on 11/27/17, which he reports were negative. Then yesterday evening he started having shaking chills and his fever spiked to 103 degrees. This prompted his evaluation in the ED last night. - His fever was noted to be 103 in the ED. - CXR (11/30) --> NO acute findings. - Pt tested negative for flu. - comgmt with Infectious Disease, Interventional Radiology, Oncology, Palliative Medicine - Pt reports that the last time his port was accessed was [address] Geller office. - Blood Culture peripheral (11/30/17) --> Prevotella Buccae - Blood culture port (11/30/17) --> No growth - Repeat Blood Cx (12/03/17) --> No growth - fluid culture, hepatic fluid (12/05) --> gram negative rods, strep viridans - Vancomycin (11/30 - 12/02) - Cefepime (11/30 - present) - PO flagyl (12/06 - present) - Fentanyl increased to 50mcg (12/05) - Pt had metal sent placed in bile duct during previous admission, 10/2017 - MRCP (12/03/17) 1. The right lobe of liver there is a new multiloculated fluid collection I suspect related to recent intervention. It measures 5.2 x 3.9 cm across. 2. Known pancreatic cancer with a biliary stent in good position. 3. Gallbladder is decompressed but there is some fluid surrounding the liver. - Case d/w Radiology (12/04). 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 - liver abscess drainage catheter adjusted by IR (12/07). Catheter now to drainage by gravity. - Long discussion with pt & brother about possibly changing code status to DNR - Per ID, pt will need 6 weeks IV antibiotic therapy - Seems unlikely that pt will reach point where chemotherapy could be initiated - diet: clears - PPI - continue current treatment plan over the week - Hospice would be appropriate. Will d/w family in next few days if NO improvement - DVT prophylaxis - supportive care . 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
--- NOTE | 2017-12-08 19:03 | P.PNONC ---
Subjective Interval history: Feels tired and puny Objective Vital Signs/Intake & Output: Vital Signs 12/07/17 20:26 12/08/17 00:20 12/08/17 04:00 Temperature 99.3 F 98.5 F 98.3 F Pulse Rate 74 75 75 Respiratory Rate 17 18 18 Blood Pressure 135/78 140/80 130/68 Pulse Oximetry 98 95 97 12/08/17 05:23 12/08/17 08:00 12/08/17 12:00 Temperature 98.7 F 98.6 F Pulse Rate 78 75 Respiratory Rate 17 16 16 Blood Pressure 142/81 H 131/78 Pulse Oximetry 98 98 12/08/17 16:00 Temperature 98.7 F Pulse Rate 77 Respiratory Rate 18 Blood Pressure 141/84 H Pulse Oximetry 95 Intake & Output 12/07/17 12/08/17 12/08/17 18:59 06:59 18:59 Intake Total 300 / 300 760 / 760 1532 / 1532 Output Total 1900 / 1900 1410 / 1410 Balance 300 / 300 -1140 / -1140 122 / 122 Weight 77.6 kg Intake: IV 300 / 300 100 / 100 100 / 100 NS + KCl 20 mEq Inj 1,000 ML @ 200 / 200 70 mls/hr IV.CONT .[id number] [facility] Rx#:[id number] Maxipime Inj 2,000 MG In NS Inj 100 / 100 100 / 100 100 / 100 100 ML @ 200 mls/hr IV.SIG Q12H [facility] Rx#:[id number] Oral 1432 / 1432 Tube Feeding 460 / 460 Water Bolus Amount 200 / 200 Output: Urine 1100 / 1100 1160 / 1160 Gastric Drainage 750 / 750 250 / 250 Pre-Hospital Left Upper 750 / 750 250 / 250 Quadrant Gastrostomy Tube (PEG) Wound Drainage 50 / 50 # 1 Right Upper Lateral Abdomen 50 / 50 Other: Date of Last Bowel Movement 12/07/17 12/08/17 12/08/17 # Incontinent Bowel Movements 1 Result Diagrams: 12/06/17 04:20 12/07/17 04:18 Laboratory Results: Laboratory Results - last 24 hr 12/05/17 12:47 RBC Folate 827 Culture Results: Microbiology 12/03/17 18:59 Aerobic Blood Culture - Final Blood - Peripheral No growth in 5 days Anaerobic Blood Culture - Final No growth in 5 days 12/03/17 18:53 Aerobic Blood Culture - Final Blood - Peripheral No growth in 5 days Anaerobic Blood Culture - Final No growth in 5 days 12/05/17 10:35 Gram Stain - Final Fluid - Other Body Fluid Culture - Final Klebsiella pneumoniae Hafnia alvei Viridans streptococcus grp 11/30/17 00:56 Aerobic Blood Culture - Final Blood - Peripheral No growth in 5 days Anaerobic Blood Culture - Final Prevotella buccae Imaging Studies: Impressions Catheter Patency X-Ray 12/07/17 00:00 CONCLUSION: 1. The hepatic abscess cavity has eroded into a peripheral biliary duct. Drainage will be to gravity bag as opposed to an accordion suction device. Medications: Active Medications Generic Name Dose Route Start Last Admin Trade Name Freq PRN Reason Stop Dose Admin Acetaminophen 650 mg 11/30/17 02:24 12/04/17 20:20 Tylenol PO 650 mg Q6H PRN Administration TEMPERATURE > 100.5 F Enoxaparin Sodium 40 mg 12/06/17 10:00 12/08/17 10:18 Lovenox Inj SQ 40 mg Q24H CAM Administration Fentanyl 1 patch 12/05/17 17:00 12/08/17 17:02 Duragesic 50 Mcg Patch.72hr T-DERMAL 1 patch Q3D CAM Administration Heparin Sodium (Porcine) 500 unit 11/30/17 12:31 11/30/17 13:24 Heparin Central Flush IV.FLUSH 500 unit PRN PRN Administration Flush infusaport Hydrocortisone Acetate 1 applicatio 12/04/17 18:00 12/08/17 17:02 Anusol-Hc RECTAL Not Given TID CAM Hydromorphone HCl 4 mg 12/06/17 11:27 12/08/17 15:11 Dilaudid PO 4 mg Q4H PRN Administration PAIN SCALE 1 TO 10 Cefepime HCl 2,000 mg/ Sodium 100 mls @ 200 mls/hr 11/30/17 13:00 12/08/17 14 :25 Chloride IV.SIG Infused Q12H CAM Infusion Lansoprazole 30 mg 12/07/17 09:00 12/08/17 10:20 Prevacid Solutab G-TUBE 30 mg DAILY CAM Administration Lorazepam 1 mg 12/07/17 08:19 12/08/17 05:59 Ativan PO 1 mg Q8H PRN Administration ANXIETY Metronidazole 500 mg 12/06/17 14:00 12/08/17 13:00 Flagyl PO 500 mg Q8HR CAM Administration Morphine Sulfate 2 mg 12/02/17 02:02 12/08/17 17:02 Morphine Inj IV.PUSH 2 mg Q4H PRN Administration BREAKTHROUGH PAIN Nystatin 5 ml 12/02/17 13:00 12/08/17 17:02 Mycostatin Liq SWISH-SWAL 5 ml QID CAM Administration Ondansetron HCl 4 mg 11/30/17 08:28 12/07/17 17:36 Zofran Inj IV.PUSH 4 mg Q6H PRN Administration NAUSEA OR VOMITING Patch Removal 1 each 12/05/17 10:00 12/08/17 11:28 Remove Old Patch T-DERMAL 1 each Q3D CAM Administration Patch Removal 1 each 12/08/17 17:00 12/08/17 16:24 Remove Old Patch T-DERMAL Not Given Q3D CAM Senna/Docusate Sodium 1 tab 11/30/17 10:00 12/08/17 10:19 Rebecca-Colace PO Not Given BID CAM Sodium Chloride 5 ml 11/30/17 12:31 12/07/17 17:36 Ns Flush IV.FLUSH 5 ml PRN PRN Administration Flush Infusaport Objective Remarks: GENERAL: Appears chronically ill SKIN: Warm and dry. HEAD: Normocephalic. EYES: No scleral icterus. No injection or drainage. NECK: Supple, trachea midline. No JVD or lymphadenopathy. LYMPHATIC: No adenopathy. CARDIOVASCULAR: Regular rate and rhythm without murmurs. RESPIRATORY: Breath sounds equal bilaterally. No accessory muscle use. GASTROINTESTINAL: Abdomen soft. No masses. Has drain in liver as well as G- tube/J-tube. Tolerating tube feedings better but unfortunately has required continued G-tube drainage EXTREMITIES: Trace edema MUSCULOSKELETAL: Muscle wasting NEUROLOGICAL: No obvious focal deficit. Awake, alert, and oriented x3. Assessment/Plan - Plan 1: He is comfortable. There has been a slow deterioration. I spoke to him at length about cardiopulmonary resuscitation. I spoke to his brother for about 15 minutes by phone this morning updating him about events and the fact that it will take weeks of antibiotics to clear the infection and I am not sure that he will ever be a candidate for chemotherapy. I believe the most important immediate decision is his CODE STATUS. I asked the patient's brother to speak with the patient as I do not believe that there is any meaningful role for cardiopulmonary resuscitation given advancing pancreatic cancer, a liver abscess , and gastric outlet obstruction. I have also spoken with Dr. Baum today.
[2017-12-09] MEDS: Morphine Inj 4 MG/ML Vial IV.PUSH PRN ×4 (03:45→22:45)
[2017-12-09] MEDS: metroNIDAZOLE 500 MG Tablet PO SCH ×3 (05:32→21:03)
[2017-12-09] MEDS: LORazepam 1 MG Tablet PO PRN ×3 (05:32→21:03)
[2017-12-09] MEDS: Nystatin Liq 500,000 UNIT/5 ML UDC SWISH-SWAL SCH ×4 (09:16→20:08)
[2017-12-09] MEDS: Enoxaparin Inj 40 MG/0.4 ML Syringe SQ SCH (09:17)
[2017-12-09] MEDS: Senna/Docusate Sodium 8.6/50 MG Tablet PO SCH ×2 (09:17→20:09)
--- NOTE | 2017-12-09 17:17 | P.PNIM ---
Subjective Interval history: No new complaints. Physical Exam Vital signs: 12/09/17 06:06 12/09/17 08:00 12/09/17 12:00 Temperature 97.9 F 99 F Pulse Rate 85 77 Respiratory Rate 16 16 16 Blood Pressure 137/77 146/84 H Pulse Oximetry 97 95 Narrative: General: NAD, AAOx3 Chest: CTA Cardiac: Regular Abd: +BS, soft ND/NT, GJ tube in place with g-tube to suction and copious green fluid in canister hepatic drainage tube to bag with bilious output in collection bag. Ext: No edema Results - Labs CBC & Chem 7: 12/06/17 04:20 12/07/17 04:18 - Imaging Chest X-Ray 11/30/17 00:57 No acute cardiopulmonary abnormality is identified. Cholangiopancreatography MRI 12/03/17 00:00 1. The right lobe of liver there is a new multiloculated fluid collection I suspect related to recent intervention. It measures 5.2 x 3.9 cm across. 2. Known pancreatic cancer with a biliary stent in good position. 3. Gallbladder is decompressed but there is some fluid surrounding the liver. Abscess Drainage CT 12/05/17 00:[address] guided drainage of an intrahepatic abscess. Catheter Patency X-Ray 12/07/17 00:00 1. The hepatic abscess cavity has eroded into a peripheral biliary duct. Drainage will be to gravity bag as opposed to an accordion suction device. Assessment and Plan - Assessment (1) Sepsis Code(s): A41.9 - Sepsis, unspecified organism Status: Acute Plan: Fevers/chills, sepsis biliary/liver abscess source. - Pt is a 71 y/o male with pancreatic cancer who [place] [facility] [place] of fevers and chills. Around 4-5 days ago he began having some low grade fevers which was being treated with Tylenol. He states that he has had a bit of a dry cough for some time and had a CXR and blood work done on 11/27/17, which he reports were negative. Then yesterday evening he started having shaking chills and his fever spiked to 103 degrees. This prompted his evaluation in the ED last night. - His fever was noted to be 103 in the ED. - CXR (11/30) --> NO acute findings. - Pt tested negative for flu. - comgmt with Infectious Disease, Interventional Radiology, Oncology, Palliative Medicine - Pt reports that the last time his port was accessed was [address] Geller office. - Blood Culture peripheral (11/30/17) --> Prevotella Buccae - Blood culture port (11/30/17) --> No growth - Repeat Blood Cx (12/03/17) --> No growth - fluid culture, hepatic fluid (12/05) --> gram negative rods, strep viridans - Vancomycin (11/30 - 12/02) - Cefepime (11/30 - present) - PO flagyl (12/06 - present) - Fentanyl increased to 50mcg (12/05) - Pt had metal sent placed in bile duct during previous admission, 10/2017 - MRCP (12/03/17) 1. The right lobe of liver there is a new multiloculated fluid collection I suspect related to recent intervention. It measures 5.2 x 3.9 cm across. 2. Known pancreatic cancer with a biliary stent in good position. 3. Gallbladder is decompressed but there is some fluid surrounding the liver. - Case d/w Radiology (12/04). 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 - liver abscess drainage catheter adjusted by IR (12/07). Catheter now to drainage by gravity. - Long discussion with pt & brother (12/08) about possibly changing code status to DNR - again discussed code status with Mr. Cruz (12/09). - He would like to continue full code status for now - He will discuss code status again with his family. Although per pt, both his brother and daughter agree with DNR. - Per ID, pt will need 6 weeks IV antibiotic therapy - Seems unlikely that pt will reach point where chemotherapy could be initiated - diet: clears - PPI - continue current treatment plan over the week - Hospice would be appropriate. Will d/w family in next few days if NO improvement - DVT prophylaxis - supportive care . 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
[2017-12-10] MEDS: LORazepam 1 MG Tablet PO PRN ×3 (03:27→16:00)
[2017-12-10] MEDS: Morphine Inj 4 MG/ML Vial IV.PUSH PRN ×3 (03:27→21:56)
[2017-12-10] MEDS: metroNIDAZOLE 500 MG Tablet PO SCH ×3 (05:20→21:56)
[2017-12-10] MEDS: Nystatin Liq 500,000 UNIT/5 ML UDC SWISH-SWAL SCH ×4 (09:23→20:22)
[2017-12-10] MEDS: Enoxaparin Inj 40 MG/0.4 ML Syringe SQ SCH (09:23)
[2017-12-10] MEDS: Senna/Docusate Sodium 8.6/50 MG Tablet PO SCH ×2 (09:24→20:22)
--- NOTE | 2017-12-10 16:01 | P.PNIM ---
Subjective Interval history: Pt fell today while trying to put on pants at bedside. Pt denies injury. Pt did NOT hit his head. Pt has NO new complaints. Physical Exam Vital signs: 12/10/17 08:00 12/10/17 12:00 12/10/17 13:23 Temperature 98.7 F 100.1 F H Pulse Rate 93 H 95 H Respiratory Rate 18 16 18 Blood Pressure 129/73 126/77 Pulse Oximetry 92 L 97 Narrative: General: NAD, AAOx3 Chest: CTA Cardiac: Regular Abd: +BS, soft ND/NT, GJ tube in place with g-tube to suction and copious green fluid in canister hepatic drainage tube to bag with bilious output in collection bag. Ext: No edema Results - Labs CBC & Chem 7: 12/06/17 04:20 12/07/17 04:18 - Imaging Chest X-Ray 11/30/17 00:57 No acute cardiopulmonary abnormality is identified. Cholangiopancreatography MRI 12/03/17 00:00 1. The right lobe of liver there is a new multiloculated fluid collection I suspect related to recent intervention. It measures 5.2 x 3.9 cm across. 2. Known pancreatic cancer with a biliary stent in good position. 3. Gallbladder is decompressed but there is some fluid surrounding the liver. Abscess Drainage CT 12/05/17 00:00 CONCLUSION: 1. Uncomplicated CT guided drainage of an intrahepatic abscess. Catheter Patency X-Ray 12/07/17 00:00 CONCLUSION: 1. The hepatic abscess cavity has eroded into a peripheral biliary duct. Drainage will be to gravity bag as opposed to an accordion suction device. Assessment and Plan - Assessment (1) Sepsis Code(s): A41.9 - Sepsis, unspecified organism Status: Acute Plan: Fevers/chills, sepsis biliary/liver abscess source. - Pt is a 71 y/o male with pancreatic cancer who presented to the ER at [facility] [place] with complaints of fevers and chills. Around 4-5 days ago he began having some low grade fevers which was being treated with Tylenol. He states that he has had a bit of a dry cough for some time and had a CXR and blood work done on 11/27/17, which he reports were negative. Then yesterday evening he started having shaking chills and his fever spiked to 103 degrees. This prompted his evaluation in the ED last night. - His fever was noted to be 103 in the ED. - CXR (11/30) --> NO acute findings. - Pt tested negative for flu. - comgmt with Infectious Disease, Interventional Radiology, Oncology, Palliative Medicine - Pt reports that the last time his port was accessed was [address] Geller office. - Blood Culture peripheral (11/30/17) --> Prevotella Buccae - Blood culture port (11/30/17) --> No growth - Repeat Blood Cx (12/03/17) --> No growth - fluid culture, hepatic fluid (12/05) --> gram negative rods, strep viridans - Vancomycin (11/30 - 12/02) - Cefepime (11/30 - present) - PO flagyl (12/06 - present) - Fentanyl increased to 50mcg (12/05) - Pt had metal sent placed in bile duct during previous admission, 10/2017 - MRCP (12/03/17) 1. The right lobe of liver there is a new multiloculated fluid collection I suspect related to recent intervention. It measures 5.2 x 3.9 cm across. 2. Known pancreatic cancer with a biliary stent in good position. 3. Gallbladder is decompressed but there is some fluid surrounding the liver. - Case d/w Radiology (12/04). 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 - liver abscess drainage catheter adjusted by IR (12/07). Catheter now to drainage by gravity. - Long discussion with pt & brother (12/08) about possibly changing code status to DNR - again discussed code status with Mr. Cruz (12/09). - He would like to continue full code status for now - He will discuss code status again with his family. Although per pt, both his brother and daughter agree with DNR. - Per ID, pt will need 6 weeks IV antibiotic therapy - Seems unlikely that pt will reach point where chemotherapy could be initiated - diet: clears - PPI - continue current treatment plan over the week - Hospice would be appropriate. Will d/w family in next few days if NO improvement - DVT prophylaxis - supportive care - 12/10/17 - Pt interviewed and examined - long discussion with pt about current disease and treatment. - Pt requests DNR status - Pt requests informational meeting with hospice - will discuss case with ID & oncology 12/11 - anticipate d/c to SNF in the next 1-2 days. . 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
[2017-12-10] MEDS ORDERED: HYDROmorphone PF Inj 2 MG/ML Vial IV.PUSH ONE (17:13)
[2017-12-10] MEDS: Acetaminophen 325 MG Tablet PO PRN (17:43)
[2017-12-11] MEDS: LORazepam 1 MG Tablet PO PRN ×3 (03:46→19:12)
[2017-12-11] MEDS: metroNIDAZOLE 500 MG Tablet PO SCH ×3 (05:47→21:38)
[2017-12-11] MEDS: Nystatin Liq 500,000 UNIT/5 ML UDC SWISH-SWAL SCH ×4 (08:47→21:32)
[2017-12-11] MEDS: Senna/Docusate Sodium 8.6/50 MG Tablet PO SCH ×2 (08:48→21:32)
[2017-12-11] MEDS: Morphine Inj 4 MG/ML Vial IV.PUSH PRN ×3 (08:49→21:38)
[2017-12-11] MEDS: Enoxaparin Inj 40 MG/0.4 ML Syringe SQ SCH (09:04)
--- NOTE | 2017-12-11 09:43 | P.PNIM ---
Subjective Interval history: anxious sitting in chair asking questions about hospice. Physical Exam Vital signs: Vital Signs 12/10/17 12:00 12/10/17 13:23 12/10/17 14:36 Temperature 100.1 F H 100.4 F H Pulse Rate 95 H 89 Respiratory Rate 16 18 18 Blood Pressure 126/77 157/80 H Pulse Oximetry 97 94 L 12/10/17 16:00 12/10/17 17:28 12/10/17 17:44 Temperature 100.4 F H 100.7 F H Pulse Rate 89 Respiratory Rate 18 18 Blood Pressure 157/80 H Pulse Oximetry 94 L 12/10/17 18:16 12/10/17 20:00 12/11/17 00:00 Temperature 99.1 F 97.6 F Pulse Rate 88 83 Respiratory Rate 18 20 22 Blood Pressure 109/69 145/77 H Pulse Oximetry 94 L 95 12/11/17 04:16 12/11/17 08:00 Temperature 99.7 F H 99.5 F Pulse Rate 88 96 H Respiratory Rate 18 20 Blood Pressure 153/80 H 134/76 Pulse Oximetry 95 96 Intake & Output 12/10/17 12/11/17 12/11/17 18:59 06:59 18:59 Intake Total 100 / 100 580 / 580 Output Total 1485 / 1485 Balance 100 / 100 -905 / -905 Weight 77 kg Intake: IV 100 / 100 100 / 100 Maxipime Inj 2,000 MG In NS Inj 100 / 100 100 / 100 100 ML @ 200 mls/hr IV.SIG Q12H CAM Rx#:[id number] Oral 480 / 480 Output: Urine 1250 / 1250 Gastric Drainage 225 / 225 Pre-Hospital Left Upper 225 / 225 Quadrant Gastrostomy Tube (PEG) Wound Drainage # 1 Right Upper Lateral Abdomen Other: Date of Last Bowel Movement 12/09/17 12/09/17 # Bowel Movements 1 heart reg lung cta abd s/nt/gj tube ext no edema Results - Labs CBC & Chem 7: 12/06/17 04:20 12/07/17 04:18 Assessment and Plan - Assessment (1) Sepsis Code(s): A41.9 - Sepsis, unspecified organism Status: Acute Plan: Fevers/chills, sepsis biliary/liver abscess source. - Pt is a 71 y/o male with pancreatic cancer who presented to the ER at [facility] [place] on with complaints of fevers and chills. Around 4-5 days ago he began having some low grade fevers which was being treated with Tylenol. He states that he has had a bit of a dry cough for some time and had a CXR and blood work done on 11/27/17, which he reports were negative. Then yesterday evening he started having shaking chills and his fever spiked to 103 degrees. This prompted his evaluation in the ED last night. - His fever was noted to be 103 in the ED. - CXR (11/30) --> NO acute findings. - Pt tested negative for flu. - comgmt with Infectious Disease, Interventional Radiology, Oncology, Palliative Medicine - Pt reports that the last time his port was accessed was [address] Geller office. - Blood Culture peripheral (11/30/17) --> Prevotella Buccae - Blood culture port (11/30/17) --> No growth - Repeat Blood Cx (12/03/17) --> No growth - fluid culture, hepatic fluid (12/05) --> gram negative rods, strep viridans - Vancomycin (11/30 - 12/02) - Cefepime (11/30 - present) - PO flagyl (12/06 - present) - Fentanyl increased to 50mcg (12/05) - Pt had metal sent placed in bile duct during previous admission, 10/2017 - MRCP (12/03/17) 1. The right lobe of liver there is a new multiloculated fluid collection I suspect related to recent intervention. It measures 5.2 x 3.9 cm across. 2. Known pancreatic cancer with a biliary stent in good position. 3. Gallbladder is decompressed but there is some fluid surrounding the liver. - Case d/w Radiology (12/04). 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 - liver abscess drainage catheter adjusted by IR (12/07). Catheter now to drainage by gravity. - Long discussion with pt & brother (12/08) about possibly changing code status to DNR - again discussed code status with Mr. Cruz (12/09). - He would like to continue full code status for now - He will discuss code status again with his family. Although per pt, both his brother and daughter agree with DNR. - Per ID, pt will need 6 weeks IV antibiotic therapy - Seems unlikely that pt will reach point where chemotherapy could be initiated - diet: clears - PPI - DVT prophylaxis - supportive care pt agreed to dnr Dr Clements and I both discussed and advised pt to accept hospice care. If he were to improve the pt could pursue chemotherapy at a later time..dr Clements will continue to follow him even if he accepts hospice. Dr Velazquez to discuss abx options with the pt today. Of note pt continued with some fevers over the weekend. Will need to discuss with IR how long tube will remain in liver If pt refuses hospice then will plan on dc to snf . 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
--- NOTE | 2017-12-11 10:23 | P.PNID ---
Subjective Remarks: Mr. Cruz is a pleasant 71 y/o male with pancreatic cancer who [place] the [place] [facility] [place] with complaints of fevers and chills. Patient had an ERCP 10/13/17 for obstructive jaundice and finding was ampulla distorted by tumor invasion and failed sphincterotomy. Multiple imaging modalities showed pancreatic mass. Pt then had biliary drain and stent placed by IR. Pt had EUS and FNA 10/16 and biopsy showed poorly differentiated adenocarcinoma c/w pancreatic primary. Pt is following with Dr Diaz. The mass is not resectable and pt had a recent PET scan showing possible metastasis to liver. He had port placed 05/03/17. Pt has been too weak for palliative chemotherapy. He states that he has been at [facility] for rehab since his last discharge on 11/14/17 and was making slow but steady progress. Approx 5 days prior to admission, he began noticing fevers and shaking chills. Reportedly a CXR done was negative and despite tylenol fevers persisted. When he spiked a temp of 103 F he was admitted through the ED. He was started on empiric antibiotics and sepsis workup initiated. He met criteria for severe sepsis in an Immune compromised patient. CXR was negative. He tested negative for flu. Pt denies any sore throat, congestions. He denies any nausea/vomiting, diarrhea, abd pain. He denies any chest pain, SOB, dizziness or weakness. Hospital course: patient had a positive blood culture: Prevotella buccae and ID consulted for Severe Sepsis, Bacteremia and Liver abscess. He had an IR guided drain placed in liver and cultures are positive for GNR and Strep viridans. At time of my visit he was sitting in a chair and denied any new complaints. He reaffirmed he wanted to be aggressive with care including treatment of sepsis followed by Chemotherapy. Past Medical/Surgical Hx: GJ tube placement by IR Skin Cancer removal Tonsillectomy Port placement Overnight events reviewed No fevers No rash No diarrhea Antibiotics: Cefepime IV Flagyl oral. Lines: Port site ok Past Medical History: reviewed Allergies/Adverse Reactions: Allergies No Known Allergies Allergy (Verified 11/09/17 16:28) Objective Vital Signs 12/10/17 12:00 12/10/17 13:23 12/10/17 14:36 Temperature 100.1 F H 100.4 F H Pulse Rate 95 H 89 Respiratory Rate 16 18 18 Blood Pressure 126/77 157/80 H Pulse Oximetry 97 94 L 12/10/17 16:00 12/10/17 17:28 12/10/17 17:44 Temperature 100.4 F H 100.7 F H Pulse Rate 89 Respiratory Rate 18 18 Blood Pressure 157/80 H Pulse Oximetry 94 L 12/10/17 18:16 12/10/17 20:00 12/11/17 00:00 Temperature 99.1 F 97.6 F Pulse Rate 88 83 Respiratory Rate 18 20 22 Blood Pressure 109/69 145/77 H Pulse Oximetry 94 L 95 12/11/17 04:16 12/11/17 08:00 Temperature 99.7 F H 99.5 F Pulse Rate 88 96 H Respiratory Rate 18 20 Blood Pressure 153/80 H 134/76 Pulse Oximetry 95 96 Intake & Output 12/10/17 12/11/17 12/11/17 18:59 06:59 18:59 Intake Total 100 / 100 580 / 580 Output Total 1485 / 1485 Balance 100 / 100 -905 / -905 Weight 77 kg Intake: IV 100 / 100 100 / 100 Maxipime Inj 2,000 MG In NS Inj 100 / 100 100 / 100 100 ML @ 200 mls/hr IV.SIG Q12H CAM Rx#:[id number] Oral 480 / 480 Output: Urine 1250 / 1250 Gastric Drainage 225 / 225 Pre-Hospital Left Upper 225 / 225 Quadrant Gastrostomy Tube (PEG) Wound Drainage # 1 Right Upper Lateral Abdomen Other: Date of Last Bowel Movement 12/09/17 12/09/17 12/11/17 # Bowel Movements 1 12/03/17 18:59 Blood - Peripheral Aerobic Blood Culture - Final No growth in 5 days 12/03/17 18:59 Blood - Peripheral Anaerobic Blood Culture - Final No growth in 5 days 12/03/17 18:53 Blood - Peripheral Aerobic Blood Culture - Final No growth in 5 days 12/03/17 18:53 Blood - Peripheral Anaerobic Blood Culture - Final No growth in 5 days Imaging: ITS Impressions Chest X-Ray 11/30/17 00:57 CONCLUSION: No acute cardiopulmonary abnormality is identified. Cholangiopancreatography MRI 12/03/17 00:00 CONCLUSION: 1. The right lobe of liver there is a new multiloculated fluid collection I suspect related to recent intervention. It measures 5.2 x 3.9 cm across. 2. Known pancreatic cancer with a biliary stent in good position. 3. Gallbladder is decompressed but there is some fluid surrounding the liver. Abscess Drainage CT 12/05/17 00:00 CONCLUSION: 1. Uncomplicated CT guided drainage of an intrahepatic abscess. Catheter Patency X-Ray 12/07/17 00:00 CONCLUSION: 1. The hepatic abscess cavity has eroded into a peripheral biliary duct. Drainage will be to gravity bag as opposed to an accordion suction device. Physical Exam: GENERAL: Well-nourished well-developed, not in acute distress SKIN: Cool and dry, no generalized rash HEAD: Atraumatic. Normocephalic. No temporal or scalp tenderness. EYES: Pupils equal round and reactive. Scleral icterus. No injection or drainage. No petechia ENT: Nothing abnormal detected NECK: Trachea midline. Supple, nontender, no meningeal signs. CARDIOVASCULAR: HS audible. Port site ok. RESPIRATORY: Clear to auscultation bilaterally. GASTROINTESTINAL: Abdomen soft nontender. Drain in place. PEG tube site ok. MUSCULOSKELETAL: Extremities without clubbing, cyanosis. NEUROLOGICAL: Alert oriented 3. Nonfocal. Psych cooperative IV line sites ok. Assessment and Plan - Plan Severe Sepsis present on admission (Fever, leucopenia, source: bacteremia and liver abscess, elevated lactic acid) Prevotella bacteremia: likely GI source (recent biliary stent placement and 2 procedures in GI lab and IR with one being failed attempt) GNR and Strep multiloculated liver abscess likely GI source as above. Pancreatic cancer late stage with stent in place ? biliary leak. Immunocompromised host Port in place PEG tube in place. Recs: Continue Cefepime IV Continue Flagyl oral 2D ECHO negative for vegetations. Follow cultures Follow clinical course. Anticipate IV antibiotics likely 6 weeks. Will need follow up imaging Extensive discussion with patient about treatment options Option 1: IV antibiotics as above for 6 weeks with repeat imaging. Option 2: Oral antibiotics with hospice keeping in mind that it may not be absorbed as well given the current GI issues. Option 3: No antibiotics with hospice With any of the first two options he will need repeat imaging. Also source control is essential to this being treated. Discussed with ongoing bile leakage due to invasion of one of the bile ducts there is concern that this could recurr or not resolve. He understands this after going over the options twice. He would like his family to be present here tomorrow and will let RN know when I need to be at hospital. I told him I can be there between 9 and 12 noon but need advance notification to make sure I take care of my other sick patients as well or else there could be a waiting period. He is not sure when his family can meet but will let RN know. seth Flannery who informs me no plan for palliative chemo at present time given active infection and that recommends hospice for now if patient agreeable. seth pt seth RN
--- NOTE | 2017-12-11 15:13 | P.PNPAL ---
Reason for Visit Reason for visit: a. To assist with evaluation and management of symptoms including: pain, debility, anxiety, nausea b. To assist medical decision maker(s) with: better understanding of current medical conditions; weighing benefits/burdens of medical treatment options; making medical treatment decisions. Subjective Subjective/Interval History: Pt just back from trip to bathroom, using walker with help of NUCLEAR FUELS RECLAMATION ENGINEER. He ambulates quite slowly. Says he's not doing well today. Flat affect today, say his anxiety "is creeping back up." He feels anxiety is a factor in his discomfort, that it is not strictly physical pain. RN reports she is alternating his PO dilaudid Admits pain in his "pancreas" and RUQ around drain site, he is unable to quantify it or qualify it further. He is mildly TTP on palpation of abd. Tolerating TF via J tube. G tube no longer to suction. Pt denies nausea. Not eating PO, just few sips of water per RN. Discussed with him that this infection is a setback and a barrier to his receiving chemo, that outlook was continuing to worsen and it is becoming less likely that he could be a candidate for chemo. Discussed with him more comfort oriented goals and he was receptive, "Comfort seems like a good goal right now. " He was visited by weapons officer naval activity earlier and said he wanted to discuss further with his daughter and brother. Family/Friend Interactions: Teleconference with Mima and Oscar to provide medical update. Discussed hospice and that pt was wanting to discuss with them. Explained that pt was verbalizing focusing on comfort as his goal rather than more aggressive tx. They are supportive of comfort oriented goals. Mima is visiting him tonight and will put Oscar, who is [phone] miles away, on speakerphone so they can discuss with pt. Objective Vital Signs: Vital Signs 12/10/17 14:36 12/10/17 16:00 12/10/17 17:28 Temperature 100.4 F H 100.4 F H Pulse Rate 89 89 Respiratory Rate 18 18 18 Blood Pressure 157/80 H 157/80 H Pulse Oximetry 94 L 94 L 12/10/17 17:44 12/10/17 18:16 12/10/17 20:00 Temperature 100.7 F H 99.1 F Pulse Rate 88 Respiratory Rate 18 20 Blood Pressure 109/69 Pulse Oximetry 94 L 12/11/17 00:00 12/11/17 04:16 12/11/17 08:00 Temperature 97.6 F 99.7 F H 99.5 F Pulse Rate 83 88 96 H Respiratory Rate 22 18 20 Blood Pressure 145/77 H 153/80 H 134/76 Pulse Oximetry 95 95 96 12/11/17 12:00 Temperature 99.5 F Pulse Rate 95 H Respiratory Rate 20 Blood Pressure 144/81 H Pulse Oximetry 96 Intake & Output 12/10/17 12/11/17 12/11/17 18:59 06:59 18:59 Intake Total 100 / 100 580 / 580 Output Total 1485 / 1485 Balance 100 / 100 -905 / -905 Weight 77 kg Intake: IV 100 / 100 100 / 100 Maxipime Inj 2,000 MG In NS Inj 100 / 100 100 / 100 100 ML @ 200 mls/hr IV.SIG Q12H CAM Rx#:[id number] Oral 480 / 480 Output: Urine 1250 / 1250 Gastric Drainage 225 / 225 Pre-Hospital Left Upper 225 / 225 Quadrant Gastrostomy Tube (PEG) Wound Drainage # 1 Right Upper Lateral Abdomen Other: Date of Last Bowel Movement 12/09/17 12/09/17 12/11/17 # Bowel Movements 1 Physical Exam: CONSTITUTIONAL/GENERAL: frail appearing male TUBES/LINES/DRAINS: GJ tube, hepatic drain SKIN: No jaundice, rashes, or lesions. No wounds seen anteriorly. Skin temperature appropriate. Not diaphoretic. HEAD: Atraumatic. Normocephalic. EYES: Extraocular motions intact. No scleral icterus. No injection or drainage. Fundi not examined. ENT: Hearing grossly normal. Nose without bleeding or purulent drainage. CARDIOVASCULAR: RRR without murmurs, gallops, or rubs. No JVD. Peripheral pulses symmetric. RESPIRATORY/CHEST: Symmetric, unlabored respirations. Clear to auscultation. Breath sounds equal bilaterally. GASTROINTESTINAL: Abdomen soft, RUQ mildly TTP in area of drain & epigastrium, abd mildly distended. No hepato-splenomegaly, or palpable masses. No guarding. Bowel sounds present. MUSCULOSKELETAL: Extremities without clubbing, cyanosis. +1 BLE edema. No joint tenderness or effusion noted. No mottling or clubbing. NEUROLOGICAL: Motor and sensory grossly within normal limits. Follows commands. Moves all extremities. PSYCHIATRIC: flat affect Diagnostic Tests Result Diagrams: 12/06/17 04:20 12/07/17 04:18 Microbiology: Microbiology 12/03/17 18:59 Aerobic Blood Culture - Final Blood - Peripheral No growth in 5 days Anaerobic Blood Culture - Final No growth in 5 days 12/03/17 18:53 Aerobic Blood Culture - Final Blood - Peripheral No growth in 5 days Anaerobic Blood Culture - Final No growth in 5 days Imaging: ITS Impressions Chest X-Ray 11/30/17 00:57 CONCLUSION: No acute cardiopulmonary abnormality is identified. Cholangiopancreatography MRI 12/03/17 00:00 CONCLUSION: 1. The right lobe of liver there is a new multiloculated fluid collection I suspect related to recent intervention. It measures 5.2 x 3.9 cm across. 2. Known pancreatic cancer with a biliary stent in good position. 3. Gallbladder is decompressed but there is some fluid surrounding the liver. Abscess Drainage CT 12/05/17 00:00 CONCLUSION: 1. Uncomplicated CT guided drainage of an intrahepatic abscess. Catheter Patency X-Ray 12/07/17 00:00 CONCLUSION: 1. The hepatic abscess cavity has eroded into a peripheral biliary duct. Drainage will be to gravity bag as opposed to an accordion suction device. Procedures: 12/05 drainage liver abscess, drain placement 12/07 IR reassessment hepatic drain Assessment and Plan - Disease Oriented Problem List (1) Sepsis (2) Pancreatic cancer metastasized to liver (3) Gastric outlet obstruction (4) Hepatic abscess (5) Pancreatic mass Pertinent Non-Medical Issues: Psychosocial: Pt originally from [place] but has been in [place] most of his life. He is , with 2 daughters who live locally. 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 Spiritual: Congregational Legal: pt currently capacitated to make medical decisions. Should he become incapacitated he has designated his daughter Mima and his brother Oscar to make medical decisions on his behalf. Family working together. Ethical issues impacting care: none Important Contacts: Oscar Anthony [phone] Mima Floresusharosio [phone] - can leave message, work [phone] Prognosis: 71 yo male with recently diagnosed locally advanced pancreatic carcinoma, gastric outlet obstruction 2/2 mass s/p GJ placement, who presented 9/6 with fever, chills, shaking. He is being treated for sepsis from unclear source. He was found to have a liver abscess which is now s/p drainage and placement drain. If he recovers from sepsis and becomes stronger, he could be candidate for palliative Folfirinox. His prognosis is poor, this is almost certainly terminal. He is hospice appropriate should goals be in line with comfort. Code Status: No Code DNR Plan: - LEGAL DECISON MAKER -patient is currently capacitated to make decisions. should he become incapacitated he has designated his daughter Mima and his brother Oscar to make medical decisions on his behalf. Family working together. - CODE STATUS- full code - GOALS - Discussed with him that this infection is a setback and a barrier to his receiving chemo, that outlook was continuing to worsen and it is becoming less likely that he could be a candidate for chemo. Discussed with him more comfort oriented goals and he was receptive, "Comfort seems like a good goal right now." He was visited by weapons officer naval activity earlier and said he wanted to discuss further with his daughter and brother. - SYMPTOMS - * Pain - multifactorial, 2/2 mass, procedures. admits abd pain, cannot quantify , mild TTP. Has fentanyl patch 50mcg, additionally has 2mg IV morphine PRN q4h and 4mg PO dilaudid PRN q4h. He is alternating between his PRN IV morphine and PO dilaudid. * anxiety - r/t diagnosis. his anxiety is "creeping back." has PRN ativan. no further recs at this time. * Debility/weakness was ambulating with IV pole. now ambulates with walker, slowly. Tolerating TF. minimal PO intake. PT following, no further recs. * nausea - multifactorial - 2/2 opiates, GOO.denies nausea on my eval. minimal PO intake, just sips water. g tube clamped now. If nausea continues or worsens, consider GI consult for eval for duodenal stent. - d/w RN Maria, d/w light rail operator - Palliative care will continue to follow during hospital course as condition evolves, to assist patient/decision-maker with understanding of medical conditions, weighing benefits/burdens of treatment options, for clarification of goals of treatment. Additionally will assist with any symptoms of palliative concern Attestation Attestation: To help prompt me to consider important information that might be impacting today's encounter and assessment, information from prior notes written by myself or my colleagues may have been "brought forward" into today's note. My signature on this note, however, is an attestation that I personally performed the exam, history, and/or decision-making noted today, and, unless otherwise indicated, the interactions with patient, family, and staff as well as the review of records all occurred today. I also attest that the listed assessment and stated plan reflect my best clinical judgment today based on the combination of historical information, prior notes, and today's exam/ interactions. When time spent is documented, it refers only to time spent today by the signer, or if indicated, combined time spent today by collaborating physician/nurse practitioner.
[2017-12-11] MEDS: Acetaminophen 325 MG Tablet PO PRN (16:52)
--- NOTE | 2017-12-11 20:38 | P.PNONC ---
Subjective Interval history: Patient remains weak and tired. He continues to deteriorate. Objective Vital Signs/Intake & Output: Vital Signs 12/11/17 00:00 12/11/17 04:16 12/11/17 08:00 Temperature 97.6 F 99.7 F H 99.5 F Pulse Rate 83 88 96 H Respiratory Rate 22 18 20 Blood Pressure 145/77 H 153/80 H 134/76 Pulse Oximetry 95 95 96 12/11/17 12:00 12/11/17 16:00 12/11/17 19:59 Temperature 99.5 F 100.6 F H 99 F Pulse Rate 95 H 83 80 Respiratory Rate 20 20 18 Blood Pressure 144/81 H 147/78 H 130/72 Pulse Oximetry 96 95 97 Intake & Output 12/11/17 12/11/17 12/12/17 06:59 18:59 06:59 Intake Total 580 / 580 1000 / 1000 120 / 120 Output Total 1485 / 1485 610 / 610 200 / 200 Balance -905 / -905 390 / 390 -80 / -80 Weight 77 kg Intake: IV 100 / 100 100 / 100 Maxipime Inj 2,000 MG In NS Inj 100 / 100 100 / 100 100 ML @ 200 mls/hr IV.SIG Q12H CAM Rx#:[id number] Oral 480 / 480 200 / 200 Tube Feeding 550 / 550 Water Bolus Amount 150 / 150 120 / 120 Output: Urine 1250 / 1250 600 / 600 200 / 200 Gastric Drainage 225 / 225 Pre-Hospital Left Upper 225 / 225 Quadrant Gastrostomy Tube (PEG) Wound Drainage # 1 Right Upper Lateral Abdomen Other: Date of Last Bowel Movement 12/09/17 12/11/17 # Bowel Movements 1 1 Result Diagrams: 12/06/17 04:20 12/07/17 04:18 Medications: Active Medications Generic Name Dose Route Start Last Admin Trade Name Freq PRN Reason Stop Dose Admin Acetaminophen 650 mg 11/30/17 02:24 12/11/17 16:52 Tylenol PO 650 mg Q6H PRN Administration TEMPERATURE > 100.5 F Enoxaparin Sodium 40 mg 12/06/17 10:00 12/11/17 09:04 Lovenox Inj SQ 40 mg Q24H CAM Administration Fentanyl 1 patch 12/05/17 17:00 12/11/17 16:18 Duragesic 50 Mcg Patch.72hr T-DERMAL 1 patch Q3D CAM Administration Heparin Sodium (Porcine) 500 unit 11/30/17 12:31 11/30/17 13:24 Heparin Central Flush IV.FLUSH 500 unit PRN PRN Administration Flush infusaport Hydrocortisone Acetate 1 applicatio 12/04/17 18:00 12/11/17 19:13 Anusol-Hc RECTAL Not Given TID CAM Hydromorphone HCl 4 mg 12/06/17 11:27 12/11/17 20:06 Dilaudid PO 4 mg Q4H PRN Administration PAIN SCALE 1 TO 10 Cefepime HCl 2,000 mg/ Sodium 100 mls @ 200 mls/hr 11/30/17 13:00 12/11/17 15 :00 Chloride IV.SIG Infused Q12H [facility] Infusion Lansoprazole 30 mg 12/07/17 09:00 12/11/17 08:48 Prevacid Solutab G-TUBE Not Given DAILY [facility] Lorazepam 1 mg 12/10/17 17:11 12/11/17 19:12 Ativan PO 1 mg Q4H PRN Administration ANXIETY Metronidazole 500 mg 12/06/17 14:00 12/11/17 13:47 Flagyl PO 500 mg Q8HR CAM Administration Morphine Sulfate 2 mg 12/02/17 02:02 12/11/17 15:32 Morphine Inj IV.PUSH 2 mg Q4H PRN Administration BREAKTHROUGH PAIN Nystatin 5 ml 12/02/17 13:00 12/11/17 19:13 Mycostatin Liq SWISH-SWAL Not Given QID [facility] Ondansetron HCl 4 mg 11/30/17 08:28 12/07/17 17:36 Zofran Inj IV.PUSH 4 mg Q6H PRN Administration NAUSEA OR VOMITING Patch Removal 1 each 12/05/17 10:00 12/11/17 16:18 Remove Old Patch T-DERMAL 1 each Q3D CAM Administration Patch Removal 1 each 12/08/17 17:00 12/11/17 16:18 Remove Old Patch T-DERMAL 1 each Q3D CAM Administration Senna/Docusate Sodium 1 tab 11/30/17 10:00 12/11/17 08:48 Rebecca-Colace PO Not Given BID [facility] Sodium Chloride 5 ml 11/30/17 12:31 12/07/17 17:36 Ns Flush IV.FLUSH 5 ml PRN PRN Administration Flush Infusaport Witch Khadijah/Glycerin 1 applicatio 12/04/17 16:46 12/09/17 21:02 Tucks Pads RECTAL 1 applicatio PRN PRN Administration HEMORRHOIDS Objective Remarks: GENERAL: Increasingly weak and frail SKIN: Warm and dry. HEAD: Normocephalic. EYES: No scleral icterus. No injection or drainage. NECK: Supple, trachea midline. No JVD or lymphadenopathy. LYMPHATIC: No adenopathy. CARDIOVASCULAR: Regular rate and rhythm without murmurs. RESPIRATORY: Breath sounds equal bilaterally. No accessory muscle use. GASTROINTESTINAL: Abdomen soft, non-tender, nondistended. Has drain in the liver and G-tube/J-tube. EXTREMITIES: No cyanosis, or edema. MUSCULOSKELETAL: Muscle wasting NEUROLOGICAL: No obvious focal deficit. Awake, alert, and oriented x3. PSYCHIATRIC: Depressed, withdrawn, and wants medications to calm him and make him relax Assessment/Plan - Plan 1: He continues to deteriorate. He has low-grade fevers. I do not believe that he will ever come to chemotherapy. I spoke with his daughter at length this evening. I spoke with Dr. Telles earlier this morning. Everyone including myself is in favor of hospice. I am in favor of the patient going to the care center as his needs are significant. It is likely that the patient and family will decide not to continue antibiotics. This too is reasonable. At this point I do not have anything further to add.
[2017-12-12] MEDS: LORazepam 1 MG Tablet PO PRN ×5 (00:30→20:26)
[2017-12-12] MEDS: Morphine Inj 4 MG/ML Vial IV.PUSH PRN ×3 (02:21→20:25)
[2017-12-12] MEDS: metroNIDAZOLE 500 MG Tablet PO SCH ×3 (05:40→23:05)
[2017-12-12] MEDS: Nystatin Liq 500,000 UNIT/5 ML UDC SWISH-SWAL SCH ×4 (08:11→20:27)
[2017-12-12] MEDS: Senna/Docusate Sodium 8.6/50 MG Tablet PO SCH ×2 (08:12→20:13)
--- NOTE | 2017-12-12 10:00 | P.PNIM ---
Subjective Interval history: says he is leaning toward accepting hospice Physical Exam Vital signs: Vital Signs 12/11/17 12:00 12/11/17 16:00 12/11/17 19:59 Temperature 99.5 F 100.6 F H 99 F Pulse Rate 95 H 83 80 Respiratory Rate 20 20 18 Blood Pressure 144/81 H 147/78 H 130/72 Pulse Oximetry 96 95 97 12/11/17 20:36 12/11/17 21:40 12/12/17 00:39 Temperature 98.4 F Pulse Rate 93 H Respiratory Rate 18 18 18 Blood Pressure 154/80 H Pulse Oximetry 96 12/12/17 01:00 12/12/17 02:23 12/12/17 04:33 Temperature 99.2 F Pulse Rate 81 Respiratory Rate 16 18 18 Blood Pressure 145/70 H Pulse Oximetry 95 12/12/17 04:58 12/12/17 06:33 12/12/17 08:26 Temperature 97.6 F Pulse Rate 84 Respiratory Rate 18 16 16 Blood Pressure 129/75 Pulse Oximetry 95 Intake & Output 12/11/17 12/12/17 12/12/17 18:59 06:59 18:59 Intake Total 1000 / 1000 610 / 610 687 / 687 Output Total 610 / 610 650 / 650 210 / 210 Balance 390 / 390 -40 / -40 477 / 477 Weight 72 kg Intake: IV 100 / 100 100 / 100 Maxipime Inj 2,000 MG In NS Inj 100 / 100 100 / 100 100 ML @ 200 mls/hr IV.SIG Q12H CAM Rx#:[id number] Oral 200 / 200 240 / 240 Tube Feeding 550 / 550 687 / 687 Water Bolus Amount 150 / 150 270 / 270 Output: Urine 600 / 600 650 / 650 200 / 200 Wound Drainage # 1 Right Upper Lateral Abdomen Other: Date of Last Bowel Movement 12/11/17 12/11/17 12/12/17 # Bowel Movements 1 heart reg lung cta abd gj tube ext no edema Results - Labs CBC & Chem 7: 12/06/17 04:20 12/07/17 04:18 Assessment and Plan - Assessment (1) Sepsis Code(s): A41.9 - Sepsis, unspecified organism Status: Acute Plan: Fevers/chills, sepsis biliary/liver abscess source. - Pt is a 71 y/o male with pancreatic cancer who presented to the ER at [facility] on with complaints of fevers and chills. Around 4-5 days ago he began having some low grade fevers which was being treated with Tylenol. He states that he has had a bit of a dry cough for some time and had a CXR and blood work done on 11/27/17, which he reports were negative. Then yesterday evening he started having shaking chills and his fever spiked to 103 degrees. This prompted his evaluation in the ED last night. - His fever was noted to be 103 in the ED. - CXR (11/30) --> NO acute findings. - Pt tested negative for flu. - comgmt with Infectious Disease, Interventional Radiology, Oncology, Palliative Medicine - Pt reports that the last time his port was accessed was [address] Geller office. - Blood Culture peripheral (11/30/17) --> Prevotella Buccae - Blood culture port (11/30/17) --> No growth - Repeat Blood Cx (12/03/17) --> No growth - fluid culture, hepatic fluid (12/05) --> gram negative rods, strep viridans - Vancomycin (11/30 - 12/02) - Cefepime (11/30 - present) - PO flagyl (12/06 - present) - Fentanyl increased to 50mcg (12/05) - Pt had metal sent placed in bile duct during previous admission, 10/2017 - MRCP (12/03/17) 1. The right lobe of liver there is a new multiloculated fluid collection I suspect related to recent intervention. It measures 5.2 x 3.9 cm across. 2. Known pancreatic cancer with a biliary stent in good position. 3. Gallbladder is decompressed but there is some fluid surrounding the liver. - Case d/w Radiology (12/04). 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 - liver abscess drainage catheter adjusted by IR (12/07). Catheter now to drainage by gravity. - Long discussion with pt & brother (12/08) about possibly changing code status to DNR - again discussed code status with Mr. Cruz (12/09). - He would like to continue full code status for now - He will discuss code status again with his family. Although per pt, both his brother and daughter agree with DNR. - Per ID, pt will need 6 weeks IV antibiotic therapy - Seems unlikely that pt will reach point where chemotherapy could be initiated pt agreed to dnr Dr Clements and I both discussed and advised pt to accept hospice care. I had long discussion with daughter Mima who supports accepting hospice Long discussion again with pt this morning. he seems to be leaning toward hospice. will await his decision. 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
[2017-12-12] MEDS: Enoxaparin Inj 40 MG/0.4 ML Syringe SQ SCH (10:23)
--- NOTE | 2017-12-12 11:06 | P.PNPAL ---
Reason for Visit Reason for visit: a. To assist with evaluation and management of symptoms including: pain, debility, anxiety, nausea b. To assist medical decision maker(s) with: better understanding of current medical conditions; weighing benefits/burdens of medical treatment options; making medical treatment decisions. Subjective Subjective/Interval History: Pt resting in bed, daughter at bedside. He rates his abd pain 6-7/10. Pain is constant. He is mildly lethargic. Just had ativan but admits anxiety. He denies nausea. TF running 55 ml/hr. He is asking about hospice and wants to be able to continue antibiotics there, as well as tube feeding. Reviewed medical status, prognosis, transition to comfort focused goals and transfer to a hospice care center. He would like to wait until tomorrow to transfer but does at this time request hospice services. Family is supportive. Family/Friend Interactions: Discussion with pt and daughter at bedside, as above. Objective Vital Signs: Vital Signs 12/11/17 12:00 12/11/17 16:00 12/11/17 19:59 Temperature 99.5 F 100.6 F H 99 F Pulse Rate 95 H 83 80 Respiratory Rate 20 20 18 Blood Pressure 144/81 H 147/78 H 130/72 Pulse Oximetry 96 95 97 12/11/17 20:36 12/11/17 21:40 12/12/17 00:39 Temperature 98.4 F Pulse Rate 93 H Respiratory Rate 18 18 18 Blood Pressure 154/80 H Pulse Oximetry 96 12/12/17 01:00 12/12/17 02:23 12/12/17 04:33 Temperature 99.2 F Pulse Rate 81 Respiratory Rate 16 18 18 Blood Pressure 145/70 H Pulse Oximetry 95 12/12/17 04:58 12/12/17 06:33 12/12/17 08:26 Temperature 97.6 F Pulse Rate 84 Respiratory Rate 18 16 16 Blood Pressure 129/75 Pulse Oximetry 95 Intake & Output 12/11/17 12/12/17 12/12/17 18:59 06:59 18:59 Intake Total 1000 / 1000 610 / 610 687 / 687 Output Total 610 / 610 650 / 650 210 / 210 Balance 390 / 390 -40 / -40 477 / 477 Weight 72 kg Intake: IV 100 / 100 100 / 100 Maxipime Inj 2,000 MG In NS Inj 100 / 100 100 / 100 100 ML @ 200 mls/hr IV.SIG Q12H CAM Rx#:[id number] Oral 200 / 200 240 / 240 Tube Feeding 550 / 550 687 / 687 Water Bolus Amount 150 / 150 270 / 270 Output: Urine 600 / 600 650 / 650 200 / 200 Wound Drainage # 1 Right Upper Lateral Abdomen Other: Date of Last Bowel Movement 12/11/17 12/11/17 12/12/17 # Bowel Movements 1 Physical Exam: CONSTITUTIONAL/GENERAL: frail appearing male TUBES/LINES/DRAINS: GJ tube, hepatic drain with biliious drainage SKIN: No jaundice, rashes, or lesions. No wounds seen anteriorly. Skin temperature appropriate. Not diaphoretic. HEAD: Atraumatic. Normocephalic. EYES: Extraocular motions intact. No scleral icterus. No injection or drainage. Fundi not examined. ENT: Hearing grossly normal. Nose without bleeding or purulent drainage. CARDIOVASCULAR: RRR without murmurs, gallops, or rubs. No JVD. Peripheral pulses symmetric. RESPIRATORY/CHEST: Symmetric, unlabored respirations. Clear to auscultation. Breath sounds equal bilaterally. GASTROINTESTINAL: Abdomen soft, RUQ mildly TTP in area of drain & epigastrium, abd mildly distended. No hepato-splenomegaly, or palpable masses. No guarding. Bowel sounds soft. MUSCULOSKELETAL: Extremities without clubbing, cyanosis. trace BLE edema, improved from yesterday. No joint tenderness or effusion noted. No mottling or clubbing. NEUROLOGICAL: Motor and sensory grossly within normal limits. Follows commands. Moves all extremities. PSYCHIATRIC: flat affect Diagnostic Tests Result Diagrams: 12/06/17 04:20 12/07/17 04:18 Procedures: 12/05 drainage liver abscess, drain placement 12/07 IR reassessment hepatic drain Assessment and Plan - Disease Oriented Problem List (1) Sepsis (2) Pancreatic cancer metastasized to liver (3) Gastric outlet obstruction (4) Hepatic abscess (5) Pancreatic mass - Symptom Scale (1) Debility 0-10 Scale: Unable to quantify (2) Pain 0-10 Scale: Unable to quantify (3) Anxiety 0-10 Scale: Unable to quantify (4) Nausea 0-10 Scale: Unable to quantify Pertinent Non-Medical Issues: Psychosocial: Pt originally from [place] but has been in [place] most of his life. He is , with 2 daughters who live locally. 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 Spiritual: Scient[employer] Legal: pt currently capacitated to make medical decisions. Should he become incapacitated he has designated his daughter Mima and his brother Oscar to make medical decisions on his behalf. Family working together. Ethical issues impacting care: none Important Contacts: Oscar Cruz [phone] Mima Machado [phone] - can leave message, work [phone] Prognosis: 71 yo male with recently diagnosed locally advanced pancreatic carcinoma, gastric outlet obstruction 2/2 mass s/p GJ placement, who presented 11/30 with fever, chills, shaking. He is being treated for sepsis from unclear source. He was found to have a liver abscess which is now s/p drainage and placement drain. If he recovers from sepsis and becomes stronger, he could be candidate for palliative Folfirinox. His prognosis is poor, this is almost certainly terminal. He is hospice appropriate should goals be in line with comfort. Code Status: No Code DNR Plan: - LEGAL DECISON MAKER -patient is currently capacitated to make decisions. should he become incapacitated he has designated his daughter Mima and his brother Oscar to make medical decisions on his behalf. Family working together. - CODE STATUS- full code - GOALS - He is asking about hospice and wants to be able to continue antibiotics there, as well as tube feeding. Reviewed medical status, prognosis , transition to comfort focused goals and transfer to a hospice care center. He would like to wait until tomorrow to transfer but does at this time request hospice services. Family is supportive. - SYMPTOMS - * Pain - multifactorial, 2/2 mass, procedures. admits abd pain, cannot quantify , mild TTP. Has fentanyl patch 50mcg, additionally has 2mg IV morphine PRN q4h and 4mg PO dilaudid PRN q4h. He is alternating between his PRN IV morphine and PO dilaudid. * anxiety - r/t diagnosis. admits continued anxiety. has PRN ativan. no further recs at this time. * Debility/weakness was ambulating with IV pole. now ambulates with walker, slowly. Tolerating TF. minimal PO intake. PT following, no further recs. * nausea - multifactorial - 2/2 opiates, GOO. denies nausea on my eval but remains at high risk for nausea. minimal PO intake, just sips water. g tube clamped. If nausea continues or worsens, consider GI consult for eval for duodenal stent. - d/w RN Anisa, d/w pattern molder - Palliative care will continue to follow during hospital course as condition evolves, to assist patient/decision-maker with understanding of medical conditions, weighing benefits/burdens of treatment options, for clarification of goals of treatment. Additionally will assist with any symptoms of palliative concern
--- NOTE | 2017-12-12 19:59 | CT ---
EXAM DATE: 12/12/2017 7:09 PM EDT AGE/SEX: 71 years / Male INDICATIONS: Abscess. CLINICAL DATA: This is the patient's initial encounter. Patient reports that signs and symptoms have been present for 1 day and indicates a pain score of 4/10. MEDICAL/SURGICAL HISTORY: Carcinoma, pancreas. . Abscess drain. RADIATION DOSE: 6.71 CTDI (mGy) COMPARISON: [facility], MRCP W/O CONTRAST, 12/03/2017. . TECHNIQUE: Multiple contiguous axial images were obtained through the abdomen. Images were obtained using multiple row detector helical technique. Using automated exposure control and adjustment of the mA and/or kV according to patient size, radiation dose was kept as low as reasonably achievable to o btain optimal diagnostic quality images. DICOM format image data is available electronically for rev iew and comparison. FINDINGS: Comparison is November 11. Comparison is MRCP from December 03. Multiloculated right pleural effusion h as increased in size since December 03. Left effusion has decreased in size. There is now a drain present within a loculated fluid collection in the posterior right lobe liver. T here is extensive pneumobilia. Stent is present in the common bile duct. There is enlargement of the pancreatic head and patient with history of pancreatic cancer. Gastrojeju nostomy feeding tube is present. There is no bowel obstruction. Small amount of free fluid is present. No free air. Bilateral renal cysts are stable. Spleen, adrenals are stable. No acute bony abnormalities. Fat in both inguinal canals. CONCLUSION: 1. Increase in size of multiloculated right pleural effusion since MRCP from December 03. 2. Placement of drainage catheter with an ill-defined fluid collection in the posterior right lobe l iver which now measures about 2.8 cm in diameter. 3. Extensive pneumobilia. Biliary stent present. Enlarged pancreatic head in patient with known panc reatic cancer. 4. Trace free fluid. No bowel obstruction or free air. Feeding gastrojejunostomy present. Electronically signed by: Norm Pardo MD 12/12/2017 7:57 PM EDT
[2017-12-13] MEDS: Morphine Inj 4 MG/ML Vial IV.PUSH PRN ×3 (01:26→11:23)
[2017-12-13] MEDS: LORazepam 1 MG Tablet PO PRN ×3 (02:16→13:33)
[2017-12-13] MEDS: metroNIDAZOLE 500 MG Tablet PO SCH ×2 (05:17→13:33)
--- NOTE | 2017-12-13 08:17 | P.PNIM ---
Subjective Interval history: pt appears comfortable he informs me that comfort care/hospice is what he has chosen. Physical Exam Vital signs: Vital Signs 12/12/17 08:26 12/12/17 12:29 12/12/17 16:00 Temperature 97.6 F 98.3 F 99.1 F Pulse Rate 84 83 82 Respiratory Rate 16 16 16 Blood Pressure 129/75 138/77 148/76 H Pulse Oximetry 95 96 12/12/17 20:00 12/12/17 23:34 12/13/17 00:00 Temperature 98.5 F 98.5 F Pulse Rate 84 91 H Respiratory Rate 17 17 18 Blood Pressure 145/78 H 155/86 H Pulse Oximetry 96 97 12/13/17 04:00 12/13/17 06:35 Temperature 98.5 F Pulse Rate 85 Respiratory Rate 17 16 Blood Pressure 147/79 H Pulse Oximetry 96 Intake & Output 12/12/17 12/13/17 12/13/17 18:59 06:59 18:59 Intake Total 1858 / 1858 1150 / 1150 Output Total 1620 / 1620 1310 / 1310 Balance 238 / 238 -160 / -160 Weight 71 kg Intake: IV 100 / 100 100 / 100 Maxipime Inj 2,000 MG In NS Inj 100 / 100 100 / 100 100 ML @ 200 mls/hr IV.SIG Q12H CAM Rx#:[id number] Oral 250 / 250 150 / 150 Oral Supplement 0 / 0 Tube Feeding 1258 / 1258 660 / 660 Tube Irrigant 250 / 250 Water Bolus Amount 0 / 0 240 / 240 Output: Urine 1600 / 1600 1300 / 1300 Wound Drainage 20 / 20 10 / 10 # 1 Right Upper Lateral Abdomen 20 20 10 10 Other: Date of Last Bowel Movement 12/12/17 12/12/17 # Bowel Movements 1 nad lying in bed oriented Results - Labs CBC & Chem 7: 12/06/17 04:20 12/07/17 04:18 - Imaging Impressions Abdomen/Pelvis CT 12/12/17 00:00 CONCLUSION: 1. Increase in size of multiloculated right pleural effusion since MRCP from December 03. 2. Placement of drainage catheter with an ill-defined fluid collection in the posterior right lobe liver which now measures about 2.8 cm in diameter. 3. Extensive pneumobilia. Biliary stent present. Enlarged pancreatic head in patient with known pancreatic cancer. 4. Trace free fluid. No bowel obstruction or free air. Feeding gastrojejunostomy present. Assessment and Plan - Assessment (1) Sepsis Code(s): A41.9 - Sepsis, unspecified organism Status: Acute Plan: Fevers/chills, sepsis biliary/liver abscess source. - Pt is a 71 y/o male with pancreatic cancer who presented to the ER at [facility] on with complaints of fevers and chills. Around 4-5 days ago he began having some low grade fevers which was being treated with Tylenol. He states that he has had a bit of a dry cough for some time and had a CXR and blood work done on 11/27/17, which he reports were negative. Then yesterday evening he started having shaking chills and his fever spiked to 103 degrees. This prompted his evaluation in the ED last night. - His fever was noted to be 103 in the ED. - CXR (11/30) --> NO acute findings. - Pt tested negative for flu. - comgmt with Infectious Disease, Interventional Radiology, Oncology, Palliative Medicine - Pt reports that the last time his port was accessed was [address] Geller office. - Blood Culture peripheral (11/30/17) --> Prevotella Buccae - Blood culture port (11/30/17) --> No growth - Repeat Blood Cx (12/03/17) --> No growth - fluid culture, hepatic fluid (12/05) --> gram negative rods, strep viridans - Vancomycin (11/30 - 12/02) - Cefepime (11/30 - present) - PO flagyl (12/06 - present) - Fentanyl increased to 50mcg (12/05) - Pt had metal sent placed in bile duct during previous admission, 10/2017 - MRCP (12/03/17) 1. The right lobe of liver there is a new multiloculated fluid collection I suspect related to recent intervention. It measures 5.2 x 3.9 cm across. 2. Known pancreatic cancer with a biliary stent in good position. 3. Gallbladder is decompressed but there is some fluid surrounding the liver. - Case d/w Radiology (12/04). 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 - liver abscess drainage catheter adjusted by IR (12/07). Catheter now to drainage by gravity. - Long discussion with pt & brother (12/08) about possibly changing code status to DNR - again discussed code status with Mr. Cruz (12/09). - He would like to continue full code status for now - He will discuss code status again with his family. Although per pt, both his brother and daughter agree with DNR. - Per ID, pt will need 6 weeks IV antibiotic therapy - Seems unlikely that pt will reach point where chemotherapy could be initiated pt agreed to dnr Dr Clements and I both discussed and advised pt to accept hospice care. I had long discussion with daughter Mima who supports accepting hospice another discussion regarding goals of care with pt. He has chosen hospice at hospice care center. he wants only comfort medications. will dc him with his tube feeding and oral intake as tolerated. defer pain and comfort meds to hospice. I will not write for any antibiotics. 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
[2017-12-13 09:44] VITALS: BP 85/67; PULSE 108; RESP 19; TEMP 99; O2SAT 97
[2017-12-13] MEDS: Nystatin Liq 500,000 UNIT/5 ML UDC SWISH-SWAL SCH ×2 (09:54→13:34)
[2017-12-13] MEDS: Enoxaparin Inj 40 MG/0.4 ML Syringe SQ SCH (09:54)
[2017-12-13] MEDS: Senna/Docusate Sodium 8.6/50 MG Tablet PO SCH (09:55)
--- NOTE | 2017-12-15 14:54 | P.DS ---
Date of admission: 11/30/17 01:52 Primary care physician: Robert Chung MD Anticipated date of discharge: 12/13/17 Brief History from admission: Mr. Cruz is a pleasant 71 y/o male with pancreatic cancer who presented to the [place] [facility] [place] with complaints of fevers and chills. He states that he has been at [facility] for rehab since his last discharge on 11/14/17. He had been doing fairly well and was walking around with some assisted devices and was tolerating TF well. Around 4-5 days ago he began having some low grade fevers which was being treated with Tylenol. He states that he has had a bit of a dry cough for some time and had a CXR and blood work done on 11/27/17, which he reports were negative. Then yesterday evening he started having shaking chills and his fever spiked to 103 degrees. This prompted his evaluation in the ED last night. His fever was noted to be 103 in the ED. He was given Cefepime 2grams IV in the ED after blood cultures were drawn. His CXR was negative. He tested negative for flu. Pt denies any sore throat, congestions , nausea/vomiting, diarrhea, abd pain, chest pain, SOB, dizziness or weakness. Pt reports that the last time his port was accessed was [address] Geller office. Past Medical/Surgical Hx: Pancreatic cancer, attempted ERCP 10/13 for obstructive jaundice and finding was ampulla distorted by tumor invasion, failed sphincterotomy. Multiple imaging modalities showed pancreatic mass. Pt then had biliary drain and stent placed by IR. Pt had EUS and FNA 10/16 and biopsy showed poorly differentiated adenocarcinoma c/w pancreatic primary. Pt is following with Dr Diaz. The mass is not resectable and pt had a recent PET scan showing possible metastasis to liver. Had port placed 05/03. Pt has been too weak for palliative chemotherapy. His bilirubin has trended down since the biliary drain and stent was placed. GJ tube placement by IR Skin Cancer removal Tonsillectomy Port placement Family Hx: Noncontributory Social Hx: Denies any alcohol, tobacco or illicit drug use DS: Diagnosis - Discharge Diagnosis (1) Sepsis Status: Acute (2) Pancreatic cancer metastasized to liver Status: Acute (3) Pain Status: Acute (4) Anxiety Status: Acute DS: Summary Hospital Course: (1) Sepsis Code(s): A41.9 - Sepsis, unspecified organism Status: Acute Plan: Fevers/chills, sepsis biliary/liver abscess source. - Pt is a 71 y/o male with pancreatic cancer who presented to the ER at [facility] [place] with complaints of fevers and chills. Around 4-5 days ago he began having some low grade fevers which was being treated with Tylenol. He states that he has had a bit of a dry cough for some time and had a CXR and blood work done on 11/27/17, which he reports were negative. Then yesterday evening he started having shaking chills and his fever spiked to 103 degrees. This prompted his evaluation in the ED last night. - His fever was noted to be 103 in the ED. - CXR (11/30) --> NO acute findings. - Pt tested negative for flu. - comgmt with Infectious Disease, Interventional Radiology, Oncology, Palliative Medicine - Pt reports that the last time his port was accessed was [address] Geller office. - Blood Culture peripheral (11/30/17) --> Prevotella Buccae - Blood culture port (11/30/17) --> No growth - Repeat Blood Cx (12/03/17) --> No growth - fluid culture, hepatic fluid (12/05) --> gram negative rods, strep viridans - Vancomycin (11/30 - 12/02) - Cefepime (11/30 - present) - PO flagyl (12/06 - present) - Fentanyl increased to 50mcg (12/05) - Pt had metal sent placed in bile duct during previous admission, 10/2017 - MRCP (12/03/17) 1. The right lobe of liver there is a new multiloculated fluid collection I suspect related to recent intervention. It measures 5.2 x 3.9 cm across. 2. Known pancreatic cancer with a biliary stent in good position. 3. Gallbladder is decompressed but there is some fluid surrounding the liver. - Case d/w Radiology (12/04). 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 - liver abscess drainage catheter adjusted by IR (12/07). Catheter now to drainage by gravity. - Long discussion with pt & brother (12/08) about possibly changing code status to DNR - again discussed code status with Mr. Cruz (12/09). - He would like to continue full code status for now - He will discuss code status again with his family. Although per pt, both his brother and daughter agree with DNR. - Per ID, pt will need 6 weeks IV antibiotic therapy - Seems unlikely that pt will reach point where chemotherapy could be initiated pt agreed to dnr Dr Clements and I both discussed and advised pt to accept hospice care. I had long discussion with daughter Mima who supports accepting hospice another discussion regarding goals of care with pt. He has chosen hospice at [facility]. he wants only comfort medications. will dc him with his tube feeding and oral intake as tolerated. defer pain and comfort meds to hospice. I will not write for any antibiotics. (2) Pancreatic cancer metastasized to liver Code(s): C25.9 - Malignant neoplasm of pancreas, unspecified; C78.7 - Secondary malignant neoplasm of liver and intrahepatic bile duct Status: Acute (3) Pain Code(s): R52 - Pain, unspecified Status: Acute (4) Anxiety Code(s): F41.9 - Anxiety disorder, unspecified Status: Acute - Time Spent with Patient Total time spent providing and/or coordinating discharge services: Greater than 30 minutes - Quality: VTE Deep Vein Thrombosis/Pulmonary Embolism Present on Admission: No Exam Vital signs: heart reg lung cta abd gj tube ext no edema Results Procedures completed during hospitalization: ct a/p mrcp abdomen IR abscess liver drain - Impressions ITS Impressions Chest X-Ray 11/30/17 00:57 CONCLUSION: No acute cardiopulmonary abnormality is identified. Cholangiopancreatography MRI 12/03/17 00:00 CONCLUSION: 1. The right lobe of liver there is a new multiloculated fluid collection I suspect related to recent intervention. It measures 5.2 x 3.9 cm across. 2. Known pancreatic cancer with a biliary stent in good position. 3. Gallbladder is decompressed but there is some fluid surrounding the liver. Abscess Drainage CT 12/05/17 00:00 CONCLUSION: 1. Uncomplicated CT guided drainage of an intrahepatic abscess. Catheter Patency X-Ray 12/07/17 00:00 CONCLUSION: 1. The hepatic abscess cavity has eroded into a peripheral biliary duct. Drainage will be to gravity bag as opposed to an accordion suction device. Abdomen/Pelvis CT 12/12/17 00:00 CONCLUSION: 1. Increase in size of multiloculated right pleural effusion since MRCP from December 03. 2. Placement of drainage catheter with an ill-defined fluid collection in the posterior right lobe liver which now measures about 2.8 cm in diameter. 3. Extensive pneumobilia. Biliary stent present. Enlarged pancreatic head in patient with known pancreatic cancer. 4. Trace free fluid. No bowel obstruction or free air. Feeding gastrojejunostomy present. Discharge Plan - Discharge Disposition Patient Disposition: [facility] Hospice[facility]Med Facility - Discharge Condition Condition: Good - Discharge Order Discharge Orders: Discharge Order (Routine); Ordered 12/13/17 Ordered By: Chase Nieto - Discharge Details Anticipated Discharge Date: 11/30/17 Discharge Comment: discharge patient when hospice care center arrangments made. check with hospice for - Physicians Team Primary Care Provider: Robert Chung Attending Provider: Fabian Baum Other Providers: Harriet Christensen,Aide ; Allegra Velazquez MD ; Isai Murphy MD ; Chase Clements MD
== END 2017-12-13 14:26 | disposition hospice, inpatient (51) ==
LOC: NEPE 00:40 → NEDH 01:52 → NEPFCDU 10:54 → HCIN 12-02 13:22
PROVIDERS: ADMIT Hospitalist; ATTEND Hospitalist